=== PATIENT | male | born 1955 | race African-American/Black ===

== ENCOUNTER 2020-09-17 06:22 | Day surgery (SDC) | payer OTHER, SELFPAY ==
[2020-09-13 12:57] VITALS: BMI 34.2
--- NOTE | 2020-09-16 12:41 | P.CONAN_ITS ---
Documented by User: Shea De Leon 09/16/20 12:41 HPI - Anesthesia Eval Consult details Narrative: 65yo M for Colonoscopy [facility] Past Medical History Medical History (Updated 09/17/20 @ 07:27 by [place] Ramirez) Elevated cholesterol History of verrucae (wart) excision HTN (hypertension) Increased BMI Surgical History Surgical History H/O colonoscopy Social History Social History Smoking Status: Never smoker Use of substances other than those prescribed or required for medical reasons: No Advance Directives Information Provided: No Meds Allergies Allergy/AdvReac Type Severity Reaction Status Date / Time No Known Allergies Allergy Verified 09/13/20 13:01 Home Medications Medication Instructions Recorded Confirmed Type aspirin [Aspirin Low Dose] 81 mg PO DAILY 09/13/20 09/17/20 History atorvastatin 1 tab PO DAILY 09/13/20 09/13/20 History quinapril 40 mg PO DAILY 09/13/20 09/17/20 History Exam Exam Date and Time: September 16, 2020 1241 Height,Weight and Vital Signs: Height 5 ft 7 in Weight 99.337 kg Assessment and Plan Assessment Anesthesia Assessment: Chart Reviewed Documented by User: [place] Ramirez 09/17/20 07:28 [facility] Past Medical History Medical History (Updated 09/17/20 @ 07:27 by [place] Ramirez) Elevated cholesterol History of verrucae (wart) excision HTN (hypertension) Increased BMI Family History Family history of problems with anesthesia: No Surgical History Surgical History H/O colonoscopy History of Problems with Anesthesia: No Social History Social History Smoking Status: Never smoker Use of substances other than those prescribed or required for medical reasons: No Advance Directives Information Provided: No Meds Allergies Allergy/AdvReac Type Severity Reaction Status Date / Time No Known Allergies Allergy Verified 09/13/20 13:01 Home Medications Medication Instructions Recorded Confirmed Type aspirin [Aspirin Low Dose] 81 mg PO DAILY 09/13/20 09/17/20 History atorvastatin 1 tab PO DAILY 09/13/20 09/13/20 History quinapril 40 mg PO DAILY 09/13/20 09/17/20 History Exam Height,Weight and Vital Signs: Vital Signs Temp Pulse Resp BP Pulse Ox 09/17/20 07:00 97.1 F 64 16 132/68 98 Airway Mallampati Class: III TM Dist: >3cm Neck ROM: Full Denture: Upper and Lower Heart: RRR Lungs: CTAB Assessment and Plan Assessment Anesthesia Assessment: Anesthesia Plan Discussed and Chart Reviewed Final Anesthetic Review NPO: Yes ASA Class: II Final Preanesthetic Review: No Changes in Pt Med Stat, Meds/Allgs Chart Reviewed, Consent Obtained/Reviewed and Anes Risks/Benef Reviewed Patient Risk: Low Procedure Risk: Low Anesthetic Plan Anesthetic Plan: MAC: Disposition: Standard PACU
[2020-09-17 07:00] VITALS: BP 132/68; PULSE 64; RESP 16; TEMP 36.2; O2SAT 98
[2020-09-17] MEDS: Lactated Ringers 1,000 ML 100 ML IVCONT (07:00)
[2020-09-17 08:39] VITALS: BP 80/44; PULSE 64; RESP 12; TEMP 36.2; O2SAT 98
[2020-09-17 08:42] VITALS: BP 97/47; PULSE 56; RESP 14; O2SAT 97
--- NOTE | 2020-09-17 08:45 | PM.OP ---
Brief Operative Note Date of Service: 09/17/20 Pre-op diagnosis: Screening Post-op diagnosis: other (Colon polyps, Diverticulosis, Condylomatous disease of perianal area) Procedure: Colonoscopy to cecum and TI with biospy and removal of polyps, snare polypectomy of distal rectal polyp with placement of ink markings and a Resolution clip Surgeon: Jason Gayle Anesthesia: MAC Estimated blood loss (mL): 3.0 Pathology: other (A. Ascending colon polyps B. Distal rectal polyp) Condition: stable Disposition: other
[2020-09-17 08:54] VITALS: BP 99/53; PULSE 56; RESP 16; O2SAT 97
[2020-09-17 09:01] VITALS: BP 109/50; PULSE 57; RESP 16; O2SAT 97
--- NOTE | 2020-09-17 09:20 | HO.POSTANES ---
Post Anesthesia Evaluation Post Anesthesia Evaluation Vital Signs: Vital Signs Temp Pulse Resp BP Pulse Ox 09/17/20 09:01 97.1 F 57 16 109/50 L 97 09/17/20 08:54 56 16 99/53 L 97 09/17/20 08:42 56 14 97/47 L 97 09/17/20 08:39 97.1 F 64 12 80/44 L 98 09/17/20 07:00 97.1 F 64 16 132/68 98 Anesthesia: Monitored Mental Status: Awake Pain Control: Satisfactory Nausea/Vomiting: None Hydration: Adequate Anesthesia-Related Issues: No Anes. Related Issues
--- NOTE | 2020-09-17 09:50 | OP_ITS ---
SURGEON: Jason Gayel MD INDICATIONS: Full consent has been obtained from him for this, including risks of bleeding and perforation. PREOPERATIVE DIAGNOSIS: Colorectal cancer screening. POSTOPERATIVE DIAGNOSIS: PROCEDURE PERFORMED: ESTIMATED BLOOD LOSS: COMPLICATIONS: ANESTHESIA: Monitored anesthesia care. ASSISTANTS: SPECIMENS: POSTOPERATIVE DIAGNOSES: Colorectal cancer screening, colon polyps, diverticulosis, changes of perianal condyloma disease and previous surgery. DESCRIPTION OF PROCEDURE: The patient was placed in the left lateral decubitus position. The digital rectal exam revealed significant changes in the perianal area of his known previous perianal condyloma. The Olympus video pediatric colonoscope was entered into the rectum and advanced easily to the cecum. Once in the cecum, I did identify normal-appearing cecal pouch with appendiceal orifice and a normal-appearing ileocecal valve. The terminal ileum was cannulated and appeared normal. The scope withdrawn back in the colon. The entire cecum and ileocecal valve appeared normal. The scope was slowly withdrawn assessing all mucosal surfaces carefully. Preparation was excellent. In the ascending colon, there were several less than 5 mm polyps, which were all biopsied and completely removed with a cold biopsy forceps and placed in the same container. There was a mild amount of sigmoid diverticulosis. I did not visualize any sign of colitis or angiodysplasia. In the rectum, the scope was retroflexed visualizing a distal rectal polyp about 2 cm above the dentate line. This was actually seen best in the forward viewing position. The polypoid lesion was approximately 2 cm in diameter with some minimal friability. It appeared to be on a very short, but broad stalk. The polypoid lesion was removed via hot snare polypectomy in a single piece and recovered by taking it out of the patient on the end of the colonoscope. The scope was readvanced into the rectum. The polypectomy site was well visualized and appeared clean, without any sign of residual polyp nor bleeding. Given its gross appearance, I did inject some mucosal ink adjacent to it on both sides with good markings noted. I then used a single Resolution Clip on the polypectomy site with good deployment and good closure of the polypectomy site. There was good hemostasis. The scope was then withdrawn from the patient. He tolerated the procedure well and was returned to recovery area in stable condition. IMPRESSION: 1. Distal rectal polyp, status post snare polypectomy, placement of submucosal ink markings, and placement of a single Resolution Clip. 2. Small ascending colon polyps, status post biopsy and removal. 3. Diverticulosis. 4. Perianal changes of condyloma disease. PLAN: The results of the pathology will be checked. If the rectal polyp is only a tubular adenoma without any sign of significant dysplasia or cancer, then I would recommend a repeat colonoscopy within 1 year. He was advised not to use any aspirin or NSAIDs for at least a week. Further followup will be made depending upon the results of the pathology. PROCEDURES PERFORMED: Colonoscopy to the cecum and terminal ileum with biopsy and removal of polyps, snare polypectomy, placement of submucosal ink markings, and placement of a single Resolution Clip. MD BETTY Agosto/FRANCISCO / [id number] MTDLynne
== END 2020-09-17 09:51 | disposition home or self-care (01) ==
PROVIDERS: PCP Internal Medicine; Visit Provider Internal Medicine
PROC: 0DJD8ZZ Inspection of Lower Intestinal Tract, Via Natural or Artificial Opening Endoscopic (ICD-10-PCS; CPT 45378; principal; 2020-09-17 07:30)
DX: Z12.11 Encounter for screening for malignant neoplasm of colon (principal); C20 Malignant neoplasm of rectum; D12.2 Benign neoplasm of ascending colon; K57.30 Diverticulosis of large intestine without perforation or abscess without bleeding; A63.0 Anogenital (venereal) warts
CPT/HCPCS: 45385; 45380; 45381; 88305; 88341; 88342

== ENCOUNTER 2020-10-06 15:19 | Outpatient (REF) | payer OTHER, SELFPAY ==
[2020-10-06 18:35] LABS: Blood Urea Nitrogen 18 mg/dL (9-16); Estimated Glomerular Filt Rate > 60
== END 2020-10-06 15:20 | disposition home or self-care (01) ==
LOC: HO.LAB 15:19
PROVIDERS: PCP Internal Medicine; Visit Provider Surgery
DX: C20 Malignant neoplasm of rectum (principal); I10 Essential (primary) hypertension
CPT/HCPCS: 82378; 82565; 84520

== ENCOUNTER 2020-10-15 07:26 | Outpatient (REF) | payer OTHER, SELFPAY ==
[2020-10-15 08:03] LABS: Basophils Percent Auto 0.4 % (0-2); Eosinophils Absolute Auto 0.3 X10*3/uL (0.0-0.4); Eosinophils Percent Auto 3.7 % (0-4); Hematocrit 43.2 % (42-52); Hemoglobin 14.1 g/dl (14.0-18.0); Imm Gran Abs Auto 0.01 X10*3/uL (0.00-0.03); Imm Gran Pct Auto 0.1 % (0.0-0.4); Lymphocytes Percent Auto 50.8 % (20-40); MANUAL DIFF FLAG NO; Mean Corpuscular HGB Conc 32.6 g/dl (31.0-36.0); Mean Corpuscular Hemoglobin 29.7 pg (27.0-33.0); Mean Corpuscular Volume 90.9 fL (80-98); Mean Platelet Volume 8.8 fL (9.4-12.4); Monocytes Absolute Auto 0.6 X10*3/uL (0.1-1.2); Monocytes Percent Auto 7.3 % (2-11); Neutrophils Absolute Auto 2.9 X10*3/uL (2.0-8.3); Neutrophils Percent Auto 37.7 % (45-73); Platelet Count 235 X10*3/uL (160-400); Red Blood Count 4.75 X10*6/uL (4.60-5.80); Red Cell Distribution Width 12.7 % (11.0-16.0); White Blood Count 7.8 X10*3/uL (4.8-10.8)
[2020-10-15 08:11] LABS: Appearance Urine CLEAR; Color Urine YELLOW; Glucose Urine UA NEG (NEG); Leukocyte Esterase Urine NEG (NEG); Nitrite Urine NEG (NEG); PH 5.5 (5.0-8.0); Specific Gravity - Urine 1.025 (1.005-1.025); Urine Blood 1+ (NEG); Urine Ketones NEG (NEG); Urine Protein NEG (NEG-TRACE)
[2020-10-15 08:20] LABS: Estimated Average Glucose 120 mg/dL; Hemoglobin A1C 149.6193 umol/L; Hemoglobin A1c % 5.8 %
[2020-10-15 08:27] LABS: Alanine Aminotransferase 29 U/L (0-40); Albumin Level 4.4 g/dL (3.5-5.0); Alkaline Phosphatase 96 U/L (39-117); Anion Gap 12 (12-20); Aspartate Amino Transferase 26 U/L (5-37); Bilirubin Total 0.4 mg/dL (0.0-1.0); Blood Urea Nitrogen 17 mg/dL (9-16); Calcium 8.9 mg/dL (8.4-10.2); Carbon Dioxide 29 mmol/L (22-29); Chloride 101 mmol/L (96-108); Cholesterol 135 mg/dL; Estimated Glomerular Filt Rate > 60; Glucose Fasting 123 mg/dL (60-99); HDL Cholesterol 43 mg/dL; LDL Cholesterol Calculated 75 mg/dl; Potassium 4.6 mmol/l (3.3-5.1); Sodium 137 mmol/L (135-145); Total Protein 7.3 g/dL (6.5-8.0); Triglycerides 86 mg/dL
[2020-10-15 08:40] LABS: WBC Urine 0 /HPF (0-4)
[2020-10-15 08:41] LABS: RBC Urine 0-2 /HPF (0); Squamous Epithelial Cell Urine TRACE /LPF
[2020-10-15 09:26] LABS: Creatinine Urine 64.02 mg/dL; Microalbumin Urine < 5.0 mg/L
[2020-10-15 09:48] LABS: Prostate Specific Antigen Scr 6.91 ng/mL (<0.05-4.0); Reflex LDLD? No
== END 2020-10-15 07:27 | disposition home or self-care (01) ==
LOC: HO.LAB 07:26
PROVIDERS: Visit Provider Internal Medicine
DX: Z00.01 Encounter for general adult medical examination with abnormal findings (principal); R97.20 Elevated prostate specific antigen [PSA]; D72.820 Lymphocytosis (symptomatic); I10 Essential (primary) hypertension; R73.03 Prediabetes; E78.00 Pure hypercholesterolemia, unspecified; Z12.5 Encounter for screening for malignant neoplasm of prostate
CPT/HCPCS: 36415; 80053; 80061; 81001; 81003; 82043; 83036; 84153; 85025

== ENCOUNTER 2020-10-23 09:11 | Outpatient (REF) | payer OTHER, SELFPAY ==
[2020-10-23 09:57] LABS: MANUAL DIFF FLAG NO
[2020-10-23 10:00] LABS: Basophils Percent Auto 0.5 % (0-2); Eosinophils Absolute Auto 0.2 X10*3/uL (0.0-0.4); Eosinophils Percent Auto 3.2 % (0-4); Hematocrit 41.9 % (42-52); Imm Gran Abs Auto 0.01 X10*3/uL (0.00-0.03); Imm Gran Pct Auto 0.1 % (0.0-0.4); Lymphocytes Absolute Auto 3.7 X10*3/uL (1.2-4.9); Lymphocytes Percent Auto 48.9 % (20-40); Mean Corpuscular HGB Conc 33.4 g/dl (31.0-36.0); Mean Corpuscular Hemoglobin 30.4 pg (27.0-33.0); Mean Corpuscular Volume 90.9 fL (80-98); Mean Platelet Volume 8.8 fL (9.4-12.4); Monocytes Absolute Auto 0.7 X10*3/uL (0.1-1.2); Monocytes Percent Auto 9.4 % (2-11); Neutrophils Absolute Auto 2.8 X10*3/uL (2.0-8.3); Neutrophils Percent Auto 37.9 % (45-73); Platelet Count 229 X10*3/uL (160-400); Red Blood Count 4.61 X10*6/uL (4.60-5.80); Red Cell Distribution Width 12.9 % (11.0-16.0); White Blood Count 7.5 X10*3/uL (4.8-10.8)
[2020-10-23 10:23] LABS: Alanine Aminotransferase 23 U/L (0-40); Alkaline Phosphatase 85 U/L (39-117); Anion Gap 14 (12-20); Aspartate Amino Transferase 22 U/L (5-37); Bilirubin Direct 0.2 mg/dL (0.0-0.5); Bilirubin Total 0.5 mg/dL (0.0-1.0); Blood Urea Nitrogen 15 mg/dL (9-16); Calcium 9.1 mg/dL (8.4-10.2); Carbon Dioxide 28 mmol/L (22-29); Chloride 103 mmol/L (96-108); Estimated Glomerular Filt Rate > 60; Glucose Random 107 mg/dL (60-115); Potassium 4.7 mmol/l (3.3-5.1); Sodium 140 mmol/L (135-145); Total Protein 6.7 g/dL (6.5-8.0)
[2020-10-27 02:57] LABS: Beta-2 Glycoprotein IgA <9 SAU (<=20); Beta-2 Glycoprotein IgG <9 SGU (<=20); Beta-2 Glycoprotein IgM <9 SMU (<=20)
[2020-10-28 17:22] LABS: Amitriptyline, Urine NEGATIVE ng/mL (<100); Nortriptyline, Urine NEGATIVE ng/mL (<100)
== END 2020-10-23 09:12 | disposition home or self-care (01) ==
LOC: HO.LAB 09:11
PROVIDERS: PCP Internal Medicine; Visit Provider Internal Medicine
DX: C20 Malignant neoplasm of rectum (principal)
CPT/HCPCS: 36415; 80053; 80076; 80335; 82248; 82378; 85025; 86146

== ENCOUNTER 2020-10-25 07:34 | Outpatient (REF) | payer OTHER, SELFPAY ==
--- NOTE | 2020-10-25 07:36 | MR_ITS ---
EXAMINATION: MR PELVIS WITHOUT AND WITH CONTRAST CLINICAL INFORMATION: Rectal cancer. COMPARISON: Previous CT scan of the abdomen and pelvis most recent October 2020 TECHNIQUE: Sagittal, axial and coronal sequences through the pelvis with and without contrast. Patient received 10 mL of intravenous Gadavist contrast. FINDINGS: No definite rectal mass is seen. There is question of focal wall thickening of the high posterior rectum at the level of the levator ani muscles. This measures approximately 9 mm in thickness. This is seen in the posterior high rectum on the left from approximately the 3-7 o'clock axis, for example axial image 23 postcontrast. This may be artifactual related to underdistention and adherent stool. No definite enhancement seen in this region. The adjacent perirectal fat is normal in signal. There may be external hemorrhoids. There are no enlarged perirectal lymph nodes. There is mild diverticulosis of the colon. The bladder is not optimally distended. The prostate gland is slightly enlarged and protrudes into the base of the bladder. The prostate gland measures 4.4 x 5 x 4.7 cm in sagittal AP and transverse dimension. No ascites is seen. There are small bilateral inguinal lymph nodes. No enlarged lymph nodes are seen. No hernia is seen. Vascular structures are unremarkable. There is degenerative disc disease of the visualized lower lumbar spine. MR/MR pelvis wo/w con IMPRESSION: No definite rectal mass is seen. Question area of focal wall thickening of the high left posterior rectum from the 3 to 7 o'clock axis versus changes due to underdistention and stool. Normal perirectal fat. No adenopathy. Correlation with physical exam and colonoscopy recommended. Question external hemorrhoids. Enlarged prostate gland. Diverticulosis of the colon.
--- NOTE | 2020-10-25 09:04 | CT_ITS ---
EXAMINATION: CT CHEST, ABDOMEN AND PELVIS WITH IV CONTRAST CLINICAL INFORMATION: Rectal cancer COMPARISON: Previous abdominal and pelvic CT scan December 2008 TECHNIQUE: Axial images through the chest, abdomen and pelvis following oral and 85 mL Omnipaque 350 intravenous contrast. Sagittal and coronal reconstructions on the technologist workstation were performed. Patient dose 5 3 6 mg/cm. This CT examination was performed using dose optimization techniques as appropriate, variously including the following: *Automated exposure control *Adjustment of mA and/or kV according to patient size (this includes techniques or standardized protocols for targeted exams where dose is matched to indication/reason for exam; i.e. extremities or head) *Use of iterative reconstruction technique FINDINGS: Chest: There is a subsegmental atelectasis in the lingula. The lungs are otherwise clear. The visualized thyroid gland is normal. There are no enlarged hilar or mediastinal lymph nodes. The heart does not appear enlarged. There is mild coronary artery calcification. There is no pericardial effusion. The thoracic aorta is normal in caliber. There is no pleural effusion or pleural thickening. No chest wall mass or enlarged axillary lymph nodes are seen. Abdomen and pelvis: The liver is slightly low in attenuation questionable for fatty infiltration. No focal liver lesion is seen. The gallbladder is contracted. There is no biliary duct dilatation. The pancreas is unremarkable. The spleen is unremarkable. The adrenal glands are unremarkable. There is a small 8 mm low-attenuation lesion in the lower pole of the right kidney probably representing a cyst. The kidneys are otherwise unremarkable. The prostate gland is enlarged and protrudes into the base of the bladder. Prostate gland measures 5.3 x 5.8 cm. Prostate gland is heterogeneous in attenuation. The bladder is not optimally distended. There is question of mild diffuse bladder wall thickening. A definite rectal mass is not appreciated by CT scan. There is mild diverticulosis of the colon. Small and large bowel is otherwise unremarkable. The appendix is unremarkable. The stomach is unremarkable. No significant hernia is seen. There are small retroperitoneal lymph nodes in the abdomen and pelvis. There are small bilateral inguinal lymph nodes. No enlarged lymph nodes are seen. Vascular structures are unremarkable. There are degenerative changes of the thoracic and lumbar spine. There are mild degenerative changes at the hip joints. No fracture or suspicious bone lesion is seen. CT/CT abdomen pelvis w con IMPRESSION: Chest: No evidence of metastatic disease. Mild coronary artery calcification. Abdomen and pelvis: No evidence of metastatic disease. Slightly low-attenuation liver questionable for mild fatty infiltration. Mild diverticulosis of the colon. Enlarged prostate gland. Question mild diffuse bladder wall thickening. Small right renal cyst.
[2020-10-25] MEDS: iohexoL 350 MG/ML 100 ML INFUS..BTL IV (09:54)
[2020-10-29 21:42] LABS: Total Volume 900 mL
== END 2020-10-25 07:35 | disposition home or self-care (01) ==
LOC: HO.MRI 07:34
PROVIDERS: Absent Provider Surgery; PCP Internal Medicine; Visit Provider Internal Medicine
DX: C20 Malignant neoplasm of rectum (principal)
CPT/HCPCS: 71260; 72197; 74177; 81050; 83497; A9585; Q9967

== ENCOUNTER → 2020-10-27 15:59 | Outpatient (BNVA) | payer OTHER, SELFPAY | PROVIDERS: PCP Internal Medicine; Visit Provider Surgery | DX: C20 Malignant neoplasm of rectum (principal) ==

== ENCOUNTER → 2020-10-29 15:00 | Outpatient (BNV) | payer OTHER, SELFPAY | PROVIDERS: PCP Internal Medicine; Referring Provider Internal Medicine; Visit Provider Internal Medicine Medical Oncology | DX: C20 Malignant neoplasm of rectum (principal) | CPT/HCPCS: 99204; 99213; 99214 ==

== ENCOUNTER 2020-11-02 07:33 | Outpatient (REF) | payer OTHER, SELFPAY ==
[2020-11-02 08:46] LABS: Glucose Urine UA NEG (NEG); Leukocyte Esterase Urine NEG (NEG); Nitrite Urine NEG (NEG); PH 6.5 (5.0-8.0); Urine Blood TRACE (NEG); Urine Ketones NEG (NEG); Urine Protein NEG (NEG-TRACE)
[2020-11-02 08:50] LABS: Appearance Urine CLEAR; Color Urine YELLOW
[2020-11-02 09:03] LABS: WBC Urine 0-2 /HPF (0-4)
== END 2020-11-02 07:34 | disposition home or self-care (01) ==
LOC: HO.LAB 07:33
PROVIDERS: PCP Internal Medicine; Visit Provider Internal Medicine
DX: R31.21 Asymptomatic microscopic hematuria (principal)
CPT/HCPCS: 81001

== ENCOUNTER 2020-11-15 10:54 | Day surgery (SDC) | payer OTHER, SELFPAY ==
[2020-11-05 19:46] VITALS: BMI 74.2
--- NOTE | 2020-11-11 12:46 | P.CONAN_ITS ---
HPI - Anesthesia Eval Consult details Narrative: 65yo M for Sigmoidoscopy Flexible PMF[facility] Past Medical History Medical History (Updated 11/18/20 @ 15:54 by Dominique Rahman, RN) Elevated cholesterol History of verrucae (wart) excision HTN (hypertension) Hypertension Increased BMI Rectal cancer Surgical History Surgical History H/O colonoscopy Social History Social History (Updated 11/18/20 @ 15:29 by Dominique Rahman RN) Are you a primary client care representative to a significant other at home: No Alcohol intake: former Year quit: 2006 Smoking Status: Never smoker Packs Per Day: 1 Smoking Quit Date: 2006 Use of substances other than those prescribed or required for medical reasons: No Have you been hit, kicked, punched, or otherwise hurt by someone within the past year? If so, by whom?: No Do you feel safe in your current relationship?: No Spiritual Healthcare Practices: N/A [employer] Healthcare Practices: N/A Cultural Healthcare Practices: N/A Recently lost weight without trying: No Meds Allergies Allergy/AdvReac Type Severity Reaction Status Date / Time No Known Allergies Allergy Verified 11/15/20 11:21 Home Medications Medication Instructions Recorded Confirmed Type aspirin [Aspirin Low Dose] 81 mg PO DAILY 09/13/20 11/18/20 History quinapril 40 mg PO DAILY 09/13/20 11/18/20 History atorvastatin 20 mg tablet 20 mg PO DAILY 10/06/20 11/18/20 History Exam Exam Date and Time: November 11, 2020 1246 Height,Weight and Vital Signs: Height 5 ft 7 in Weight 215 kg Pertinent Lab Results Pertinent Lab Results: Laboratory Tests 10/23/20 10/23/20 09:35 09:35 WBC 7.5 Hgb 14.0 Hct 41.9 L Plt Count 229 Sodium 140 Potassium 4.7 Chloride 103 Carbon Dioxide 28 BUN 15 Creatinine 1.17 Assessment and Plan Assessment Anesthesia Assessment: Chart Reviewed
[2020-11-15 11:13] VITALS: BMI 33.6
[2020-11-15 11:22] VITALS: BP 137/72; PULSE 74; RESP 16; TEMP 37.1; O2SAT 100
[2020-11-15] MEDS: Lactated Ringers 1,000 ML 100 ML IVCONT (11:32)
--- NOTE | 2020-11-15 11:54 | MHC.SHP ---
Pre-Procedural Eval Section B Chief Complaint: Rectal Cancer Allergies: Allergies Allergy/AdvReac Type Severity Reaction Status Date / Time No Known Allergies Allergy Verified 11/15/20 11:21 Plan I have reviewed the history and physical and performed a pertinent physical examination on my patient. No changes have occurred unless specified.
--- NOTE | 2020-11-15 12:23 | PM.OP ---
Brief Operative Note Date of Service: 11/15/20 Pre-op diagnosis: Malignant Rectal polyp Post-op diagnosis: other (Malignant rectal polyp, extensive perianal condyloma) Surgeon: Guillermo Slaughter MD Anesthesia: MAC Estimated blood loss (mL): 0 Pathology: none sent Condition: stable Disposition: PACU
--- NOTE | 2020-11-15 12:24 | W.PM.OPN ---
Operative Note Operative Note Date of Service: 11/15/20 Narrative: PREOP DIAGNOSIS: HISTORY OF MALIGNANT RECTAL POLYP POST OP DIAGNOSIS: THE SAME, WITH EXTENSIVE PERIANAL CONDYLOMA SURGEON: CHELSEY BAJWA MD THE PATIENT IS A 65-YEAR-OLD MALE WHO HAD UNDERGONE COLONOSCOPY FOR SCREENING WITH DR. COVINGTON LAST SEPTEMBER 2020. HE WAS NOTED TO HAVE RECTAL POLYP DESCRIBED LOCATED ABOVE 2 CM PAST THE DENTATE LINE. THIS WAS REMOVED USING HOT SNARE. HOWEVER THE BIOPSY SHOWED ADENOCARCINOMA. HE WAS REFERRED TO ME. I explained to the patient that it it would be best to do a flexible does sigmoidoscopy to re-examine the area of polypectomy. We will examine this area and see if there is any residual lesion or evidence of a scar with so we can proceed with further re-excision if this is amenable transanally. He understood the technique of the as well as the risks, benefits, and alternatives. He was brought to the operating room and placed in left lateral decubitus position under monitored anesthesia care. A full digital rectal was done. He actually had extensive condylomatous lesions, bulky, a within the circumferential anal verge, extending to about 7 cm past the verge itself. Furthermore, this seemed to extend into the distal anoderm. Again this was bulky in most areas. I inserted the Olympus colonoscope and this was advanced gently with insufflation to about 25 cm. I withdrew stewart the scope with careful examination of the distal colonic mucosa.. There was note of tattoo markings in the distal rectum but there were no discernible lesions or any scarring from the recent polypectomy. Again the bulky condylomatous lesions were noted in the distal anoderm. The scope was withdrawn completely. He tolerated procedure well. There were no immediate complications. I will schedule him for an exam under anesthesia in see if we can excise the area with the tattoo markings. I will plan on doing biopsies of this condylomatous lesions as well. Estimated blood loss was 0.
[2020-11-15 12:25] VITALS: BP 90/51; PULSE 85; RESP 20; TEMP 36.6; O2SAT 97
--- NOTE | 2020-11-15 12:29 | ECG_ITS ---
Test Reason : NEW ONSET AT FLUTTER Blood Pressure : / mmHG Vent. Rate : 066 BPM Atrial Rate : 286 BPM P-R Int : 000 ms QRS Dur : 086 ms QT Int : 396 ms P-R-T Axes : 082 -27 011 degrees QTc Int : 415 ms Atrial flutter with variable A-V block Abnormal ECG When compared with ECG of 27-JAN-2003 16:13, Atrial flutter has replaced Sinus rhythm Referred By: Anuja Birch Electronically Signed By:GUILLERMO PEREZ
[2020-11-15 12:40] VITALS: BP 99/58; PULSE 66; RESP 18; O2SAT 98
[2020-11-15 12:55] VITALS: BP 138/77; PULSE 72; RESP 20; O2SAT 98
[2020-11-15 13:10] VITALS: BP 131/81; PULSE 70; RESP 18; O2SAT 100
== END 2020-11-15 14:00 | disposition home or self-care (01) ==
LOC: HO.SSS 10:55
PROVIDERS: PCP Internal Medicine; Visit Provider Surgery
PROC: 0DJD8ZZ Inspection of Lower Intestinal Tract, Via Natural or Artificial Opening Endoscopic (ICD-10-PCS; CPT 45330; principal; 2020-11-15 12:00)
DX: C20 Malignant neoplasm of rectum (principal); I10 Essential (primary) hypertension; A63.0 Anogenital (venereal) warts; Z79.899 Other long term (current) drug therapy; Z87.891 Personal history of nicotine dependence
CPT/HCPCS: 45330; 93005

== ENCOUNTER 2020-11-15 13:10 | Emergency (ER) | payer OTHER, SELFPAY ==
--- NOTE | 2020-11-15 | ECG_ITS ---
Test Reason : POST OP CHANGES Blood Pressure : / mmHG Vent. Rate : 069 BPM Atrial Rate : 293 BPM P-R Int : 000 ms QRS Dur : 102 ms QT Int : 364 ms P-R-T Axes : -88 -27 020 degrees QTc Int : 390 ms Atrial flutter with variable A-V block Abnormal ECG When compared with ECG of 15-NOV-2020 12:48, No significant change was found Referred By: Rizwan Garcia Electronically Signed By:GUILLERMO PEREZ
[2020-11-15 16:26] VITALS: BP 133/66; PULSE 72; RESP 17; TEMP 37.2; O2SAT 98; BMI 33.6
[2020-11-15 16:33] VITALS: PULSE 71
[2020-11-15 16:52] LABS: MANUAL DIFF FLAG NO
[2020-11-15 16:54] LABS: Basophils Percent Auto 0.5 % (0-2); Eosinophils Absolute Auto 0.2 X10*3/uL (0.0-0.4); Hematocrit 41.3 % (42-52); Hemoglobin 13.6 g/dl (14.0-18.0); Imm Gran Abs Auto 0.02 X10*3/uL (0.00-0.03); Imm Gran Pct Auto 0.2 % (0.0-0.4); Lymphocytes Absolute Auto 3.2 X10*3/uL (1.2-4.9); Lymphocytes Percent Auto 40.3 % (20-40); Mean Corpuscular HGB Conc 32.9 g/dl (31.0-36.0); Mean Platelet Volume 8.7 fL (9.4-12.4); Monocytes Absolute Auto 0.7 X10*3/uL (0.1-1.2); Neutrophils Absolute Auto 3.8 X10*3/uL (2.0-8.3); Platelet Count 208 X10*3/uL (160-400); Red Blood Count 4.54 X10*6/uL (4.60-5.80); Red Cell Distribution Width 13.2 % (11.0-16.0)
[2020-11-15] MEDS: Aspirin 81 MG TAB.CHEW 162 MG PO (16:55)
[2020-11-15 17:06] LABS: INTERNATIONAL NORM RATIO 1.1 (0.9-1.1)
[2020-11-15 17:08] LABS: Partial Thromboplastin Time 34.3 SEC (24.1-38.0)
[2020-11-15 17:27] LABS: Alanine Aminotransferase 22 U/L (0-40); Albumin Level 4.3 g/dL (3.5-5.0); Alkaline Phosphatase 88 U/L (39-117); Anion Gap 13 (12-20); Aspartate Amino Transferase 24 U/L (5-37); Bilirubin Direct 0.3 mg/dL (0.0-0.5); Bilirubin Total 0.6 mg/dL (0.0-1.0); Blood Urea Nitrogen 12 mg/dL (9-16); Calcium 9.4 mg/dL (8.4-10.2); Carbon Dioxide 29 mmol/L (22-29); Chloride 104 mmol/L (96-108); Creatinine Clr Calc Pharmacy 91.2; Estimated Glomerular Filt Rate > 60; Glucose Random 103 mg/dL (60-115); Potassium 4.7 mmol/L (3.3-5.1); Sodium 141 mmol/L (135-145); Total Protein 7.1 g/dL (6.5-8.0)
[2020-11-15 17:31] LABS: Troponin-I High Sensitivity 4.1 ng/L (<3.5-35.0)
[2020-11-15 17:37] VITALS: BP 130/75; PULSE 71; RESP 13; TEMP 37.1; O2SAT 99
--- NOTE | 2020-11-15 17:44 | ED.ARRPALP ---
HPI - Arrhythmia/Palpitations General Chief Complaint: Arrhythmia/Palpitations Stated Complaint: Flutter Time Seen by Provider: 11/15/20 16:24 Source: patient Mode of arrival: ambulatory Limitations: no limitations History of Present Illness HPI narrative: Patient history of hypertension and high cholesterol sent from short stay where he had colonoscopy done during cardiac monitoring showed atrial flutter confirmed by the EKG patient denies any palpitation no prior history of cardiac arrhythmias no syncope no dizziness no chest pain patient has previous the blood workup and physical and that time his heart rate was normal Related Data Home Medications Medication Instructions Recorded Confirmed aspirin [Aspirin Low Dose] 81 mg PO DAILY 09/13/20 11/05/20 quinapril 40 mg PO DAILY 09/13/20 11/05/20 atorvastatin 20 mg tablet 20 mg PO DAILY 10/06/20 11/05/20 Allergies Allergy/AdvReac Type Severity Reaction Status Date / Time No Known Allergies Allergy Verified 11/15/20 11:21 Review of Systems Review of Systems: Constitutional : No Weight loss, No Fever, No Chills ENT/Mouth : No sore throat, No Rhinorrhea Eyes: No Eye Pain, No Swelling Cardiovascular : No Chest Pain, no palpitations Respiratory : No Cough, No Sputum, no shortness of breath Gastrointestinal : no Nausea, No Vomiting, No Diarrhea, No abdominal Pain, no black stools Genitourinary : No Dysuria, No Urinary Frequency Musculoskeletal : No joint pain, No Myalgias, No Joint Swelling Skin : No Skin Lesions, No rash Neuro : No Weakness, No Numbness, No Dizziness, No Headache Psych : No Anxiety/Panic, No Depression Heme/Lymph: No Bruising, No Lymphadenopathy Endocrine : No Polyuria, No Polydipsia All other systems reviewed and are negative [facility] Past Medical History Medical History Elevated cholesterol History of verrucae (wart) excision HTN (hypertension) Hypertension Increased BMI Rectal cancer Surgical History H/O colonoscopy Social History Social History Alcohol intake: never Smoking Status: Never smoker Packs Per Day: 1 Use of substances other than those prescribed or required for medical reasons: No Advance Directives: No Advance Directives Information Provided: Yes Physical Exam Vital Signs: Vital Signs: Last Vital Signs Temp 98.7 F 11/15/20 17:37 Pulse 71 11/15/20 17:37 Resp 13 11/15/20 17:37 BP 130/75 11/15/20 17:37 Pulse Ox 99 11/15/20 17:37 Body Mass Index 33.6 Const: General: cooperative, healthy appearing, comfortable and no acute distress Orientation/consciousness: patient oriented x3 HENMT: Head: Yes normocephalic and Yes atraumatic Mouth: Normal oral and palatal mucosa present Eyes: General: appearance normal, both eyes and all related structures Neck: Neck: Yes normal visual inspection and Yes no JVD Resp: Effort & Inspection: normal respiratory effort Auscultation: clear to auscultation bilaterally, no crackles, no rales and no rhonchi Cardio: Jugular venous distension: no JVD Rate: regular rate Rhythm: abnormal rhythm regularly irregular Heart sounds: S1 normal heart sound present, S2 normal heart sound present and no murmurs Peripheral pulses: Peripheral pulses 2+ throughout GI: Inspection: Yes normal to inspection Palpation (GI): Soft to palpation and nontender Auscultation: normal bowel sounds Neuro: General: patient oriented x3, gait normal and no focal motor deficits Extrem: General: Yes normal to inspection, Yes no calf tenderness and No pedal edema Psych: Appearance: grossly normal Course Course Course Narrative: Patient with asymptomatic atrial flutter with controlled ventricular rate Boo score is only 1 no need for anticoagulation, case discussed with Dr. Loyd director of health education will follow-up as outpatient MDM - Arrhythmia/Palpitations Differential Diagnosis Differential diagnosis: Likely artial fibrillation and artial flutter Medical Records Attestation: I reviewed the patient's medical records. Lab Data Attestation: I reviewed the patient's lab results. Result diagrams: 11/15/20 16:47 11/15/20 16:47 Labs: Lab Results 11/15/20 11/15/20 11/15/20 Range/Units 16:47 16:47 16:47 WBC 8.0 (4.8-10.8) X10*3/uL RBC 4.54 L (4.60-5.80) X10*6/uL Hgb 13.6 L (14.0-18.0) g/dl Hct 41.3 L (42-52) % MCV 91.0 (80-98) fL MCH 30.0 (27.0-33.0) pg MCHC 32.9 (31.0-36.0) g/dl RDW 13.2 (11.0-16.0) % Plt Count 208 (160-400) X10*3/uL MPV 8.7 L (9.4-12.4) fL Immature Gran % (Auto) 0.2 (0.0-0.4) % Neut % (Auto) 48.0 (45-73) % Lymph % (Auto) 40.3 H (20-40) % [place] % (Auto) 9.0 (2-11) % Eos % (Auto) 2.0 (0-4) % Baso % (Auto) 0.5 (0-2) % Lymph # (Auto) 3.2 (1.2-4.9) X10*3/uL [place] # (Auto) 0.7 (0.1-1.2) X10*3/uL Eos # (Auto) 0.2 (0.0-0.4) X10*3/uL Baso # (Auto) 0.0 (0.0-0.2) X10*3/uL Abs Immat Gran (auto) 0.02 (0.00-0.03) X10*3/uL Absolute Neuts (auto) 3.8 (2.0-8.3) X10*3/uL Absolute Nucleated RBC 0.000 (0.0-0.012) X10*3/uL Nucleated RBC % (auto) 0.0 (0.0-0.2) /100WBC PT 13.0 (10.8-13.0) SEC INR 1.1 (0.9-1.1) APTT 34.3 (24.1-38.0) SEC Sodium 141 (135-145) mmol/L Potassium 4.7 (3.3-5.1) mmol/L Chloride 104 (96-108) mmol/L Carbon Dioxide 29 (22-29) mmol/L Anion Gap 13 (12-20) BUN 12 (9-16) mg/dL Creatinine 0.91 (0.5-1.4) mg/dL Estim Creat Clear Calc 91.2 Estimated GFR > 60 Random Glucose 103 (60-115) mg/dL Calcium 9.4 (8.4-10.2) mg/dL Total Bilirubin 0.6 (0.0-1.0) mg/dL Direct Bilirubin 0.3 (0.0-0.5) mg/dL AST 24 (5-37) U/L ALT 22 (0-40) U/L Alkaline Phosphatase 88 (39-117) U/L Troponin I High Sens (<3.5-35.0) ng/L Total Protein 7.1 (6.5-8.0) g/dL Albumin 4.3 (3.5-5.0) g/dL 11/15/20 Range/Units 16:47 WBC (4.8-10.8) X10*3/uL RBC (4.60-5.80) X10*6/uL Hgb (14.0-18.0) g/dl Hct (42-52) % MCV (80-98) fL MCH (27.0-33.0) pg MCHC (31.0-36.0) g/dl RDW (11.0-16.0) % Plt Count (160-400) X10*3/uL MPV (9.4-12.4) fL Immature Gran % (Auto) (0.0-0.4) % Neut % (Auto) (45-73) % Lymph % (Auto) (20-40) % [place] % (Auto) (2-11) % Eos % (Auto) (0-4) % Baso % (Auto) (0-2) % Lymph # (Auto) (1.2-4.9) X10*3/uL [place] # (Auto) (0.1-1.2) X10*3/uL Eos # (Auto) (0.0-0.4) X10*3/uL Baso # (Auto) (0.0-0.2) X10*3/uL Abs Immat Gran (auto) (0.00-0.03) X10*3/uL Absolute Neuts (auto) (2.0-8.3) X10*3/uL Absolute Nucleated RBC (0.0-0.012) X10*3/uL Nucleated RBC % (auto) (0.0-0.2) /100WBC PT (10.8-13.0) SEC INR (0.9-1.1) APTT (24.1-38.0) SEC Sodium (135-145) mmol/L Potassium (3.3-5.1) mmol/L Chloride (96-108) mmol/L Carbon Dioxide (22-29) mmol/L Anion Gap (12-20) BUN (9-16) mg/dL Creatinine (0.5-1.4) mg/dL Estim Creat Clear Calc Estimated GFR Random Glucose (60-115) mg/dL Calcium (8.4-10.2) mg/dL Total Bilirubin (0.0-1.0) mg/dL Direct Bilirubin (0.0-0.5) mg/dL AST (5-37) U/L ALT (0-40) U/L Alkaline Phosphatase (39-117) U/L Troponin I High Sens 4.1 (<3.5-35.0) ng/L Total Protein (6.5-8.0) g/dL Albumin (3.5-5.0) g/dL ECG Data Attestation: I personally reviewed and interpreted this ECG as follows: Interpretation: Atrial flutter with variable AV block ventricular rate 69 beats per minute no acute ST T wave changes no acute ischemia Discharge Plan Discharge Clinical Impression: Atrial flutter Qualifiers: Atrial flutter type: typical Qualified Code(s): I48.3 - Typical atrial flutter Patient Disposition: Home, Self-Care Instructions: Atrial Flutter (ED) Additional Instructions: Continue your meds daily follow-up with director of health education Report to the ER if any palpitation/dizziness/passing episode Prescriptions: No Action aspirin [Aspirin Low Dose] 81 mg Tablet,Delayed Release (Dr/Ec) 81 mg PO DAILY RF: 0 quinapril 40 mg Tablet 40 mg PO DAILY RF: 0 atorvastatin 20 mg tablet 20 mg PO DAILY RF: 0 Referrals: Dave Loyd MD [Physician] - 1 week Interventions: ED Discharge Assessment Last Done: 11/15/20 18:22 Discharge Date/Time: 11/15/20 18:26
== END 2020-11-15 18:26 | disposition home or self-care (01) ==
PROVIDERS: Emergency Provider Internal Medicine
DX: I48.3 Typical atrial flutter (principal); I10 Essential (primary) hypertension; Z85.048 Personal history of other malignant neoplasm of rectum, rectosigmoid junction, and anus
CPT/HCPCS: 36415; 80048; 80076; 84484; 85025; 85610; 85730; 93005; 99283; 99285

== ENCOUNTER → 2020-12-08 16:04 | Outpatient (BNVA) | payer OTHER, SELFPAY | PROVIDERS: PCP Internal Medicine; Visit Provider Surgery ==

== ENCOUNTER → 2020-12-13 14:49 | Outpatient (BNVA) | payer OTHER, SELFPAY | PROVIDERS: PCP Internal Medicine; Visit Provider Internal Medicine | DX: I48.3 Typical atrial flutter (principal); I10 Essential (primary) hypertension | CPT/HCPCS: 93005 ==

== ENCOUNTER → 2021-01-05 10:25 | Outpatient (REF) | payer OTHER, SELFPAY ==
--- NOTE | 2021-01-05 10:28 | CA_ITS ---
Transthoracic Echocardiogram Patient (Last, First, Middle): Naresh Pineda, Gender: Male Date of : 1955 Age: 65 Procedure Date: 01/05/2021 Procedure Type: Transthoracic Echocardiogram Location: OP Height: 170.18 cm Weight: 95.25 kg BSA: 2.06 m2 Heart Rate: bpm BP: 132 / 84 mmHg College Intern: MICHELLE Turner MD: Dave Loyd MD Skiver Machine Operator: Leo Juarez MD Symptoms: I48.3 - Typical atrial flutter Study Quality: Fair ECG Rhythm: Atrial flutter Conclusions: - 1. Normal LV systolic function 2. Mildly dilated left atrium 3. Normal cardiac valvular Doppler 4. Normal RV systolic pressure 5. No pericardial effusion Findings Left Ventricle Normal left ventricular size, thickness, and systolic function. The visually estimated ejection fraction is between 60-65%. Diastolic function is indeterminate on the basis of available data. Right Ventricle Mildly increased right ventricular cavity size. There is normal right ventricular systolic function. Atria The left atrium is mildly dilated. Interatrial shunt cannot be excluded. The right atrium was not well visualized. Aortic Valve Normal aortic valve structure and function. There is no aortic valve stenosis. There is no aortic valve regurgitation. Mitral Valve Normal mitral valve structure and function. There is trace mitral valve regurgitation. There is no mitral valve stenosis. Pulmonic Valve The pulmonic valve is likely normal. There is trace pulmonic valve regurgitation. Tricuspid Valve Normal tricuspid valve structure. There is mild tricuspid valve regurgitation. The right ventricular systolic pressure is 33 mmHg. There is no evidence of pulmonary hypertension. Great Vessels All visible segments of the aorta are normal in size. The pulmonary artery was not well visualized. Venous The inferior vena cava is normal in size and collapses greater than 50% with inspiration. Pericardium/Pleural There is no evidence of pericardial effusion. Prior Study Comparison No prior study available for comparison. Measurements 2D Linear Measurements IVSd: 0.87 0.6-0.9/0.6-1.0 cm LVIDd: 5.13 3.9-5.3/4.2-5.9 cm LVPWd: 0.86 0.7-1.1 cm Ao Root: 3.29 2.1-3.5 cm LV Mass: 195.77 67-162/88-224 g LVOT Diam: 2.18 3.0+(-)1.3 cm Aortic Valve AoV Pk Avni: 1.24 AoV Mn Avni: 0.86 AoV VTI: 0.27 AoV Pk Grad: 6.14 Aov Mn Grad: 3.29 LVOT LVOT Pk Avni: 0.90 LVOT Mn Avni: 0.59 LVOT VTI: 0.17 LVOT Pk Grad: 3.22 LVOT Mn Grad: 1.63 LVOT Diam: 2.18 LVOT Area: 3.72 Tricuspid Valve TR Pk Avni: 2.76 TR Pk Grad: 30.38 RA Press: 3.00 RVSP: 33.00 Great Vessels Aorta Ao Root-2D: 3.29 2.0-3.7 cm Ao Asc: 2.77 2.1-3.4 cm Ao Arch: 2.60 Updated in Other Vendor System with Status of Final Leo Juarez MD electronically signed on 01/05/2021 5:39:04 PM with status of Final
--- NOTE | 2021-01-05 11:00 | ECG_ITS ---
Hook-up date: 2021-01-05 11:25:00 Duration: 27:36:00 Test Indications: ATRIAL FLUTTER Medications: 131384 QRS complexes 484 Ventricular ectopics which represent <1 % of total QRS comp. * Supraventricular ectopics which represent % of total QRS comp. * Paced QRS complexs which represent % of total QRS comp. VENTRICULAR ECTOPY 482 Isolated 0 Bigeminal Cycles 1 Couplets 0 Runs 0 Beats in Runs * Beats LONGEST at * BPM at :: -- * Beats FASTEST at * BPM at :: -- SUPRAVENTRICULAR ECTOPY * Isolated * Couplets * Runs * Beats in Runs * Beats LONGEST at * BPM at :: -- * Beats FASTEST at * BPM at :: -- HEART RATES 40 MIN at 05:49:22 2021-01-06 75 AVG 143 MAX at 17:37:33 2021-01-05 LONGEST RR 2.0560 secs at 06:02:10 2021-01-06 S-T LEVELS Channel 1 - 128 mm at 11:25:00 2021-01-05 - 128 mm at 11:25:00 2021-01-05 Channel 2 - 128 mm at 11:25:00 2021-01-05 - 128 mm at 11:25:00 2021-01-05 Channel 3 - 128 mm at 03:04:41 -- - 128 mm at 03:04:41 Basic rhythm Atrial flutter Good rate control in atrial flutter noted with average HR of 75 bpm Occasional Premature ventricular complexes No diary submitted Referred By: Dave Loyd Overread By: MALLORY HERNÁNDEZ MD
== END ==
LOC: HO.SL 10:25
PROVIDERS: Visit Provider Internal Medicine
DX: I48.3 Typical atrial flutter (principal); G47.33 Obstructive sleep apnea (adult) (pediatric)
CPT/HCPCS: 93225; 93226; 93306; 95806

== ENCOUNTER 2021-01-07 08:20 | Day surgery (SDC) | payer OTHER, SELFPAY ==
[2020-12-31 13:54] VITALS: BMI 34.0
--- NOTE | 2021-01-06 09:56 | P.CONAN_ITS ---
Documented by User: Shea De Leon 01/06/21 10:02 HPI - Anesthesia Eval Consult details Narrative: 65yo M for EUA, Excision of Rectal Lesion, Excision Perianal Condyloma s/p flex sig with MAC 11/2020 - found to be in a flutter after procedure and sent to ED. Seen by cardiology 12/13/20 and started on Eliquisn (Cardiology OK'd stopping eliquis 2 days preop) [facility] Active Problems Active Problems: All Active Problems (Updated 12/31/20 @ 13:51 by Adelaide Eric) Rectal cancer (Acute) Essential hypertension (Acute) Typical atrial flutter (Acute) Perianal condylomata (Acute) Rectal cancer (Acute) Hypertension (Acute) Increased BMI (Acute) Past Medical History Medical History Elevated cholesterol Essential hypertension HTN (hypertension) Hx of flexible sigmoidoscopy Hypertension Increased BMI Perianal condylomata Rectal cancer Typical atrial flutter Family History Family History Father No problems noted. Mother No problems noted. Surgical History Surgical History H/O colonoscopy History of verrucae (wart) excision Social History Social History Are you a primary director of healthcare systems to a significant other at home: No Do you presently have visiting nurse or other home services: No Alcohol intake: former Year quit: 2006 Smoking Status: Former smoker Packs Per Day: 1 Smoking Quit Date: 2006 Have you been hit, kicked, punched, or otherwise hurt by someone within the past year? If so, by whom?: No Advance Directives: No Advance Directives Information Provided: No Advance Directives on File: No Recently lost weight without trying: No Meds Allergies Allergy/AdvReac Type Severity Reaction Status Date / Time No Known Allergies Allergy Verified 01/07/21 08:44 Home Medications Medication Instructions Recorded Confirmed Last Taken Type quinapril 40 mg PO DAILY 09/13/20 12/31/20 01/07/21 History atorvastatin 20 mg tablet 20 mg PO DAILY 10/06/20 12/31/20 Unknown History Exam Exam Date and Time: January 06, 2021 0956 Height,Weight and Vital Signs: Height 5 ft 7 in Weight 98.43 kg Pertinent Lab Results Pertinent Lab Results: Laboratory Tests 12/16/20 12/16/20 16:17 16:17 WBC 8.1 Hgb 13.4 L Hct 40.0 L Plt Count 200 Sodium 139 Potassium 4.2 Chloride 105 Carbon Dioxide 28 BUN 17 H Creatinine 1.01 Narrative Narrative: ECHO 12/2020 Conclusions: - 1. Normal LV systolic function 2. Mildly dilated left atrium 3. Normal cardiac valvular Doppler 4. Normal RV systolic pressure 5. No pericardial effusion EKG 12/2020 A flutter @ 75 with variable AV block Assessment and Plan Assessment Anesthesia Assessment: Chart Reviewed Documented by User: Octavia Coreas 01/07/21 10:19 [facility] Past Medical History Medical History Elevated cholesterol Essential hypertension HTN (hypertension) Hx of flexible sigmoidoscopy Hypertension Increased BMI Perianal condylomata Rectal cancer Typical atrial flutter Family History Family History Father No problems noted. Mother No problems noted. Surgical History Surgical History H/O colonoscopy History of verrucae (wart) excision Social History Social History Are you a primary director of healthcare systems to a significant other at home: No Do you presently have visiting nurse or other home services: No Alcohol intake: former Year quit: 2006 Smoking Status: Former smoker Packs Per Day: 1 Smoking Quit Date: 2006 Have you been hit, kicked, punched, or otherwise hurt by someone within the past year? If so, by whom?: No Advance Directives: No Advance Directives Information Provided: No Advance Directives on File: No Recently lost weight without trying: No Meds Allergies Allergy/AdvReac Type Severity Reaction Status Date / Time No Known Allergies Allergy Verified 01/07/21 08:44 Home Medications Medication Instructions Recorded Confirmed Last Taken Type quinapril 40 mg PO DAILY 09/13/20 12/31/20 01/07/21 History atorvastatin 20 mg tablet 20 mg PO DAILY 10/06/20 12/31/20 Unknown History Exam Airway Mallampati Class: II TM Dist: >3cm Neck ROM: Full Denture: Upper and Lower Assessment and Plan Assessment Anesthesia Assessment: Anesthesia Plan Discussed and Chart Reviewed Final Anesthetic Review NPO: Yes ASA Class: III Final Preanesthetic Review: No Changes in Pt Med Stat, Meds/Allgs Chart Reviewed, Consent Obtained/Reviewed and Anes Risks/Benef Reviewed Patient Risk: Intermediate Procedure Risk: Low Assessment/Block/Sedation in SS: Assess/Block/Sedation-SS Anesthetic Plan Anesthetic Plan: GA Disposition: Standard PACU
[2021-01-07 09:01] VITALS: BP 152/77; PULSE 81; RESP 16; TEMP 36.4; O2SAT 100
[2021-01-07] MEDS: Lactated Ringers 1,000 ML 100 ML IVCONT (09:19)
--- NOTE | 2021-01-07 09:54 | MHC.SHP ---
Pre-Procedural Eval Section B Chief Complaint: Rectal Cancer, Perianal condylomata Allergies: Allergies Allergy/AdvReac Type Severity Reaction Status Date / Time No Known Allergies Allergy Verified 01/07/21 08:44 Plan I have reviewed the history and physical and performed a pertinent physical examination on my patient. No changes have occurred unless specified.
[2021-01-07 11:00] VITALS: BP 142/72; PULSE 69; RESP 16; TEMP 36.1; O2SAT 97
[2021-01-07 11:05] VITALS: BP 126/71; PULSE 73; RESP 16; O2SAT 96
--- NOTE | 2021-01-07 11:06 | PM.OP ---
Brief Operative Note Date of Service: 01/07/21 Pre-op diagnosis: Bulky perianal and anal condyloma, history of malignant rectal polyp Post-op diagnosis: same Procedure: Exam under anesthesia, excision of perianal and anal condyloma Surgeon: Guillermo Slaughter MD Anesthesia: GLMA Estimated blood loss (mL): 20 Pathology: other (1. Perianal and anal condyloma 2. Biopsy of anterior perianal area) Condition: stable Disposition: PACU
[2021-01-07 11:10] VITALS: BP 137/62; PULSE 72; RESP 16; O2SAT 97
--- NOTE | 2021-01-07 11:13 | W.PM.OPN ---
Operative Note Operative Note Date of Service: 01/07/21 Narrative: Preop diagnosis: 1. Bulky perianal and anal condyloma 2. History of malignant rectal polyp Postop diagnosis: The same as above; also with condylomatous lesions on the penis Procedure: Exam under anesthesia, excision of bulky perianal and anal condyloma Surgeon: Guillermo Slaughter MD The patient is a 65-year-old male who had undergone colonoscopy last September 2020 and was noted to have a polyp that was removed in the area of the rectum. 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 I had done a follow-up flexible sigmoidoscopy last month and I was able to visualize the area of the polypectomy site because of the tattoo markings. However, despite multiple passes, I was unable to do discern any scar for any stigmata of a previous polypectomy. During flexible, he was also noted to have a very bulky perianal anal condyloma surrounding the circumference of the anal verge all the way to the anal canal past the dentate line. Some areas of the bulky condylomatous lesions extended all the way to about 8 cm from the anal verge. I explained to him therefore that it would be best to proceed with an exam under anesthesia and we will attempt to excise as much of the condylomatous lesions as we can and send these for pathology. Furthermore, I will reexamine the rectum transanally with direct visualization see if we can identify the previous polypectomy site. He understood the technique of procedure. He was aware of the risks, benefits, and alternatives. He was brought to the operating room and placed in prone henny-knife position under general anesthesia via laryngeal mask airway. The buttocks were retracted with wide tape laterally. The perianal areas prepped and draped in this was tell fashion. A surgical time-out was done. The patient received Cefotan 2 g IV preoperatively Again, examination of the perianal area area revealed very bulky condylomatous lesions in the circumference of the anal verge extending to about 8 cm from the verge itself on both the left and right side in some areas. I was able to insert a Jayden Harper retractor. The condylomatous lesions extended into the anal canal on both the left and right side and circumferentially, past the dentate line. I retracted the anal canal with the Jayden Harper retractor. I inspected the very distal rectum to see if I could identify the tattoo markings or any stigmata of the previous polypectomy. Despite optimizing the length of the Jayden Harper retractor, I was unable to see the markings at all. I then proceeded to attempt to excise as much of the bulky lesions. I used electrocautery and cauterized most of lesions in the perianal area down to a grayish eschar. I also excised some lesions that were on brought stalks on the left side. Lesions on the right side of the anal canal were excised with Metzenbaum scissors and I cauterized the base to achieve hemostasis. I continued to cauterize as much of the lesions I could down to grayish eschar. In view of the bulky nature of this lesions, I am skeptical as to whether we would be able to achieve adequate excision today. Furthermore, in view of the anticipated pain, I decided not to excise more of the lesions on the perianal skin. An area of the perianal skin anteriorly was seen to have some fronding and very raw appearance so I biopsied this and sent the specimen separately. I proceeded to apply [id number] stitch in an oozing area from an excised condyloma from a stalk on the right side using chromic 3-0 stitch to achieve hemostasis. I irrigated and was observed for hemostasis. Once hemostasis was ensured, I positioned a rolled Gelfoam packing into the anal canal. I infiltrated the perianal area with Marcaine 0.5% for postop analgesia. The procedures was then completed. The patient tolerated the procedure well. There were no immediate complications.. Initial and final counts of sponges and instruments were correct. Estimated blood loss was about 25 cc At the end of the procedure, examination of the little area also showed multiple condylomatous lesions on the penis. The patient was extubated without difficulty and transferred to the recovery room with stable vital signs.
[2021-01-07 11:15] VITALS: BP 139/86; PULSE 67; RESP 18; O2SAT 100
[2021-01-07 11:27] VITALS: BP 159/93; PULSE 68; RESP 18; TEMP 36.2; O2SAT 100
== END 2021-01-07 12:17 | disposition home or self-care (01) ==
PROVIDERS: Visit Provider Surgery
PROC: (CPT 46924; principal; 2021-01-07 11:20)
DX: A63.0 Anogenital (venereal) warts (principal); Z85.048 Personal history of other malignant neoplasm of rectum, rectosigmoid junction, and anus; K62.82 Dysplasia of anus; I10 Essential (primary) hypertension; I48.92 Unspecified atrial flutter; Z79.01 Long term (current) use of anticoagulants; Z79.899 Other long term (current) drug therapy; Z79.82 Long term (current) use of aspirin
CPT/HCPCS: 46924; 88305; J1100; J2250; J2405; J3010

== ENCOUNTER → 2021-01-20 10:54 | Outpatient (BNVA) | payer OTHER, SELFPAY | PROVIDERS: Visit Provider Surgery ==

== ENCOUNTER → 2021-02-03 15:13 | Outpatient (BNVA) | payer OTHER, SELFPAY | PROVIDERS: PCP Internal Medicine; Visit Provider Internal Medicine ==

== ENCOUNTER 2021-04-18 10:26 | Outpatient (REF) | payer OTHER, SELFPAY ==
[2021-04-18 10:30] LABS: MANUAL DIFF FLAG NO
[2021-04-18 10:37] LABS: Basophils Absolute Auto 0.1 X10*3/uL (0.0-0.2); Basophils Percent Auto 0.6 % (0-2); Eosinophils Absolute Auto 0.2 X10*3/uL (0.0-0.4); Eosinophils Percent Auto 2.8 % (0-4); Hematocrit 43.5 % (42-52); Hemoglobin 14.6 g/dl (14.0-18.0); Imm Gran Abs Auto 0.02 X10*3/uL (0.00-0.03); Imm Gran Pct Auto 0.2 % (0.0-0.4); Lymphocytes Absolute Auto 4.1 X10*3/uL (1.2-4.9); Lymphocytes Percent Auto 49.3 % (20-40); Mean Corpuscular HGB Conc 33.6 g/dl (31.0-36.0); Mean Corpuscular Hemoglobin 30.4 pg (27.0-33.0); Mean Corpuscular Volume 90.4 fL (80-98); Mean Platelet Volume 9.3 fL (9.4-12.4); Monocytes Absolute Auto 0.7 X10*3/uL (0.1-1.2); Monocytes Percent Auto 8.5 % (2-11); Neutrophils Absolute Auto 3.2 X10*3/uL (2.0-8.3); Neutrophils Percent Auto 38.6 % (45-73); Platelet Count 238 X10*3/uL (160-400); Red Blood Count 4.81 X10*6/uL (4.60-5.80); Red Cell Distribution Width 13.3 % (11.0-16.0); White Blood Count 8.4 X10*3/uL (4.8-10.8)
[2021-04-18 10:50] LABS: Estimated Average Glucose 126 mg/dL
[2021-04-18 11:06] LABS: Alanine Aminotransferase 19 U/L (0-40); Albumin Level 4.2 g/dL (3.5-5.0); Alkaline Phosphatase 91 U/L (39-117); Anion Gap 14 (12-20); Aspartate Amino Transferase 20 U/L (5-37); Bilirubin Total 0.8 mg/dL (0.0-1.0); Blood Urea Nitrogen 12 mg/dL (9-16); Calcium 9.4 mg/dL (8.4-10.2); Carbon Dioxide 25 mmol/L (22-29); Chloride 105 mmol/L (96-108); Cholesterol 134 mg/dL; Estimated Glomerular Filt Rate > 60; Glucose Fasting 118 mg/dL (60-99); HDL Cholesterol 47 mg/dL; LDL Cholesterol Calculated 70 mg/dl; Potassium 4.6 mmol/L (3.3-5.1); Sodium 139 mmol/L (135-145); Triglycerides 88 mg/dL
[2021-04-18 11:09] LABS: Glucose Urine UA NEG (NEG); Leukocyte Esterase Urine NEG (NEG); Nitrite Urine NEG (NEG); PH 5.5 (5.0-8.0); Specific Gravity - Urine >= 1.030 (1.005-1.025); Urine Blood TRACE (NEG); Urine Ketones NEG (NEG); Urine Protein NEG (NEG-TRACE)
[2021-04-18 11:13] LABS: Appearance Urine CLEAR; Color Urine YELLOW
[2021-04-18 11:19] LABS: Creatinine Urine 187.06 mg/dL; Microalbum/Creatinine Ratio Ur 10.6 ug/mg cr
[2021-04-18 11:29] LABS: Reflex LDLD? No
[2021-04-18 11:47] LABS: Bacteria Urine TRACE /LPF; Mucus Urine TRACE /LPF; RBC Urine 0-2 /HPF (0)
[2021-04-18 11:53] LABS: PSA,Total (Free>4and<10) 4.34 ng/mL (0.00-4.00)
[2021-04-19 11:27] LABS: Free Prostate Spec Ag 1.1 ng/mL; Percent Free Prostate Spec Ag 25 % (calc) (>25); Prostate Specific Ag Total 4.4 ng/mL (< OR = 4.0)
== END 2021-04-18 10:27 | disposition home or self-care (01) ==
LOC: HO.LNP 10:26
PROVIDERS: Visit Provider Internal Medicine
DX: Z00.00 Encounter for general adult medical examination without abnormal findings (principal); D72.820 Lymphocytosis (symptomatic); I10 Essential (primary) hypertension; R73.09 Other abnormal glucose; E78.00 Pure hypercholesterolemia, unspecified
CPT/HCPCS: 80053; 80061; 81001; 81003; 82043; 83036; 84153; 84154; 85025

== ENCOUNTER → 2021-05-02 10:51 | Outpatient (BNVA) | payer OTHER, SELFPAY | PROVIDERS: PCP Internal Medicine; Visit Provider Surgery ==

== ENCOUNTER → 2021-06-02 15:09 | Outpatient (BNVA) | payer OTHER, SELFPAY | PROVIDERS: PCP Internal Medicine; Referring Provider Internal Medicine; Visit Provider Internal Medicine | DX: I48.3 Typical atrial flutter (principal); I10 Essential (primary) hypertension | CPT/HCPCS: 93005 ==

== ENCOUNTER 2021-06-10 10:27 | Outpatient (REF) | payer OTHER, SELFPAY ==
[2021-06-10 10:53] LABS: INTERNATIONAL NORM RATIO 1.6 (0.9-1.1); Prothrombin Time 17.8 SEC (9.9-13.0)
== END 2021-06-10 10:28 | disposition home or self-care (01) ==
LOC: HO.LNP 10:27
PROVIDERS: Visit Provider Internal Medicine
DX: I48.92 Unspecified atrial flutter (principal)
CPT/HCPCS: 85610

== ENCOUNTER 2021-06-17 10:13 | Outpatient (REF) | payer OTHER, SELFPAY ==
[2021-06-17 10:26] LABS: INTERNATIONAL NORM RATIO 2.2 (0.9-1.1); Prothrombin Time 25.8 SEC (9.9-13.0)
== END 2021-06-17 10:14 | disposition home or self-care (01) ==
LOC: HO.LNP 10:13
PROVIDERS: Visit Provider Internal Medicine
DX: I48.92 Unspecified atrial flutter (principal)
CPT/HCPCS: 85610

== ENCOUNTER → 2021-06-24 08:03 | Outpatient (BNVA) | payer OTHER, SELFPAY | PROVIDERS: PCP Internal Medicine; Visit Provider Internal Medicine | DX: I48.3 Typical atrial flutter (principal); Z51.81 Encounter for therapeutic drug level monitoring; Z79.01 Long term (current) use of anticoagulants | CPT/HCPCS: 85610; 99202 ==

== ENCOUNTER → 2021-06-27 10:59 | Outpatient (BNVA) | payer OTHER, SELFPAY | PROVIDERS: PCP Internal Medicine; Visit Provider Internal Medicine | DX: I48.3 Typical atrial flutter (principal); Z51.81 Encounter for therapeutic drug level monitoring; Z79.01 Long term (current) use of anticoagulants | CPT/HCPCS: 85610; 99211 ==

== ENCOUNTER → 2021-07-08 08:25 | Outpatient (BNVA) | payer OTHER, SELFPAY | PROVIDERS: PCP Internal Medicine; Visit Provider Internal Medicine | DX: I48.3 Typical atrial flutter (principal); Z51.81 Encounter for therapeutic drug level monitoring; Z79.01 Long term (current) use of anticoagulants | CPT/HCPCS: 85610; 99211 ==

== ENCOUNTER → 2021-07-22 08:16 | Outpatient (BNVA) | payer OTHER, SELFPAY | PROVIDERS: PCP Internal Medicine; Visit Provider Internal Medicine | DX: I48.3 Typical atrial flutter (principal); Z51.81 Encounter for therapeutic drug level monitoring; Z79.01 Long term (current) use of anticoagulants | CPT/HCPCS: 85610; 99211 ==

== ENCOUNTER → 2021-08-05 08:08 | Outpatient (BNVA) | payer OTHER, SELFPAY | PROVIDERS: PCP Internal Medicine; Visit Provider Internal Medicine | DX: I48.3 Typical atrial flutter (principal); Z51.81 Encounter for therapeutic drug level monitoring; Z79.01 Long term (current) use of anticoagulants | CPT/HCPCS: 85610; 99211 ==

== ENCOUNTER → 2021-08-10 15:39 | Outpatient (BNVA) | payer OTHER, SELFPAY | PROVIDERS: PCP Internal Medicine; Referring Provider Internal Medicine; Visit Provider Surgery ==

== ENCOUNTER → 2021-08-12 16:01 | Outpatient (BNVA) | payer OTHER, SELFPAY | PROVIDERS: PCP Internal Medicine; Visit Provider Internal Medicine | DX: I48.3 Typical atrial flutter (principal); Z51.81 Encounter for therapeutic drug level monitoring; Z79.01 Long term (current) use of anticoagulants | CPT/HCPCS: 85610; 99211 ==

== ENCOUNTER 2021-08-22 06:23 | Day surgery (SDC) | payer OTHER, SELFPAY ==
[2021-08-15 14:13] VITALS: BMI 34.1
[2021-08-16 09:05] VITALS: BMI 33.8
[2021-08-22 06:51] VITALS: BP 146/78; PULSE 86; RESP 16; TEMP 36.7; O2SAT 100
[2021-08-22] MEDS: Lactated Ringers 1,000 ML 50 ML IVCONT (07:02)
[2021-08-22 07:16] LABS: INTERNATIONAL NORM RATIO 1.1 (0.9-1.1); Prothrombin Time 12.2 SEC (9.9-13.0)
--- NOTE | 2021-08-22 07:24 | P.CONAN_ITS ---
[facility] Active Problems Active Problems: All Active Problems (Updated 08/16/21 @ 09:07 by Richelle philip RN) Rectal cancer (Acute) Current use of anticoagulant therapy (Acute) Essential hypertension (Acute) Typical atrial flutter (Acute) Perianal condylomata (Acute) Rectal cancer (Acute) Hypertension (Acute) Increased BMI (Acute) Past Medical History Medical History Elevated cholesterol Essential hypertension HTN (hypertension) Hx of flexible sigmoidoscopy Hypertension Increased BMI Perianal condylomata Rectal cancer Typical atrial flutter Wears dentures Family History Family History Father No problems noted. Mother No problems noted. Family history of problems with anesthesia: No Surgical History Surgical History H/O colonoscopy History of excision of lesion History of verrucae (wart) excision History of Problems with Anesthesia: No Social History Social History Are you a primary care specialist to a significant other at home: No Do you presently have visiting nurse or other home services: No Alcohol intake: former Year quit: 2006 Patient Tobacco Use Status: Former Tobacco user Quit Date: 2006 Cigarette Packs Per Day: 1 Use of substances other than those prescribed or required for medical reasons: No Are you DNR?: No Advance Directives: No Advance Directives Information Provided: Yes Advance Directives on File: No Meds Allergies Allergy/AdvReac Type Severity Reaction Status Date / Time No Known Allergies Allergy Verified 08/22/21 06:41 Active Medications: Current Medications Lactated Ringer's (Lr) 1,000 mls @ 50 mls/hr IVCONT .Q20H TENZIN Last Admin: 08/22/21 07:02 Dose: 50 mls/hr Documented by: Sodium Biphosphate/Sodium Phosphate (Sodium Phosphate,Pierce-Dibasic 133 Ml Enema) 133 ml SC ONCE PRN PRN Reason: Poor Colonoscopy Prep Results Home Medications Medication Instructions Recorded Confirmed Last Taken Type quinapril 40 mg tablet 40 mg PO DAILY 09/13/20 08/16/21 01/07/21 History atorvastatin 20 mg tablet 20 mg PO DAILY 10/06/20 08/16/21 Unknown History warfarin 5 mg tablet 5 mg PO DAILY 06/24/21 08/22/21 08/16/21 History Exam Exam Date and Time: August 22, 2021 0724 Height,Weight and Vital Signs: Height 5 ft 7 in Weight 97.976 kg Last Vital Signs Temp 98.0 F 08/22/21 06:51 Pulse 86 08/22/21 06:51 Resp 16 08/22/21 06:51 BP 146/78 H 08/22/21 06:51 Pulse Ox 100 08/22/21 06:51 Pertinent Lab Results Pertinent Lab Results: Laboratory Tests 08/22/21 06:53 PT 12.2 INR 1.1 Airway Mallampati Class: III TM Dist: >3cm Neck ROM: Full Heart: RRR Lungs: CTA Assessment and Plan Assessment Anesthesia Assessment: Anesthesia Plan Discussed and Chart Reviewed Final Anesthetic Review Family History of Problems with Anesthesia: No History of Problems with Anesthesia: No ASA Class: III Final Preanesthetic Review: Meds/Allgs Chart Reviewed, Consent Obtained/Reviewed and Anes Risks/Benef Reviewed Patient Risk: Intermediate Procedure Risk: Low Anesthetic Plan Anesthetic Plan: MAC: Disposition: Standard PACU
[2021-08-22 08:29] VITALS: BP 95/57; PULSE 72; RESP 18; TEMP 36.7; O2SAT 100
--- NOTE | 2021-08-22 08:35 | P.BOP_ITS ---
Brief Operative Note Date of Service: 08/22/21 Pre-op diagnosis: Screening Post-op diagnosis: other (Colon polyp) Procedure: Colonoscopy to the cecum and TI with hot snare polypectomy(not recovered) and placement of 1 Resolution clip Surgeon: Jason Gayle Anesthesia: MAC Was an Director Of Optimization used for this Procedure?: No Estimated blood loss (mL): 1.0 Pathology: none sent Condition: stable Disposition: PACU
[2021-08-22 08:45] VITALS: BP 105/68; PULSE 63; RESP 16; TEMP 36.7; O2SAT 98
--- NOTE | 2021-08-22 12:12 | OP_ITS ---
SURGEON: Jason Gayle MD INDICATIONS: The patient presents for followup of rectal cancer and tubular adenoma of the colon. Full consent has been obtained from him for this, including risks of bleeding and perforation. PREOPERATIVE DIAGNOSIS: POSTOPERATIVE DIAGNOSIS: PROCEDURE PERFORMED: Colonoscopy to the cecum and terminal ileum with snare polypectomy and placement of 1 resolution clip. ESTIMATED BLOOD LOSS: COMPLICATIONS: ANESTHESIA: Monitored anesthesia care. ASSISTANTS: SPECIMENS: PREOPERATIVE DIAGNOSES: Colorectal cancer screening, history of rectal cancer, history of tubular adenoma of the colon. POSTOPERATIVE DIAGNOSES: Colorectal cancer screening, history of rectal cancer, history of tubular adenoma of the colon, colon polyp, diverticulosis, internal hemorrhoids, perianal condyloma. DESCRIPTION OF PROCEDURE: The patient was placed in the left lateral decubitus position. The digital rectal exam revealed the known changes of the perianal condylomata. The Olympus video pediatric colonoscope was entered into the rectum and advanced easily to the cecum. Once in the cecum, I did identify normal-appearing cecal pouch with appendiceal orifice and a normal-appearing ileocecal valve. The terminal ileum was cannulated and appeared normal. The scope was withdrawn back in the colon. The entire cecum and ileocecal valve appeared normal. The scope was slowly withdrawn assessing all mucosal surfaces carefully. Preparation was excellent. In the ascending colon, was an approximately 6 to 8 mm grossly adenomatous polyp, which was snared, but not recovered with the hot snare. The polypectomy site appeared clean, without any sign of residual polyp nor bleeding. A single clip was applied with good deployment and good hemostasis. I did not visualize any other polyps, colitis, nor angiodysplasia. There was a mild amount of sigmoid diverticulosis. In the rectum, the scope was retroflexed visualizing some internal hemorrhoids as well as changes of what appeared to be the condylomata. In the distal rectum, was the site of the previously placed submucosal ink markings. In between the 2 markings, was an area of scarring consistent with the previous polypectomies. There was no sign of any polyp tissue nor ulceration. The scope was withdrawn from the patient. He tolerated the procedure well and was returned to the recovery area in stable condition. IMPRESSION: 1. Colon polyp, status post snare polypectomy and placement of a single resolution clip. 2. Diverticulosis. 3. Changes of perianal condylomata. 4. Internal hemorrhoids. 5. Previous polypectomy site of the malignant rectal polyp appeared clean and without any sign of residual polyp tissue. PLAN: I would recommend a repeat colonoscopy within 1 year for further followup. He was advised he could resume his Coumadin today at the normal dose and then have that adjusted as per the [facility]madin [facility]. He will otherwise see me on a p.r.n. basis. MD BETTY Agosto/FRANCISCO / [id number]
== END 2021-08-22 09:15 | disposition home or self-care (01) ==
PROVIDERS: PCP Internal Medicine; Visit Provider Internal Medicine
PROC: 0DJD8ZZ Inspection of Lower Intestinal Tract, Via Natural or Artificial Opening Endoscopic (ICD-10-PCS; CPT 45378; principal; 2021-08-22 07:30)
DX: Z12.11 Encounter for screening for malignant neoplasm of colon (principal); Z85.048 Personal history of other malignant neoplasm of rectum, rectosigmoid junction, and anus; Z86.010 Personal history of colon polyps; D12.2 Benign neoplasm of ascending colon; K57.30 Diverticulosis of large intestine without perforation or abscess without bleeding; K64.8 Other hemorrhoids; A63.0 Anogenital (venereal) warts; I10 Essential (primary) hypertension; E78.00 Pure hypercholesterolemia, unspecified; I48.3 Typical atrial flutter; Z79.01 Long term (current) use of anticoagulants; Z79.899 Other long term (current) drug therapy
CPT/HCPCS: 45385; 36415; 85610

== ENCOUNTER → 2021-08-30 15:12 | Outpatient (BNVA) | payer OTHER, SELFPAY | PROVIDERS: PCP Internal Medicine; Referring Provider Internal Medicine; Visit Provider Internal Medicine | DX: I48.3 Typical atrial flutter (principal); I10 Essential (primary) hypertension | CPT/HCPCS: 85610; 93005; 99211 ==

== ENCOUNTER → 2021-09-07 16:03 | Outpatient (BNVA) | payer OTHER, SELFPAY | PROVIDERS: PCP Internal Medicine; Visit Provider Internal Medicine | DX: I48.3 Typical atrial flutter (principal) | CPT/HCPCS: 85610; 99211 ==

== ENCOUNTER → 2021-09-16 08:28 | Outpatient (BNVA) | payer OTHER, SELFPAY | PROVIDERS: PCP Internal Medicine; Visit Provider Internal Medicine | DX: I48.3 Typical atrial flutter (principal); Z51.81 Encounter for therapeutic drug level monitoring; Z79.01 Long term (current) use of anticoagulants | CPT/HCPCS: 85610; 99211 ==

== ENCOUNTER → 2021-10-03 09:49 | Outpatient (BNVA) | payer OTHER, SELFPAY | PROVIDERS: PCP Internal Medicine; Visit Provider Internal Medicine | DX: I48.3 Typical atrial flutter (principal); Z51.81 Encounter for therapeutic drug level monitoring; Z79.01 Long term (current) use of anticoagulants | CPT/HCPCS: 85610; 99211 ==

== ENCOUNTER → 2021-10-14 08:21 | Outpatient (BNVA) | payer OTHER, SELFPAY | PROVIDERS: PCP Internal Medicine; Visit Provider Internal Medicine | DX: I48.3 Typical atrial flutter (principal); Z51.81 Encounter for therapeutic drug level monitoring; Z79.01 Long term (current) use of anticoagulants | CPT/HCPCS: 85610; 99211 ==

== ENCOUNTER 2021-10-27 10:35 | Outpatient (REF) | payer OTHER, SELFPAY ==
[2021-10-27 11:37] LABS: Estimated Average Glucose 123 mg/dL; Hemoglobin A1c % 5.9 %
[2021-10-27 11:38] LABS: Alanine Aminotransferase 27 U/L (0-40); Albumin Level 3.9 g/dL (3.5-5.0); Alkaline Phosphatase 80 U/L (39-117); Aspartate Amino Transferase 25 U/L (5-37); Bilirubin Direct 0.2 mg/dL (0.0-0.5); Bilirubin Total 0.5 mg/dL (0.0-1.0); Cholesterol 157 mg/dL; Glucose Fasting 117 mg/dL (60-99); HDL Cholesterol 41 mg/dL; LDL Cholesterol Calculated 92 mg/dl; Total Protein 6.9 g/dL (6.5-8.0); Triglycerides 121 mg/dL
[2021-10-27 11:57] LABS: Reflex LDLD? No
== END 2021-10-27 10:36 | disposition home or self-care (01) ==
LOC: HO.LNP 10:35
PROVIDERS: Visit Provider Internal Medicine
DX: E78.00 Pure hypercholesterolemia, unspecified (principal); R73.03 Prediabetes
CPT/HCPCS: 80061; 80076; 82947; 83036

== ENCOUNTER → 2021-10-28 08:23 | Outpatient (BNVA) | payer OTHER, SELFPAY | PROVIDERS: PCP Internal Medicine; Visit Provider Internal Medicine | DX: I48.3 Typical atrial flutter (principal); Z51.81 Encounter for therapeutic drug level monitoring; Z79.01 Long term (current) use of anticoagulants | CPT/HCPCS: 85610; 99211 ==

== ENCOUNTER → 2021-11-04 08:16 | Outpatient (BNVA) | payer OTHER, SELFPAY | PROVIDERS: PCP Internal Medicine; Visit Provider Internal Medicine | DX: I48.3 Typical atrial flutter (principal); Z51.81 Encounter for therapeutic drug level monitoring; Z79.01 Long term (current) use of anticoagulants | CPT/HCPCS: 85610; 99211 ==

== ENCOUNTER → 2021-11-11 08:05 | Outpatient (BNVA) | payer OTHER, SELFPAY | PROVIDERS: PCP Internal Medicine; Visit Provider Internal Medicine | DX: I48.3 Typical atrial flutter (principal); Z51.81 Encounter for therapeutic drug level monitoring; Z79.01 Long term (current) use of anticoagulants | CPT/HCPCS: 85610; 99211 ==

== ENCOUNTER → 2021-11-15 09:07 | Outpatient (BNVA) | payer MEDICARE, SELFPAY | PROVIDERS: PCP Internal Medicine; Visit Provider Internal Medicine | DX: I48.3 Typical atrial flutter (principal); Z51.81 Encounter for therapeutic drug level monitoring; Z79.01 Long term (current) use of anticoagulants | CPT/HCPCS: 85610; 99211 ==

== ENCOUNTER → 2021-11-23 08:17 | Outpatient (BNVA) | payer MEDICARE, SELFPAY | PROVIDERS: PCP Internal Medicine; Visit Provider Internal Medicine | DX: I48.3 Typical atrial flutter (principal); Z51.81 Encounter for therapeutic drug level monitoring; Z79.01 Long term (current) use of anticoagulants | CPT/HCPCS: 85610; 99211 ==

== ENCOUNTER → 2021-11-24 09:34 | Outpatient (BNVA) | payer MEDICARE, SELFPAY | PROVIDERS: PCP Internal Medicine; Referring Provider Internal Medicine; Visit Provider Surgery | DX: Z85.048 Personal history of other malignant neoplasm of rectum, rectosigmoid junction, and anus (principal); A63.0 Anogenital (venereal) warts | CPT/HCPCS: 99212 ==

== ENCOUNTER → 2021-12-06 08:51 | Outpatient (BNVA) | payer MEDICARE, SELFPAY | PROVIDERS: PCP Internal Medicine; Visit Provider Internal Medicine | DX: I48.92 Unspecified atrial flutter (principal); Z51.81 Encounter for therapeutic drug level monitoring; Z79.01 Long term (current) use of anticoagulants | CPT/HCPCS: 85610; 99211 ==

== ENCOUNTER → 2021-12-13 08:54 | Outpatient (BNVA) | payer MEDICARE, SELFPAY | PROVIDERS: PCP Internal Medicine; Visit Provider Internal Medicine | DX: I48.3 Typical atrial flutter (principal); Z51.81 Encounter for therapeutic drug level monitoring; Z79.01 Long term (current) use of anticoagulants | CPT/HCPCS: 85610; 99211 ==

== ENCOUNTER → 2021-12-27 08:34 | Outpatient (BNVA) | payer MEDICARE, SELFPAY | PROVIDERS: PCP Internal Medicine; Visit Provider Internal Medicine | DX: I48.92 Unspecified atrial flutter (principal); Z51.81 Encounter for therapeutic drug level monitoring; Z79.01 Long term (current) use of anticoagulants | CPT/HCPCS: 85610; 99211 ==

== ENCOUNTER → 2022-01-10 08:47 | Outpatient (BNVA) | payer MEDICARE, SELFPAY | PROVIDERS: PCP Internal Medicine; Visit Provider Internal Medicine | DX: I48.3 Typical atrial flutter (principal); Z51.81 Encounter for therapeutic drug level monitoring; Z79.01 Long term (current) use of anticoagulants | CPT/HCPCS: 85610; 99211 ==

== ENCOUNTER → 2022-01-24 09:12 | Outpatient (BNVA) | payer MEDICARE, SELFPAY | PROVIDERS: PCP Internal Medicine; Visit Provider Internal Medicine | DX: I48.3 Typical atrial flutter (principal); Z79.01 Long term (current) use of anticoagulants; Z51.81 Encounter for therapeutic drug level monitoring | CPT/HCPCS: 85610; 99211 ==

== ENCOUNTER → 2022-01-27 08:51 | Outpatient (BNVA) | payer MEDICARE, SELFPAY | PROVIDERS: PCP Internal Medicine; Visit Provider Internal Medicine | DX: I48.3 Typical atrial flutter (principal); Z79.01 Long term (current) use of anticoagulants; Z51.81 Encounter for therapeutic drug level monitoring | CPT/HCPCS: 85610; 99211 ==

== ENCOUNTER → 2022-02-03 09:09 | Outpatient (BNVA) | payer MEDICARE, SELFPAY | PROVIDERS: PCP Internal Medicine; Visit Provider Internal Medicine | DX: I48.3 Typical atrial flutter (principal); Z79.01 Long term (current) use of anticoagulants; Z51.81 Encounter for therapeutic drug level monitoring | CPT/HCPCS: 85610; 99211 ==

== ENCOUNTER → 2022-02-16 09:13 | Outpatient (BNVA) | payer MEDICARE, SELFPAY | PROVIDERS: PCP Internal Medicine; Referring Provider Internal Medicine; Visit Provider Internal Medicine | DX: I48.3 Typical atrial flutter (principal); I10 Essential (primary) hypertension | CPT/HCPCS: 99212 ==

== ENCOUNTER → 2022-02-17 08:59 | Outpatient (BNVA) | payer MEDICARE, SELFPAY | PROVIDERS: PCP Internal Medicine; Visit Provider Internal Medicine | DX: I48.0 Paroxysmal atrial fibrillation (principal); Z79.01 Long term (current) use of anticoagulants; Z51.81 Encounter for therapeutic drug level monitoring | CPT/HCPCS: 85610; 99211 ==

== ENCOUNTER → 2022-03-03 08:48 | Outpatient (BNVA) | payer MEDICARE, SELFPAY | PROVIDERS: PCP Internal Medicine; Visit Provider Internal Medicine | DX: I48.3 Typical atrial flutter (principal); Z79.01 Long term (current) use of anticoagulants; Z51.81 Encounter for therapeutic drug level monitoring | CPT/HCPCS: 85610; 99211 ==

== ENCOUNTER 2022-03-08 13:15 | Outpatient (REF) | payer MEDICARE, SELFPAY ==
[2022-03-08 15:06] LABS: Prostate Specific Antigen 4.38 ng/mL (<0.05-4.0)
== END 2022-03-08 13:16 | disposition home or self-care (01) ==
LOC: HO.LAB 13:15
PROVIDERS: PCP Internal Medicine; Visit Provider Urology
DX: Z12.5 Encounter for screening for malignant neoplasm of prostate (principal); R97.20 Elevated prostate specific antigen [PSA]
CPT/HCPCS: 36415; 84153

== ENCOUNTER → 2022-03-17 08:38 | Outpatient (BNVA) | payer MEDICARE, SELFPAY | PROVIDERS: PCP Internal Medicine; Visit Provider Internal Medicine | DX: I48.3 Typical atrial flutter (principal); Z79.01 Long term (current) use of anticoagulants; Z51.81 Encounter for therapeutic drug level monitoring | CPT/HCPCS: 85610; 99211 ==

== ENCOUNTER → 2022-03-31 08:36 | Outpatient (BNVA) | payer MEDICARE, SELFPAY | PROVIDERS: PCP Internal Medicine; Visit Provider Internal Medicine | DX: I48.3 Typical atrial flutter (principal); Z79.01 Long term (current) use of anticoagulants; Z51.81 Encounter for therapeutic drug level monitoring | CPT/HCPCS: 85610; 99211 ==

== ENCOUNTER → 2022-04-14 09:26 | Outpatient (BNVA) | payer MEDICARE, SELFPAY | PROVIDERS: PCP Internal Medicine; Visit Provider Internal Medicine | DX: I48.3 Typical atrial flutter (principal); Z79.01 Long term (current) use of anticoagulants; Z51.81 Encounter for therapeutic drug level monitoring | CPT/HCPCS: 85610; 99211 ==

== ENCOUNTER 2022-04-20 10:21 | Outpatient (REF) | payer MEDICARE, SELFPAY ==
[2022-04-20 10:25] LABS: MANUAL DIFF FLAG NO
[2022-04-20 11:20] LABS: Basophils Percent Auto 0.5 % (0-2); Eosinophils Absolute Auto 0.3 X10*3/uL (0.0-0.4); Eosinophils Percent Auto 3.8 % (0-4); Hematocrit 40.1 % (42.0-52.0); Hemoglobin 13.3 g/dl (14.0-18.0); Imm Gran Abs Auto 0.02 X10*3/uL (0.00-0.03); Imm Gran Pct Auto 0.2 % (0.0-0.4); Lymphocytes Absolute Auto 4.8 X10*3/uL (1.2-4.9); Lymphocytes Percent Auto 54.1 % (20-40); Mean Corpuscular HGB Conc 33.2 g/dl (31.0-36.0); Mean Corpuscular Hemoglobin 30.5 pg (27.0-33.0); Mean Platelet Volume 9.4 fL (9.4-12.4); Monocytes Absolute Auto 0.7 X10*3/uL (0.1-1.2); Monocytes Percent Auto 7.9 % (2-11); Neutrophils Percent Auto 33.5 % (45-73); Platelet Count 221 X10*3/uL (160-400); Red Blood Count 4.36 X10*6/uL (4.60-5.80); Red Cell Distribution Width 13.4 % (11.0-16.0); White Blood Count 8.8 X10*3/uL (4.8-10.8)
[2022-04-20 11:23] LABS: Appearance Urine CLEAR; Color Urine YELLOW; Glucose Urine UA NEG (NEG); Leukocyte Esterase Urine NEG (NEG); Nitrite Urine NEG (NEG); Specific Gravity - Urine >= 1.030 (1.005-1.025); Urine Blood 2+ (NEG); Urine Ketones NEG (NEG); Urine Protein NEG (NEG-TRACE)
[2022-04-20 11:35] LABS: Estimated Average Glucose 117 mg/dL; Hemoglobin A1c % 5.7 %
[2022-04-20 11:41] LABS: Alanine Aminotransferase 18 U/L (0-40); Albumin Level 4.1 g/dL (3.5-5.0); Alkaline Phosphatase 83 U/L (39-117); Anion Gap 12 (12-20); Aspartate Amino Transferase 20 U/L (5-37); Bilirubin Total 0.5 mg/dL (0.0-1.0); Blood Urea Nitrogen 12 mg/dL (9-16); Calcium 8.6 mg/dL (8.4-10.2); Carbon Dioxide 26 mmol/L (22-29); Chloride 105 mmol/L (96-108); Cholesterol 144 mg/dL; Estimated Glomerular Filt Rate > 60; Glucose Fasting 108 mg/dL (60-99); HDL Cholesterol 34 mg/dL; LDL Cholesterol Calculated 84 mg/dl; Potassium 4.4 mmol/L (3.3-5.1); Sodium 139 mmol/L (135-145); Total Protein 6.4 g/dL (6.5-8.0); Triglycerides 130 mg/dL
[2022-04-20 11:50] LABS: Creatinine Urine 222.01 mg/dL; Microalbum/Creatinine Ratio Ur 6.7 ug/mg cr
[2022-04-20 12:06] LABS: WBC Urine 0-2 /HPF (0-4)
[2022-04-20 12:07] LABS: Bacteria Urine TRACE /LPF
== END 2022-04-20 10:22 | disposition home or self-care (01) ==
LOC: HO.LNP 10:21
PROVIDERS: Visit Provider Internal Medicine
DX: Z00.00 Encounter for general adult medical examination without abnormal findings (principal); D72.820 Lymphocytosis (symptomatic); I10 Essential (primary) hypertension; R73.09 Other abnormal glucose; E78.00 Pure hypercholesterolemia, unspecified
CPT/HCPCS: 80053; 80061; 81001; 82043; 83036; 85025

== ENCOUNTER → 2022-05-04 09:04 | Outpatient (BNVA) | payer MEDICARE, SELFPAY | PROVIDERS: PCP Internal Medicine; Visit Provider Internal Medicine | DX: I48.92 Unspecified atrial flutter (principal); Z79.01 Long term (current) use of anticoagulants; Z51.81 Encounter for therapeutic drug level monitoring | CPT/HCPCS: 85610; 99211 ==

== ENCOUNTER → 2022-05-26 08:57 | Outpatient (BNVA) | payer MEDICARE, SELFPAY | PROVIDERS: PCP Internal Medicine; Visit Provider Internal Medicine | DX: I48.92 Unspecified atrial flutter (principal); Z79.01 Long term (current) use of anticoagulants; Z51.81 Encounter for therapeutic drug level monitoring | CPT/HCPCS: 85610; 99211 ==

== ENCOUNTER → 2022-06-02 09:13 | Outpatient (BNVA) | payer MEDICARE, SELFPAY | PROVIDERS: PCP Internal Medicine; Visit Provider Internal Medicine | DX: I48.3 Typical atrial flutter (principal); Z51.81 Encounter for therapeutic drug level monitoring; Z79.01 Long term (current) use of anticoagulants | CPT/HCPCS: 85610; 99211 ==

== ENCOUNTER → 2022-06-22 08:46 | Outpatient (BNVA) | payer MEDICARE, SELFPAY | PROVIDERS: PCP Internal Medicine; Visit Provider Internal Medicine | DX: I48.92 Unspecified atrial flutter (principal); Z79.01 Long term (current) use of anticoagulants; Z51.81 Encounter for therapeutic drug level monitoring | CPT/HCPCS: 85610; 99211 ==

== ENCOUNTER → 2022-06-26 08:50 | Outpatient (BNVA) | payer MEDICARE, SELFPAY | PROVIDERS: PCP Internal Medicine; Visit Provider Internal Medicine | DX: I48.92 Unspecified atrial flutter (principal); Z79.01 Long term (current) use of anticoagulants; Z51.81 Encounter for therapeutic drug level monitoring | CPT/HCPCS: 85610; 99211 ==

== ENCOUNTER → 2022-07-10 10:26 | Outpatient (BNVA) | payer MEDICARE, SELFPAY | PROVIDERS: PCP Internal Medicine; Visit Provider Internal Medicine | DX: I48.92 Unspecified atrial flutter (principal); Z79.01 Long term (current) use of anticoagulants; Z51.81 Encounter for therapeutic drug level monitoring | CPT/HCPCS: 85610; 99211 ==

== ENCOUNTER → 2022-07-24 09:40 | Outpatient (BNVA) | payer MEDICARE, SELFPAY | PROVIDERS: PCP Internal Medicine; Visit Provider Internal Medicine | DX: I48.92 Unspecified atrial flutter (principal); Z79.01 Long term (current) use of anticoagulants; Z51.81 Encounter for therapeutic drug level monitoring | CPT/HCPCS: 85610; 99211 ==

== ENCOUNTER → 2022-08-14 08:53 | Outpatient (BNVA) | payer MEDICARE, SELFPAY | PROVIDERS: PCP Internal Medicine; Visit Provider Internal Medicine | DX: I48.92 Unspecified atrial flutter (principal); Z79.01 Long term (current) use of anticoagulants; Z51.81 Encounter for therapeutic drug level monitoring | CPT/HCPCS: 85610; 99211 ==

== ENCOUNTER → 2022-09-04 09:22 | Outpatient (BNVA) | payer MEDICARE, SELFPAY | PROVIDERS: PCP Internal Medicine; Visit Provider Internal Medicine | DX: I48.92 Unspecified atrial flutter (principal); Z51.81 Encounter for therapeutic drug level monitoring; Z79.01 Long term (current) use of anticoagulants | CPT/HCPCS: 85610; 99211 ==

== ENCOUNTER → 2022-09-08 10:02 | Outpatient (BNVA) | payer MEDICARE, SELFPAY | PROVIDERS: PCP Internal Medicine; Visit Provider Internal Medicine | DX: I48.92 Unspecified atrial flutter (principal); Z79.01 Long term (current) use of anticoagulants; Z51.81 Encounter for therapeutic drug level monitoring | CPT/HCPCS: 85610; 99211 ==

== ENCOUNTER → 2022-09-15 13:29 | Outpatient (BNVA) | payer MEDICARE, SELFPAY | PROVIDERS: PCP Internal Medicine; Visit Provider Internal Medicine | DX: I48.92 Unspecified atrial flutter (principal); Z79.01 Long term (current) use of anticoagulants; Z51.81 Encounter for therapeutic drug level monitoring | CPT/HCPCS: 85610; 99211 ==

== ENCOUNTER → 2022-09-18 08:45 | Outpatient (BNVA) | payer MEDICARE, SELFPAY | PROVIDERS: PCP Internal Medicine; Visit Provider Internal Medicine | DX: I48.92 Unspecified atrial flutter (principal); Z79.01 Long term (current) use of anticoagulants; Z51.81 Encounter for therapeutic drug level monitoring | CPT/HCPCS: 85610; 99211 ==

== ENCOUNTER → 2022-09-21 09:35 | Outpatient (BNVA) | payer MEDICARE, SELFPAY | PROVIDERS: PCP Internal Medicine; Visit Provider Internal Medicine | DX: I48.92 Unspecified atrial flutter (principal); Z79.01 Long term (current) use of anticoagulants; Z51.81 Encounter for therapeutic drug level monitoring | CPT/HCPCS: 85610; 99211 ==

== ENCOUNTER → 2022-09-28 09:09 | Outpatient (BNVA) | payer MEDICARE, SELFPAY | PROVIDERS: PCP Internal Medicine; Visit Provider Internal Medicine | DX: I48.92 Unspecified atrial flutter (principal); Z79.01 Long term (current) use of anticoagulants; Z51.81 Encounter for therapeutic drug level monitoring | CPT/HCPCS: 85610; 99211 ==

== ENCOUNTER → 2022-10-03 09:24 | Outpatient (BNVA) | payer MEDICARE, SELFPAY | PROVIDERS: PCP Internal Medicine; Visit Provider Internal Medicine | DX: I48.92 Unspecified atrial flutter (principal); Z51.81 Encounter for therapeutic drug level monitoring; Z79.01 Long term (current) use of anticoagulants | CPT/HCPCS: 85610; 99211 ==

== ENCOUNTER → 2022-10-06 09:41 | Outpatient (BNVA) | payer MEDICARE, SELFPAY | PROVIDERS: PCP Internal Medicine; Visit Provider Internal Medicine | DX: I48.92 Unspecified atrial flutter (principal); Z79.01 Long term (current) use of anticoagulants; Z51.81 Encounter for therapeutic drug level monitoring | CPT/HCPCS: 85610; 99212 ==

== ENCOUNTER → 2022-10-11 11:13 | Outpatient (BNVA) | payer MEDICARE, SELFPAY | PROVIDERS: PCP Internal Medicine; Visit Provider Internal Medicine | DX: I48.92 Unspecified atrial flutter (principal); Z79.01 Long term (current) use of anticoagulants; Z51.81 Encounter for therapeutic drug level monitoring | CPT/HCPCS: 85610; 99211 ==

== ENCOUNTER → 2022-10-16 08:41 | Outpatient (BNVA) | payer MEDICARE, SELFPAY | PROVIDERS: PCP Internal Medicine; Visit Provider Internal Medicine | DX: I48.92 Unspecified atrial flutter (principal); Z79.01 Long term (current) use of anticoagulants; Z51.81 Encounter for therapeutic drug level monitoring | CPT/HCPCS: 85610; 99211 ==

== ENCOUNTER → 2022-10-20 08:24 | Outpatient (BNVA) | payer MEDICARE, SELFPAY | PROVIDERS: PCP Internal Medicine; Visit Provider Internal Medicine | DX: I48.92 Unspecified atrial flutter (principal); Z79.01 Long term (current) use of anticoagulants; Z51.81 Encounter for therapeutic drug level monitoring | CPT/HCPCS: 85610; 99211 ==

== ENCOUNTER 2022-10-20 10:37 | Outpatient (REF) | payer MEDICARE, SELFPAY ==
[2022-10-20 12:01] LABS: Estimated Average Glucose 120 mg/dL; Hemoglobin A1c % 5.8 %
[2022-10-20 12:18] LABS: Alanine Aminotransferase 24 U/L (0-40); Albumin Level 4.3 g/dL (3.5-5.0); Alkaline Phosphatase 91 U/L (39-117); Aspartate Amino Transferase 24 U/L (5-37); Bilirubin Direct 0.2 mg/dL (0.0-0.5); Bilirubin Total 0.4 mg/dL (0.0-1.0); Cholesterol 169 mg/dL; Glucose Fasting 115 mg/dL (60-99); HDL Cholesterol 39 mg/dL; LDL Cholesterol Calculated 104 mg/dl; Total Protein 7.1 g/dL (6.5-8.0); Triglycerides 133 mg/dL
[2022-10-20 13:27] LABS: Reflex LDLD? No
== END 2022-10-20 10:38 | disposition home or self-care (01) ==
LOC: HO.LNP 10:37
PROVIDERS: PCP Internal Medicine; Visit Provider Internal Medicine
DX: R73.03 Prediabetes (principal); E78.00 Pure hypercholesterolemia, unspecified
CPT/HCPCS: 80061; 80076; 82947; 83036

== ENCOUNTER → 2022-10-27 08:41 | Outpatient (BNVA) | payer MEDICARE, SELFPAY | PROVIDERS: PCP Internal Medicine; Visit Provider Internal Medicine | DX: I48.92 Unspecified atrial flutter (principal); Z79.01 Long term (current) use of anticoagulants; Z51.81 Encounter for therapeutic drug level monitoring | CPT/HCPCS: 85610; 99211 ==

== ENCOUNTER → 2022-11-03 08:56 | Outpatient (BNVA) | payer MEDICARE, SELFPAY | PROVIDERS: PCP Internal Medicine; Visit Provider Internal Medicine | DX: I48.92 Unspecified atrial flutter (principal); Z79.01 Long term (current) use of anticoagulants; Z51.81 Encounter for therapeutic drug level monitoring | CPT/HCPCS: 85610; 99211 ==

== ENCOUNTER → 2022-11-20 09:12 | Outpatient (BNVA) | payer MEDICARE, SELFPAY | PROVIDERS: PCP Internal Medicine; Visit Provider Internal Medicine | DX: I48.92 Unspecified atrial flutter (principal); Z79.01 Long term (current) use of anticoagulants; Z51.81 Encounter for therapeutic drug level monitoring | CPT/HCPCS: 85610; 99211 ==

== ENCOUNTER → 2022-11-24 08:41 | Outpatient (BNVA) | payer MEDICARE, SELFPAY | PROVIDERS: PCP Internal Medicine; Visit Provider Internal Medicine | DX: I48.92 Unspecified atrial flutter (principal); Z79.01 Long term (current) use of anticoagulants; Z51.81 Encounter for therapeutic drug level monitoring | CPT/HCPCS: 85610; 99211 ==

== ENCOUNTER 2022-11-24 10:50 | Outpatient (REF) | payer MEDICARE, SELFPAY ==
[2022-11-24 11:40] LABS: Basophils Absolute Auto 0.1 X10*3/uL (0.0-0.2); Basophils Percent Auto 0.6 % (0-2); Eosinophils Absolute Auto 0.3 X10*3/uL (0.0-0.4); Hematocrit 41.6 % (42.0-52.0); Hemoglobin 13.8 g/dl (14.0-18.0); Imm Gran Abs Auto 0.02 X10*3/uL (0.00-0.03); Imm Gran Pct Auto 0.2 % (0.0-0.4); Lymphocytes Absolute Auto 5.5 X10*3/uL (1.2-4.9); Lymphocytes Percent Auto 59.1 % (20-40); MANUAL DIFF FLAG SCAN; Mean Corpuscular HGB Conc 33.2 g/dl (31.0-36.0); Mean Corpuscular Hemoglobin 30.3 pg (27.0-33.0); Mean Corpuscular Volume 91.2 fL (80.0-98.0); Mean Platelet Volume 9.4 fL (9.4-12.4); Monocytes Absolute Auto 0.7 X10*3/uL (0.1-1.2); Monocytes Percent Auto 7.9 % (2-11); Neutrophils Absolute Auto 2.7 x10*3/uL (2.0-8.3); Neutrophils Percent Auto 29.2 % (45-73); Platelet Count 220 X10*3/uL (160-400); Red Blood Count 4.56 X10*6/uL (4.60-5.80); Red Cell Distribution Width 13.1 % (11.0-16.0); SCAN SMEAR FLAG 1; White Blood Count 9.4 X10*3/uL (4.8-10.8)
[2022-11-24 12:02] LABS: SLIDE REVIEW VERIFIED
[2022-11-24 12:27] LABS: Anion Gap 13 (12-20); Blood Urea Nitrogen 13 mg/dL (9-16); Calcium 9.2 mg/dL (8.4-10.2); Carbon Dioxide 27 mmol/L (22-29); Chloride 106 mmol/L (96-108); Estimated Glomerular Filt Rate > 60; Glucose Random 105 mg/dL (60-115); Potassium 4.3 mmol/L (3.3-5.1); Sodium 142 mmol/L (135-145)
[2022-11-24 12:48] LABS: PSA,Total (Free>4and<10) 4.81 ng/mL (0.00-4.00)
[2022-11-26 10:14] LABS: Free Prostate Spec Ag 1.1 ng/mL; Percent Free Prostate Spec Ag 21 % (calc) (>25); Prostate Specific Ag Total 5.2 ng/mL (< OR = 4.0)
== END 2022-11-24 10:51 | disposition home or self-care (01) ==
LOC: HO.LNP 10:50
PROVIDERS: Visit Provider Internal Medicine
DX: Z12.5 Encounter for screening for malignant neoplasm of prostate (principal); I10 Essential (primary) hypertension; R97.20 Elevated prostate specific antigen [PSA]; I48.92 Unspecified atrial flutter; D72.820 Lymphocytosis (symptomatic)
CPT/HCPCS: 80048; 84153; 84154; 85025

== ENCOUNTER → 2022-11-28 09:19 | Outpatient (BNVA) | payer MEDICARE, SELFPAY | PROVIDERS: PCP Internal Medicine; Visit Provider Internal Medicine | DX: I48.92 Unspecified atrial flutter (principal); Z79.01 Long term (current) use of anticoagulants; Z51.81 Encounter for therapeutic drug level monitoring | CPT/HCPCS: 85610; 99211 ==

== ENCOUNTER 2022-11-28 11:50 | Outpatient (REF) | payer MEDICARE, SELFPAY ==
[2022-11-28 11:52] LABS: MANUAL DIFF FLAG NO
[2022-11-28 12:09] LABS: Basophils Percent Auto 0.5 % (0-2); Eosinophils Absolute Auto 0.2 X10*3/uL (0.0-0.4); Eosinophils Percent Auto 2.8 % (0-4); Hematocrit 40.5 % (42.0-52.0); Hemoglobin 13.4 g/dl (14.0-18.0); Imm Gran Abs Auto 0.02 X10*3/uL (0.00-0.03); Imm Gran Pct Auto 0.3 % (0.0-0.4); Lymphocytes Absolute Auto 3.9 X10*3/uL (1.2-4.9); Lymphocytes Percent Auto 49.1 % (20-40); Mean Corpuscular HGB Conc 33.1 g/dl (31.0-36.0); Mean Corpuscular Hemoglobin 30.2 pg (27.0-33.0); Mean Corpuscular Volume 91.4 fL (80.0-98.0); Monocytes Absolute Auto 0.6 X10*3/uL (0.1-1.2); Monocytes Percent Auto 7.6 % (2-11); Neutrophils Absolute Auto 3.1 x10*3/uL (2.0-8.3); Neutrophils Percent Auto 39.7 % (45-73); Platelet Count 231 X10*3/uL (160-400); Red Blood Count 4.43 X10*6/uL (4.60-5.80); White Blood Count 7.9 X10*3/uL (4.8-10.8)
== END 2022-11-28 11:51 | disposition home or self-care (01) ==
LOC: HO.LNP 11:50
PROVIDERS: Visit Provider Internal Medicine
DX: D72.820 Lymphocytosis (symptomatic) (principal)
CPT/HCPCS: 85025

== ENCOUNTER → 2022-12-04 09:20 | Outpatient (BNVA) | payer MEDICARE, SELFPAY | PROVIDERS: PCP Internal Medicine; Visit Provider Internal Medicine | DX: I48.92 Unspecified atrial flutter (principal); Z79.01 Long term (current) use of anticoagulants; Z51.81 Encounter for therapeutic drug level monitoring | CPT/HCPCS: 85610; 99211 ==

== ENCOUNTER → 2022-12-08 09:29 | Outpatient (BNVA) | payer OTHER, SELFPAY | PROVIDERS: PCP Internal Medicine; Visit Provider Internal Medicine | DX: I48.92 Unspecified atrial flutter (principal); Z79.01 Long term (current) use of anticoagulants; Z51.81 Encounter for therapeutic drug level monitoring | CPT/HCPCS: 99211 ==

== ENCOUNTER → 2022-12-14 13:17 | Outpatient (BNVA) | payer OTHER, SELFPAY | PROVIDERS: PCP Internal Medicine; Visit Provider Internal Medicine | DX: I48.92 Unspecified atrial flutter (principal); Z79.01 Long term (current) use of anticoagulants; Z51.81 Encounter for therapeutic drug level monitoring | CPT/HCPCS: 85610; 99211 ==

== ENCOUNTER → 2022-12-28 13:23 | Outpatient (BNVA) | payer OTHER, SELFPAY | PROVIDERS: PCP Internal Medicine; Visit Provider Internal Medicine | DX: I48.92 Unspecified atrial flutter (principal); Z79.01 Long term (current) use of anticoagulants; Z51.81 Encounter for therapeutic drug level monitoring | CPT/HCPCS: 85610; 99211 ==

== ENCOUNTER 2022-12-28 16:18 | Outpatient (REF) | payer OTHER, SELFPAY ==
[2022-12-28 16:21] LABS: MANUAL DIFF FLAG NO
[2022-12-28 16:33] LABS: Basophils Percent Auto 0.5 % (0-2); Eosinophils Absolute Auto 0.2 X10*3/uL (0.0-0.4); Eosinophils Percent Auto 2.3 % (0-4); Hemoglobin 13.4 g/dl (14.0-18.0); Imm Gran Abs Auto 0.01 X10*3/uL (0.00-0.03); Imm Gran Pct Auto 0.1 % (0.0-0.4); Lymphocytes Absolute Auto 3.1 X10*3/uL (1.2-4.9); Lymphocytes Percent Auto 39.8 % (20-40); Mean Corpuscular HGB Conc 33.5 g/dl (31.0-36.0); Mean Corpuscular Hemoglobin 30.2 pg (27.0-33.0); Mean Corpuscular Volume 90.1 fL (80.0-98.0); Mean Platelet Volume 9.3 fL (9.4-12.4); Monocytes Absolute Auto 0.7 X10*3/uL (0.1-1.2); Monocytes Percent Auto 8.8 % (2-11); Neutrophils Absolute Auto 3.8 x10*3/uL (2.0-8.3); Neutrophils Percent Auto 48.5 % (45-73); Platelet Count 224 X10*3/uL (160-400); Red Blood Count 4.44 X10*6/uL (4.60-5.80); Red Cell Distribution Width 13.1 % (11.0-16.0); White Blood Count 7.8 X10*3/uL (4.8-10.8)
[2022-12-28 17:15] LABS: Erythrocyte Sedimentation Rate 7 MM/HR (0-15)
[2022-12-28 18:47] LABS: PSA,Total (Free>4and<10) 5.34 ng/mL (0.00-4.00)
[2023-01-01 13:29] LABS: Free Prostate Spec Ag 1.7 ng/mL; Percent Free Prostate Spec Ag 33 % (calc) (>25); Prostate Specific Ag Total 5.2 ng/mL (< OR = 4.0)
== END 2022-12-28 16:19 | disposition home or self-care (01) ==
LOC: HO.LNP 16:18
PROVIDERS: Visit Provider Internal Medicine
DX: Z12.5 Encounter for screening for malignant neoplasm of prostate (principal); C18.7 Malignant neoplasm of sigmoid colon; R97.20 Elevated prostate specific antigen [PSA]
CPT/HCPCS: 84153; 84154; 85025; 85652

== ENCOUNTER → 2023-01-03 09:35 | Outpatient (BNVA) | payer OTHER, SELFPAY | PROVIDERS: PCP Internal Medicine; Visit Provider Internal Medicine | DX: I48.92 Unspecified atrial flutter (principal); Z79.01 Long term (current) use of anticoagulants; Z51.81 Encounter for therapeutic drug level monitoring | CPT/HCPCS: 85610; 99211 ==

== ENCOUNTER → 2023-01-08 09:03 | Outpatient (BNVA) | payer OTHER, SELFPAY | PROVIDERS: PCP Internal Medicine; Visit Provider Internal Medicine | DX: I48.92 Unspecified atrial flutter (principal); Z51.81 Encounter for therapeutic drug level monitoring; Z79.01 Long term (current) use of anticoagulants | CPT/HCPCS: 85610; 99211 ==

== ENCOUNTER → 2023-01-12 14:38 | Outpatient (BNVA) | payer OTHER, SELFPAY | PROVIDERS: PCP Internal Medicine; Visit Provider Internal Medicine | DX: I48.92 Unspecified atrial flutter (principal); Z79.01 Long term (current) use of anticoagulants; Z51.81 Encounter for therapeutic drug level monitoring | CPT/HCPCS: 85610; 99211 ==

== ENCOUNTER → 2023-01-17 09:24 | Outpatient (BNVA) | payer SELFPAY | PROVIDERS: PCP Internal Medicine; Visit Provider Internal Medicine | DX: I48.92 Unspecified atrial flutter (principal); Z51.81 Encounter for therapeutic drug level monitoring; Z79.01 Long term (current) use of anticoagulants | CPT/HCPCS: 85610; 99211 ==

== ENCOUNTER → 2023-01-19 14:05 | Outpatient (BNVA) | payer OTHER, SELFPAY | PROVIDERS: PCP Internal Medicine; Visit Provider Internal Medicine | DX: I48.92 Unspecified atrial flutter (principal); Z79.01 Long term (current) use of anticoagulants; Z51.81 Encounter for therapeutic drug level monitoring | CPT/HCPCS: 85610; 99211 ==

== ENCOUNTER → 2023-01-23 08:09 | Outpatient (BNVA) | payer OTHER, SELFPAY | PROVIDERS: PCP Internal Medicine; Visit Provider Internal Medicine | DX: I48.92 Unspecified atrial flutter (principal); Z79.01 Long term (current) use of anticoagulants; Z51.81 Encounter for therapeutic drug level monitoring | CPT/HCPCS: 85610; 99211 ==

== ENCOUNTER → 2023-01-29 08:59 | Outpatient (BNVA) | payer OTHER, SELFPAY | PROVIDERS: PCP Internal Medicine; Visit Provider Internal Medicine | DX: I48.92 Unspecified atrial flutter (principal); Z79.01 Long term (current) use of anticoagulants; Z51.81 Encounter for therapeutic drug level monitoring | CPT/HCPCS: 85610; 99211 ==

== ENCOUNTER 2023-02-02 13:29 | Outpatient (REF) | payer OTHER, SELFPAY ==
[2023-02-02 14:11] LABS: Hematocrit 43.5 % (42.0-52.0); Hemoglobin 14.4 g/dl (14.0-18.0); Mean Corpuscular HGB Conc 33.1 g/dl (31.0-36.0); Mean Corpuscular Hemoglobin 30.1 pg (27.0-33.0); Mean Corpuscular Volume 90.8 fL (80.0-98.0); Mean Platelet Volume 8.6 fL (9.4-12.4); Platelet Count 228 X10*3/uL (160-400); Red Blood Count 4.79 X10*6/uL (4.60-5.80); Red Cell Distribution Width 13.1 % (11.0-16.0); White Blood Count 7.1 X10*3/uL (4.8-10.8)
[2023-02-02 14:16] LABS: INTERNATIONAL NORM RATIO 1.3 (0.9-1.1); Prothrombin Time 14.7 SEC (10.0-13.1)
[2023-02-02 14:28] LABS: Anion Gap 12 (12-20); Blood Urea Nitrogen 10 mg/dL (9-16); Calcium 9.3 mg/dL (8.4-10.2); Carbon Dioxide 29 mmol/L (22-29); Chloride 104 mmol/L (96-108); Estimated Glomerular Filt Rate > 60; Glucose Random 109 mg/dL (60-115); Potassium 4.8 mmol/L (3.3-5.1); Sodium 140 mmol/L (135-145)
== END 2023-02-02 13:30 | disposition home or self-care (01) ==
LOC: HO.LAB 13:29
PROVIDERS: PCP Internal Medicine; Visit Provider Internal Medicine
DX: I48.92 Unspecified atrial flutter (principal); Z79.01 Long term (current) use of anticoagulants
CPT/HCPCS: 36415; 80048; 85027; 85610; 99211

== ENCOUNTER → 2023-02-06 08:54 | Outpatient (BNVA) | payer OTHER, SELFPAY | PROVIDERS: PCP Internal Medicine; Visit Provider Internal Medicine | DX: I48.92 Unspecified atrial flutter (principal); Z79.01 Long term (current) use of anticoagulants; Z51.81 Encounter for therapeutic drug level monitoring | CPT/HCPCS: 85610; 99212 ==

== ENCOUNTER → 2023-02-09 09:43 | Outpatient (BNVA) | payer OTHER, SELFPAY | PROVIDERS: PCP Internal Medicine; Visit Provider Internal Medicine ==

== ENCOUNTER → 2023-02-12 10:44 | Outpatient (BNVA) | payer OTHER, SELFPAY | PROVIDERS: PCP Internal Medicine; Visit Provider Internal Medicine | DX: I48.92 Unspecified atrial flutter (principal); Z51.81 Encounter for therapeutic drug level monitoring; Z79.01 Long term (current) use of anticoagulants | CPT/HCPCS: 85610; 99211 ==

== ENCOUNTER → 2023-02-16 15:08 | Outpatient (BNVA) | payer OTHER, SELFPAY | PROVIDERS: PCP Internal Medicine; Visit Provider Internal Medicine | DX: I48.92 Unspecified atrial flutter (principal); Z79.01 Long term (current) use of anticoagulants; Z51.81 Encounter for therapeutic drug level monitoring | CPT/HCPCS: 85610; 99211 ==

== ENCOUNTER → 2023-02-23 09:36 | Outpatient (BNVA) | payer OTHER, SELFPAY | PROVIDERS: PCP Internal Medicine; Visit Provider Internal Medicine | DX: I48.92 Unspecified atrial flutter (principal); Z79.01 Long term (current) use of anticoagulants; Z51.81 Encounter for therapeutic drug level monitoring | CPT/HCPCS: 85610; 99211 ==

== ENCOUNTER → 2023-03-02 09:45 | Outpatient (BNVA) | payer OTHER, SELFPAY | PROVIDERS: PCP Internal Medicine; Visit Provider Internal Medicine | DX: I48.92 Unspecified atrial flutter (principal); Z79.01 Long term (current) use of anticoagulants; Z51.81 Encounter for therapeutic drug level monitoring | CPT/HCPCS: 85610; 99212 ==

== ENCOUNTER → 2023-03-09 09:35 | Outpatient (BNVA) | payer OTHER, SELFPAY | PROVIDERS: PCP Internal Medicine; Visit Provider Internal Medicine | DX: I48.92 Unspecified atrial flutter (principal); Z79.01 Long term (current) use of anticoagulants; Z51.81 Encounter for therapeutic drug level monitoring | CPT/HCPCS: 85610; 99212 ==

== ENCOUNTER → 2023-03-16 09:19 | Outpatient (BNVA) | payer OTHER, SELFPAY | PROVIDERS: PCP Internal Medicine; Visit Provider Internal Medicine | DX: I48.92 Unspecified atrial flutter (principal); Z79.01 Long term (current) use of anticoagulants; Z51.81 Encounter for therapeutic drug level monitoring | CPT/HCPCS: 85610; 99212 ==

== ENCOUNTER → 2023-03-23 09:29 | Outpatient (BNVA) | payer OTHER, SELFPAY | PROVIDERS: PCP Internal Medicine; Visit Provider Internal Medicine | DX: I48.92 Unspecified atrial flutter (principal); Z79.01 Long term (current) use of anticoagulants; Z51.81 Encounter for therapeutic drug level monitoring | CPT/HCPCS: 85610; 99211 ==

== ENCOUNTER → 2023-03-30 08:46 | Outpatient (BNVA) | payer OTHER, SELFPAY | PROVIDERS: PCP Internal Medicine; Visit Provider Internal Medicine | DX: I48.92 Unspecified atrial flutter (principal); Z79.01 Long term (current) use of anticoagulants; Z51.81 Encounter for therapeutic drug level monitoring | CPT/HCPCS: 85610; 99212 ==

== ENCOUNTER → 2023-04-03 08:44 | Outpatient (BNVA) | payer OTHER, SELFPAY | PROVIDERS: PCP Internal Medicine; Visit Provider Internal Medicine | DX: I48.92 Unspecified atrial flutter (principal); Z51.81 Encounter for therapeutic drug level monitoring; Z79.01 Long term (current) use of anticoagulants | CPT/HCPCS: 85610; 99211 ==

== ENCOUNTER 2023-04-09 09:56 | Outpatient (REF) | payer OTHER, SELFPAY | END 2023-04-09 09:57 | disposition home or self-care (01) | LOC: HO.LAB 09:56 | PROVIDERS: PCP Internal Medicine; Visit Provider Internal Medicine | DX: I48.92 Unspecified atrial flutter (principal); Z51.81 Encounter for therapeutic drug level monitoring; Z79.01 Long term (current) use of anticoagulants | CPT/HCPCS: 36415; 85610; 99212 ==

== ENCOUNTER → 2023-04-12 09:12 | Outpatient (BNVA) | payer OTHER, SELFPAY | PROVIDERS: PCP Internal Medicine; Visit Provider Internal Medicine | DX: I48.92 Unspecified atrial flutter (principal); Z79.01 Long term (current) use of anticoagulants; Z51.81 Encounter for therapeutic drug level monitoring | CPT/HCPCS: 85610; 99211 ==

== ENCOUNTER 2023-04-16 09:51 | Outpatient (AMB) | payer OTHER, SELFPAY ==
--- NOTE | 2023-04-16 10:04 | MHC.OFFVIS ---
Intake Vital Signs 04/16/23 10:05 Height 5 ft 7 in Weight 211 lb 10.3 oz BMI 33.1 BP 132/80 Blood Pressure Location Lt brachial Position Sitting Pulse 83 Intake Visit Reasons: 1 year follow up Intake Note: 1 year f/u Wash Driller Required: No Allergies No Known Allergies Allergy (Verified 04/16/23 10:13) Medication List - Last Reconciled 04/16/23 by Holli Mckenzie, HUMBERTO-C atorvastatin 20 mg PO DAILY metoprolol succinate ER (Toprol XL) 25 mg PO DAILY quinapril 40 mg PO DAILY warfarin 5 mg See Protocol PO DAILY HPI 1 year follow up HPI Details Naresh is a 67-year-old male with past medical history of hypertension, paroxysmal a flutter who presents for follow-up. His last prior visit to cardiology was 02/16/2022. Today he reports he has been feeling very well since his last visit. He has not had any palpitations that feel like atrial flutter or fibrillation. He has not had any recent hospitalizations, ER visits or changes to his health. No chest discomfort at rest or with activity, shortness of breath, dizziness, presyncope, syncope, PND, orthopnea or edema. He walks routinely for exercise. He takes all his medications as directed. He is on Coumadin for anticoagulation and follows with the [facility] anticoagulation Clinic. No bleeding issues reported. [facility] Medical History Elevated cholesterol Essential hypertension History of rectal cancer HTN (hypertension) Hx of flexible sigmoidoscopy Hypertension Increased BMI Perianal condylomata Rectal cancer Typical atrial flutter Wears dentures Surgical History H/O colonoscopy History of excision of lesion History of verrucae (wart) excision Family History Father No problems noted. Mother No problems noted. Social History Household Members: None Housing: House Are you a primary associate director career services to a significant other at home: No Do you presently have visiting nurse or other home services: No Alcohol intake: former Year quit: 2006 Patient Tobacco Use Status: Former Tobacco user Quit Date: 2006 Years Smoked: 25 +/- service: No Current occupational status: retired Review of Systems Const All systems reviewed & are unremarkable except as noted in HPI and below ENT Reports dizziness Card Denies chest pain, Denies chest pain at rest, Denies chest pain with activity, Denies rapid heart rate, Denies pedal edema, Denies edema, Denies leg edema, Denies lightheadedness, Denies palpitations, Denies dyspnea, Denies dyspnea on exertion and Denies orthopnea Resp Denies cough, Denies dyspnea and Denies dyspnea on exertion GI Denies hematochezia and Denies change in stool character Musc Denies abnormal gait, Reports limited range of motion, Reports muscle cramps, Denies muscle weakness, Denies numbness, Denies radiating pain into limb, Denies stiffness and Denies tingling Neuro Denies abnormal gait, Reports dizziness, Denies numbness and Denies tingling Endo Denies palpitations Physical Exam Vital Signs: Last Vital Signs Pulse 83 04/16/23 10:05 BP 132/80 04/16/23 10:05 BMI result Body Mass Index 33.1 Const General: cooperative, healthy appearing, comfortable and no acute distress Orientation/consciousness: patient oriented x3 Neck Neck: Yes normal visual inspection Resp Effort & Inspection: normal respiratory effort Auscultation: clear to auscultation bilaterally, no crackles, no rales, no rhonchi and no wheezes Cardio Jugular venous distension: no JVD Rate: regular rate Rhythm: regular rhythm Heart sounds: S1 normal heart sound present, S2 normal heart sound present, no gallops, no murmurs and no rubs Peripheral pulses: Peripheral pulses 2+ throughout Neuro General: patient oriented x3 Extrem General: Yes normal to inspection Psych Appearance: grossly normal Mental Status: mental status grossly normal Speech and movement: Normal speech and movement present Office Procedures EKG Details: EKG, today read by me, normal Sinus rhythm, possible inferior infarct, Q-waves lead 3 and aVF, similar findings to prior EKG, rate 83, QTC 425 millisecond [id number], Complete Assessment & Plan Assessment & Plan (1) Typical atrial flutter: Code(s): I48.3 - Typical atrial flutter Plan: History of atrial flutter. No clinical recurrence in the last year. EKG done today showing normal sinus rhythm, rate 83. Heart tones regular on examination. Last echocardiogram done 01/05/2022 showing EF 60-65%, mild left atrial dilation. He remains on metoprolol XL for heart rate control. He is on Coumadin for anticoagulation as the cost of Eliquis was to high. He follows with the [facility] anticoagulation Clinic and has dose adjusted accordingly. No bleeding issues reported. No med changes made. Cardiology follow-up in 1 year, sooner if needed (2) Hypertension: Code(s): I10 - Essential (primary) hypertension Plan: Well controlled at present time. No med changes made. Continue quinapril and metoprolol XL. Labs done 02/02/2023 shows potassium 4.8, creatinine 1.02 (3) Current use of anticoagulant therapy: Code(s): Z79.01 - exchange consultant (current) use of anticoagulants Plan: As above Coding Level of Care Code Est Pt Level 3 (50357) Diagnoses Typical atrial flutter I48.3 Hypertension I10 Current use of anticoagulant therapy Z79.01 CPT Codes EKG - CPT: 96038-[id number], Complete ([id number]) Time Spent (min) 22 Comment Chart review, documentation, interview, assessed
[2023-04-16 10:05] VITALS: BP 132/80; PULSE 83; BMI 33.1
== END 2023-04-16 10:25 | disposition home or self-care (01) ==
PROVIDERS: PCP Internal Medicine; Visit Provider Nurse Practitioner Family
DX: I48.3 Typical atrial flutter (principal); I10 Essential (primary) hypertension; Z79.01 Long term (current) use of anticoagulants
CPT/HCPCS: 93010; 99213

== ENCOUNTER → 2023-04-16 10:06 | Outpatient (BNVA) | payer OTHER, SELFPAY | PROVIDERS: PCP Internal Medicine; Visit Provider Nurse Practitioner Family | DX: I48.3 Typical atrial flutter (principal); I10 Essential (primary) hypertension; Z79.01 Long term (current) use of anticoagulants | CPT/HCPCS: 93005; 99212 ==

== ENCOUNTER 2023-04-19 08:37 | Outpatient (AMB) | payer OTHER, SELFPAY ==
[2023-04-19 09:59] LABS: Prothrombin Time Whole Bld POC 29.1 sec (11.1-13.5); ~PT, ~INR - Anti Coag Clinic 2.4 (0.9-1.1)
--- NOTE | 2023-04-19 09:59 | MHC.OFFVISCO ---
Intake Intake Visit Reasons: Anticoagulation Allergies No Known Allergies Allergy (Verified 04/19/23 09:54) Medication List - Last Reconciled 04/19/23 by Cheyanne Mondragon RN atorvastatin 20 mg PO DAILY metoprolol succinate ER (Toprol XL) 25 mg PO DAILY quinapril 40 mg PO DAILY warfarin 5 mg See Protocol PO DAILY Nursing Note INR: 2.4- in therapeutic range Medications and supplements reviewed No changes in health, diet, medications, or supplements, Denies any signs and symptoms of bleeding or bruising or clotting. Bleeding, bruising, clotting discussed Nutritional guidance given Dose: 10mg x 7 F/U INR: 1 week Patient verbalizes understanding of instructions given pt no showed on acs appt sunday, t/c to pt on and pt no showed for appt on sun- pt had no recollection of previous appts. pt asked if he feels he has memory issues and he stated no. pt enc to use acs dosing paper to confirm taking warfarin daily- pt does not usse pill box and feels he does not need it. pt did not return paper to acs today with dates crossed off as recommended- pt enc to do so Anti-Coag Initial Assessment Social Hx Patient Tobacco Use Status: Former Tobacco user Quit Date: 2006 alcohol intake: former Alcohol intake frequency: former alcohol drinker Coding Level of Care Code Est Patient Level 1 Diagnoses Current use of anticoagulant therapy Z79.01 Assessment & Plan Assessment & Plan (1) Current use of anticoagulant therapy: Code(s): Z79.01 - intermediate accountant (current) use of anticoagulants Category: Medical
== END 2023-04-19 10:09 | disposition home or self-care (01) ==
LOC: HO.ACS 08:37
PROVIDERS: PCP Internal Medicine; Visit Provider Internal Medicine
DX: Z79.01 Long term (current) use of anticoagulants (principal)

== ENCOUNTER → 2023-04-19 08:37 | Outpatient (BNVA) | payer OTHER, SELFPAY | PROVIDERS: PCP Internal Medicine; Visit Provider Internal Medicine | DX: I48.92 Unspecified atrial flutter (principal); Z79.01 Long term (current) use of anticoagulants; Z51.81 Encounter for therapeutic drug level monitoring | CPT/HCPCS: 85610; 99211 ==

== ENCOUNTER 2023-04-24 11:11 | Outpatient (REF) | payer OTHER, SELFPAY ==
[2023-04-24 11:15] LABS: MANUAL DIFF FLAG NO
[2023-04-24 12:20] LABS: Basophils Percent Auto 0.5 % (0-2); Eosinophils Absolute Auto 0.2 X10*3/uL (0.0-0.4); Eosinophils Percent Auto 2.8 % (0-4); Hematocrit 41.3 % (42.0-52.0); Hemoglobin 13.6 g/dl (14.0-18.0); Imm Gran Abs Auto 0.01 X10*3/uL (0.00-0.03); Imm Gran Pct Auto 0.1 % (0.0-0.4); Lymphocytes Absolute Auto 4.7 X10*3/uL (1.2-4.9); Lymphocytes Percent Auto 54.5 % (20-40); Mean Corpuscular HGB Conc 32.9 g/dl (31.0-36.0); Mean Platelet Volume 9.4 fL (9.4-12.4); Monocytes Absolute Auto 0.6 X10*3/uL (0.1-1.2); Monocytes Percent Auto 6.7 % (2-11); Neutrophils Absolute Auto 3.1 x10*3/uL (2.0-8.3); Neutrophils Percent Auto 35.4 % (45-73); Platelet Count 230 X10*3/uL (160-400); Red Blood Count 4.54 X10*6/uL (4.60-5.80); Red Cell Distribution Width 12.9 % (11.0-16.0); White Blood Count 8.6 X10*3/uL (4.8-10.8)
[2023-04-24 12:27] LABS: Estimated Average Glucose 117 mg/dL; Hemoglobin A1c % 5.7 %
[2023-04-24 13:03] LABS: Alanine Aminotransferase 20 U/L (0-40); Albumin Level 4.1 g/dL (3.5-5.0); Alkaline Phosphatase 86 U/L (39-117); Anion Gap 10 (12-20); Aspartate Amino Transferase 18 U/L (5-37); Bilirubin Total 0.4 mg/dL (0.0-1.0); Blood Urea Nitrogen 11 mg/dL (9-16); Calcium 9.5 mg/dL (8.4-10.2); Carbon Dioxide 27 mmol/L (22-29); Chloride 106 mmol/L (96-108); Cholesterol 168 mg/dL; Estimated Glomerular Filt Rate > 60; Glucose Fasting 119 mg/dL (60-99); HDL Cholesterol 38 mg/dL; LDL Cholesterol Calculated 96 mg/dl; Potassium 3.8 mmol/L (3.3-5.1); Sodium 139 mmol/L (135-145); Total Protein 7.2 g/dL (6.5-8.0); Triglycerides 171 mg/dL
[2023-04-24 13:11] LABS: Bacteria Urine None Seen (None Seen); Hyaline Casts Urine 0-2 /LPF (0-2); RBC Urine 0-2 /HPF (0-2); Squamous Epithelial Cell Urine 0-2 /HPF (0-2); WBC Urine 0-5 /HPF (0-5)
[2023-04-24 13:12] LABS: Appearance Urine Clear; Color Urine Yellow; Glucose Urine UA Negative (Negative); Leukocyte Esterase Urine Trace (Negative); Nitrite Urine Negative (Negative); Specific Gravity - Urine 1.015 (1.005-1.025); UMIC TRIGGER UACC YES; Urine Blood Trace (Negative); Urine Ketones Negative (Negative); Urine Protein Trace mg/dL (Neg-Trace)
[2023-04-24 13:34] LABS: Creatinine Urine 166.26 mg/dL; Microalbum/Creatinine Ratio Ur 31.8 ug/mg cr
[2023-04-26 12:29] LABS: Free Prostate Spec Ag 3.2 ng/mL; Percent Free Prostate Spec Ag 35 % (calc) (>25); Prostate Specific Ag Total 9.2 ng/mL (< OR = 4.0)
== END 2023-04-24 11:12 | disposition home or self-care (01) ==
LOC: HO.LNP 11:11
PROVIDERS: Visit Provider Internal Medicine
DX: Z12.5 Encounter for screening for malignant neoplasm of prostate (principal); D72.820 Lymphocytosis (symptomatic); I10 Essential (primary) hypertension; R73.03 Prediabetes; E78.00 Pure hypercholesterolemia, unspecified
CPT/HCPCS: 80053; 80061; 81001; 82043; 83036; 84153; 84154; 85025

== ENCOUNTER 2023-04-25 11:17 | Outpatient (AMB) | payer OTHER, SELFPAY ==
[2023-04-25 11:24] LABS: Prothrombin Time Whole Bld POC 20.5 sec (11.1-13.5); ~PT, ~INR - Anti Coag Clinic 1.7 (0.9-1.1)
--- NOTE | 2023-04-25 11:32 | MHC.OFFVISCO ---
Intake Intake Visit Reasons: Anticoagulation Allergies No Known Allergies Allergy (Verified 04/25/23 11:20) Medication List - Last Reconciled 04/25/23 by Vilma Pastrana RN atorvastatin 20 mg PO DAILY metoprolol succinate ER (Toprol XL) 25 mg PO DAILY quinapril 40 mg PO DAILY warfarin 5 mg See Protocol PO DAILY Nursing Note NO MISSED DOSES,CP,SOB,DIET/MED CHANGESM,FALLS OR SX OF BLEEDING. INCREASE WEEKLY DOSE AND FOLLOW-UP IN 1 WEK. NO GREENS 1-2 DAYS WILL INCREASE REDS GOOD UNDERSTANDING OF DOSING INSTR. Anti-Coag Initial Assessment Social Hx Patient Tobacco Use Status: Former Tobacco user Quit Date: 2006 alcohol intake: former Alcohol intake frequency: former alcohol drinker Coding Level of Care Code Est Patient Level 1 Diagnoses Current use of anticoagulant therapy Z79.01 Assessment & Plan Assessment & Plan (1) Current use of anticoagulant therapy: Code(s): Z79.01 - terminal operations supervisor (current) use of anticoagulants Category: Medical
== END 2023-04-25 11:34 | disposition home or self-care (01) ==
LOC: HO.ACS 11:17
PROVIDERS: PCP Internal Medicine; Visit Provider Internal Medicine
DX: Z79.01 Long term (current) use of anticoagulants (principal)

== ENCOUNTER → 2023-04-25 11:17 | Outpatient (BNVA) | payer OTHER, SELFPAY | PROVIDERS: PCP Internal Medicine; Visit Provider Internal Medicine | DX: I48.92 Unspecified atrial flutter (principal); Z79.01 Long term (current) use of anticoagulants; Z51.81 Encounter for therapeutic drug level monitoring | CPT/HCPCS: 85610; 99211 ==

== ENCOUNTER 2023-05-03 09:26 | Outpatient (AMB) | payer OTHER, SELFPAY ==
--- NOTE | 2023-05-03 09:30 | MHC.OFFVISCO ---
Intake Intake Visit Reasons: Anticoagulation Allergies No Known Allergies Allergy (Verified 05/03/23 09:27) Medication List - Last Reconciled 05/03/23 by Cheyanne Mondragon RN atorvastatin 20 mg PO DAILY metoprolol succinate ER (Toprol XL) 25 mg PO DAILY quinapril 40 mg PO DAILY warfarin 5 mg See Protocol PO DAILY Nursing Note INR 3.7- out of therapeutic range Medications and supplements reviewed Patient status: pt unsure why inr is elev- denies increased reds and etoh, no tylenol usage Medications or supplements: no changes in medications Diet: appetite same Denies any signs and symptoms of bleeding or clotting or unusual bruising Bleeding, bruising, clotting discussed Nutritional guidance given: eat a dark green today and tomm, no reds for 2 days Dose: already took warfarin this am, take 5mg tomm then decrease dose back to 10mg daily F/U INR Date : 1 week? Patient verbalizing understanding of instructions given. Anti-Coag Initial Assessment Social Hx Patient Tobacco Use Status: Former Tobacco user Quit Date: 2006 alcohol intake: former Alcohol intake frequency: former alcohol drinker Coding Level of Care Code Est Patient Level 1 Diagnoses Current use of anticoagulant therapy Z79.01 Results AMB INR Fingerstick AMB INR Fingerstick 3.7 Last Edit by Cheyanne Mondragon RN on 05/03/23 09:33 Assessment & Plan Assessment & Plan (1) Current use of anticoagulant therapy: Code(s): Z79.01 - intermediate designer (current) use of anticoagulants Category: Medical
[2023-05-04 08:44] LABS: ~PT, ~INR - Anti Coag Clinic 3.7 (0.9-1.1)
== END 2023-05-03 10:01 | disposition home or self-care (01) ==
LOC: HO.ACS 09:26
PROVIDERS: PCP Internal Medicine; Visit Provider Internal Medicine
DX: Z79.01 Long term (current) use of anticoagulants (principal)

== ENCOUNTER → 2023-05-03 09:26 | Outpatient (BNVA) | payer OTHER, SELFPAY | PROVIDERS: PCP Internal Medicine; Visit Provider Internal Medicine | DX: I48.92 Unspecified atrial flutter (principal); Z79.01 Long term (current) use of anticoagulants; Z51.81 Encounter for therapeutic drug level monitoring | CPT/HCPCS: 85610; 99211 ==

== ENCOUNTER 2023-05-10 09:08 | Outpatient (AMB) | payer OTHER, SELFPAY ==
--- NOTE | 2023-05-10 09:18 | MHC.OFFVISCO ---
Intake Intake Visit Reasons: Anticoagulation Allergies No Known Allergies Allergy (Verified 05/10/23 09:15) Medication List - Last Reconciled 05/10/23 by Cheyanne Mondragon RN atorvastatin 20 mg PO DAILY metoprolol succinate ER (Toprol XL) 25 mg PO DAILY quinapril 40 mg PO DAILY warfarin 5 mg See Protocol PO DAILY Nursing Note INR 3.4-?? out of therapeutic range Medications and supplements reviewed Patient status: no c.o, pt brings warfarin dosing sheet with dates crossed off Medications or supplements: no changes Diet: appetite good Denies any signs and symptoms of bleeding or clotting or unusual bruising Bleeding, bruising, clotting discussed Nutritional guidance given: eat a green today, consistency with greens in weekly diet Dose: already took warfarin today, take 5mg tomm, then cont 10mg daily F/U INR Date : 1 week Patient verbalizing understanding of instructions given. Anti-Coag Initial Assessment Social Hx Patient Tobacco Use Status: Former Tobacco user Quit Date: 2006 alcohol intake: former Alcohol intake frequency: former alcohol drinker Coding Level of Care Code Est Patient Level 1 Diagnoses Current use of anticoagulant therapy Z79.01 Assessment & Plan Assessment & Plan (1) Current use of anticoagulant therapy: Code(s): Z79.01 - skilled nursing (current) use of anticoagulants Category: Medical
[2023-05-10 09:19] LABS: Prothrombin Time Whole Bld POC 40.5 sec (11.1-13.5); ~PT, ~INR - Anti Coag Clinic 3.4 (0.9-1.1)
== END 2023-05-10 09:27 | disposition home or self-care (01) ==
LOC: HO.ACS 09:08
PROVIDERS: PCP Internal Medicine; Visit Provider Internal Medicine
DX: Z79.01 Long term (current) use of anticoagulants (principal)

== ENCOUNTER → 2023-05-10 09:08 | Outpatient (BNVA) | payer OTHER, SELFPAY | PROVIDERS: PCP Internal Medicine; Visit Provider Internal Medicine | DX: I48.92 Unspecified atrial flutter (principal); Z79.01 Long term (current) use of anticoagulants; Z51.81 Encounter for therapeutic drug level monitoring | CPT/HCPCS: 85610; 99211 ==

== ENCOUNTER 2023-05-17 11:00 | Outpatient (AMB) | payer OTHER, SELFPAY ==
[2023-05-17 11:18] LABS: ~PT, ~INR - Anti Coag Clinic 2.3 (0.9-1.1)
--- NOTE | 2023-05-17 11:23 | MHC.OFFVISCO ---
Intake Intake Visit Reasons: Anticoagulation Allergies No Known Allergies Allergy (Verified 05/17/23 11:11) Medication List - Last Reconciled 05/17/23 by Clara Oakes RN atorvastatin 20 mg PO DAILY metoprolol succinate ER (Toprol XL) 25 mg PO DAILY quinapril 40 mg PO DAILY warfarin 5 mg See Protocol PO DAILY Nursing Note Pt missed appt this am, [facility] called and he came in 1 hour late, very pleasant stating he has all the time in the world INR: 2.3 in therapeutic range Medications and supplements reviewed- he had a decreased warfarin dose last week and will cont same dose again, No changes in health, diet, medications, or supplements, Denies any signs and symptoms of bleeding or bruising or clotting. Bleeding, bruising, clotting discussed Nutritional guidance given - eat a mix of fruits and vegetables Dose: 5mg fridays/ 10mg x 6 days with dates written on dosing schedule F/U INR: 05/25/23 Patient verbalizes understanding of instructions given Anti-Coag Initial Assessment Social Hx Patient Tobacco Use Status: Former Tobacco user Quit Date: 2006 alcohol intake: former Alcohol intake frequency: former alcohol drinker Coding Level of Care Code Est Patient Level 1 Diagnoses Current use of anticoagulant therapy Z79.01 Assessment & Plan Assessment & Plan (1) Current use of anticoagulant therapy: Code(s): Z79.01 - custodial (current) use of anticoagulants Category: Medical
== END 2023-05-17 11:26 | disposition home or self-care (01) ==
LOC: HO.ACS 11:00
PROVIDERS: PCP Internal Medicine; Visit Provider Internal Medicine
DX: Z79.01 Long term (current) use of anticoagulants (principal)

== ENCOUNTER → 2023-05-17 11:00 | Outpatient (BNVA) | payer OTHER, SELFPAY | PROVIDERS: PCP Internal Medicine; Visit Provider Internal Medicine | DX: I48.92 Unspecified atrial flutter (principal); Z79.01 Long term (current) use of anticoagulants; Z51.81 Encounter for therapeutic drug level monitoring | CPT/HCPCS: 85610; 99211 ==

== ENCOUNTER 2023-05-25 09:05 | Outpatient (AMB) | payer OTHER, SELFPAY ==
[2023-05-25 09:15] LABS: Prothrombin Time Whole Bld POC 16.7 sec (11.1-13.5); ~PT, ~INR - Anti Coag Clinic 1.4 (0.9-1.1)
--- NOTE | 2023-05-25 09:21 | MHC.OFFVISCO ---
Intake Intake Visit Reasons: Anticoagulation Allergies No Known Allergies Allergy (Verified 05/25/23 09:10) Medication List - Last Reconciled 05/25/23 by Clara Oakes RN atorvastatin 20 mg PO DAILY metoprolol succinate ER (Toprol XL) 25 mg PO DAILY quinapril 40 mg PO DAILY warfarin 5 mg See Protocol PO DAILY Nursing Note INR 1.4 out of therapeutic range- DENIES ANY MISSED DOSES OR CHANGE IN DIET Medications and supplements reviewed Patient status: SMILING AND WELL DENIES ANY COMPLAINTS Medications or supplements: NO CHANGES Diet: GOOD Denies any signs and symptoms of bleeding or clotting or unusual bruising Bleeding, bruising, clotting discussed Nutritional guidance given: NO GREENS X 2 DAYS THEN RESUME USUAL DIET WITH A MIX OF FRUITS AND VEGETABLES Dose: RESUME 10 MG DAILY F/U INR Date : 1 WEEK?? Patient verbalizing understanding of instructions given. CALL TO PCP SPOKE WITH IVON WITH INR AND PLAN OF CARE Anti-Coag Initial Assessment Social Hx Patient Tobacco Use Status: Former Tobacco user Quit Date: 2006 alcohol intake: former Alcohol intake frequency: former alcohol drinker Coding Level of Care Code Est Patient Level 1 Diagnoses Current use of anticoagulant therapy Z79.01 Comment T/C TO PCP WITH LOW INR Assessment & Plan Assessment & Plan (1) Current use of anticoagulant therapy: Code(s): Z79.01 - assisted (current) use of anticoagulants Category: Medical
== END 2023-05-25 09:24 | disposition home or self-care (01) ==
LOC: HO.ACS 09:05
PROVIDERS: PCP Internal Medicine; Visit Provider Internal Medicine
DX: Z79.01 Long term (current) use of anticoagulants (principal)

== ENCOUNTER → 2023-05-25 09:05 | Outpatient (BNVA) | payer OTHER, SELFPAY | PROVIDERS: PCP Internal Medicine; Visit Provider Internal Medicine | DX: I48.92 Unspecified atrial flutter (principal); Z79.01 Long term (current) use of anticoagulants; Z51.81 Encounter for therapeutic drug level monitoring | CPT/HCPCS: 85610; 99211 ==

== ENCOUNTER 2023-06-01 09:52 | Outpatient (AMB) | payer OTHER, SELFPAY ==
[2023-06-01 10:05] LABS: Prothrombin Time Whole Bld POC 48.6 sec (11.1-13.5); ~PT, ~INR - Anti Coag Clinic 4.1 (0.9-1.1)
--- NOTE | 2023-06-01 10:12 | MHC.OFFVISCO ---
Intake Intake Visit Reasons: Anticoagulation Allergies No Known Allergies Allergy (Verified 06/01/23 09:55) Medication List - Last Reconciled 06/01/23 by Clara Oakes RN atorvastatin 20 mg PO DAILY lisinopril 40 mg PO DAILY metoprolol succinate ER (Toprol XL) 25 mg PO DAILY quinapril 40 mg PO DAILY warfarin 5 mg See Protocol PO DAILY Nursing Note INR 4.1? out of therapeutic range Medications and supplements reviewed Patient status: WELL, DENIES ANY CHANGES USUAL Medications or supplements: MAYBE SWITCHING FROM QUINAPRIL TO LISINOPRIL IT WAS NOTICED IN HIS MED LIST, PRINT OUT GIVEN - PT IS TO ASK MD OR PHARMACY Diet: APPETITE IS GOOD, ENC AT LEASE 1 SALAD / WEEK Denies any signs and symptoms of bleeding or clotting or unusual bruising Bleeding, bruising, clotting discussed Nutritional guidance given: 1 SALAD / WEEK Dose: DECREASE 7.5MG X 1 DAY/ 10MG X 6 DAYS F/U INR Date : WEEKLY DUE TO LABILE INR ?? Patient verbalizing understanding of instructions given. 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
== END 2023-06-01 10:15 | disposition home or self-care (01) ==
LOC: HO.ACS 09:52
PROVIDERS: PCP Internal Medicine; Visit Provider Internal Medicine
DX: Z79.01 Long term (current) use of anticoagulants (principal)

== ENCOUNTER → 2023-06-01 09:52 | Outpatient (BNVA) | payer OTHER, SELFPAY | PROVIDERS: PCP Internal Medicine; Visit Provider Internal Medicine | DX: I48.92 Unspecified atrial flutter (principal); Z79.01 Long term (current) use of anticoagulants; Z51.81 Encounter for therapeutic drug level monitoring | CPT/HCPCS: 85610; 99211 ==

== ENCOUNTER 2023-06-08 08:56 | Outpatient (AMB) | payer OTHER, SELFPAY ==
[2023-06-08 09:05] LABS: ~PT, ~INR - Anti Coag Clinic 2.2 (0.9-1.1)
--- NOTE | 2023-06-08 09:13 | MHC.OFFVISCO ---
Intake Intake Visit Reasons: Anticoagulation Allergies No Known Allergies Allergy (Verified 06/08/23 09:01) Medication List - Last Reconciled 06/08/23 by Clara Oakes RN atorvastatin 20 mg PO DAILY lisinopril 40 mg PO DAILY metoprolol succinate ER (Toprol XL) 25 mg PO DAILY quinapril 40 mg PO DAILY warfarin 5 mg See Protocol PO DAILY Nursing Note INR: 2.2 in therapeutic range Medications and supplements reviewed No changes in health, diet, medications, or supplements, Denies any signs and symptoms of bleeding or bruising or clotting. Bleeding, bruising, clotting discussed Nutritional guidance given - 1 SALAD / WEEK Dose: 7.5MG X 1 DAY/ 10MG X 6DAYS F/U INR: 10 DAYS Patient verbalizes understanding of instructions given Anti-Coag Initial Assessment Social Hx Patient Tobacco Use Status: Former Tobacco user Quit Date: 2006 alcohol intake: former Alcohol intake frequency: former alcohol drinker Coding Level of Care Code Est Patient Level 1 Diagnoses Current use of anticoagulant therapy Z79.01 Assessment & Plan Assessment & Plan (1) Current use of anticoagulant therapy: Code(s): Z79.01 - correction (current) use of anticoagulants Category: Medical
== END 2023-06-08 09:16 | disposition home or self-care (01) ==
LOC: HO.ACS 08:56
PROVIDERS: PCP Internal Medicine; Visit Provider Internal Medicine
DX: Z79.01 Long term (current) use of anticoagulants (principal)

== ENCOUNTER → 2023-06-08 08:56 | Outpatient (BNVA) | payer OTHER, SELFPAY | PROVIDERS: PCP Internal Medicine; Visit Provider Internal Medicine | DX: I48.92 Unspecified atrial flutter (principal); Z79.01 Long term (current) use of anticoagulants; Z51.81 Encounter for therapeutic drug level monitoring | CPT/HCPCS: 85610; 99211 ==

== ENCOUNTER 2023-06-18 09:02 | Outpatient (AMB) | payer OTHER, SELFPAY ==
--- NOTE | 2023-06-18 09:25 | MHC.OFFVISCO ---
Intake Intake Visit Reasons: Anticoagulation Allergies No Known Allergies Allergy (Verified 06/18/23 09:20) Medication List - Last Reconciled 06/18/23 by Cheyanne Mondragon RN atorvastatin 20 mg PO DAILY lisinopril 40 mg PO DAILY metoprolol succinate ER (Toprol XL) 25 mg PO DAILY quinapril 40 mg PO DAILY warfarin 5 mg See Protocol PO DAILY Nursing Note INR 6.6-?? out of therapeutic range- sent to lab- inr reported by luigi as 6.7 Medications and supplements reviewed Patient status: pt unsure why inr is elev, denies etoh, tylenol usage, n/v/d or change in medications Medications or supplements: no changes, unsure if he takes lisinopril Diet: same Denies any signs and symptoms of bleeding or clotting or unusual bruising Bleeding, bruising, clotting discussed - aware high risk of bleeding- avoid high risk activity Nutritional guidance given: eat greens to lower inr, no reds Dose: already took warfarin today- hold warfarin tomm and wed F/U INR Date : 06/21/23 Patient verbalizing understanding of instructions given. pcp office do jordan called with elev inr/dosing and f/u appt- spoke with preet/bharti at 1021 pt did not wait for inr lab result- pt called with instructions to hold warfarin tomm and wed, f/u at [facility] on Anti-Coag Initial Assessment Social Hx Patient Tobacco Use Status: Former Tobacco user Quit Date: 2006 alcohol intake: former Alcohol intake frequency: former alcohol drinker Coding Level of Care Code Est Patient Level 2 Diagnoses Current use of anticoagulant therapy Z79.01 Assessment & Plan Assessment & Plan (1) Current use of anticoagulant therapy: Code(s): 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
[2023-06-18 09:27] LABS: Prothrombin Time Whole Bld POC 79.2 sec (11.1-13.5); ~PT, ~INR - Anti Coag Clinic 6.6 (0.9-1.1)
== END 2023-06-18 10:22 | disposition home or self-care (01) ==
LOC: HO.ACS 09:02
PROVIDERS: PCP Internal Medicine; Visit Provider Internal Medicine
DX: Z79.01 Long term (current) use of anticoagulants (principal)

== ENCOUNTER 2023-06-18 09:02 | Outpatient (REF) | payer OTHER, SELFPAY ==
[2023-06-18 10:04] LABS: Prothrombin Time 81.1 SEC (11.1-13.3)
[2023-06-18 10:13] LABS: INTERNATIONAL NORM RATIO 6.7 (0.9-1.1)
== END 2023-06-18 09:03 | disposition home or self-care (01) ==
LOC: HO.LAB 09:02
PROVIDERS: PCP Internal Medicine; Visit Provider Internal Medicine
DX: I48.92 Unspecified atrial flutter (principal); Z51.81 Encounter for therapeutic drug level monitoring; Z79.01 Long term (current) use of anticoagulants
CPT/HCPCS: 36415; 85610; 99212

== ENCOUNTER 2023-06-21 09:28 | Outpatient (AMB) | payer OTHER, SELFPAY ==
[2023-06-21 09:41] LABS: Prothrombin Time Whole Bld POC 17.2 sec (11.1-13.5); ~PT, ~INR - Anti Coag Clinic 1.4 (0.9-1.1)
--- NOTE | 2023-06-21 09:45 | MHC.OFFVISCO ---
Intake Intake Visit Reasons: Anticoagulation Allergies No Known Allergies Allergy (Verified 06/21/23 09:36) Medication List - Last Reconciled 06/21/23 by Richelle Bruce, RN atorvastatin 20 mg PO DAILY lisinopril 40 mg PO DAILY metoprolol succinate ER (Toprol XL) 25 mg PO DAILY quinapril 40 mg PO DAILY warfarin 5 mg See Protocol PO DAILY Nursing Note Amb to [facility] feeling ok, late for scheduled 914 appointment I thought it was 9:30 Medications and supplements reviewed No other changes in health, diet, medications, or supplements other than warfarin hold for prev INR 6.7 discussed with pt events around 6.7 pt sts not sure why it was elevated, questioned if he had any greens , not really a big green eater do you use a medication box no, I put the sheet near my medicines do what you tell me to do , Did you go to the lab here on your last visit I don't know This RN expressed concerns over labile INRs, dosing and pts memory. Pt became agitated but controlled. Denies any unusual signs and symptoms of bruising, bleeding Denies any new Chest pain, SOB, or clotting INR: 1.4 critical low will continue usual dosing, has already taken dose today Nutritional guidance given: no greens x 3 days F/U INR: 06/26 Instructed to bring back his medication dosing sheet to next visit as that seemed to keep INR more in range Patient verbalizes understanding of instructions given with accurate read back/ teach back of dosing, however this RN continues concern over memory issues INR called into Dr Joshi office spoke with Jamila reported INR 1.4 after 6.7 (2 holds) and all above information including concerns with memory, F/U 06/25 Anti-Coag Initial Assessment Social Hx Patient Tobacco Use Status: Former Tobacco user Quit Date: 2006 alcohol intake: former Alcohol intake frequency: former alcohol drinker Coding Level of Care Code Est Patient Level 2 Diagnoses Current use of anticoagulant therapy Z79.01 Time Spent (min) 30 Assessment & Plan Assessment & Plan (1) Current use of anticoagulant therapy: Code(s): 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
== END 2023-06-21 10:02 | disposition home or self-care (01) ==
LOC: HO.ACS 09:28
PROVIDERS: PCP Internal Medicine; Visit Provider Internal Medicine
DX: Z79.01 Long term (current) use of anticoagulants (principal)

== ENCOUNTER → 2023-06-21 09:28 | Outpatient (BNVA) | payer OTHER, SELFPAY | PROVIDERS: PCP Internal Medicine; Visit Provider Internal Medicine | DX: I48.92 Unspecified atrial flutter (principal); Z79.01 Long term (current) use of anticoagulants; Z51.81 Encounter for therapeutic drug level monitoring | CPT/HCPCS: 85610; 99212 ==

== ENCOUNTER 2023-06-26 09:21 | Outpatient (AMB) | payer OTHER, SELFPAY ==
--- NOTE | 2023-06-26 09:33 | MHC.OFFVISCO ---
Intake Intake Visit Reasons: Anticoagulation Allergies No Known Allergies Allergy (Verified 06/26/23 09:23) Medication List - Last Reconciled 06/26/23 by Clara Oakes, RN atorvastatin 20 mg PO DAILY lisinopril 40 mg PO DAILY metoprolol succinate ER (Toprol XL) 25 mg PO DAILY warfarin 5 mg See Protocol PO DAILY Nursing Note pt visit delayed due to interfacing connection with meter by 10minutes INR: 2.2 in therapeutic range Medications and supplements reviewed No changes in health, diet, medications, or supplements,- PT TO CHECK IF HE IS ON QUINIPRIL OR LISINOPRIL - SVETLANA CALL PCP - HE'S NOT SURE - quiipril no longer available at pharmacy - on lisinopril Denies any signs and symptoms of bleeding or bruising or clotting. Bleeding, bruising, clotting discussed Nutritional guidance given EAT A MIX OF FRUITS AND VEGETABLESS Dose: KEEP SAME FOR NOW 7.5MG SUN/ 10MG X 6 DAYS- WITH CHECKING OFF DATES AND RETURNING WITH DOSING SHEET F/U INR: WEEKLY FOR NOW Patient verbalizes understanding of instructions given Anti-Coag Initial Assessment Social Hx Patient Tobacco Use Status: Former Tobacco user Quit Date: 2006 alcohol intake: former Alcohol intake frequency: former alcohol drinker Coding Level of Care Code Est Patient Level 1 Diagnoses Current use of anticoagulant therapy Z79.01 Assessment & Plan Assessment & Plan (1) Current use of anticoagulant therapy: Code(s): 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
[2023-06-26 09:39] LABS: Prothrombin Time Whole Bld POC 25.9 sec (11.1-13.5); ~PT, ~INR - Anti Coag Clinic 2.2 (0.9-1.1)
== END 2023-06-26 09:48 | disposition home or self-care (01) ==
LOC: HO.ACS 09:21
PROVIDERS: PCP Internal Medicine; Visit Provider Internal Medicine
DX: Z79.01 Long term (current) use of anticoagulants (principal)

== ENCOUNTER → 2023-06-26 09:21 | Outpatient (BNVA) | payer OTHER, SELFPAY | PROVIDERS: PCP Internal Medicine; Visit Provider Internal Medicine | DX: I48.92 Unspecified atrial flutter (principal); Z79.01 Long term (current) use of anticoagulants; Z51.81 Encounter for therapeutic drug level monitoring | CPT/HCPCS: 85610; 99211 ==

== ENCOUNTER 2023-07-03 08:55 | Outpatient (REF) | payer OTHER, SELFPAY ==
[2023-07-03 09:44] LABS: Prothrombin Time 87.5 SEC (11.1-13.3)
[2023-07-03 09:49] LABS: INTERNATIONAL NORM RATIO 7.2 (0.9-1.1)
== END 2023-07-03 08:56 | disposition home or self-care (01) ==
LOC: HO.LAB 08:55
PROVIDERS: PCP Internal Medicine; Visit Provider Internal Medicine
DX: I48.92 Unspecified atrial flutter (principal); Z51.81 Encounter for therapeutic drug level monitoring; Z79.01 Long term (current) use of anticoagulants
CPT/HCPCS: 36415; 85610; 99212

== ENCOUNTER 2023-07-03 08:55 | Outpatient (AMB) | payer OTHER, SELFPAY ==
[2023-07-03 09:02] LABS: Prothrombin Time Whole Bld POC 84.7 sec (11.1-13.5); ~PT, ~INR - Anti Coag Clinic 7.1 (0.9-1.1)
--- NOTE | 2023-07-03 09:33 | MHC.OFFVISCO ---
Intake Intake Visit Reasons: Anticoagulation Allergies No Known Allergies Allergy (Verified 07/03/23 08:56) Medication List - Last Reconciled 07/03/23 by Richelle Bruce, RN atorvastatin 20 mg PO DAILY lisinopril 40 mg PO DAILY metoprolol succinate ER (Toprol XL) 25 mg PO DAILY warfarin 5 mg See Protocol PO DAILY Nursing Note Amb to [facility] feeling, ok . Pt has his dosing sheet with the crossed out dates, takes warfarin in the am Medications and supplements reviewed, sts he is still taking the quinapril as he still has some, sts he has not filled the lisinopril yet (prescribed 06/01) No other changes in health, diet, medications, or supplements Denies any unusual signs and symptoms of bruising, bleeding Denies any new Chest pain, SOB, or clotting INR: 7.1 above therapeutic range -LAB CONFIRMATION FROM [place] INR 7.2 discussion with pt regarding continued concerns over dosing- relayed to pt concerns for memory and possibly missed doses that keep INR down and when strategies are used for reminders ie: crossing off days on dosing chart INR elevates, pt again states I take what you tell me to take , pt not using med/pill box I line up all my medications and take themas you tell me pt to lab for lab INR draw Nutritional guidance given: pt already took warfarin today, needs to have cooked, dark leafy greens such as spinach, sheri greens, some broccoli Dose: already took today, hold tomorrow and ; F/U INR:recheck Sunday Patient verbalizes understanding of instructions given with accurate read back/ teach back of dosing call to Dr Joshi office to report critical INR, await call back from Jamila Pollard Initial Assessment Social Hx Patient Tobacco Use Status: Former Tobacco user Quit Date: 2006 alcohol intake: former Alcohol intake frequency: former alcohol drinker Coding Level of Care Code Est Patient Level 2 Diagnoses Current use of anticoagulant therapy Z79.01 Time Spent (min) 30 Assessment & Plan Assessment & Plan (1) Current use of anticoagulant therapy: Code(s): 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
== END 2023-07-03 10:05 | disposition home or self-care (01) ==
LOC: HO.ACS 08:55
PROVIDERS: PCP Internal Medicine; Visit Provider Internal Medicine
DX: Z79.01 Long term (current) use of anticoagulants (principal)

== ENCOUNTER 2023-07-04 09:09 | Outpatient (REF) | payer OTHER, SELFPAY ==
[2023-07-04 09:47] LABS: Hematocrit 39.1 % (42.0-52.0); Hemoglobin 13.1 g/dl (14.0-18.0); Mean Corpuscular HGB Conc 33.5 g/dl (31.0-36.0); Mean Corpuscular Hemoglobin 30.3 pg (27.0-33.0); Mean Corpuscular Volume 90.5 fL (80.0-98.0); Mean Platelet Volume 8.5 fL (9.4-12.4); Platelet Count 180 X10*3/uL (160-400); Red Blood Count 4.32 X10*6/uL (4.60-5.80); Red Cell Distribution Width 13.4 % (11.0-16.0); White Blood Count 7.1 X10*3/uL (4.8-10.8)
[2023-07-04 10:01] LABS: Anion Gap 11 (12-20); Blood Urea Nitrogen 8 mg/dL (9-16); Calcium 9.1 mg/dL (8.4-10.2); Carbon Dioxide 28 mmol/L (22-29); Chloride 106 mmol/L (96-108); Estimated Glomerular Filt Rate > 60; Glucose Random 118 mg/dL (60-115); Potassium 4.2 mmol/L (3.3-5.1); Sodium 141 mmol/L (135-145)
[2023-07-04 10:07] LABS: INTERNATIONAL NORM RATIO 8.7 (0.9-1.1)
== END 2023-07-04 09:10 | disposition home or self-care (01) ==
LOC: HO.LAB 09:09
PROVIDERS: PCP Internal Medicine; Visit Provider Internal Medicine
DX: I48.92 Unspecified atrial flutter (principal); Z51.81 Encounter for therapeutic drug level monitoring; Z79.01 Long term (current) use of anticoagulants
CPT/HCPCS: 36415; 80048; 85027; 85610; 99211

== ENCOUNTER 2023-07-04 09:09 | Outpatient (AMB) | payer OTHER, SELFPAY ==
[2023-07-04 09:16] LABS: Prothrombin Time Whole Bld POC > 96.0 sec (11.1-13.5); ~PT, ~INR - Anti Coag Clinic > 8.0 (0.9-1.1)
--- NOTE | 2023-07-04 10:20 | MHC.OFFVISCO ---
Intake Intake Visit Reasons: Anticoagulation Allergies No Known Allergies Allergy (Verified 07/04/23 09:09) Medication List - Last Reconciled 07/04/23 by Clara Oakes, RN atorvastatin 20 mg PO DAILY lisinopril 40 mg PO DAILY metoprolol succinate ER (Toprol XL) 25 mg PO DAILY warfarin 5 mg See Protocol PO DAILY Nursing Note INR: >8.0 INR TODAY SENT TO LAB 8.7 CRITICAL RESULT, PT TOOK WARFARIN YESTERDAY PRIOR TO COMING FOR APPT, HE DID NOT TAKE IT TODAY. DENIES ANY S/SX OF BLEEDING, HE DENIES ANY PAIN OR DISCOMFORT, STATES BOWELS AND URINE ARE NORMAL, HE DOES NOT RECALL WHAT HE ATE YESTERDAY, Medications and supplements reviewed Denies any signs and symptoms of bleeding or bruising or clotting. 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 F/U INR: 2 DAYS 07/06/23 Patient verbalizes understanding of instructions given CALL PLACE TO DR CORONEL COVERING FOR DR GABRIEL WITH RESULTS AND PLAN OF CARE AND CONCERN FOR HIS COGNITIVE DECLINE AND MEMORY. 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
== END 2023-07-04 10:36 | disposition home or self-care (01) ==
LOC: HO.ACS 09:09
PROVIDERS: PCP Internal Medicine; Visit Provider Internal Medicine
DX: Z79.01 Long term (current) use of anticoagulants (principal)

== ENCOUNTER 2023-07-06 10:43 | Outpatient (AMB) | payer OTHER, SELFPAY ==
[2023-07-06 11:13] LABS: Prothrombin Time Whole Bld POC 41.5 sec (11.1-13.5); ~PT, ~INR - Anti Coag Clinic 3.5 (0.9-1.1)
--- NOTE | 2023-07-06 11:17 | MHC.OFFVISCO ---
Intake Intake Visit Reasons: Anticoagulation Allergies No Known Allergies Allergy (Verified 07/06/23 11:07) Medication List - Last Reconciled 07/06/23 by Richelle Bruce, RN atorvastatin 20 mg PO DAILY lisinopril 40 mg PO DAILY metoprolol succinate ER (Toprol XL) 25 mg PO DAILY warfarin 5 mg See Protocol PO DAILY Nursing Note Pt did not show for 0900 appointment, pt called by admin secretary Mabel I forgot R/S to 1100 presents to ACS feeling well at 1100 discussed with pt concerns for health while on warfarin evident by missed appointment, memory concerns This RN asked pt about 9am appt I guess I just forgot , when questioned further about INRs this week pt could not answer with INR values. This RN asked pt if we were concerned because INRs were very low or high pt answered too low I guess reorient pt to INR crisis this week, explained to pt that his INR has been dangerously high requiring frequent monitoring and not taking warfarin pt sts I do whatever you tell me on the sheet pt does not have dosing sheet today- reviewed with pt that he needs to bring it every visit as it keeps all of us accountable for dosing, helps as a reminder. This RN expressed much concern for the pt as INRs have been very low and very hi, also explained that pt denies missing dosing but we all can be forgetful at times, This RN also stated that pt is resistant to using a pill box. RN also explained that a pillbox can really help to keep track if there are any missed doses. Pt sts I do not miss doses and I take what you tell me to take on the paperwork Pt allowed to vent frustration although this RN explained to pt real concerns over possible memory issues as missing cardiology appointments and other follow ups such as appt this morning when INR has been dangerously high. Discussed with pt that we may not be able to continue to manage warfarin with him. Cardiology will need to evaluate continued warfarin use as per PCP. Discussed with pt warfarin dangerous if not taken daily and we dose according to INR and if INR low and pt denies missing doses we raise dosing. Asked pt if anyone can help set up his pills. He offered no suggestions. Medications and supplements reviewed, sts he is still taking quinipril, however script for lisinopril was written mid May as per call from pt to PCP that he could not get any lisinopril (concerned he is missing other medications also) No other changes in health, diet, medications, or supplements Denies any unusual signs and symptoms of bruising, bleeding Denies any new Chest pain, SOB, or clotting INR: 3.5 above therapeutic range,but coming in closer to range, pt normally takes warfarin in the morning, did not take today as per our instructions Nutritional guidance given: continue greens today but in discussion with pt I have been eating my regular diet this week, no extra greens Dose: restart warfarin tomorrow at 7.5mg (vs 10mg) then 7.5mg on Sunday, 10mg on Sunday and Sunday recheck on Sunday before appointment with Dr Jensen; Both appointment times written on dosing sheet F/U INR:Wednesday 07/11 Pt instructed to bring dosing sheet back Xd out at each visit, pt instructed that PCP and trading assistant will be called/sent notes regarding continued concerns Call to PCP, spoke with Jamila and updated with todays visit concerns especially that pt did not know if his INRs were too low or too high- as per previous conversation cardiology to determine if continue warfarin or how to manage compose note to cardiology with NN attached Anti-Coag Initial Assessment Social Hx Patient Tobacco Use Status: Former Tobacco user Quit Date: 2006 alcohol intake: former Alcohol intake frequency: former alcohol drinker Coding Level of Care Code Est Patient Level 2 Diagnoses Current use of anticoagulant therapy Z79.01 Time Spent (min) 30 Assessment & Plan Assessment & Plan (1) Current use of anticoagulant therapy: Code(s): 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
== END 2023-07-06 16:40 | disposition home or self-care (01) ==
LOC: HO.ACS 10:43
PROVIDERS: PCP Internal Medicine; Visit Provider Internal Medicine
DX: Z79.01 Long term (current) use of anticoagulants (principal)

== ENCOUNTER → 2023-07-06 10:43 | Outpatient (BNVA) | payer OTHER, SELFPAY | PROVIDERS: PCP Internal Medicine; Visit Provider Internal Medicine | DX: I48.92 Unspecified atrial flutter (principal); Z79.01 Long term (current) use of anticoagulants; Z51.81 Encounter for therapeutic drug level monitoring | CPT/HCPCS: 85610; 99212 ==

== ENCOUNTER 2023-07-11 10:53 | Outpatient (AMB) | payer OTHER, SELFPAY ==
[2023-07-11 11:05] LABS: Prothrombin Time Whole Bld POC 50.7 sec (11.1-13.5); ~PT, ~INR - Anti Coag Clinic 4.2 (0.9-1.1)
--- NOTE | 2023-07-11 11:15 | MHC.OFFVISCO ---
Intake Intake Visit Reasons: Anticoagulation Allergies No Known Allergies Allergy (Verified 07/11/23 10:59) Medication List - Last Reconciled 07/11/23 by Vilma Pastrana RN atorvastatin 20 mg PO DAILY lisinopril 40 mg PO DAILY metoprolol succinate ER (Toprol XL) 25 mg PO DAILY warfarin 5 mg See Protocol PO DAILY Nursing Note PT.COMES TO [facility] AFTER APPT.WITH . HE STATES THAT SHE DIDN'T SAY ANYTHING AND HAS FOLLOW-UP Appt. PT.CONTINUES TO BE VAGUE ANSWERING QUESTIONS. HE DENIES ANY CP,SOB OR SX OF BLEEDING. HOLD WARFARIN TOMORROW(TOOK 10MGM TODAY) AND RECHECK INR HERE ON 07/13. DOSING INSTR.DISCUSSED IN DETAIL WITH PT. Anti-Coag Initial Assessment Social Hx Patient Tobacco Use Status: Former Tobacco user Quit Date: 2006 alcohol intake: former Alcohol intake frequency: former alcohol drinker Coding Level of Care Code Est Patient Level 1 Diagnoses Current use of anticoagulant therapy Z79.01 Results AMB INR Fingerstick AMB INR Fingerstick 4.2 Last Edit by Vilma Pastrana RN on 07/11/23 11:07 Assessment & Plan Assessment & Plan (1) Current use of anticoagulant therapy: Code(s): Z79.01 - senior living (current) use of anticoagulants Category: Medical
== END 2023-07-11 11:20 | disposition home or self-care (01) ==
LOC: HO.ACS 10:53
PROVIDERS: PCP Internal Medicine; Visit Provider Internal Medicine
DX: Z79.01 Long term (current) use of anticoagulants (principal)

== ENCOUNTER → 2023-07-11 10:53 | Outpatient (BNVA) | payer OTHER, SELFPAY | PROVIDERS: PCP Internal Medicine; Visit Provider Internal Medicine | DX: I48.92 Unspecified atrial flutter (principal); Z51.81 Encounter for therapeutic drug level monitoring; Z79.01 Long term (current) use of anticoagulants | CPT/HCPCS: 85610; 99211 ==

== ENCOUNTER 2023-07-13 10:02 | Outpatient (AMB) | payer OTHER, SELFPAY ==
--- NOTE | 2023-07-13 10:31 | MHC.OFFVISCO ---
Intake Intake Visit Reasons: Anticoagulation Allergies No Known Allergies Allergy (Verified 07/13/23 10:16) Medication List - Last Reconciled 07/13/23 by Clara Oakes RN atorvastatin 20 mg PO DAILY lisinopril 40 mg PO DAILY metoprolol succinate ER (Toprol XL) 25 mg PO DAILY warfarin 5 mg See Protocol PO DAILY Nursing Note INR: 3.2 ALMOST IN THERAPEUTIC RANGE Medications and supplements reviewed No changes in health, diet, medications, or supplements, Denies any signs and symptoms of bleeding or bruising or clotting. Bleeding, bruising, clotting discussed Nutritional guidance given - EAT A MIX OF FRUITS AND VEGETABLES THAT YOU LIKE - KEEP DIET HEALTHY AND CONSISTENT Dose: 5MG TODAY THEN 7.5MG DAILY F/U INR: 6 DAYS 07/19/23 Patient verbalizes understanding of instructions given Anti-Coag Initial Assessment Social Hx Patient Tobacco Use Status: Former Tobacco user Quit Date: 2006 alcohol intake: former Alcohol intake frequency: former alcohol drinker Coding Level of Care Code Est Patient Level 1 Diagnoses Current use of anticoagulant therapy Z79.01 Results AMB INR Fingerstick AMB INR Fingerstick 3.2 Last Edit by Clara Oakes RN on 07/13/23 10:25 MANUAL ENTRY POOR INTERFACING Assessment & Plan Assessment & Plan (1) Current use of anticoagulant therapy: Code(s): Z79.01 - penitentiary (current) use of anticoagulants Category: Medical
== END 2023-07-13 10:35 | disposition home or self-care (01) ==
LOC: HO.ACS 10:02
PROVIDERS: PCP Internal Medicine; Visit Provider Internal Medicine
DX: Z79.01 Long term (current) use of anticoagulants (principal)

== ENCOUNTER → 2023-07-13 10:02 | Outpatient (BNVA) | payer OTHER, SELFPAY | PROVIDERS: PCP Internal Medicine; Visit Provider Internal Medicine | DX: I48.92 Unspecified atrial flutter (principal); Z79.01 Long term (current) use of anticoagulants; Z51.81 Encounter for therapeutic drug level monitoring | CPT/HCPCS: 85610; 99211 ==

== ENCOUNTER 2023-07-19 09:11 | Outpatient (AMB) | payer OTHER, SELFPAY ==
--- NOTE | 2023-07-19 09:43 | MHC.OFFVISCO ---
Intake Intake Visit Reasons: Anticoagulation Allergies No Known Allergies Allergy (Verified 07/19/23 09:31) Medication List - Last Reconciled 07/19/23 by Clara Oakes RN atorvastatin 20 mg PO DAILY lisinopril 40 mg PO DAILY metoprolol succinate ER (Toprol XL) 25 mg PO DAILY warfarin 5 mg See Protocol PO DAILY Nursing Note INR: 3.2 almost therapeutic range x2 weeks now pt very pleasant and seemed more oriented than usual and he brought his dosing sheet with him Medications and supplements reviewed No changes in health, diet, medications, or supplements, Denies any signs and symptoms of bleeding or bruising or clotting. Bleeding, bruising, clotting discussed Nutritional guidance given - cont same and eat a mix of fruits and vegetables Dose: 5mg today then 5mg wed, 7.5mg x 6 days F/U INR: 1 week Patient verbalizes understanding of instructions given Anti-Coag Initial Assessment Social Hx Patient Tobacco Use Status: Former Tobacco user Quit Date: 2006 alcohol intake: former Alcohol intake frequency: former alcohol drinker Coding Level of Care Code Est Patient Level 1 Diagnoses Current use of anticoagulant therapy Z79.01 Assessment & Plan Assessment & Plan (1) Current use of anticoagulant therapy: Code(s): Z79.01 - shelter (current) use of anticoagulants Category: Medical
[2023-07-19 10:19] LABS: Prothrombin Time Whole Bld POC 38.6 sec (11.1-13.5); ~PT, ~INR - Anti Coag Clinic 3.2 (0.9-1.1)
== END 2023-07-19 09:44 | disposition home or self-care (01) ==
LOC: HO.ACS 09:11
PROVIDERS: PCP Internal Medicine; Visit Provider Internal Medicine
DX: Z79.01 Long term (current) use of anticoagulants (principal)

== ENCOUNTER → 2023-07-19 09:11 | Outpatient (BNVA) | payer OTHER, SELFPAY | PROVIDERS: PCP Internal Medicine; Visit Provider Internal Medicine | DX: I48.92 Unspecified atrial flutter (principal); Z79.01 Long term (current) use of anticoagulants; Z51.81 Encounter for therapeutic drug level monitoring | CPT/HCPCS: 85610; 99211 ==

== ENCOUNTER 2023-07-26 09:24 | Outpatient (AMB) | payer OTHER, SELFPAY ==
--- NOTE | 2023-07-26 09:37 | MHC.OFFVISCO ---
Intake Intake Visit Reasons: Anticoagulation Allergies No Known Allergies Allergy (Verified 07/26/23 09:33) Medication List - Last Reconciled 07/26/23 by Cheyanne Mondragon RN atorvastatin 20 mg PO DAILY lisinopril 40 mg PO DAILY metoprolol succinate ER (Toprol XL) 25 mg PO DAILY warfarin 5 mg See Protocol PO DAILY Nursing Note INR 1.6-?? out of therapeutic range 2-3 Medications and supplements reviewed Patient status: no c.o, denies missed dose, pt states he follows warfarin dosing sheet, he brought paper to [facility] with dates crossed off Medications or supplements: no changes Diet: appetite good Denies any signs and symptoms of bleeding or clotting or unusual bruising Bleeding, bruising, clotting discussed Nutritional guidance given: no greens for 2 days, eat reds to raise inr Dose: 10mg today, then 7.5mg x 7- dates on dosing sheet F/U INR Date : 1 week?? Patient verbalizing understanding of instructions given. 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
[2023-07-26 09:38] LABS: Prothrombin Time Whole Bld POC 19.3 sec (11.1-13.5); ~PT, ~INR - Anti Coag Clinic 1.6 (0.9-1.1)
== END 2023-07-26 09:46 | disposition home or self-care (01) ==
LOC: HO.ACS 09:24
PROVIDERS: PCP Internal Medicine; Visit Provider Internal Medicine
DX: Z79.01 Long term (current) use of anticoagulants (principal)

== ENCOUNTER → 2023-07-26 09:24 | Outpatient (BNVA) | payer OTHER, SELFPAY | PROVIDERS: PCP Internal Medicine; Visit Provider Internal Medicine | DX: I48.92 Unspecified atrial flutter (principal); Z79.01 Long term (current) use of anticoagulants; Z51.81 Encounter for therapeutic drug level monitoring | CPT/HCPCS: 85610; 99211 ==

== ENCOUNTER 2023-08-02 09:08 | Outpatient (AMB) | payer OTHER, SELFPAY ==
[2023-08-02 09:24] LABS: Prothrombin Time Whole Bld POC 63.3 sec (11.1-13.5); ~PT, ~INR - Anti Coag Clinic 5.3 (0.9-1.1)
--- NOTE | 2023-08-02 09:31 | MHC.OFFVISCO ---
Intake Intake Visit Reasons: Anticoagulation Allergies No Known Allergies Allergy (Verified 08/02/23 09:18) Medication List - Last Reconciled 08/02/23 by Richelle Bruce, RN atorvastatin 20 mg PO DAILY lisinopril 40 mg PO DAILY metoprolol succinate ER (Toprol XL) 25 mg PO DAILY warfarin 5 mg See Protocol PO DAILY Nursing Note Amb to [facility] feeling well, when questioned regarding upcoming holiday () pt not answering, told pt we are at the end of July, again hesitant, prompted again nurse sts yobani pt then sts if you think is a hiliday then that would be it Medications and supplements reviewed No changes in health, diet, medications, or supplements Denies any unusual signs and symptoms of bruising, bleeding Denies any new Chest pain, SOB, or clotting INR: 5.3 above therapeutic range, critical (last visit 1.6) Nutritional guidance given:greens today then balance greens and reds in diet Dose: hold warfarin today, take 5mg Sunday and Sunday, 7.5mg on Sunday, none on Sunday before ACS visit; F/U INR:SundayAugust 06, pt given dated dosing sheet, instructed to cross off when takes warfarin and to bring it back when he returns on Sunday, instructed we will tell him how much to take on Sunday when he comes in for visit. Reviewed continued concerns with pt regarding use of warfarin memory, and safety. Reviewed living situation as he mentioned he lives upstairs from son. Questioned if son could assist with warfarin management, pt indicated they live seperate lives. Reviewed with pt high INR increased risk of bleed, to ED if any bleeding or falls Critical INR called into Jamila at Dr Joshi office with hold today, decrease to 5mg x 2 days, 7.5mg on Sunday and F/u Sunday, concerns for continued warfarin mgt Anti-Coag Initial Assessment Social Hx Patient Tobacco Use Status: Former Tobacco user Quit Date: 2006 alcohol intake: former Alcohol intake frequency: former alcohol drinker Coding Level of Care Code Est Patient Level 1 Diagnoses Current use of anticoagulant therapy Z79.01 Time Spent (min) 20 Assessment & Plan Assessment & Plan (1) Current use of anticoagulant therapy: Code(s): 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
== END 2023-08-02 09:55 | disposition home or self-care (01) ==
LOC: HO.ACS 09:08
PROVIDERS: PCP Internal Medicine; Visit Provider Internal Medicine
DX: Z79.01 Long term (current) use of anticoagulants (principal)

== ENCOUNTER → 2023-08-02 09:08 | Outpatient (BNVA) | payer OTHER, SELFPAY | PROVIDERS: PCP Internal Medicine; Visit Provider Internal Medicine | DX: I48.92 Unspecified atrial flutter (principal); Z79.01 Long term (current) use of anticoagulants; Z51.81 Encounter for therapeutic drug level monitoring | CPT/HCPCS: 85610; 99211 ==

== ENCOUNTER 2023-08-06 09:08 | Outpatient (AMB) | payer OTHER, SELFPAY ==
--- NOTE | 2023-08-06 09:13 | MHC.OFFVISCO ---
Intake Intake Visit Reasons: Anticoagulation Allergies No Known Allergies Allergy (Verified 08/06/23 09:08) Medication List - Last Reconciled 08/06/23 by Cheyanne Mondragon, RN atorvastatin 20 mg PO DAILY lisinopril 40 mg PO DAILY metoprolol succinate ER (Toprol XL) 25 mg PO DAILY warfarin 5 mg See Protocol PO DAILY Nursing Note INR 1.9-?? 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 pt aware had pcp appt sunday but did not recall conversation to stop warfarin and start eliquis Medications or supplements: d/c warfarin, start eliquis bid pt instructed multiple times to stop warfarin and start eliquis, to not take both. dosing sheet given to pt with 0 dosing of warfarin as he brings his warfarin sheet to acs with dates crossed off. 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 Patient verbalizing understanding of instructions given. t/c placed to pt at 1345- he states picked up the eliquis and will begin today- aware it is twice per day and to stop the warfarin he states he is out of warfarin at this time. aware he does not need poc inr monitoring. 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
[2023-08-06 09:14] LABS: Prothrombin Time Whole Bld POC 22.3 sec (11.1-13.5); ~PT, ~INR - Anti Coag Clinic 1.9 (0.9-1.1)
== END 2023-08-06 09:34 | disposition home or self-care (01) ==
LOC: HO.ACS 09:08
PROVIDERS: PCP Internal Medicine; Visit Provider Internal Medicine
DX: Z79.01 Long term (current) use of anticoagulants (principal)

== ENCOUNTER → 2023-08-06 09:08 | Outpatient (BNVA) | payer OTHER, SELFPAY | PROVIDERS: PCP Internal Medicine; Visit Provider Internal Medicine | DX: I48.92 Unspecified atrial flutter (principal); Z79.01 Long term (current) use of anticoagulants; Z51.81 Encounter for therapeutic drug level monitoring | CPT/HCPCS: 85610; 99211 ==

== ENCOUNTER 2024-06-05 18:09 | Emergency (ER) | payer OTHER, SELFPAY ==
--- NOTE | ~2024-06-05 | CT_ITS ---
EXAMINATION: CT HEAD WITHOUT CONTRAST EXAMINATION: CT HEAD WITHOUT CONTRAST CLINICAL INFORMATION: Forgetfulness COMPARISON: None available. TECHNIQUE: Contiguous axial imaging was performed from the skull base to vertex without intravenous administration of contrast. This CT examination was performed using dose optimization techniques as appropriate, variously including the following: *Automated exposure control *Adjustment of mA and/or kV according to patient size (this includes techniques or standardized protocols for targeted exams where dose is matched to indication/reason for exam; i.e. extremities or head) *Use of iterative reconstruction technique DLP: 613 mGy-cm FINDINGS: The ventricles and sulci are normal in size and configuration. No acute hemorrhage, mass effect or shift is evident. Mcpherson-white differentiation is maintained. In the posterior fossa, the brainstem, cerebellum and fourth ventricle image normally. The orbits and calvarium are intact. The paranasal sinuses and mastoid air cells are well pneumatized and clear. There is a left frontal skin and subdermal lesion, for which correlation with physical examination is recommended. The underlying bony calvarium is intact. CT/CT head/brain wo IV con IMPRESSION: 1. Unremarkable noncontrast brain CT. No acute hemorrhage, mass effect or shift. 2. Left frontal scalp skin lesion; suggest correlation with physical examination. Electronically signed by: Gato Carranza MD 06/05/2024 07:25 PM EDT
--- NOTE | ~2024-06-05 | XR_ITS ---
EXAMINATION: XR CHEST 2 VIEW CLINICAL INFORMATION: Rule out infection COMPARISON: None TECHNIQUE: PA and lateral views of the chest obtained. FINDINGS: The lungs are clear. There are no pleural effusions. The cardiomediastinal silhouette is normal. XR/XR chest 2V IMPRESSION: No acute cardiopulmonary disease. Electronically signed by: Gato Carranza MD 06/05/2024 07:26 PM EDT RP
[2024-06-05 18:23] VITALS: BP 155/88; PULSE 83; RESP 16; TEMP 36.9; O2SAT 98; BMI 30.7
[2024-06-05 19:20] LABS: Appearance Urine Clear; Color Urine Yellow; Glucose Urine UA Negative (Negative); Leukocyte Esterase Urine Trace (Negative); Nitrite Urine Negative (Negative); PH 5.5 (5.0-9.0); UMIC TRIGGER UACC YES; Urine Blood Negative (Negative); Urine Ketones Negative (Negative); Urine Protein Trace mg/dL (Neg-Trace)
[2024-06-05 19:25] LABS: Bacteria Urine None Seen (None Seen); Hyaline Casts Urine 0-2 /LPF (0-2); RBC Urine 0-2 /HPF (0-2); Squamous Epithelial Cell Urine 0-2 /HPF (0-2); WBC Urine 0-5 /HPF (0-5)
--- NOTE | 2024-06-05 21:09 | ED_ITS ---
HPI - General Adult General Chief complaint: General Medical Stated complaint: fainting, forgetfulness Time Seen by Provider: 06/05/24 20:59 Source: patient and family Mode of arrival: ambulatory Limitations: no limitations History of Present Illness ED Provider: Dr. Divya Burnette HPI narrative: patient comes to the emergency room accompanied by his daughter. According to the patient's daughter, the patient has been more forgetful than usual over last few months. Also, the daughter states that approximately 2 weeks ago, patient had a syncopal episode only has 1 kidney that lasted for a few seconds, the daughter states that bystanders saw him reported that the patient's I drilled backwards and had foaming at the mouth. Patient denies any history of seizures. Patient states he does not remember this happening at a. Also, the patient's father states that the patient has not been taking his heart medications. She is concerned that he has atrial flutter and he is not taking Eliquis and his other blood pressure medications. Patient states that he is very compliant with his meds. Patient states that he feels very well and has no complaints. Related Data Home Medications ?Medication ?Instructions ?Recorded ?Confirmed atorvastatin 20 mg tablet 20 mg PO DAILY 10/06/20 08/02/23 lisinopril 40 mg tablet 40 mg PO DAILY 06/01/23 08/02/23 apixaban 5 mg tablet (Eliquis) 5 mg PO BID 08/06/23 08/06/23 Previous Rx's ?Medication ?Instructions ?Recorded metoprolol succinate 25 mg 25 mg PO DAILY #90 tabs 11/10/22 tablet,extended release 24 hr (Toprol XL) apixaban 5 mg tablet (Eliquis) 5 mg PO BID 90 days #180 tabs 06/06/24 atorvastatin 20 mg tablet 20 mg PO BEDTIME #90 tabs 06/06/24 lisinopril 40 mg tablet 40 mg PO DAILY #90 tabs 06/06/24 metoprolol succinate 25 mg 25 mg PO DAILY #90 tabs 06/06/24 tablet,extended release 24 hr Allergies Allergy/AdvReac Type Severity Reaction Status Date / Time No Known Allergies Allergy Verified 06/05/24 18:26 Review of Systems 2 Review of Systems: Constitutional : No Weight loss, No Fever, No Chills, No Night Sweats, No Fatigue, No Malaise ENT/Mouth : No Hearing loss, No Ear Pain, No Nasal Congestion, No Sinus Pain, No Hoarseness, No sore throat, No Rhinorrhea, No Swallowing Difficulty Eyes: No Eye Pain, No Swelling, No Redness, No Foreign Body, No Discharge, No Vision Changes Cardiovascular : No Chest Pain, No SOB, No Dyspnea on Exertion, No Orthopnea, No Edema, No Palpitations Respiratory : No Cough, No Sputum, No Wheezing, No Smoke Exposure, No Dyspnea Gastrointestinal : No Nausea, No Vomiting, No Diarrhea, No Constipation, No abdominal Pain, No Hematochezia, No Melena Genitourinary : no irregular bleeding, No Dysuria, No Urinary Frequency, No Hematuria, No Urinary Incontinence, No Urgency, No Flank Pain, No Urinary Flow Changes, No Hesitancy Musculoskeletal : No joint pain, No Myalgias, No Joint Swelling Skin : No Skin Lesions, No rash Neuro : No Weakness, No Numbness, No Paresthesias, No Loss of Consciousness, No Dizziness, No Headache . Per family, syncopal episode 2 weeks ago Psych : No Anxiety/Panic, No Depression, No SI/HI/AH/VH, No Social Issues, Heme/Lymph: No Bruising, No Bleeding,No Lymphadenopathy Endocrine : No Polyuria, No Polydipsia, No Temperature Intolerance [facility] Past Medical History Medical History History of rectal cancer Wears dentures Hx of flexible sigmoidoscopy Essential hypertension Typical atrial flutter Perianal condylomata (~07/04/23) Rectal cancer Hypertension Increased BMI Elevated cholesterol HTN (hypertension) Surgical History History of excision of lesion History of verrucae (wart) excision H/O colonoscopy Family History Family History Father No problems noted. Mother No problems noted. Social History Social History Household Members: None Housing: House Are you a primary care trainer to a significant other at home: No Do you presently have visiting nurse or other home services: No Alcohol intake: former Year quit: 2006 Patient Tobacco Use Status: Former Tobacco user Years Smoked: 25 +/- Advance Directives: No Advance Directives Information Provided: No Do you have a plan to hurt others: No Plan service: No Current occupational status: retired Physical Exam ED Vital Signs: Vital Signs - 24 hr 06/05/24 18:23 06/05/24 21:30 06/05/24 21:40 Temperature 98.5 F 98.7 F Pulse Rate 83 78 69 Respiratory Rate 16 18 Blood Pressure 155/88 H 145/78 H 150/75 H Pulse Oximetry 98 98 Oxygen Delivery Method Room Air Room Air 06/05/24 21:40 06/05/24 21:40 06/05/24 23:54 Temperature Pulse Rate 71 88 64 Respiratory Rate Blood Pressure 164/88 H 144/85 H 163/76 H Pulse Oximetry Oxygen Delivery Method 06/05/24 23:54 06/05/24 23:54 06/05/24 23:55 Temperature 98.1 F Pulse Rate 67 76 67 Respiratory Rate 18 Blood Pressure 157/80 H 151/79 H 157/80 H Pulse Oximetry 98 Oxygen Delivery Method Room Air BMI result Body Mass Index 30.7 Const Other: Appearance: Alert. Oriented X3. No acute distress. Eyes: Pupils equal, round and reactive to light. ENT: Pharynx normal. Neck: Normal inspection. Neck supple. No lymph nodes noted. No crepitus CVS: Normal heart rate and rhythm. Pulses normal. Normal S1 and S2 Respiratory: No respiratory distress. Breath sounds normal. No Wheezing. No rales Abdomen: Soft and nontender. No rigidity. No distention. Skin: Skin warm and dry. Normal skin color. Normal skin turgor. Extremities: No lower extremity edema. No Lacerations. No Rash Neuro: Oriented X 3. No motor deficit. No sensory deficit. Moving all extremities. No slurred speech. CN 2 through 12 grossly intact Psych: calm, cooperative, normal affect Course Course Course Narrative: - I reviewed patient's medications, the last time that patient picked up his lisinopril was February of 2024, atorvastatin 01/26/2024, metoprolol September of 2023 on Eliquis August of 2023 - all of patient's labs pending - CT scan of the head pending Medications Administered Discontinued Medications Generic Name Dose Route Start Last Admin Trade Name Freq PRN Reason Stop Dose Admin Sodium Chloride 1,000 mls @ 999 mls/hr 08/29/24 21:45 06/05/24 22:16 Ns IVCONT 06/05/24 22:45 999 mls/hr .Q1H1M ONE Administration Medical Decision Making Medical Decision Making [facility] Narrative: - I reviewed patient's medications, patient has not been compliant with his medications overall. - My interpretation of CT scan: No obvious abnormality. Radiology report: Unremarkable, no acute hemorrhage or mass effect or shift - patient's orthostatic vitals positive, patient receiving IV fluids. orthostatic hypotension was likely the cause that patient syncopized couple of weeks ago - after IV fluids, patient's vitals within normal limits, negative orthostatic vitals - discussed with the patient and daughter that we will restart all of his patient's medications. Patient has an appointment pending with a new PCP in 2 weeks. Also, patient was given information for walk-in clinic - patient may need further workup for memory issues by his PCP. - wells criteria for pulmonary embolism score is 0 - patient will be restarted on all of his medications, instructed to use pill containers so that he remembers every day to take his meds. Patient and daughter agree with plan - since it may take months until patient's cc new PCP, discussed with the patient that they can go to a walk-in clinic, provided with information Differential Diagnosis Differential Diagnoses: The differential diagnosis associated with the presentation includes ( Dehydration, orthostatic hypotension, marijuana abuse) Admission/Observation Consideration of admission/observation: Escalation of care including admission/observation considered ( given patient's symptoms, length of time without medications, observation was considered) Lab Data [facility] Lab Attestation statement: I reviewed the patient's lab results. 06/05/24 21:23 06/05/24 21:23 Labs: Lab Results 06/05/24 06/05/24 06/05/24 Range/Units 19:11 21:22 21:23 WBC 8.6 (4.8-10.8) X10*3/uL RBC 4.83 (4.60-5.80) X10*6/uL Hgb 14.9 (14.0-18.0) g/dl Hct 42.5 (42.0-52.0) % MCV 88.0 (80.0-98.0) fL MCH 30.8 (27.0-33.0) pg MCHC 35.1 (31.0-36.0) g/dl RDW 12.4 (11.0-16.0) % Plt Count 228 (160-400) X10*3/uL MPV 8.5 L (9.4-12.4) fL Immature Gran % (Auto) 0.2 (0.0-0.4) % Neut % (Auto) 57.5 (45-73) % Lymph % (Auto) 35.8 (20-40) % [place] % (Auto) 5.8 (2-11) % Eos % (Auto) 0.2 (0-4) % Baso % (Auto) 0.5 (0-2) % Lymph # (Auto) 3.1 (1.2-4.9) X10*3/uL [place] # (Auto) 0.5 (0.1-1.2) X10*3/uL Eos # (Auto) 0.0 (0.0-0.4) X10*3/uL Baso # (Auto) 0.0 (0.0-0.2) X10*3/uL Abs Immat Gran (auto) 0.02 (0.00-0.03) X10*3/uL Absolute Neuts (auto) 5.0 (2.0-8.3) x10*3/uL Absolute Nucleated RBC 0.000 (0.0-0.012) X10*3/uL Nucleated RBC % (auto) 0.0 (0.0-0.2) /100WBC PT 12.2 D (11.1-13.3) SEC INR 1.0 D (0.9-1.1) Sodium 137 (135-145) mmol/L Potassium 4.0 (3.3-5.1) mmol/L Chloride 104 (96-108) mmol/L Carbon Dioxide 23 (22-29) mmol/L Anion Gap 14 (12-20) BUN 11 (9-16) mg/dL Creatinine 1.16 (0.5-1.4) mg/dL Estim Creat Clear Calc 64.8 Estimated GFR > 60 Random Glucose 123 H (60-115) mg/dL Calcium 10.5 H D (8.4-10.2) mg/dL Magnesium 2.2 (1.6-2.6) mg/dL Total Bilirubin 0.6 (0.0-1.0) mg/dL AST 25 (5-37) U/L ALT 26 (0-40) U/L Alkaline Phosphatase 106 (39-117) U/L Troponin I High Sens < 2.7 (<3.5-35.0) ng/L Total Protein 8.2 H (6.5-8.0) g/dL Albumin 4.6 (3.5-5.0) g/dL Urine Color Yellow Urine Appearance Clear Urine pH 5.5 (5.0-9.0) Ur Specific [place] 1.020 (1.005-1.025) Urine Protein Trace (Neg-Trace) mg/dL Urine Glucose (UA) Negative (Negative) mg/dL Urine Ketones Negative (Negative) mg/dL Urine Blood Negative (Negative) Urine Nitrite Negative (Negative) Ur Leukocyte Esterase Trace H (Negative) Urine RBC 0-2 (0-2) /HPF Urine WBC 0-5 (0-5) /HPF Ur Squamous Epith Cells 0-2 (0-2) /HPF Urine Bacteria None Seen (None Seen) Hyaline Casts 0-2 (0-2) /LPF Urine Opiates Screen Not Detected (Not Detect) Ur Buprenorphine Scrn Not Detected (Not Detect) ng/mL Ur Oxycodone Screen Not Detected (Not Detect) ng/mL Urine Methadone Screen Not Detected (Not Detect) ng/mL Urine Fentanyl Screen Not Detected (Not Detect) Ur Barbiturates Screen Not Detected (Not Detect) Ur Phencyclidine Scrn Not Detected (Not Detect) Ur Amphetamines Screen Not Detected (Not Detect) U Benzodiazepines Scrn Not Detected (Not Detect) Urine Cocaine Screen Not Detected (Not Detect) U Marijuana (THC) Screen POSITIVE H (Not Detect) Ethyl Alcohol < 10 mg/dL Independent Interpretation I performed an independent interpretation of an: Plain X-Ray and CT Scan Radiology Impression Discussion of test interpretation with radiology: I have reviewed the radiologist's reading. Radiologist Impression: FINDINGS: The ventricles and sulci are normal in size and configuration. No acute hemorrhage, mass effect or shift is evident. Mcpherson-white differentiation is maintained. In the posterior fossa, the brainstem, cerebellum and fourth ventricle image normally. The orbits and calvarium are intact. The paranasal sinuses and mastoid air cells are well pneumatized and clear. There is a left frontal skin and subdermal lesion, for which correlation with physical examination is recommended. The underlying bony calvarium is intact. CT/CT head/brain wo IV con IMPRESSION: 1. Unremarkable noncontrast brain CT. No acute hemorrhage, mass effect or shift. 2. Left frontal scalp skin lesion; suggest correlation with physical examination. The lungs are clear. There are no pleural effusions. The cardiomediastinal silhouette is normal. XR/XR chest 2V IMPRESSION: No acute cardiopulmonary disease. Critical Care Time Critical Care Time Critical Care Time: Yes Total Critical Care Time: 60 Attestation: I have personally provided critical care time. Time includes review of lab data, radiology results, discussion with consultants, and monitoring for potential decompensation. Intervention performed as documented. Discharge Plan Discharge Clinical Impression: Orthostatic hypotension, At risk for medication noncompliance Patient Disposition: Home, Self-Care Instructions: Hypotension (ED) Additional Instructions: Please follow-up with your primary care physician tomorrow. If you have any worsening or new symptoms, please return to the emergency room or call 911 Prescriptions: New lisinopril 40 mg tablet 40 mg PO DAILY Qty: 90 0RF atorvastatin 20 mg tablet 20 mg PO BEDTIME Qty: 90 0RF metoprolol succinate 25 mg tablet extended release 24 hr 25 mg PO DAILY Qty: 90 0RF Eliquis 5 mg tablet 5 mg PO BID 90 Days Qty: 180 0RF No Action metoprolol succinate [Toprol XL] 25 mg tablet extended release 24 hr 25 mg PO DAILY Qty: 90 3RF atorvastatin 20 mg tablet 20 mg PO DAILY lisinopril 40 mg tablet 40 mg PO DAILY Eliquis 5 mg tablet 5 mg PO BID Print Language: [place] Citizen
[2024-06-05 21:27] LABS: MANUAL DIFF FLAG NO
[2024-06-05 21:30] VITALS: BP 145/78; PULSE 78; RESP 18; TEMP 37.1; O2SAT 98
[2024-06-05 21:30] LABS: Basophils Percent Auto 0.5 % (0-2); Eosinophils Percent Auto 0.2 % (0-4); Hematocrit 42.5 % (42.0-52.0); Hemoglobin 14.9 g/dl (14.0-18.0); Imm Gran Abs Auto 0.02 X10*3/uL (0.00-0.03); Imm Gran Pct Auto 0.2 % (0.0-0.4); Lymphocytes Absolute Auto 3.1 X10*3/uL (1.2-4.9); Lymphocytes Percent Auto 35.8 % (20-40); Mean Corpuscular HGB Conc 35.1 g/dl (31.0-36.0); Mean Corpuscular Hemoglobin 30.8 pg (27.0-33.0); Mean Platelet Volume 8.5 fL (9.4-12.4); Monocytes Absolute Auto 0.5 X10*3/uL (0.1-1.2); Monocytes Percent Auto 5.8 % (2-11); Neutrophils Percent Auto 57.5 % (45-73); Platelet Count 228 X10*3/uL (160-400); Red Blood Count 4.83 X10*6/uL (4.60-5.80); Red Cell Distribution Width 12.4 % (11.0-16.0); White Blood Count 8.6 X10*3/uL (4.8-10.8)
[2024-06-05 21:40] VITALS: BP 144/85; BP 150/75; BP 164/88; PULSE 69; PULSE 71; PULSE 88
--- NOTE | 2024-06-05 21:47 | MHC.EDTECH ---
Patient was changed into hospital attire,labs were drawn and sent to lab. Orthostatic vitals taken per order, provider and RN made aware of results.
[2024-06-05 21:49] LABS: Ethanol < 10 mg/dL
[2024-06-05 21:54] LABS: Alanine Aminotransferase 26 U/L (0-40); Albumin Level 4.6 g/dL (3.5-5.0); Alkaline Phosphatase 106 U/L (39-117); Anion Gap 14 (12-20); Aspartate Amino Transferase 25 U/L (5-37); Bilirubin Total 0.6 mg/dL (0.0-1.0); Blood Urea Nitrogen 11 mg/dL (9-16); Calcium 10.5 mg/dL (8.4-10.2); Carbon Dioxide 23 mmol/L (22-29); Chloride 104 mmol/L (96-108); Creatinine Clr Calc Pharmacy 64.8; Estimated Glomerular Filt Rate > 60; Glucose Random 123 mg/dL (60-115); Magnesium 2.2 mg/dL (1.6-2.6); Sodium 137 mmol/L (135-145); Total Protein 8.2 g/dL (6.5-8.0)
[2024-06-05 22:03] LABS: Amphetamine Screen Urine Not Detected (Not Detect); Barbiturates, Urine Not Detected (Not Detect); Benzodiazepines Screen Urine Not Detected (Not Detect); Buprenorphine Scr Not Detected (Not Detect); Cannabinoid Screen Urine POSITIVE (Not Detect); Cocaine Screen Urine Not Detected (Not Detect); Fentanyl, urine Not Detected (Not Detect); Methadone Screen, Urine Not Detected (Not Detect); Opiate Screen Urine Not Detected (Not Detect); Oxycodone Screen Urine Not Detected (Not Detect); Phencyclidine Screen Urine Not Detected (Not Detect)
[2024-06-05 22:04] LABS: Troponin-I High Sensitivity < 2.7 ng/L (<3.5-35.0)
[2024-06-05 22:11] LABS: Prothrombin Time 12.2 SEC (11.1-13.3)
[2024-06-05] MEDS: 0.9 % Sodium Chloride 1,000 ML 999 ML IVCONT (22:16)
--- NOTE | 2024-06-05 22:20 | PC.NURSE ---
IV #22 L-Hand placed and IV fluids running
--- NOTE | 2024-06-05 23:18 | MHC.EDTECH ---
Per doctors request will repeat orthostatics vitals upon fluid completion.
[2024-06-05 23:54] VITALS: BP 151/79; BP 157/80; BP 163/76; PULSE 64; PULSE 67; PULSE 76
[2024-06-05 23:55] VITALS: BP 157/80; PULSE 67; RESP 18; TEMP 36.7; O2SAT 98
--- NOTE | 2024-06-05 23:56 | MHC.EDTECH ---
Orthostatic vitals completed at this time,provider/RN aware patient has no dizziness at this time.
[2024-06-06 00:37] VITALS: BP 157/80; PULSE 67; RESP 18; TEMP 36.7; O2SAT 98
== END 2024-06-06 00:20 | disposition home or self-care (01) ==
PROVIDERS: Physician Assistant Medical; Emergency Provider Emergency Medicine; PCP Internal Medicine
DX: I95.1 Orthostatic hypotension (principal); R06.02 Shortness of breath; R41.3 Other amnesia; Z91.148 Patient's other noncompliance with medication regimen for other reason; Z51.81 Encounter for therapeutic drug level monitoring; Z79.899 Other long term (current) drug therapy
CPT/HCPCS: 36415; 70450; 71046; 80053; 80307; 81001; 83735; 84484; 85025; 85610; 99284

== ENCOUNTER 2024-08-03 17:38 | Inpatient (IN) | payer OTHER, SELFPAY ==
[2024-08-03] VITALS (7 sets, daily range): BP systolic 130–158; BP diastolic 60–93; PULSE 74–137; RESP 15–20; TEMP 36.4–36.5; O2SAT 98–100; BMI 31.3
--- NOTE | ~2024-08-03 | CT_ITS ---
EXAMINATION: CT ABDOMEN AND PELVIS WITHOUT CONTRAST CLINICAL INFORMATION: Rectal cancer. COMPARISON: CT abdomen and pelvis with contrast 10/25/2020 TECHNIQUE: Multidetector volumetric imaging was performed from the superior aspect of the liver through the pubic symphysis. Sagittal and coronal reformatted images were obtained on the technologist's workstation. This CT examination was performed using dose optimization techniques as appropriate, variously including the following: *Automated exposure control *Adjustment of mA and/or kV according to patient size (this includes techniques or standardized protocols for targeted exams where dose is matched to indication/reason for exam; i.e. extremities or head) *Use of iterative reconstruction technique DLP: 770 mGy-cm FINDINGS: LUNG BASES: There is a small right pleural effusion. The lung bases are clear. The heart size is normal. Mild mural thickening distal esophagus likely esophagitis or hiatal hernia.. LIVER, GALLBLADDER, AND BILIARY TREE: The liver is normal in size, shape, and attenuation. No focal hepatic lesion or biliary ductal dilatation is present. The gallbladder is unremarkable with no evidence of radiopaque gallstones, gallbladder wall thickening, or obvious pericholecystic inflammatory changes. PANCREAS: Unremarkable. SPLEEN: Unremarkable. ADRENAL GLANDS: Unremarkable. KIDNEYS AND URETERS: The kidneys are normal size, shape and position. There is no radiopaque renal calculi or hydronephrosis seen. No perinephric stranding seen. BLADDER: The bladder is significantly distended secondary to moderate prostate enlargement. GASTROINTESTINAL TRACT: There is scattered colonic diverticulosis without diverticulitis. The small bowel loops are normal caliber. Appendix is normal caliber. No free air or free fluid seen. ABDOMINAL WALL: Small umbilical hernia containing fat LYMPH NODES: Normal. VASCULAR: Unremarkable. PELVIC VISCERA: Significant prostate enlargement. OSSEOUS STRUCTURES: Mild ventral spondylosis throughout lumbar spine. No aggressive lytic or sclerotic process seen. Small superior endplate Schmorl's node T12 vertebra CT/CT abdomen pelvis wo IV con IMPRESSION: 1. No acute intra-abdominal process seen. 2. Colonic diverticulosis without diverticulitis. 3. Significant distended urinary bladder secondary to moderate prostate enlargement. Needs Dukes's catheter. 4. Small right pleural effusion. Fleischner guidelines were followed. Electronically signed by: Ferdinand Ramirez MD 08/03/2024 08:13 PM EDT RP
--- NOTE | ~2024-08-03 | XR_ITS ---
EXAMINATION: XR CHEST CLINICAL INFORMATION: Fluid overload COMPARISON: Chest radiograph 06/05/2024. CT abdomen and pelvis 08/03/2024. TECHNIQUE: Frontal view of the chest was obtained. FINDINGS: Normal appearance of the cardiomediastinal structures. No effusions or pneumothoraces. No focal pulmonary consolidation. Normal pattern of pulmonary vasculature. Probable oral contrast agent noted within the left upper abdominal quadrant. XR/XR chest 1V IMPRESSION: *No acute abnormalities identified. *Of note, CT of the abdomen and pelvis 08/03/2024 demonstrated a trace right pleural effusion which may be below the sensitivity of detection of the current chest radiograph. Electronically signed by: Osmin Beauchamp MD 08/04/2024 06:29 AM EDT
--- NOTE | ~2024-08-03 | CT_ITS ---
EXAMINATION: CT HEAD WITHOUT CONTRAST CLINICAL INFORMATION: AMS on eliquis COMPARISON: CT head 06/05/2024 TECHNIQUE: Contiguous axial imaging was performed from the skull base to vertex without intravenous administration of contrast. This CT examination was performed using dose optimization techniques as appropriate, variously including the following: *Automated exposure control *Adjustment of mA and/or kV according to patient size (this includes techniques or standardized protocols for targeted exams where dose is matched to indication/reason for exam; i.e. extremities or head) *Use of iterative reconstruction technique DLP: 646 mGy-cm FINDINGS: There is no evidence of acute intracranial hemorrhage or edematous territorial infarction. Mcpherson-white matter differentiation appears preserved. Proportional prominence of the ventricles and cortical sulci without evidence of obstructive hydrocephalus. No significant chronic white matter changes. No abnormal mass effect or midline shift. No extra-axial fluid collections. No acute soft tissue or osseous abnormalities. Similar left frontal scalp cutaneous thickening. Mild mucosal thickening of the ethmoid air cells. Otherwise the visualized paranasal sinuses and mastoids are well-aerated. CT/CT head/brain wo IV con IMPRESSION: No acute intracranial pathology. Electronically signed by: Stiven Phelps MD 08/03/2024 08:19 PM EDT
--- NOTE | 2024-08-03 18:02 | ECG_ITS ---
Test Reason : TACHYCARDIA Blood Pressure : / mmHG Vent. Rate : 137 BPM Atrial Rate : 137 BPM P-R Int : 128 ms QRS Dur : 078 ms QT Int : 304 ms P-R-T Axes : 268 -38 072 degrees QTc Int : 459 ms Atrial flutter with 2 to 1 block Left axis deviation Abnormal ECG When compared with ECG of 15-NOV-2020 15:02, increase in ventricular rate Referred By: Rizwan Daily Electronically Signed By:GUILLERMO PEREZ
--- NOTE | 2024-08-03 18:19 | ED.GENADULT ---
HPI - General Adult General Chief complaint: General Medical Stated complaint: abd pain Time Seen by Provider: 08/03/24 18:01 Source: patient Mode of arrival: ambulatory Limitations: no limitations History of Present Illness ED Provider: megha MG narrative: Patient is 69 years old with history of local rectal cancer status post resection, paroxysmal AFib, hypotension brought by family as patient's not been eating for last 1 week according to patient's son who lives in the same house for last 2 weeks patient is going downhill was given food but is not eating and saying I am okay all the time patient was seen at [facility] 2 weeks ago for confusion and workup was negative no diagnosis of dementia but was made Related Data Home Medications ?Medication ?Instructions ?Recorded ?Confirmed atorvastatin 20 mg tablet 20 mg PO DAILY 10/06/20 08/02/23 lisinopril 40 mg tablet 40 mg PO DAILY 06/01/23 08/02/23 apixaban 5 mg tablet (Eliquis) 5 mg PO BID 08/06/23 08/06/23 Previous Rx's ?Medication ?Instructions ?Recorded metoprolol succinate 25 mg 25 mg PO DAILY #90 tabs 11/10/22 tablet,extended release 24 hr (Toprol XL) apixaban 5 mg tablet (Eliquis) 5 mg PO BID 90 days #180 tabs 06/06/24 atorvastatin 20 mg tablet 20 mg PO BEDTIME #90 tabs 06/06/24 lisinopril 40 mg tablet 40 mg PO DAILY #90 tabs 06/06/24 metoprolol succinate 25 mg 25 mg PO DAILY #90 tabs 06/06/24 tablet,extended release 24 hr Allergies Allergy/AdvReac Type Severity Reaction Status Date / Time No Known Allergies Allergy Verified 08/03/24 18:07 Review of Systems Review of Systems: Yes all other systems are reviewed and are negative PMFSH Past Medical History Medical History History of rectal cancer Wears dentures Hx of flexible sigmoidoscopy Essential hypertension Typical atrial flutter Perianal condylomata (~07/04/23) Rectal cancer Hypertension Increased BMI Elevated cholesterol HTN (hypertension) Surgical History History of excision of lesion History of verrucae (wart) excision H/O colonoscopy Family History Family History Father No problems noted. Mother No problems noted. Social History Social History Household Members: None Housing: House Are you a primary transitions rn care coordinator to a significant other at home: No Do you presently have visiting nurse or other home services: No Alcohol intake: never Patient Tobacco Use Status: Former Tobacco user Years Smoked: 25 +/- Advance Directives: No Advance Directives Information Provided: No Do you have a plan to hurt others: No Plan service: No Current occupational status: retired Physical Exam ED Vital Signs: Vital Signs - 24 hr 08/03/24 17:58 08/03/24 18:04 08/03/24 19:25 Temperature 97.6 F 97.6 F 97.5 F Pulse Rate 129 H 137 H 136 H Respiratory Rate 18 20 16 Blood Pressure 133/89 133/89 158/93 H Pulse Oximetry 98 100 99 Oxygen Delivery Method Room Air Room Air Room Air 08/03/24 19:31 08/03/24 20:26 08/03/24 21:21 Temperature 97.7 F 97.5 F Pulse Rate 74 85 95 Respiratory Rate 15 18 Blood Pressure 135/73 141/76 H 145/77 H Pulse Oximetry 98 98 98 Oxygen Delivery Method Room Air Room Air Room Air BMI result Body Mass Index 31.3 Appearance: Alert. Oriented X1-2. No acute distress. Eyes: PERRLA, No Nystagmus pale ENT: Pharynx normal. Oral Mucosa dry Neck: Normal inspection. Neck supple. CVS: Irregularly irregular tachycardic. Pulses normal. Respiratory: No respiratory distress. Equal air entry bilateral, no wheezing/rales/rhonchi Abdomen: Soft and mild diffuse discomfort no rebound tenderness or guarding. Bowel sounds are present, no mass palpable, no CVA tenderness Skin: Skin warm and dry. Normal skin color. Normal skin turgor. Extremities: No lower extremity edema. No calf tenderness Neuro: Oriented X 1-2. No motor deficit. No sensory deficit.No cerebellar signs , cranial nerves II-XII intact Medications Administered Generic Name Dose Route Start Last Admin Trade Name Freq PRN Reason Stop Dose Admin Sodium Bicarbonate 150 meq/ 1,000 mls @ 100 mls/hr 08/03/24 23:00 08/03/24 23:22 Dextrose IV 100 mls/hr .Q10H TENZIN Administration Tamsulosin HCl 0.4 mg 08/03/24 23:20 08/03/24 23:34 Tamsulosin Hcl 0.4 Mg Capsule PO Not Given DAILY@1730 TENZIN Discontinued Medications Generic Name Dose Route Start Last Admin Trade Name Ruth PRN Reason Stop Dose Admin Sodium Chloride 1,000 mls @ 999 mls/hr 08/03/24 18:20 08/03/24 23:04 Ns IV 08/03/24 19:20 Infused .Q1H1M ONE Infusion Calcium Gluconate 2 gm in 100 mls @ 50 mls/hr 08/03/24 20:47 08/03/24 23:09 Calcium Gluconate IV 08/03/24 22:46 Infused ONCE ONE Infusion Sodium Chloride 1,000 mls @ 999 mls/hr 08/03/24 21:01 08/03/24 23:04 Ns IV 08/03/24 22:01 Infused .Q1H1M ONE Infusion Metoprolol Tartrate 5 mg 08/03/24 18:41 08/03/24 19:28 Metoprolol Tartrate 5 Mg/5 Ml Vial IVPUSH 08/03/24 18:42 5 mg ONCE ONE Administration Protocol Sodium Bicarbonate 50 meq 08/03/24 20:47 08/03/24 21:04 Sodium Bicarbonate 8.4% 50 Meq/50 Ml Syringe IVPUSH 08/03/24 20:48 50 meq ONCE ONE Administration Sodium Zirconium Cyclosilicate 10 gm 08/03/24 20:48 08/03/24 21:04 Sodium Zirconium Cyclosilicate 10 Gm Powd.Pack PO 08/03/24 20:49 10 gm ONCE ONE Administration Medical Decision Making Medical Decision Making MDM Narrative: Patient with acute renal failure Dukes catheter was placed urinated about [address] scan negative for obstructive uropathy clinically no fluid overload does have metabolic acidosis was given IV sodium bicarb and started on drip admit for possible dialysis in the morning hospitalist aware will call getterer Patient atrial flutter with rapid ventricular response converted to sinus rhythm after IV Lopressor Differential Diagnosis Differential Diagnoses: The differential diagnosis associated with the presentation includes Admission/Observation Consideration of admission/observation: Escalation of care including admission/observation considered Consult Healthcare Provider Management of the patient was discussed with: Hospitalist Lab Data MDM Lab Attestation statement: I reviewed the patient's lab results. 08/03/24 18:28 08/03/24 22:27 Labs: Lab Results 08/03/24 08/03/24 08/03/24 Range/Units 18:28 20:15 21:41 WBC 13.8 H (4.8-10.8) X10*3/uL RBC 4.43 L (4.60-5.80) X10*6/uL Hgb 13.3 L (14.0-18.0) g/dl Hct 37.8 L (42.0-52.0) % MCV 85.3 (80.0-98.0) fL MCH 30.0 (27.0-33.0) pg MCHC 35.2 (31.0-36.0) g/dl RDW 13.1 (11.0-16.0) % Plt Count 260 (160-400) X10*3/uL MPV 8.7 L (9.4-12.4) fL Immature Gran % (Auto) 0.4 (0.0-0.4) % Neut % (Auto) 88.9 H (45-73) % Lymph % (Auto) 5.8 L (20-40) % [place] % (Auto) 4.7 (2-11) % Eos % (Auto) 0.1 (0-4) % Baso % (Auto) 0.1 (0-2) % Lymph # (Auto) 0.8 L (1.2-4.9) X10*3/uL [place] # (Auto) 0.6 (0.1-1.2) X10*3/uL Eos # (Auto) 0.0 (0.0-0.4) X10*3/uL Baso # (Auto) 0.0 (0.0-0.2) X10*3/uL Abs Immat Gran (auto) 0.06 H (0.00-0.03) X10*3/uL Absolute Neuts (auto) 12.2 H (2.0-8.3) x10*3/uL Absolute Nucleated RBC 0.000 (0.0-0.012) X10*3/uL Nucleated RBC % (auto) 0.0 (0.0-0.2) /100WBC VBG pH (7.32-7.43) VBG pCO2 mmHg VBG pO2 mmHg VBG HCO3 (22-26) mmol/L VBG O2 Saturation % VBG Base Excess mmol/L Sodium 141 (135-145) mmol/L Potassium 6.1 H* D (3.3-5.1) mmol/L Chloride 101 (96-108) mmol/L Carbon Dioxide 10 L* D (22-29) mmol/L Anion Gap 36 H (12-20) BUN 239 H (9-16) mg/dL Creatinine 25.82 H* (0.5-1.4) mg/dL Estim Creat Clear Calc 2.9 Estimated GFR 2 Random Glucose 125 H (60-115) mg/dL Calcium 9.1 D (8.4-10.2) mg/dL Total Bilirubin 0.4 (0.0-1.0) mg/dL AST 22 (5-37) U/L ALT 15 (0-40) U/L Alkaline Phosphatase 88 (39-117) U/L Total Creatine Kinase 41 (38-174) U/L Total Protein 6.8 (6.5-8.0) g/dL Albumin 3.2 L (3.5-5.0) g/dL Urine Color Yellow Urine Appearance Clear Urine pH 5.5 (5.0-9.0) Ur Specific [place] 1.015 (1.005-1.025) Urine Protein Trace (Neg-Trace) mg/dL Urine Glucose (UA) 100 H (Negative) mg/dL Urine Ketones Negative (Negative) mg/dL Urine Blood Moderate (2+) H (Negative) Urine Nitrite Negative (Negative) Ur Leukocyte Esterase Small (1+) H (Negative) Urine RBC 11-20 H (0-2) /HPF Urine WBC 11-20 H (0-5) /HPF Ur Squamous Epith Cells 0-2 (0-2) /HPF Urine Bacteria None Seen (None Seen) Hyaline Casts 0-2 (0-2) /LPF Urine Osmolality 432 (373-1093) mosm/kg Ur Random Sodium 78.0 mmol/L Urine Creatinine 119.04 mg/dL Influenza Type A (PCR) NEGATIVE (Negative) Influenza Type B (PCR) NEGATIVE (Negative) RSV RNA Qual (PCR) NEGATIVE (Negative) SARS-CoV-2 RNA (RT-PCR) NEGATIVE (Negative) 08/03/24 08/03/24 Range/Units 22:27 22:31 WBC (4.8-10.8) X10*3/uL RBC (4.60-5.80) X10*6/uL Hgb (14.0-18.0) g/dl Hct (42.0-52.0) % MCV (80.0-98.0) fL MCH (27.0-33.0) pg MCHC (31.0-36.0) g/dl RDW (11.0-16.0) % Plt Count (160-400) X10*3/uL MPV (9.4-12.4) fL Immature Gran % (Auto) (0.0-0.4) % Neut % (Auto) (45-73) % Lymph % (Auto) (20-40) % [place] % (Auto) (2-11) % Eos % (Auto) (0-4) % Baso % (Auto) (0-2) % Lymph # (Auto) (1.2-4.9) X10*3/uL [place] # (Auto) (0.1-1.2) X10*3/uL Eos # (Auto) (0.0-0.4) X10*3/uL Baso # (Auto) (0.0-0.2) X10*3/uL Abs Immat Gran (auto) (0.00-0.03) X10*3/uL Absolute Neuts (auto) (2.0-8.3) x10*3/uL Absolute Nucleated RBC (0.0-0.012) X10*3/uL Nucleated RBC % (auto) (0.0-0.2) /100WBC VBG pH 7.34 (7.32-7.43) VBG pCO2 18 mmHg VBG pO2 92 mmHg VBG HCO3 10 L (22-26) mmol/L VBG O2 Saturation 96.0 % VBG Base Excess -12.8 mmol/L Sodium 144 (135-145) mmol/L Potassium 5.5 H (3.3-5.1) mmol/L Chloride 107 (96-108) mmol/L Carbon Dioxide 10 L* (22-29) mmol/L Anion Gap 33 H (12-20) BUN 214 H (9-16) mg/dL Creatinine 21.75 H* (0.5-1.4) mg/dL Estim Creat Clear Calc 3.4 Estimated GFR 2 Random Glucose 117 H (60-115) mg/dL Calcium 9.5 (8.4-10.2) mg/dL Total Bilirubin (0.0-1.0) mg/dL AST (5-37) U/L ALT (0-40) U/L Alkaline Phosphatase (39-117) U/L Total Creatine Kinase (38-174) U/L Total Protein (6.5-8.0) g/dL Albumin (3.5-5.0) g/dL Urine Color Urine Appearance Urine pH (5.0-9.0) Ur Specific [place] (1.005-1.025) Urine Protein (Neg-Trace) mg/dL Urine Glucose (UA) (Negative) mg/dL Urine Ketones (Negative) mg/dL Urine Blood (Negative) Urine Nitrite (Negative) Ur Leukocyte Esterase (Negative) Urine RBC (0-2) /HPF Urine WBC (0-5) /HPF Ur Squamous Epith Cells (0-2) /HPF Urine Bacteria (None Seen) Hyaline Casts (0-2) /LPF Urine Osmolality (373-1093) mosm/kg Ur Random Sodium mmol/L Urine Creatinine mg/dL Influenza Type A (PCR) (Negative) Influenza Type B (PCR) (Negative) RSV RNA Qual (PCR) (Negative) SARS-CoV-2 RNA (RT-PCR) (Negative) ABG Data Attestation ABG: I personally reviewed and interpreted this ABG as follows: Independent Interpretation I performed an independent interpretation of an: EKG and CT Scan Interpretation: Atrial fibrillation with heart rate 137 left axis deviation no acute STT wave changes no acute ischemia Radiology Impression Discussion of test interpretation with radiology: I have reviewed the radiologist's reading. Radiologist Impression: CT/CT abdomen pelvis wo IV con IMPRESSION: 1. No acute intra-abdominal process seen. 2. Colonic diverticulosis without diverticulitis. 3. Significant distended urinary bladder secondary to moderate prostate enlargement. Needs Dukes's catheter. 4. Small right pleural effusion. Fleischner guidelines were followed. Electronically signed by: Ferdinand Ramirez MD 08/03/2024 08:13 PM EDT RP Critical Care Time Critical Care Time Critical Care Time: Yes Total Critical Care Time: 55 Attestation: The patient was critically ill with a high probability of imminent or life threatening deterioration. I spent greater than 60???minutes of discontinuous time evaluating the patient,delivering critical care at the bedside, discussing and evaluating pertinent data with consultants. Critical care time does not include time spent performing separately billable procedures or teaching. Total time spent performing critical care was 55??minutes. Discharge Plan Discharge Clinical Impression: Acute renal failure, Metabolic acidosis, Hyperkalemia, Urinary retention, Atrial flutter with rapid ventricular response Patient Disposition: Admitted As Inpatient
[2024-08-03] MEDS: 0.9 % Sodium Chloride 1,000 ML 999 ML IV ×2 (18:32→21:19)
[2024-08-03 18:34] LABS: Basophils Percent Auto 0.1 % (0-2); Eosinophils Percent Auto 0.1 % (0-4); Hematocrit 37.8 % (42.0-52.0); Hemoglobin 13.3 g/dl (14.0-18.0); Imm Gran Abs Auto 0.06 X10*3/uL (0.00-0.03); Imm Gran Pct Auto 0.4 % (0.0-0.4); Lymphocytes Absolute Auto 0.8 X10*3/uL (1.2-4.9); Lymphocytes Percent Auto 5.8 % (20-40); MANUAL DIFF FLAG NO; Mean Corpuscular HGB Conc 35.2 g/dl (31.0-36.0); Mean Corpuscular Volume 85.3 fL (80.0-98.0); Mean Platelet Volume 8.7 fL (9.4-12.4); Monocytes Absolute Auto 0.6 X10*3/uL (0.1-1.2); Monocytes Percent Auto 4.7 % (2-11); Neutrophils Absolute Auto 12.2 x10*3/uL (2.0-8.3); Neutrophils Percent Auto 88.9 % (45-73); Platelet Count 260 X10*3/uL (160-400); Red Blood Count 4.43 X10*6/uL (4.60-5.80); Red Cell Distribution Width 13.1 % (11.0-16.0); White Blood Count 13.8 X10*3/uL (4.8-10.8)
[2024-08-03 19:10] LABS: Influenza A PCR NEGATIVE (Negative); Influenza B PCR NEGATIVE (Negative); Resp Syncy Virus RNA Qual PCR NEGATIVE (Negative); SARS COV2 PCR INHOUSE NEGATIVE (Negative)
[2024-08-03] MEDS: Metoprolol Tartrate 5 MG/5 ML VIAL IVPUSH (19:28)
--- NOTE | 2024-08-03 19:29 | PC.NURSE ---
this rn assumed care of pt. pt a&ox4, respirations even and unlabored. pt noted to be sinus tachy 116. pt medicated per dec. pt son at bedside. after medication administration, pt normal sinus 67-71.
[2024-08-03 20:49] LABS: Alanine Aminotransferase 15 U/L (0-40); Albumin Level 3.2 g/dL (3.5-5.0); Alkaline Phosphatase 88 U/L (39-117); Anion Gap 36 (12-20); Aspartate Amino Transferase 22 U/L (5-37); Bilirubin Total 0.4 mg/dL (0.0-1.0); Blood Urea Nitrogen 239 mg/dL (9-16); Calcium 9.1 mg/dL (8.4-10.2); Carbon Dioxide 10 mmol/L (22-29); Chloride 101 mmol/L (96-108); Creatinine Clr Calc Pharmacy 2.9; Estimated Glomerular Filt Rate 2; Glucose Random 125 mg/dL (60-115); Potassium 6.1 mmol/L (3.3-5.1); Sodium 141 mmol/L (135-145); Total Protein 6.8 g/dL (6.5-8.0)
[2024-08-03] MEDS: Calcium Gluconate/NaCl,Iso-Osm 2 GM/100 ML PLAST..BAG IV (21:03)
[2024-08-03] MEDS: Sodium Bicarbonate 8.4% 50 MEQ/50 ML SYRINGE IVPUSH (21:04)
[2024-08-03] MEDS: Sodium Zirconium Cyclosilicate 10 GM POWD.PACK PO (21:04)
--- NOTE | 2024-08-03 21:41 | PC.NURSE ---
second IV access placed at this time, 20G right ac. 16F fley placed per provider order, 500ml of yellow urine voided. pt tolerated well.
[2024-08-03 21:51] LABS: Appearance Urine Clear; Color Urine Yellow; Glucose Urine UA 100 mg/dL (Negative); Leukocyte Esterase Urine Small (1+) (Negative); Nitrite Urine Negative (Negative); PH 5.5 (5.0-9.0); Specific Gravity - Urine 1.015 (1.005-1.025); UMIC TRIGGER UACC YES; Urine Blood Moderate (2+) (Negative); Urine Ketones Negative (Negative); Urine Protein Trace mg/dL (Neg-Trace)
[2024-08-03 21:56] LABS: Bacteria Urine None Seen (None Seen); Hyaline Casts Urine 0-2 /LPF (0-2); Squamous Epithelial Cell Urine 0-2 /HPF (0-2); UACC Culture Trigger YES
[2024-08-03 22:04] LABS: Osmolality Urine 432 mosm/kg (373-1093)
[2024-08-03 22:33] LABS: Venous Blood Gas Refer to POC result
[2024-08-03 22:35] LABS: VBG Base Excess -12.8 mmol/L; VBG HCO3 10 mmol/L (22-26); VBG pCO2 18 mmHg; VBG pH 7.34 (7.32-7.43); VBG pO2 92 mmHg
[2024-08-03 22:47] LABS: Anion Gap 33 (12-20); Calcium 9.5 mg/dL (8.4-10.2); Carbon Dioxide 10 mmol/L (22-29); Chloride 107 mmol/L (96-108); Creatinine Clr Calc Pharmacy 3.4; Estimated Glomerular Filt Rate 2; Glucose Random 117 mg/dL (60-115); Potassium 5.5 mmol/L (3.3-5.1); Sodium 144 mmol/L (135-145)
--- NOTE | 2024-08-03 22:51 | P.HPHOSP_ITS ---
History of Present Illness Date of Service: 08/03/24 Chief Complaint: Weakness This is a 69-year-old male with pertinent history of paroxysmal atrial fibrillation on anticoagulation, mixed hyperlipidemia, hypertension, rectal cancer status post resection who was brought to the emergency department for evaluation of generalized weakness. Patient denies any complaints at the time of my evaluation. History obtained with the help of family at bedside. Patient has not been eating or drinking well for the past 2 weeks as per family at bedside. Also noted to be confused. Patient with poor urinary output and family stated that he had been complaining of abdominal discomfort. No nausea, vomiting, fever or chills. In the emergency department, creatinine found to be 25.8 with BUN to 39. Potassium 6.1 and bicarb 10. Significantly distended urinary bladder noted on imaging. Dukes catheter was placed and more than 2 L urine output obtained. Patient was given temporizing measures for hyperkalemia including Lokelma. Review of Systems 2 Review of Systems: Yes Unobtainable due to mental status [facility] Medical History History of rectal cancer Wears dentures Hx of flexible sigmoidoscopy Essential hypertension Typical atrial flutter Perianal condylomata (~07/04/23) Rectal cancer Hypertension Increased BMI Elevated cholesterol HTN (hypertension) Family History Father No problems noted. Mother No problems noted. Surgical History History of excision of lesion History of verrucae (wart) excision H/O colonoscopy Social History Household Members: None Housing: House Are you a primary dialysis patient care technician to a significant other at home: No Do you presently have visiting nurse or other home services: No Alcohol intake: never Patient Tobacco Use Status: Former Tobacco user Years Smoked: 25 +/- Advance Directives: No Advance Directives Information Provided: No Do you have a plan to hurt others: No Plan service: No Current occupational status: retired Meds Allergies Allergy/AdvReac Type Severity Reaction Status Date / Time No Known Allergies Allergy Verified 08/03/24 18:07 Active Medications: Current Medications Sodium Bicarbonate 150 meq/ (Dextrose) 1,000 mls @ 100 mls/hr IV .Q10H TENZIN Home Medications ?Medication ?Instructions ?Recorded ?Confirmed ?Last Taken ?Type atorvastatin 20 mg tablet 20 mg PO DAILY 10/06/20 08/02/23 Unknown History lisinopril 40 mg tablet 40 mg PO DAILY 06/01/23 08/02/23 Unknown History apixaban 5 mg tablet (Eliquis) 5 mg PO BID 08/06/23 08/06/23 Unknown History Physical Exam 2 Vital Signs and Narrative: Vital Signs: Last Vital Signs Temp 97.5 F 08/03/24 21:21 Pulse 95 08/03/24 21:21 Resp 18 08/03/24 21:21 BP 145/77 H 08/03/24 21:21 Pulse Ox 98 08/03/24 21:21 O2 Del Method Room Air 08/03/24 21:21 BMI result Body Mass Index 31.3 Middle-aged male lying in bed in no distress Neck supple, no JVD Regular rate and rhythm, S1-S2 heard Regular breath sounds bilaterally, no wheezing or crackles appreciated Abdomen soft nontender, no guarding, no rigidity Patient is awake, alert and oriented x2 ; no focal motor deficit Psych: Normal mood No pedal edema Results Labs 08/03/24 18:28 08/03/24 22:27 Labs: Laboratory Results - last 24 hr 08/03/24 08/03/24 08/03/24 18:28 20:15 21:41 MCV 85.3 MCH 30.0 MCHC 35.2 RDW 13.1 Plt Count 260 MPV 8.7 L Immature Gran % (Auto) 0.4 Neut % (Auto) 88.9 H Lymph % (Auto) 5.[address] [place] % (Auto) 4.7 Eos % (Auto) 0.1 Baso % (Auto) 0.1 Lymph # (Auto) 0.[address] [place] # (Auto) 0.6 Eos # (Auto) 0.0 Baso # (Auto) 0.0 Abs Immat Gran (auto) 0.06 H Absolute Neuts (auto) 12.2 H Absolute Nucleated RBC 0.000 Nucleated RBC % (auto) 0.0 VBG pH VBG pCO2 VBG pO2 VBG HCO3 VBG O2 Saturation VBG Base Excess Anion Gap 36 H Estim Creat Clear Calc 2.9 Estimated GFR 2 Random Glucose 125 H Calcium 9.1 D Total Bilirubin 0.4 AST 22 ALT 15 Alkaline Phosphatase 88 Total Creatine Kinase 41 Total Protein 6.8 Albumin 3.2 L Urine Color Yellow Urine Appearance Clear Urine pH 5.5 Ur Specific [place] 1.015 Urine Protein Trace Urine Glucose (UA) 100 H Urine Ketones Negative Urine Blood Moderate (2+) H Urine Nitrite Negative Ur Leukocyte Esterase Small (1+) H Urine RBC 11-20 H Urine WBC 11-20 H Ur Squamous Epith Cells 0-2 Urine Bacteria None Seen Hyaline Casts 0-2 Urine Osmolality 432 Influenza Type A (PCR) NEGATIVE Influenza Type B (PCR) NEGATIVE RSV RNA Qual (PCR) NEGATIVE SARS-CoV-2 RNA (RT-PCR) NEGATIVE 08/03/24 08/03/24 22:27 22:31 MCV MCH MCHC RDW Plt Count MPV Immature Gran % (Auto) Neut % (Auto) Lymph % (Auto) [place] % (Auto) Eos % (Auto) Baso % (Auto) Lymph # (Auto) [place] # (Auto) Eos # (Auto) Baso # (Auto) Abs Immat Gran (auto) Absolute Neuts (auto) Absolute Nucleated RBC Nucleated RBC % (auto) VBG pH 7.34 VBG pCO2 18 VBG pO2 92 VBG HCO3 10 L VBG O2 Saturation 96.0 VBG Base Excess -12.8 Anion Gap 33 H Estim Creat Clear Calc 3.4 Estimated GFR 2 Random Glucose 117 H Calcium 9.5 Total Bilirubin AST ALT Alkaline Phosphatase Total Creatine Kinase Total Protein Albumin Urine Color Urine Appearance Urine pH Ur Specific [place] Urine Protein Urine Glucose (UA) Urine Ketones Urine Blood Urine Nitrite Ur Leukocyte Esterase Urine RBC Urine WBC Ur Squamous Epith Cells Urine Bacteria Hyaline Casts Urine Osmolality Influenza Type A (PCR) Influenza Type B (PCR) RSV RNA Qual (PCR) SARS-CoV-2 RNA (RT-PCR) Imaging Radiologist's Impressions: Impressions Head CT 08/03/24 19:07 IMPRESSION: No acute intracranial pathology. Electronically signed by: Stiven Phelps MD 08/03/2024 08:19 PM EDT Abdomen/Pelvis CT 08/03/24 19:10 IMPRESSION: 1. No acute intra-abdominal process seen. 2. Colonic diverticulosis without diverticulitis. 3. Significant distended urinary bladder secondary to moderate prostate enlargement. Needs Dukes's catheter. 4. Small right pleural effusion. Fleischner guidelines were followed. Electronically signed by: Ferdinand Ramirez MD 08/03/2024 08:13 PM EDT RP Assessment and Plan (1) Acute renal failure: Status: Acute (2) Metabolic acidosis: Status: Acute (3) Hyperkalemia: Status: Acute (4) Urinary retention: Status: Acute Plan This is a 69-year-old male with pertinent history of paroxysmal atrial fibrillation on anticoagulation, mixed hyperlipidemia, hypertension, rectal cancer status post resection who was brought to the emergency department for evaluation of generalized weakness. #. Acute kidney injury stage III with metabolic acidosis: Component of post renal as more than 2 L obtained upon insertion of Dukes in the ER. Continue bicarb fluids. Consulted Nephrology, appreciate assistance. Urine studies pending. Avoid nephrotoxins #. Acute uremic encephalopathy in the setting of above: Monitor mentation #. Urinary retention due to BPH: Dukes catheter placed in the ER. Initiated Flomax and consulting Urology #. Hyperkalemia due to EMMANUEL: Improving #. Leukocytosis, reactive: No sepsis #. Hypertension: Hold lisinopril in the setting of EMMANUEL #. Paroxysmal atrial fibrillation: On beta-lauren and Eliquis Med rec pending DVT prophylaxis: Eliquis Full code Admit as inpatient and will require two night minimum hospital stay for EMMANUEL (as above), which is not possible in a lesser acute setting. Specialist consult pending Quality Stroke Does the patient have a stroke diagnosis?: No VTE Prior VTE?: No VTE Risk Level:: Medical - moderate - high VTE Device Contraindication: Treatment Not Indicated VTE Drug Contraindication: N/A - Med Ordered
[2024-08-03 22:54] LABS: Blood Urea Nitrogen 214 mg/dL (9-16)
[2024-08-03 23:15] LABS: Creatinine Urine 119.04 mg/dL
[2024-08-03] MEDS: Sodium Bicarbonate 8.4% 150 MEQ in Dextrose 5 % 850 ML 100 MEQ IV (23:22)
--- NOTE | 2024-08-03 23:36 | PC.NURSE ---
attempted to medicate pt per mar, pt spit up pill, unable to swallow. pt family at bedside states pt takes meds whole with water. dr.vali giles.
[2024-08-04] VITALS (7 sets, daily range): BP systolic 108–176; BP diastolic 55–96; PULSE 111–126; RESP 13–20; TEMP 36.2–37.4; O2SAT 96–99
--- NOTE | 2024-08-04 | ECG_ITS ---
Test Reason : sta order Blood Pressure : / mmHG Vent. Rate : 118 BPM Atrial Rate : 118 BPM P-R Int : 122 ms QRS Dur : 072 ms QT Int : 324 ms P-R-T Axes : 060 -34 084 degrees QTc Int : 454 ms Sinus tachycardia Left axis deviation Nonspecific ST and T wave abnormality Abnormal ECG When compared with ECG of 03-AUG-2024 17:57, Rhythm change Referred By: Rupa Weathers Electronically Signed By:GUILLERMO PEREZ
--- NOTE | 2024-08-04 04:20 | PC.NURSE ---
pt family member at bedside, given recliner at this time.
[2024-08-04 04:51] LABS: Eosinophils Percent Auto 0.1 % (0-4); Hematocrit 40.4 % (42.0-52.0); Hemoglobin 14.4 g/dl (14.0-18.0); Imm Gran Abs Auto 0.04 X10*3/uL (0.00-0.03); Imm Gran Pct Auto 0.4 % (0.0-0.4); Lymphocytes Absolute Auto 0.5 X10*3/uL (1.2-4.9); Lymphocytes Percent Auto 5.4 % (20-40); MANUAL DIFF FLAG SCAN; Mean Corpuscular HGB Conc 35.6 g/dl (31.0-36.0); Mean Corpuscular Hemoglobin 29.8 pg (27.0-33.0); Mean Corpuscular Volume 83.6 fL (80.0-98.0); Mean Platelet Volume 8.7 fL (9.4-12.4); Monocytes Absolute Auto 0.3 X10*3/uL (0.1-1.2); Monocytes Percent Auto 3.4 % (2-11); Neutrophils Absolute Auto 8.7 x10*3/uL (2.0-8.3); Neutrophils Percent Auto 90.7 % (45-73); Platelet Count 278 X10*3/uL (160-400); Red Blood Count 4.83 X10*6/uL (4.60-5.80); SCAN SMEAR FLAG 1; White Blood Count 9.6 X10*3/uL (4.8-10.8)
[2024-08-04 05:09] LABS: Anion Gap 20 (12-20); Calcium 9.7 mg/dL (8.4-10.2); Carbon Dioxide 18 mmol/L (22-29); Chloride 119 mmol/L (96-108); Creatinine Clr Calc Pharmacy 8.6; Estimated Glomerular Filt Rate 6; Glucose Random 160 mg/dL (60-115); Potassium 4.6 mmol/L (3.3-5.1); SLIDE REVIEW VERIFIED; Sodium 152 mmol/L (135-145)
--- NOTE | 2024-08-04 05:20 | PC.NURSE ---
aware of pt tachycardic, no new orders at this time.
[2024-08-04 05:26] LABS: Blood Urea Nitrogen 126 mg/dL (9-16)
[2024-08-04] MEDS: Sodium Bicarbonate 8.4% 100 MEQ in Dextrose 5 % 900 ML IV (05:35)
--- NOTE | 2024-08-04 07:48 | PM.UROCN ---
History of Present Illness Consult details Consult date: 08/04/24 Narrative: CC: Urinary retention 69-year-old male Past history of rectal cancer status post resection and AF Presents through emergency room feeling unwell for past 2 weeks had been noted by family to be confused Poor urine output complaining of abdominal discomfort. No nausea, vomiting, fever. Creatinine at admission 25 Dukes catheter placed with 2 L of urine output Undergoing medical stabilization for hyperkalemia Has been started on alpha-lauren Voiding trial in office in 4 weeks Start Proscar Use continuous drainage until creatinine normalizing and then may switch to catheter plug prior to discharge Noted to have high PSA 4.1 04/27, 8.1 free PSA 35 04/29 Do not draw almost Dukes catheter in place Considering high prior free PSA likely due to prostatomegaly - this was noted on prior CT scan over 5 cm diameter Review of Systems Constitutional: Constitutional: Reports as per HPI and Reports no additional constitutional complaints Cardiovascular: Cardiovascular: Reports as per HPI and Reports no additional cardiovascular complaints Respiratory: Respiratory: Reports as per HPI and Reports no additional respiratory complaints Gastrointestinal: Gastrointestinal: Reports as per HPI and Reports no additional gastrointestinal complaints Genitourinary: Genitourinary: Reports as per HPI Musculoskeletal: Musculoskeletal: Reports no additional musculoskeletal complaints and Reports as per HPI Neurologic: Reports system reviewed and no additional complaints, except as documented and Reports as per HPI PMFSH Past Medical History Medical History History of rectal cancer Wears dentures Hx of flexible sigmoidoscopy Essential hypertension Typical atrial flutter Perianal condylomata (~07/04/23) Rectal cancer Hypertension Increased BMI Elevated cholesterol HTN (hypertension) Family History Family History Father No problems noted. Mother No problems noted. Surgical History Surgical History History of excision of lesion History of verrucae (wart) excision H/O colonoscopy Social History Social History Household Members: None Housing: House Are you a primary acute care nurse to a significant other at home: No Do you presently have visiting nurse or other home services: No Alcohol intake: never Patient Tobacco Use Status: Former Tobacco user Years Smoked: 25 +/- service: No Current occupational status: retired Meds Allergies Allergy/AdvReac Type Severity Reaction Status Date / Time No Known Allergies Allergy Verified 08/03/24 18:07 Active Medications: Current Medications Acetaminophen (Acetaminophen 325 Mg Tablet) 650 mg PO Q6H PRN PRN Reason: Pain, Mild (Pain Scale 1-3), fever or headache Calcium Carbonate (Calcium Carbonate 750 Mg Tab.Chew) 750 mg PO Q4H PRN PRN Reason: Heartburn Sodium Bicarbonate 100 meq/ (Dextrose) 1,000 mls @ 100 mls/hr IV .Q10H [facility] Last Admin: 08/04/24 05:35 Dose: 100 mls/hr Melatonin (Melatonin 3 Mg Tablet) 6 mg PO BEDTIME PRN PRN Reason: Insomnia Ondansetron HCl (Ondansetron Hcl 4 Mg/2 Ml Vial) 4 mg IVPUSH Q8H PRN PRN Reason: Nausea and Vomiting Sodium Chloride (0.9 % Sodium Chloride Flush 3 Ml Syringe) 3 ml IVFLUSH QSHIFT [facility] Last Admin: 08/04/24 00:31 Dose: Not Given Tamsulosin HCl (Tamsulosin Hcl 0.4 Mg Capsule) 0.4 mg PO DAILY@1730 [facility] Last Admin: 08/03/24 23:34 Dose: Not Given Physical Exam Vital Signs: Vital Signs: Last Vital Signs Temp 99.3 F 08/04/24 07:38 Pulse 126 H 08/04/24 07:38 Resp 13 08/04/24 07:38 BP 128/84 08/04/24 07:38 Pulse Ox 99 08/04/24 07:38 O2 Del Method Room Air 08/04/24 07:38 BMI result Body Mass Index 31.3 Const: General: cooperative, healthy appearing, comfortable and no acute distress Orientation/consciousness: patient oriented x3 HEENT: Face and sinus: Yes normal facial exam Mouth: moist mucous membranes Neck: Neck: Yes normal visual inspection, Yes full ROM and Yes trachea midline Chest: Chest palpation & inspection: normal inspection of the chest Resp: Effort & Inspection: normal respiratory effort, able to speak in complete sentences and no respiratory distress GI: Inspection: Yes normal to inspection Back/Spine/Pelvis: Cervical Spine: normal cervical lordosis Thoracic/Lumbar Spine: thoracic and lumbar spine normal to inspection Skin: General skin exam: no rashes or lesions noted Neuro: General: patient oriented x3, tone normal and moves all extremities Extrem: General: Yes normal to inspection and Yes capillary refill normal Results Labs 08/04/24 04:18 08/04/24 04:18 Labs: Abnormal lab results 08/03/24 08/03/24 08/03/24 Range/Units 18:28 20:15 21:41 WBC 13.8 H (4.8-10.8) X10*3/uL RBC 4.43 L (4.60-5.80) X10*6/uL Hgb 13.3 L (14.0-18.0) g/dl Hct 37.8 L (42.0-52.0) % MPV 8.7 L (9.4-12.4) fL Neut % (Auto) 88.9 H (45-73) % Lymph % (Auto) 5.8 L (20-40) % Lymph # (Auto) 0.8 L (1.2-4.9) X10*3/uL Abs Immat Gran (auto) 0.06 H (0.00-0.03) X10*3/uL Absolute Neuts (auto) 12.2 H (2.0-8.3) x10*3/uL VBG HCO3 (22-26) mmol/L Sodium (135-145) mmol/L Potassium 6.1 H* D (3.3-5.1) mmol/L Chloride (96-108) mmol/L Carbon Dioxide 10 L* D (22-29) mmol/L Anion Gap 36 H (12-20) BUN 239 H (9-16) mg/dL Creatinine 25.82 H* (0.5-1.4) mg/dL Random Glucose 125 H (60-115) mg/dL Albumin 3.2 L (3.5-5.0) g/dL Urine Glucose (UA) 100 H (Negative) mg/dL Urine Blood Moderate (2+) H (Negative) Ur Leukocyte Esterase Small (1+) H (Negative) Urine RBC 11-20 H (0-2) /HPF Urine WBC 11-20 H (0-5) /HPF 08/03/24 08/03/24 08/04/24 Range/Units 22:27 22:31 04:18 WBC (4.8-10.8) X10*3/uL RBC (4.60-5.80) X10*6/uL Hgb (14.0-18.0) g/dl Hct 40.4 L (42.0-52.0) % MPV 8.7 L (9.4-12.4) fL Neut % (Auto) 90.7 H (45-73) % Lymph % (Auto) 5.4 L (20-40) % Lymph # (Auto) 0.5 L (1.2-4.9) X10*3/uL Abs Immat Gran (auto) 0.04 H (0.00-0.03) X10*3/uL Absolute Neuts (auto) 8.7 H (2.0-8.3) x10*3/uL VBG HCO3 10 L (22-26) mmol/L Sodium 152 H (135-145) mmol/L Potassium 5.5 H (3.3-5.1) mmol/L Chloride 119 H (96-108) mmol/L Carbon Dioxide 10 L* 18 L (22-29) mmol/L Anion Gap 33 H (12-20) BUN 214 H 126 H (9-16) mg/dL Creatinine 21.75 H* 8.83 H* (0.5-1.4) mg/dL Random Glucose 117 H 160 H (60-115) mg/dL Albumin (3.5-5.0) g/dL Urine Glucose (UA) (Negative) mg/dL Urine Blood (Negative) Ur Leukocyte Esterase (Negative) Urine RBC (0-2) /HPF Urine WBC (0-5) /HPF Short CBC 08/03/24 08/04/24 Range/Units 18:28 04:18 WBC 13.8 H 9.6 (4.8-10.8) X10*3/uL Hgb 13.3 L 14.4 (14.0-18.0) g/dl Hct 37.8 L 40.4 L (42.0-52.0) % Plt Count 260 278 (160-400) X10*3/uL BMP 08/03/24 08/03/24 08/04/24 20:15 22:27 04:18 Sodium 141 144 152 H Potassium 6.1 H* D 5.5 H 4.6 Chloride 101 107 119 H Carbon Dioxide 10 L* D 10 L* 18 L BUN 239 H 214 H 126 H Creatinine 25.82 H* 21.75 H* 8.83 H* Calcium 9.1 D 9.5 9.7 Cardiac Enzymes 08/03/24 Range/Units 20:15 Total Creatine Kinase 41 (38-174) U/L Liver Function 08/03/24 Range/Units 20:15 Total Bilirubin 0.4 (0.0-1.0) mg/dL AST 22 (5-37) U/L ALT 15 (0-40) U/L Alkaline Phosphatase 88 (39-117) U/L Albumin 3.2 L (3.5-5.0) g/dL Urine 08/03/24 Range/Units 21:41 Urine Color Yellow Urine Appearance Clear Urine pH 5.5 (5.0-9.0) Ur Specific [place] 1.015 (1.005-1.025) Urine Protein Trace (Neg-Trace) mg/dL Urine Glucose (UA) 100 H (Negative) mg/dL All other labs normal. Assessment and Plan (1) Urinary retention: Status: Acute Plan Will need Dukes catheter for 4 weeks with follow-up voiding trial in office Please teach how to use catheter cap once confusion resolved Procedures Date of Service Date of Service: 08/04/24
--- NOTE | 2024-08-04 08:25 | PHA.MEDREC ---
Addendum entered by Son Chahal [facility] 08/04/24 09:30: Reviewed by [facility]. Addendum entered by Butch Davidson 08/04/24 09:27: In claims, Tamsulosin 0.4mg tabs were filled 07/22/24 for 30 days and son states hes pretty sure his dad only took it once or twice and thinks he is not going to be taking it anymore. Original Note: Pharmacy Consult ? Medication Reconciliation Pharmacy has completed the medication reconciliation. Confirmed medications with patient son at bedside. Patient son confirmed he never ended up getting the Eliquis 5mg tabs due to insurance not covering it and the co-pay was too high for him to pay. He also states he dad has not been able to take his medications since night due to him not being able to eat or keep anything down.
--- NOTE | 2024-08-04 09:06 | P.CONNP_ITS ---
History of Present Illness Reason for Consult Consult date: 08/04/24 Chief Complaint Chief complaint: Weakness History of Present Illness Narrative: 69 y/o male with a PMH of paroxysmal afib, HLD, HTN, rectal CA s/p resection who came to the hospital with generalized weakness, confusion and reduced PO intake x2 days, abdominal pain. pt had CT which showed distedned bladder and moderately enlarged prostate, davidson catheter inserted drained 2L of retained urine. Creatinine 24.82 and GFR 2 (previously creatinine 1.16, GFR >60), nephrology consulted. 08/03 CT abd/pelvis CT: kidneys/ureters unremarkable- showed distended bladder and prostate enlargement. 08/04 creatinine has gone down to 8/83 since davidson insertion patient continues to make urine, non-oliguric reports abdominal pain has improved reports breathing is comfortable denies chest pain denies leg swelling denies other concerns he denies known hx of kidney disease, family hx of renal disease he states he does not see a kidney doctor outpatient he states he does not take nsaids at home he states he does not drink alcohol or smoke Review of Systems Constitutional: Reports fatigue and Reports weakness Denies dizziness Cardiovascular: Denies chest pain, Denies leg edema, Denies lightheadedness and Denies dyspnea Respiratory: Denies dyspnea Gastrointestinal: Denies abdominal pain, Denies diarrhea, Denies nausea and Denies vomiting Genitourinary: Denies hematuria, Denies dysuria and Denies flank pain Musculoskeletal: Denies back pain and Denies arthralgias Skin/Breast: Denies rash Denies dizziness and Reports weakness Endocrine: Reports fatigue PMFSH Past Medical History Medical History History of rectal cancer Wears dentures Hx of flexible sigmoidoscopy Essential hypertension Typical atrial flutter Perianal condylomata (~07/04/23) Rectal cancer Hypertension Increased BMI Elevated cholesterol HTN (hypertension) Family History Family History Father No problems noted. Mother No problems noted. Surgical History Surgical History History of excision of lesion History of verrucae (wart) excision H/O colonoscopy Social History Social History Household Members: None Housing: House Are you a primary clinical care leader to a significant other at home: No Do you presently have visiting nurse or other home services: No Alcohol intake: never Patient Tobacco Use Status: Former Tobacco user Years Smoked: 25 +/- service: No Current occupational status: retired Meds Allergies Allergy/AdvReac Type Severity Reaction Status Date / Time No Known Allergies Allergy Verified 08/03/24 18:07 Active Medications: Current Medications Acetaminophen (Acetaminophen 325 Mg Tablet) 650 mg PO Q6H PRN PRN Reason: Pain, Mild (Pain Scale 1-3), fever or headache Calcium Carbonate (Calcium Carbonate 750 Mg Tab.Chew) 750 mg PO Q4H PRN PRN Reason: Heartburn Finasteride (Finasteride 5 Mg Tablet) 5 mg PO DAILY [facility] Sodium Bicarbonate 100 meq/ (Dextrose) 1,000 mls @ 100 mls/hr IV .Q10H [facility] Last Admin: 08/04/24 05:35 Dose: 100 mls/hr Melatonin (Melatonin 3 Mg Tablet) 6 mg PO BEDTIME PRN PRN Reason: Insomnia Ondansetron HCl (Ondansetron Hcl 4 Mg/2 Ml Vial) 4 mg IVPUSH Q8H PRN PRN Reason: Nausea and Vomiting Sodium Chloride (0.9 % Sodium Chloride Flush 3 Ml Syringe) 3 ml IVFLUSH QSHIFT [facility] Last Admin: 08/04/24 09:02 Dose: Not Given Tamsulosin HCl (Tamsulosin Hcl 0.4 Mg Capsule) 0.4 mg PO DAILY@1730 [facility] Last Admin: 08/03/24 23:34 Dose: Not Given Physical Exam Vital Signs: Last Vital Signs Temp 99.3 F 08/04/24 07:38 Pulse 126 H 08/04/24 07:38 Resp 13 08/04/24 07:38 BP 128/84 08/04/24 07:38 Pulse Ox 99 08/04/24 07:38 O2 Del Method Room Air 08/04/24 07:38 BMI result Body Mass Index 31.3 Const General: no acute distress, alert and awake Resp Effort & Inspection: normal respiratory effort Auscultation: clear to auscultation bilaterally Cardio Jugular venous distension: no JVD Rate: regular rate Rhythm: regular rhythm Heart sounds: S1 normal heart sound present and S2 normal heart sound present GI Palpation (GI): Soft to palpation and nontender General: Yes no CVA tenderness Back/Spine/Pelvis Back: no CVA tenderness Skin Rashes: no rashes Neuro Other: no tremors/myoclonus Results Lab Results 08/04/24 04:18 08/04/24 04:18 Lab results: Chemistry 08/03/24 08/03/24 08/04/24 20:15 22:27 04:18 Sodium 141 144 152 H Potassium 6.1 H* D 5.5 H 4.6 Carbon Dioxide 10 L* D 10 L* 18 L BUN 239 H 214 H 126 H Creatinine 25.82 H* 21.75 H* 8.83 H* Calcium 9.1 D 9.5 9.7 Hematology 08/03/24 08/04/24 18:28 04:18 WBC 13.8 H 9.6 Hgb 13.3 L 14.4 Plt Count 260 278 Urinalysis 08/03/24 21:41 Urine Color Yellow Urine Appearance Clear Urine pH 5.5 Ur Specific [place] 1.015 Urine Protein Trace Urine Glucose (UA) 100 H Urine Ketones Negative Urine Blood Moderate (2+) H Urine Nitrite Negative Ur Leukocyte Esterase Small (1+) H Urine RBC 11-20 H Urine WBC 11-20 H Ur Squamous Epith Cells 0-2 Hyaline Casts 0-2 Urine Studies 08/03/24 21:41 Urine Osmolality 432 Urine Creatinine 119.04 Assessment and Plan (1) Acute renal failure: Qualifiers: Acute renal failure type: unspecified Qualified Code(s): N17.9 - Acute kidney failure, unspecified Status: Acute (2) Urinary retention: Status: Acute (3) Metabolic acidosis: Status: Acute (4) Hyperkalemia: Status: Acute Plan EMMANUEL, most likely tubular injury from obstructive uropathy (urinary retention from enlarged prostate) renal function has markedly improved with davidson catheter insertion and drainage of bladder fluid, anticipate continued improvement patient now with post obstructive diuresis- recommend monitoring for hypokalemia, dehydration recommend continuing bicarbonate drop until serum bicarb is >18, then would switch to D5W IVF for continued management of dehydration/hypernatremia continue to avoid nephrotoxic substances monitor I&O closely monitor renal function and electrolytes daily Will continue to follow Discussed with Dr Fairchild Procedures Date of Service Date of Service: 08/04/24
[2024-08-04] MEDS: Finasteride 5 MG TABLET PO (09:25)
--- NOTE | 2024-08-04 11:07 | P.PNIM_ITS ---
Subjective Subjective Date of Service: 08/04/24 Interval History: Being followed for EMMANUEL due to urinary retention Patient offers no acute complaints, denies abdominal pain, no nausea, no vomiting, son at bedside inform that patient has had poor by mouth intake last couple weeks. Unable to obtain detailed history due to confusion Review of Systems Unable to obtain review of system due to above. Physical Exam 2 Vital Signs: Vital Signs: Last Vital Signs Temp 97.1 F 08/04/24 10:51 Pulse 113 H 08/04/24 10:51 Resp 18 08/04/24 10:51 BP 146/96 H 08/04/24 10:51 Pulse Ox 98 08/04/24 10:51 O2 Del Method Room Air 08/04/24 10:51 BMI result Body Mass Index 31.3 Const: Other: General resting comfortably in no acute distress. Anicteric sclera Neck no JVD. CVS regular rate rhythm, Respiratory lungs clear to auscultation, no respiratory distress, no wheeze, no rhonchi. Gastrointestinal abdomen soft, non tender, bowel sounds audible, Extremities no edema. Neuro moving all 4 extremity, speech clear. Skin no rash Poor insight Objective Data Active Medications Acetaminophen (Acetaminophen 325 Mg Tablet) 650 mg PO Q6H PRN PRN Reason: Pain, Mild (Pain Scale 1-3), fever or headache Calcium Carbonate (Calcium Carbonate 750 Mg Tab.Chew) 750 mg PO Q4H PRN PRN Reason: Heartburn Finasteride (Finasteride 5 Mg Tablet) 5 mg PO DAILY [facility] Last Admin: 08/04/24 09:25 Dose: 5 mg Documented By: MANJIT Sodium Bicarbonate 100 meq/ (Dextrose) 1,000 mls @ 100 mls/hr IV .Q10H [facility] Last Admin: 08/04/24 05:35 Dose: 100 mls/hr Documented By: AQUILINO Melatonin (Melatonin 3 Mg Tablet) 6 mg PO BEDTIME PRN PRN Reason: Insomnia Ondansetron HCl (Ondansetron Hcl 4 Mg/2 Ml Vial) 4 mg IVPUSH Q8H PRN PRN Reason: Nausea and Vomiting Sodium Chloride (0.9 % Sodium Chloride Flush 3 Ml Syringe) 3 ml IVFLUSH QSHIFT [facility] Last Admin: 08/04/24 09:02 Dose: Not Given Documented By: MANJIT Non-Admin Reason: IV Running Tamsulosin HCl (Tamsulosin Hcl 0.4 Mg Capsule) 0.4 mg PO DAILY@1730 [facility] Last Admin: 08/03/24 23:34 Dose: Not Given Documented By: AQUILINO Non-Admin Reason: Patient Refused Labs 08/04/24 04:18 08/04/24 04:18 Labs: Laboratory Results - last 24 hr 08/03/24 08/03/24 08/03/24 18:28 20:15 21:41 MCV 85.3 MCH 30.0 MCHC 35.2 RDW 13.1 Plt Count 260 MPV 8.7 L Immature Gran % (Auto) 0.4 Neut % (Auto) 88.9 H Lymph % (Auto) 5.8 L [place] % (Auto) 4.7 Eos % (Auto) 0.1 Baso % (Auto) 0.1 Lymph # (Auto) 0.8 L [place] # (Auto) 0.6 Eos # (Auto) 0.0 Baso # (Auto) 0.0 Abs Immat Gran (auto) 0.06 H Absolute Neuts (auto) 12.2 H Absolute Nucleated RBC 0.000 Nucleated RBC % (auto) 0.0 Smear Tech's Comments VBG pH VBG pCO2 VBG pO2 VBG HCO3 VBG O2 Saturation VBG Base Excess Anion Gap 36 H Estim Creat Clear Calc 2.9 Estimated GFR 2 Random Glucose 125 H Calcium 9.1 D Total Bilirubin 0.4 AST 22 ALT 15 Alkaline Phosphatase 88 Total Creatine Kinase 41 Total Protein 6.8 Albumin 3.2 L Urine Color Yellow Urine Appearance Clear Urine pH 5.5 Ur Specific [place] 1.015 Urine Protein Trace Urine Glucose (UA) 100 H Urine Ketones Negative Urine Blood Moderate (2+) H Urine Nitrite Negative Ur Leukocyte Esterase Small (1+) H Urine RBC 11-20 H Urine WBC 11-20 H Ur Squamous Epith Cells 0-2 Urine Bacteria None Seen Hyaline Casts 0-2 Urine Osmolality 432 Ur Random Sodium 78.0 Urine Creatinine 119.04 Influenza Type A (PCR) NEGATIVE Influenza Type B (PCR) NEGATIVE RSV RNA Qual (PCR) NEGATIVE SARS-CoV-2 RNA (RT-PCR) NEGATIVE 08/03/24 08/03/24 08/04/24 22:27 22:31 04:18 MCV 83.6 MCH 29.8 MCHC 35.6 RDW 13.0 Plt Count 278 MPV 8.7 L Immature Gran % (Auto) 0.4 Neut % (Auto) 90.7 H Lymph % (Auto) 5.4 L [place] % (Auto) 3.4 Eos % (Auto) 0.1 Baso % (Auto) 0.0 Lymph # (Auto) 0.5 L [place] # (Auto) 0.3 Eos # (Auto) 0.0 Baso # (Auto) 0.0 Abs Immat Gran (auto) 0.04 H Absolute Neuts (auto) 8.7 H Absolute Nucleated RBC 0.000 Nucleated RBC % (auto) 0.0 Smear Tech's Comments VERIFIED VBG pH 7.34 VBG pCO2 18 VBG pO2 92 VBG HCO3 10 L VBG O2 Saturation 96.0 VBG Base Excess -12.8 Anion Gap 33 H 20 Estim Creat Clear Calc 3.4 8.6 Estimated GFR 2 6 Random Glucose 117 H 160 H Calcium 9.5 9.7 Total Bilirubin AST ALT Alkaline Phosphatase Total Creatine Kinase Total Protein Albumin Urine Color Urine Appearance Urine pH Ur Specific [place] Urine Protein Urine Glucose (UA) Urine Ketones Urine Blood Urine Nitrite Ur Leukocyte Esterase Urine RBC Urine WBC Ur Squamous Epith Cells Urine Bacteria Hyaline Casts Urine Osmolality Ur Random Sodium Urine Creatinine Influenza Type A (PCR) Influenza Type B (PCR) RSV RNA Qual (PCR) SARS-CoV-2 RNA (RT-PCR) Assessment and Plan (1) Urinary retention: Status: Acute (2) Hyperkalemia: Status: Acute (3) Metabolic acidosis: Status: Acute (4) Acute renal failure: Status: Acute Plan 69-year-old male with pertinent history of paroxysmal atrial fibrillation on anticoagulation, mixed hyperlipidemia, hypertension, rectal cancer status post resection who was brought to the emergency department for evaluation of generalized weakness. #. Acute kidney injury with AG metabolic acidosis: Rapid improvement in creatinine likely due to postobstructive uropathy, anion gap normalized Continue IV bicarb drip, transition to D5W once serum bicarb greater than 18 Continue Dukes catheter, monitor BMP, avoid nephrotoxins Started on Flomax and Proscar Case discussed with Urology and Nephrology #. Acute toxic metabolic encephalopathy due to uremia monitor mentation. Poor by mouth intake follow clinical course. #. Urinary retention due to BPH: Continue Dukes catheter for 4 weeks and outpatient follow-up with Urology, once patient more awake will cap Dukes catheter, continue Flomax and Proscar. Patient was prescribed Flomax 0.4 mg but has not taking the medication #. Hyperkalemia due to EMMANUEL: Resolved status post Lokelma # mild acute hypernatremia, will treat with D5W follow labs #. Leukocytosis, reactive: Normalized was likely reactive. #. Hypertension: Continue metoprolol 25 mg daily and hold lisinopril 40 mg daily due to EMMANUEL. #. Atrial flutter with rapid ventricular response, status post IV Lopressor heart rate improved History of Paroxysmal atrial fibrillation: resume metoprolol, patient was prescribed Eliquis 1 year ago but never took it due to high co-pay, follow EKG, initially EKG showed unusual P axis, left axis deviation and nonspecific ST abnormality, continue tele monitor # hyperlipidemia will resume Lipitor/check lipid profile DVT prophylaxis: Heparin Full code Patient will require continued inpatient hospitalization for treatment of EMMANUEL due to postobstructive uropathy electrolyte abnormality and acute toxic metabolic encephalopathy. Quality Stroke Does the patient have a stroke diagnosis?: No VTE Prior VTE?: No VTE Risk Level:: Medical - moderate - high VTE Device Contraindication: Treatment Not Indicated VTE Drug Contraindication: N/A - Med Ordered
[2024-08-04 13:24] LABS: Anion Gap 15 (12-20); Blood Urea Nitrogen 66 mg/dL (9-16); Calcium 9.8 mg/dL (8.4-10.2); Carbon Dioxide 23 mmol/L (22-29); Chloride 122 mmol/L (96-108); Creatinine Clr Calc Pharmacy 24.9; Estimated Glomerular Filt Rate 21; Glucose Random 249 mg/dL (60-115); Potassium 4.3 mmol/L (3.3-5.1); Sodium 156 mmol/L (135-145)
--- NOTE | 2024-08-04 15:43 | HO.WOUND ---
Wound Consult: Initial 69yr old?male admitted to [facility] [place] on 08/03/24 - See progress notes and H&P for detailed history.? Wound consult placed for Penis.? Patient agreeable to assessment and photo documentation.? 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 Patient reports she has had them for years and has not sought treatment for them. They do not cause him pain or discomfort at this time. The foreskin was assessed and is noted for fungating warts all remain intact no open lesions noted. There is some areas of maceration noted where the skin folds. Pericare provided with Mary spray which acts as PH balanced cleanser and add a layer of dimethicone as barrier protection. Patient educated on the importance of routine cleansing - he states understanding. Penis Etiology: ?Perianal condylomata (Gential Warts) Wound Bed: intact tissue Drainage / Odor: None Edges: ? irregular / fungating Simona wound: ?Intact No Induration, Fluctuance or Warmth noted Pain: denies Foreskin tissue cleansed - Mary spray with dimethicone applied to act as cleanser and apply barrier. Recommendations: 1. Turn and Reposition every 2 hours and as needed for patient comfort.? Use pillows or wedges to support off loading positions. 2. Off Load all bony prominences with use of pillows and heel boots if needed.? Apply Preventative foams where needed. ? 3. Monitor for incontinence and moisture control, use barrier creams when needed for prevention and treatment. 4. Provide adequate and supplemental nutrition.? 5. Order low air loss mattress. 6. When applicable maintain blood glucose levels per Providers order. 7. Penis - Cleanse with Mary spray, wipe clean. Apply twice daily and PRN after episodes of incontinence. Re-consult wound care Nurse for wound deterioration or wound changes.
[2024-08-04] MEDS: Tamsulosin HCL 0.4 MG CAPSULE PO (16:48)
[2024-08-04] MEDS: Metoprolol Succinate ER 25 MG TAB.ER.24H PO (17:33)
[2024-08-04] MEDS: 0.9 % Sodium Chloride Flush 3 ML SYRINGE IVFLUSH ×2 (19:02→23:38)
[2024-08-04] MEDS: Dextrose 5 % 1,000 ML 80 ML IVCONT (19:02)
[2024-08-04] MEDS: Atorvastatin Calcium 20 MG TABLET PO (21:01)
[2024-08-04] MEDS: Heparin Sodium,Porcine 5,000 UNIT/ML VIAL 5000 UNIT SUBCUT (23:38)
[2024-08-05] VITALS (8 sets, daily range): BP systolic 115–149; BP diastolic 74–87; PULSE 87–119; RESP 12–20; TEMP 36.7–37.2; O2SAT 96–99
[2024-08-05] MEDS: Dextrose 5 % 1,000 ML 80 ML IVCONT (06:09)
[2024-08-05 10:41] LABS: Anion Gap 16 (12-20); Blood Urea Nitrogen 26 mg/dL (9-16); Calcium 9.6 mg/dL (8.4-10.2); Carbon Dioxide 28 mmol/L (22-29); Chloride 118 mmol/L (96-108); Cholesterol 92 mg/dL (<200); Creatinine Clr Calc Pharmacy 78.2; Estimated Glomerular Filt Rate > 60; Glucose Random 173 mg/dL (60-115); HDL Cholesterol 35 mg/dL (>40); LDL Cholesterol Calculated 42 mg/dL (<100); Sodium 158 mmol/L (135-145); Triglycerides 78 mg/dL (<150)
[2024-08-05] MEDS: Finasteride 5 MG TABLET PO (10:49)
[2024-08-05] MEDS: Heparin Sodium,Porcine 5,000 UNIT/ML VIAL 5000 UNIT SUBCUT ×2 (10:49→22:56)
[2024-08-05] MEDS: Metoprolol Succinate ER 25 MG TAB.ER.24H PO ×2 (10:50→14:55)
[2024-08-05] MEDS: 0.9 % Sodium Chloride Flush 3 ML SYRINGE IVFLUSH ×2 (10:52→15:57)
--- NOTE | 2024-08-05 10:58 | P.PNNP_ITS ---
Subjective Subjective Date of Service: 08/05/24 Interval history: 69 y/o male with a PMH of paroxysmal afib, HLD, HTN, rectal CA s/p resection who came to the hospital with generalized weakness, confusion and reduced PO intake x2 days, abdominal pain. pt had CT which showed distedned bladder and moderately enlarged prostate, davidson catheter inserted drained 2L of retained urine. Creatinine 24.82 and GFR 2 (previously creatinine 1.16, GFR >60), nephrology consulted. 08/03 CT abd/pelvis CT: kidneys/ureters unremarkable- showed distended bladder and prostate enlargement. creatinine normalized today patient continues to diurese- 2700mL in last 24 hours reports abdominal pain has improved reports breathing is comfortable denies chest pain denies leg swelling denies other concerns Physical Exam 2 Vital Signs: Vital Signs: Last Vital Signs Temp 98.8 F 08/05/24 07:59 Pulse 107 H 08/05/24 07:59 Resp 12 08/05/24 07:59 BP 145/76 H 08/05/24 07:59 Pulse Ox 96 08/05/24 07:59 O2 Del Method Room Air 08/05/24 07:59 BMI result Body Mass Index 31.3 Objective Data Labs 08/04/24 04:18 08/05/24 09:41 Labs: Laboratory Results - last 24 hr 08/04/24 08/05/24 08/05/24 12:58 09:41 10:07 Hold Purple Top SEE NOTE Sodium 156 H 158 H Potassium 4.3 4.0 Chloride 122 H 118 H Carbon Dioxide 23 28 Anion Gap 15 16 BUN 66 H 26 H Creatinine 3.05 H 0.97 Estim Creat Clear Calc 24.9 78.2 Estimated GFR 21 > 60 Random Glucose 249 H 173 H Calcium 9.8 9.6 Triglycerides 78 Cholesterol 92 LDL Cholesterol, Calc 42 HDL Cholesterol 35 L Microbiology Microbiology Results: Microbiology 08/03/24 Unknown Urine clean catch Urine Culture - Final No growth. Procedures Date of Service Date of Service: 08/05/24 Assessment & Plan Assessment and plan (1) Acute renal failure: Status: Acute (2) Urinary retention: Status: Acute (3) Metabolic acidosis: Status: Acute (4) Hyponatremia: Status: Acute Plan EMMANUEL, most likely tubular injury from obstructive uropathy (urinary retention from enlarged prostate) renal function has markedly improved with davidson catheter insertion and drainage of bladder fluid, creatinine has normalized today patient now with worsening hypernatremia in the setting of post obstructive diuresis recommend increasing D5W to 150mL/hr, likely will need 36 hours of fluids but should reassess sodium level in the a.m. and adjust accordingly recommend monitoring for hypokalemia, dehydration continue to avoid nephrotoxic substances monitor I&O closely monitor renal function and electrolytes daily Will continue to follow Discussed with Dr Fairchild Time Spent With Patient Time: Total time managing care of this patient today ____ minutes. Progress Note: Quality Stroke Does the patient have a stroke diagnosis?: No
--- NOTE | 2024-08-05 11:14 | MHC.CM.PN ---
Patient is documented to have Confusion; CM spoke with Only Contact/Son/Jr NareshPedro @ [phone] and addressed IMM with him (original will be mailed certified letter to Son and a copy has been placed on the chart). Patient lives alone in a second floor apartment with his Son living beneath him on the first floor. Patient required no services nor [employer]ME [employer] DRYING and home/self care is the goal(Patient is here with weakness and may benefit from a PT Eval to assist with disposition). Patient's PCP is Dr. Huang Chino and Daughter/Anna Marie is the HCP(Son has agreed to ask Anna Marie for a copy of the HCP and to provide [facility] with that copy).
--- NOTE | 2024-08-05 12:33 | HO.PM.IMPN ---
Subjective Subjective Date of Service: 08/05/24 Interval History: Being followed for EMMANUEL due to obstructive uropathy. Patient offers no acute complaints denies pain, no nausea, no vomiting, son at bedside complaining of poor appetite, patient agreeing to drink fluids, no acute events overnight. Review of Systems All other system reviewed and are negative. Physical Exam Vital Signs: Vital Signs: Last Vital Signs Temp 98.2 F 08/05/24 11:14 Pulse 105 H 08/05/24 11:14 Resp 17 08/05/24 11:14 BP 149/80 H 08/05/24 11:14 Pulse Ox 98 08/05/24 11:14 O2 Del Method Room Air 08/05/24 11:14 BMI result Body Mass Index 31.3 Const: Other: General resting comfortably in no acute distress. Anicteric sclera Neck no JVD. CVS regular rate rhythm, Respiratory lungs clear to auscultation, no respiratory distress, no wheeze, no rhonchi. Gastrointestinal abdomen soft, non tender, bowel sounds audible, Extremities no edema. Neuro moving all 4 extremity, speech clear. Skin no rash Appropriate affect Objective Data Active Medications Acetaminophen (Acetaminophen 325 Mg Tablet) 650 mg PO Q6H PRN PRN Reason: Pain, Mild (Pain Scale 1-3), fever or headache Atorvastatin Calcium (Atorvastatin Calcium 20 Mg Tablet) 20 mg PO BEDTIME [facility] Last Admin: 08/04/24 21:01 Dose: 20 mg Documented By: JEFFREY Calcium Carbonate (Calcium Carbonate 750 Mg Tab.Chew) 750 mg PO Q4H PRN PRN Reason: Heartburn Finasteride (Finasteride 5 Mg Tablet) 5 mg PO DAILY [facility] Last Admin: 08/05/24 10:49 Dose: 5 mg Documented By: HANNAH Heparin Sodium (Porcine) (Heparin Sodium,Porcine 5,000 Unit/Ml Vial) 5,000 unit SUBCUT Q12H [facility] Last Admin: 08/05/24 10:49 Dose: 5,000 unit Documented By: HANNAH Dextrose (D5w) 1,000 mls @ 125 mls/hr IVCONT .Q8H [facility] Last Infusion: 08/05/24 10:49 Dose: 120 mls/hr Documented By: HANNAH Melatonin (Melatonin 3 Mg Tablet) 6 mg PO BEDTIME PRN PRN Reason: Insomnia Metoprolol Succinate (Metoprolol Succinate Er 25 Mg Tab.Er.24h) 25 mg PO DAILY [facility]; Protocol Last Admin: 08/05/24 10:50 Dose: 25 mg Documented By: HANNAH Ondansetron HCl (Ondansetron Hcl 4 Mg/2 Ml Vial) 4 mg IVPUSH Q8H PRN PRN Reason: Nausea and Vomiting Sodium Chloride (0.9 % Sodium Chloride Flush 3 Ml Syringe) 3 ml IVFLUSH QSHIFT [facility] Last Admin: 08/05/24 10:52 Dose: 3 ml Documented By: HANNAH Tamsulosin HCl (Tamsulosin Hcl 0.4 Mg Capsule) 0.4 mg PO DAILY@1730 [facility] Last Admin: 08/04/24 16:48 Dose: 0.4 mg Documented By: HANNAH Labs 08/04/24 04:18 08/05/24 09:41 Labs: Laboratory Results - last 24 hr 08/04/24 08/05/24 08/05/24 12:58 09:41 10:07 Hold Purple Top SEE NOTE Anion Gap 15 16 Estim Creat Clear Calc 24.9 78.2 Estimated GFR 21 > 60 Random Glucose 249 H 173 H Calcium 9.8 9.6 Triglycerides 78 Cholesterol 92 LDL Cholesterol, Calc 42 HDL Cholesterol 35 L Microbiology Microbiology Results: Microbiology 08/03/24 Unknown Urine Culture - Final Urine clean catch No growth. Assessment and Plan (1) Atrial flutter with rapid ventricular response: Status: Acute (2) Hyperkalemia: Status: Acute (3) Acute renal failure: Status: Acute (4) Metabolic acidosis: Status: Acute Plan 69-year-old male with pertinent history of paroxysmal atrial fibrillation on anticoagulation, mixed hyperlipidemia, hypertension, rectal cancer status post resection who was brought to the emergency department for evaluation of generalized weakness. #. Acute kidney injury with AG metabolic acidosis: Creatinine normalized ,rapid improvement in creatinine likely due to postobstructive uropathy, anion gap normalized s/p iv bicarb drip,now on D5W due to elevated sodium of 158 Continue Dukes catheter, monitor BMP, avoid nephrotoxins on Flomax and Proscar Case discussed with Urology and Nephrology #. Acute toxic metabolic encephalopathy due to uremia : Resolved, answering questions appropriately. #. Urinary retention due to BPH: Continue Dukes catheter for 4 weeks and outpatient follow-up with Urology, once patient more awake will cap Dukes catheter, continue Flomax and Proscar. #. Hyperkalemia due to EMMANUEL: Resolved status post Lokelma # acute hypernatremia, will treat with D5W increased rate to 150 mL/hours , follow labs, push by mouth fluids #. Leukocytosis, reactive: Normalized was likely reactive. #. Hypertension: Elevated BP will increase dose of metoprolol from 25 mg to 50 mg , will discuss use of lisinopril with Nephrology. #. Atrial flutter with rapid ventricular response, status post IV Lopressor heart rate improved History of Paroxysmal atrial fibrillation: resume metoprolol, patient was prescribed Eliquis 1 year ago but never took it due to high co-pay, follow EKG, initially EKG showed unusual P axis, left axis deviation and nonspecific ST abnormality, repeat EKG showed sinus tachycardia ,continue tele monitor # hyperlipidemia LDL 42 with total cholesterol of 92, DC Lipitor DVT prophylaxis: Heparin Full code Patient will require continued inpatient hospitalization for treatment of EMMANUEL due to postobstructive uropathy electrolyte abnormality and acute toxic metabolic encephalopathy. Quality Stroke Does the patient have a stroke diagnosis?: No VTE Prior VTE?: No VTE Risk Level:: Medical - moderate - high VTE Device Contraindication: Treatment Not Indicated VTE Drug Contraindication: N/A - Med Ordered
[2024-08-05] MEDS: ondansetron HCL 4 MG/2 ML VIAL IVPUSH ×2 (15:57→22:56)
[2024-08-05] MEDS: Dextrose 5 % 1,000 ML 150 ML IVCONT ×2 (15:57→22:41)
[2024-08-05] MEDS: Tamsulosin HCL 0.4 MG CAPSULE PO (15:57)
[2024-08-05] MEDS: Calcium Carbonate 750 MG TAB.CHEW PO (22:56)
[2024-08-06] VITALS (8 sets, daily range): BP systolic 107–145; BP diastolic 59–88; PULSE 76–93; RESP 16–18; TEMP 36.4–37.2; O2SAT 98–100
[2024-08-06] MEDS: ondansetron HCL 4 MG/2 ML VIAL IVPUSH (04:02)
[2024-08-06] MEDS: Dextrose 5 % 1,000 ML 150 ML IVCONT (04:28)
[2024-08-06 07:51] LABS: Anion Gap 15 (12-20); Blood Urea Nitrogen 15 mg/dL (9-16); Calcium 9.4 mg/dL (8.4-10.2); Carbon Dioxide 23 mmol/L (22-29); Chloride 110 mmol/L (96-108); Creatinine Clr Calc Pharmacy 83.4; Estimated Glomerular Filt Rate > 60; Glucose Random 152 mg/dL (60-115); Potassium 3.9 mmol/L (3.3-5.1); Sodium 144 mmol/L (135-145)
[2024-08-06] MEDS: Metoprolol Succinate ER 50 MG TAB.ER.24H PO (08:14)
[2024-08-06] MEDS: Finasteride 5 MG TABLET PO (08:14)
[2024-08-06] MEDS: 0.9 % Sodium Chloride Flush 3 ML SYRINGE IVFLUSH ×3 (08:14→20:44)
[2024-08-06] MEDS: Omeprazole 20 MG CAPSULE.DR PO (10:27)
[2024-08-06] MEDS: Heparin Sodium,Porcine 5,000 UNIT/ML VIAL 5000 UNIT SUBCUT (10:28)
--- NOTE | 2024-08-06 12:20 | P.PNNP_ITS ---
Subjective Subjective Date of Service: 08/06/24 Interval history: 69 y/o male with a PMH of paroxysmal afib, HLD, HTN, rectal CA s/p resection who came to the hospital with generalized weakness, confusion and reduced PO intake x2 days, abdominal pain. pt had CT which showed distedned bladder and moderately enlarged prostate, davidson catheter inserted drained 2L of retained urine. Creatinine 24.82 and GFR 2 (previously creatinine 1.16, GFR >60), nephrology consulted. 08/03 CT abd/pelvis CT: kidneys/ureters unremarkable- showed distended bladder and prostate enlargement. creatinine continues to be normal/baseline patient diuresis slowing down (1725mL in last 24 hours) denies abdominal pain reports breathing is comfortable denies chest pain denies leg swelling denies other concerns Physical Exam 2 Vital Signs: Vital Signs: Last Vital Signs Temp 98.3 F 08/06/24 11:21 Pulse 93 08/06/24 11:21 Resp 18 08/06/24 11:21 BP 123/65 08/06/24 11:21 Pulse Ox 100 08/06/24 11:21 O2 Del Method Room Air 08/06/24 11:21 BMI result Body Mass Index 31.3 Const: General: no acute distress, alert and awake Resp: Effort & Inspection: normal respiratory effort and able to speak in complete sentences Auscultation: clear to auscultation bilaterally Cardio: Rate: regular rate Rhythm: regular rhythm Heart sounds: S1 normal heart sound present and S2 normal heart sound present GI: Palpation (GI): Soft to palpation and nontender : General: Yes no CVA tenderness Back/Spine/Pelvis: Back: no CVA tenderness Skin: Rashes: no rashes Extrem: Right upper extremity: no edema Objective Data Labs 08/04/24 04:18 08/06/24 06:47 Labs: Laboratory Results - last 24 hr 08/06/24 06:47 Hold Purple Top SEE NOTE Sodium 144 Potassium 3.9 Chloride 110 H Carbon Dioxide 23 Anion Gap 15 BUN 15 Creatinine 0.91 Estim Creat Clear Calc 83.4 Estimated GFR > 60 Random Glucose 152 H Calcium 9.4 Microbiology Microbiology Results: Microbiology 08/03/24 Unknown Urine clean catch Urine Culture - Final No growth. Procedures Date of Service Date of Service: 08/06/24 Assessment & Plan Assessment and plan (1) Acute renal failure: Status: Acute (2) Urinary retention: Status: Acute (3) Metabolic acidosis: Status: Acute (4) Hyponatremia: Status: Acute Plan EMMANUEL, most likely tubular injury from obstructive uropathy (urinary retention from enlarged prostate) renal function has markedly improved with davidson catheter insertion and drainage of bladder fluid, creatinine has normalized today hypernatremia has resolved with IV hydration encourage continued hydration continue to avoid nephrotoxic substances monitor I&O closely monitor renal function and electrolytes daily ok for discharge from renal perspective, he should follow up with nephrology outpatient after discharge (2-4 weeks) Discussed with Dr Matthews Time Spent With Patient Time: Total time managing care of this patient today ____ minutes. Progress Note: Quality Stroke Does the patient have a stroke diagnosis?: No
--- NOTE | 2024-08-06 12:52 | MHC.CM.PN ---
PT rec. pt. go to [facility] and pt. and family are in agreement, requested referrals to be near [place]. Referrals out.
--- NOTE | 2024-08-06 13:57 | HO.PM.IMPN ---
Subjective Subjective Date of Service: 08/06/24 Interval History: Being followed for acute kidney injury due to obstructive uropathy, decreased by mouth intake, atrial fibrillation with RVR. Patient is a poor historian, most of the history provided by patient's son at bedside, as per son patient has been regurgitating food after eating in complaints of pain, although patient denies abdominal pain, has poor by mouth intake 25% denies headache,no fevers, no chills, no chest pain or palpitations. Review of Systems All other system reviewed and are negative. Physical Exam Vital Signs: Vital Signs: Last Vital Signs Temp 98.3 F 08/06/24 11:21 Pulse 93 08/06/24 11:21 Resp 18 08/06/24 11:21 BP 123/65 08/06/24 11:21 Pulse Ox 100 08/06/24 11:21 O2 Del Method Room Air 08/06/24 11:21 BMI result Body Mass Index 31.3 Const: Other: General resting comfortably in no acute distress. Anicteric sclera Neck no JVD. CVS regular rate rhythm, Respiratory lungs clear to auscultation, no respiratory distress, no wheeze, no rhonchi. Gastrointestinal abdomen soft, non tender, bowel sounds audible, Extremities no edema. Neuro moving all 4 extremity, speech clear. Skin no rash Appropriate affect Dukes with clear urine Objective Data Active Medications Acetaminophen (Acetaminophen 325 Mg Tablet) 650 mg PO Q6H PRN PRN Reason: Pain, Mild (Pain Scale 1-3), fever or headache Calcium Carbonate (Calcium Carbonate 750 Mg Tab.Chew) 750 mg PO Q4H PRN PRN Reason: Heartburn Last Admin: 08/05/24 22:56 Dose: 750 mg Documented By: ROSEANNE Finasteride (Finasteride 5 Mg Tablet) 5 mg PO DAILY [facility] Last Admin: 08/06/24 08:14 Dose: 5 mg Documented By: DAKOTA Heparin Sodium (Porcine) (Heparin Sodium,Porcine 5,000 Unit/Ml Vial) 5,000 unit SUBCUT Q12H [facility] Last Admin: 08/06/24 10:28 Dose: 5,000 unit Documented By: DAKOTA Melatonin (Melatonin 3 Mg Tablet) 6 mg PO BEDTIME PRN PRN Reason: Insomnia Metoprolol Succinate (Metoprolol Succinate Er 50 Mg Tab.Er.24h) 50 mg PO DAILY [facility]; Protocol Last Admin: 08/06/24 08:14 Dose: 50 mg Documented By: DAKOTA Omeprazole (Omeprazole 20 Mg Capsule.Dr) 20 mg PO DAILY@0630 [facility] Last Admin: 08/06/24 10:27 Dose: 20 mg Documented By: DAKOTA Ondansetron HCl (Ondansetron Hcl 4 Mg/2 Ml Vial) 4 mg IVPUSH Q6H PRN PRN Reason: Nausea and Vomiting Last Admin: 08/06/24 04:02 Dose: 4 mg Documented By: ROSEANNE Comments: Nausea Sodium Chloride (0.9 % Sodium Chloride Flush 3 Ml Syringe) 3 ml IVFLUSH QSHIFT [facility] Last Admin: 08/06/24 08:14 Dose: 3 ml Documented By: DAKOTA Tamsulosin HCl (Tamsulosin Hcl 0.4 Mg Capsule) 0.4 mg PO DAILY@1730 [facility] Last Admin: 08/05/24 15:57 Dose: 0.4 mg Documented By: ARLETTET Labs 08/04/24 04:18 08/06/24 06:47 Labs: Laboratory Results - last 24 hr 08/06/24 06:47 Hold Purple Top SEE NOTE Anion Gap 15 Estim Creat Clear Calc 83.4 Estimated GFR > 60 Random Glucose 152 H Calcium 9.4 Microbiology Microbiology Results: Microbiology 08/03/24 Unknown Urine Culture - Final Urine clean catch No growth. Assessment and Plan (1) Atrial flutter with rapid ventricular response: Status: Acute (2) Hyponatremia: Status: Acute (3) Urinary retention: Status: Acute (4) Hyperkalemia: Status: Acute (5) Metabolic acidosis: Status: Acute (6) Acute renal failure: Status: Acute Plan 69-year-old male with pertinent history of paroxysmal atrial fibrillation on anticoagulation, mixed hyperlipidemia, hypertension, rectal cancer status post resection who was brought to the emergency department for evaluation of generalized weakness. #. Acute kidney injury with AG metabolic acidosis: Creatinine normalized ,rapid improvement in creatinine likely due to postobstructive uropathy, anion gap normalized s/p iv bicarb drip, followed by D5W due to elevated sodium of 158, sodium normalized will DC IV D5W Continue Dukes catheter, monitor BMP, avoid nephrotoxins on Flomax and Proscar Case discussed with Urology and Nephrology , uro recommended to cap Dukes catheter but since patient has mild cognitive impairment will continue Dukes catheter upon discharge and outpatient follow-up with Urology in 3-4 weeks #. Acute toxic metabolic encephalopathy due to uremia : Resolved, answering questions appropriately, knows the year, place, but son is concerned that his memory is declining in last 2-3 years and worse in last 2 weeks As per son patient was admitted to [facility] 2[facility]3 weeks ago due to syncope had extensive workup that was normal patient was discharged home and since then he has worsening memory, poor by mouth intake and regurgitation of food and has remained in bed prior to that he was independent and ambulating without assistive device. At present patient is tolerating 25% of meals, denies dysphagia, placed on Prilosec question gastritis. Supplements added. #. Urinary retention due to BPH: Continue Dukes catheter for 4 weeks and outpatient follow-up with Urology, continue Flomax and Proscar, cap Dukes as tolerated. #. Hyperkalemia due to EMMANUEL: Resolved status post Lokelma # acute hypernatremia, resolved will DC IV fluids , push by mouth fluids #. Leukocytosis, reactive: Normalized was likely reactive. #. Hypertension: Blood pressure improved dose of metoprolol increase from 25 mg to 50 mg , will DC lisinopril #. Atrial flutter with rapid ventricular response with history of paroxysmal atrial fibrillation status post IV Lopressor heart rate improved Continue metoprolol, patient was prescribed Eliquis 1 year ago but never took it due to high co-pay, was subsequently placed on Coumadin that patient has not taken since last July Dr. Paulo Joshi was his PCP but he discharged from from service since he missed multiple appointments, now he has an appointment on August 18 with Phong garcia from [facility] Patient noted to have intermittent episode of atrial fibrillation, will place on Eliquis and add digoxin 0.125 mg daily # hyperlipidemia LDL 42 with total cholesterol of 92, DC Lipitor # disposition seen by PT they recommend short-term rehab due to gross deconditioning, bed mobility and safety. DVT prophylaxis: Heparin Full code Patient will require continued inpatient hospitalization for treatment of EMMANUEL due to postobstructive uropathy electrolyte abnormality and acute toxic metabolic encephalopathy. Quality Stroke Does the patient have a stroke diagnosis?: No VTE Prior VTE?: No VTE Risk Level:: Medical - moderate - high VTE Device Contraindication: Treatment Not Indicated VTE Drug Contraindication: N/A - Med Ordered
[2024-08-06] MEDS: Acetaminophen 325 MG TABLET 650 MG PO (16:10)
[2024-08-06] MEDS: Digoxin 0.125 MG TABLET PO (16:10)
[2024-08-06] MEDS: Calcium Carbonate 750 MG TAB.CHEW PO (16:10)
[2024-08-06] MEDS: Tamsulosin HCL 0.4 MG CAPSULE PO (16:11)
[2024-08-06] MEDS: Apixaban 5 MG TABLET PO (20:44)
[2024-08-07] VITALS (7 sets, daily range): BP systolic 108–125; BP diastolic 62–68; PULSE 77–99; RESP 18–20; TEMP 36.2–37.2; O2SAT 96–99
[2024-08-07] MEDS: Omeprazole 20 MG CAPSULE.DR PO (05:59)
[2024-08-07] MEDS: Metoprolol Succinate ER 50 MG TAB.ER.24H PO (08:15)
[2024-08-07] MEDS: Apixaban 5 MG TABLET PO ×2 (08:15→21:38)
[2024-08-07] MEDS: Digoxin 0.125 MG TABLET PO (08:15)
[2024-08-07] MEDS: Finasteride 5 MG TABLET PO (08:15)
[2024-08-07] MEDS: 0.9 % Sodium Chloride Flush 3 ML SYRINGE IVFLUSH ×3 (08:15→21:59)
--- NOTE | 2024-08-07 15:12 | P.PNIM_ITS ---
Subjective Subjective Date of Service: 08/07/24 Interval History: Seen and examined this morning Follow-up for EMMANUEL/obstructive uropathy No overnight events, no specific complaints at this time Review of Systems Review of Systems: Yes all other systems are reviewed and are negative Constitutional Constitutional: Denies chills and Denies fever(s) Cardiovascular Cardiovascular: Denies chest pain, Denies palpitations and Denies dyspnea Respiratory Respiratory: Denies cough and Denies dyspnea Gastrointestinal Gastrointestinal: Denies abdominal pain Endocrine Endocrine: Denies palpitations Physical Exam 2 Vital Signs: Vital Signs: Last Vital Signs Temp 97.2 F 08/07/24 11:57 Pulse 99 08/07/24 11:57 Resp 20 08/07/24 11:57 BP 108/62 08/07/24 11:57 Pulse Ox 97 08/07/24 11:57 O2 Del Method Room Air 08/07/24 11:57 BMI result Body Mass Index 31.3 Const: General: cooperative, comfortable, no acute distress, alert and awake Nutritional Appearance: average body habitus Resp: Effort & Inspection: normal respiratory effort, able to speak in complete sentences, no respiratory distress and no use of accessory muscles Cardio: Rate: regular rate GI: Inspection: No distended Palpation (GI): Soft to palpation and nontender : Other: davidson with clear yellow urine Neuro: General: moves all extremities and CN's II-XI intact bilaterally Objective Data Active Medications Acetaminophen (Acetaminophen 325 Mg Tablet) 650 mg PO Q6H PRN PRN Reason: Pain, Mild (Pain Scale 1-3), fever or headache Last Admin: 08/06/24 16:10 Dose: 650 mg Documented By: DAKOTA Apixaban (Apixaban 5 Mg Tablet) 5 mg PO BID [facility] Last Admin: 08/07/24 08:15 Dose: 5 mg Documented By: JIMMY Calcium Carbonate (Calcium Carbonate 750 Mg Tab.Chew) 750 mg PO Q4H PRN PRN Reason: Heartburn Last Admin: 08/06/24 16:10 Dose: 750 mg Documented By: DAKOTA Digoxin (Digoxin 0.125 Mg Tablet) 0.125 mg PO DAILY [facility]; Protocol Last Admin: 08/07/24 08:15 Dose: 0.125 mg Documented By: JIMMY Finasteride (Finasteride 5 Mg Tablet) 5 mg PO DAILY [facility] Last Admin: 08/07/24 08:15 Dose: 5 mg Documented By: JIMMY Melatonin (Melatonin 3 Mg Tablet) 6 mg PO BEDTIME PRN PRN Reason: Insomnia Metoprolol Succinate (Metoprolol Succinate Er 50 Mg Tab.Er.24h) 50 mg PO DAILY [facility]; Protocol Last Admin: 08/07/24 08:15 Dose: 50 mg Documented By: JIMMY Omeprazole (Omeprazole 20 Mg Capsule.Dr) 20 mg PO DAILY@0630 [facility] Last Admin: 08/07/24 05:59 Dose: 20 mg Documented By: CORINNE Ondansetron HCl (Ondansetron Hcl 4 Mg/2 Ml Vial) 4 mg IVPUSH Q6H PRN PRN Reason: Nausea and Vomiting Last Admin: 08/06/24 04:02 Dose: 4 mg Documented By: ROSEANNE Comments: Nausea Sodium Chloride (0.9 % Sodium Chloride Flush 3 Ml Syringe) 3 ml IVFLUSH QSHIFT [facility] Last Admin: 08/07/24 08:15 Dose: 3 ml Documented By: JIMMY Tamsulosin HCl (Tamsulosin Hcl 0.4 Mg Capsule) 0.4 mg PO DAILY@1730 [facility] Last Admin: 08/06/24 16:11 Dose: 0.4 mg Documented By: DESTINISCEL Labs 08/04/24 04:18 08/06/24 06:47 Assessment and Plan (1) Urinary retention: Status: Acute (2) Acute renal failure: Status: Acute Plan 69-year-old male with pertinent history of paroxysmal atrial fibrillation on anticoagulation, mixed hyperlipidemia, hypertension, rectal cancer status post resection who was brought to the emergency department for evaluation of generalized weakness. #. Acute kidney injury with AG metabolic acidosis: Creatinine normalized ,rapid improvement in creatinine likely due to postobstructive uropathy, anion gap normalized s/p iv bicarb drip, followed by D5W due to elevated sodium of 158, sodium normalized Continue Davidson catheter on Flomax and Proscar Case discussed with Urology and Nephrology , uro recommended to cap Davidson catheter but since patient has mild cognitive impairment will continue Davidson catheter upon discharge and outpatient follow-up with Urology in 3-4 weeks #. Acute toxic metabolic encephalopathy due to uremia : Resolved, answering questions appropriately Ate 75% of breakfast and lunch, denies dysphagia, placed on Prilosec question gastritis. Supplements added. #. Urinary retention due to BPH: Continue Davidson catheter for 4 weeks and outpatient follow-up with Urology, continue Flomax and Proscar, cap Davidson as tolerated. #. Hyperkalemia due to EMMANUEL: Resolved status post Lokelma # acute hypernatremia, resolved will DC IV fluids , push by mouth fluids #. Leukocytosis, reactive: Normalized was likely reactive. #. Hypertension: Blood pressure improved dose of metoprolol increase from 25 mg to 50 mg , will DC lisinopril #. Atrial flutter with rapid ventricular response with history of paroxysmal atrial fibrillation status post IV Lopressor heart rate improved Continue metoprolol, patient was prescribed Eliquis 1 year ago but never took it due to high co-pay, was subsequently placed on Coumadin that patient has not taken since last July Dr. Paulo Joshi was his PCP but he discharged from from service since he missed multiple appointments, now he has an appointment on August 18 with Phong garcia from [facility] Patient noted to have intermittent episode of atrial fibrillation, will place on Eliquis and add digoxin 0.125 mg daily # hyperlipidemia LDL 42 with total cholesterol of 92, DC Lipitor # disposition seen by PT they recommend short-term rehab due to gross deconditioning, bed mobility and safety. DVT prophylaxis: Eliquis Full code Patient will require continued inpatient hospitalization for treatment of EMMANUEL due to postobstructive uropathy electrolyte abnormality, safe disposition Quality Stroke Does the patient have a stroke diagnosis?: No VTE Prior VTE?: No VTE Risk Level:: Medical - moderate - high VTE Device Contraindication: Treatment Not Indicated VTE Drug Contraindication: N/A - Med Ordered
[2024-08-07] MEDS: Tamsulosin HCL 0.4 MG CAPSULE PO (17:26)
[2024-08-07] MEDS: Calcium Carbonate 750 MG TAB.CHEW PO (17:31)
[2024-08-08 03:24] VITALS: BP 147/69; PULSE 88; RESP 18; TEMP 37.1; O2SAT 98
[2024-08-08] MEDS: Omeprazole 20 MG CAPSULE.DR PO (06:07)
[2024-08-08 07:34] VITALS: BP 128/74; PULSE 94; RESP 20; TEMP 36.9; O2SAT 97
[2024-08-08 09:02] VITALS: BP 128/74; PULSE 94; O2SAT 97
[2024-08-08] MEDS: 0.9 % Sodium Chloride Flush 3 ML SYRINGE IVFLUSH (09:40)
[2024-08-08] MEDS: Metoprolol Succinate ER 50 MG TAB.ER.24H PO (09:40)
[2024-08-08] MEDS: Finasteride 5 MG TABLET PO (09:40)
[2024-08-08] MEDS: Apixaban 5 MG TABLET PO (09:40)
[2024-08-08] MEDS: Digoxin 0.125 MG TABLET PO (09:40)
[2024-08-08 12:00] VITALS: BP 110/55; PULSE 95; TEMP 36.5; O2SAT 98
--- NOTE | 2024-08-08 12:02 | PM.DS ---
DS: Providers Provider Date of Service: 08/08/24 Date of admission: 08/03/24 22:47 Date of discharge: 08/08/24 Primary care physician: Huang Chino MD Consults: 08/03/24 22:49 Consult to Nephrology Routine Consulting Provider: [facility] Reason for consultation: EMMANUEL Consult to Urology Routine Consulting Provider: [facility] Reason for consultation: Urinary retention 08/04/24 14:47 Consult to Wound Care Routine Reason for consultation: Assess Genital warts Has provider been notified: No Attending physician on discharge: Lio Rodriguez Discharging clinician: Daya Munguia DS: Diagnosis Discharge Diagnosis (1) Urinary retention: Status: Acute (2) Acute renal failure: Status: Acute DS: Summary Hospital Course Hospital Course: From H&P on the day of admission This is a 69-year-old male with pertinent history of paroxysmal atrial fibrillation on anticoagulation, mixed hyperlipidemia, hypertension, rectal cancer status post resection who was brought to the emergency department for evaluation of generalized weakness. Patient denies any complaints at the time of my evaluation. History obtained with the help of family at bedside. Patient has not been eating or drinking well for the past 2 weeks as per family at bedside. Also noted to be confused. Patient with poor urinary output and family stated that he had been complaining of abdominal discomfort. No nausea, vomiting, fever or chills. In the emergency department, creatinine found to be 25.8 with BUN to 39. Potassium 6.1 and bicarb 10. Significantly distended urinary bladder noted on imaging. Davidson catheter was placed and more than 2 L urine output obtained. Patient was given temporizing measures for hyperkalemia including Lokelma. Acute kidney injury with AG metabolic acidosis: Creatinine normalized ,rapid improvement in creatinine after davidson placement likely due to postobstructive uropathy, anion gap normalized s/p iv bicarb drip, followed by D5W due to elevated sodium of 158, sodium normalized Continue Davidson catheter. on Flomax and Proscar. Case discussed with Urology and Nephrology , uro recommended to cap Davidson catheter, will continue Davidson catheter upon discharge and outpatient follow-up with Urology in 3-4 weeks Acute toxic metabolic encephalopathy due to uremia Resolved, answering questions appropriately Appetite improved, tolerating 75% of meals, no dysphagia. Supplements added. Urinary retention due to BPH: Continue Davidson catheter for 4 weeks and outpatient follow-up with Urology, continue Flomax and Proscar, cap Davidson as tolerated. Hyperkalemia due to EMMANUEL: Resolved status post Lokelma acute hypernatremia, resolved with fluids Leukocytosis, reactive: Normalized was likely reactive. Hypertension: Blood pressure improved dose of metoprolol increase from 25 mg to 50 mg , will DC lisinopril Atrial flutter with rapid ventricular response with history of paroxysmal atrial fibrillation status post IV Lopressor heart rate improved Patient noted to have intermittent episode of atrial fibrillation, will place on Eliquis and add digoxin 0.125 mg daily Time Attestation Discharge Coordination Time (in mins): 40 Quality: Safe Use of Opioids Does Pt have an Active Cancer Diagnosis on the Problem List?: No Quality: Stroke Does the patient have a stroke diagnosis?: No Physical Exam Vital Signs: Vital Signs: Last Vital Signs Temp 98.4 F 08/08/24 07:34 Pulse 94 08/08/24 09:02 Resp 20 08/08/24 07:34 BP 128/74 08/08/24 09:02 Pulse Ox 97 08/08/24 09:02 O2 Del Method Room Air 08/08/24 07:34 BMI result Body Mass Index 31.3 Const: General: cooperative, comfortable, no acute distress, alert and awake Nutritional Appearance: average body habitus Resp: Effort & Inspection: normal respiratory effort, able to speak in complete sentences, no respiratory distress and no use of accessory muscles Cardio: Rate: regular rate GI: Inspection: No distended Palpation (GI): Soft to palpation and nontender : Other: davidson with clear yellow urine Neuro: General: moves all extremities and CN's II-XI intact bilaterally Discharge Plan Discharge Anticipated Discharge Date/Time: 08/08/24 14:00 Patient Disposition: Xfer SNF Discharge Diagnosis: EMMANUEL Obstructive uropathy Hypernatremia Paroxysmal Atrial fibrillation Referrals: Aaron Cisneros MD [Physician] - 1 Month Discharge Medications: New tamsulosin 0.4 mg Capsule 0.4 mg PO DAILY@1730 Qty: 90 0RF finasteride 5 mg Tablet 5 mg PO DAILY Qty: 90 0RF Eliquis 5 mg Tablet 5 mg PO BID Qty: 90 0RF digoxin 125 mcg (0.125 mg) Tablet 0.125 mg PO DAILY 90 Days Qty: 90 0RF Protocol: Hold for HR <: HOLD for HR < : 60 metoprolol succinate 50 mg Tablet Extended Release 24 Hr 50 mg PO DAILY 90 Days Qty: 90 0RF Protocol: Hold for SBP/HR < HOLD for SBP < : 90 HOLD for HR < : 60 omeprazole 20 mg Capsule,Delayed Release(Dr/Ec) 20 mg PO DAILY@0630 90 Days Qty: 90 0RF Discontinued lisinopril 40 mg tablet 40 mg PO DAILY Qty: 90 0RF atorvastatin 20 mg tablet 20 mg PO BEDTIME Qty: 90 0RF metoprolol succinate 25 mg tablet extended release 24 hr 25 mg PO DAILY Qty: 90 0RF Discharge Orders: Discharge Order (Routine); Ordered 08/08/24 Ordered By: Daya Munguia Activity on Discharge: As tolerated Stand Alone Forms: Patient Portal Discharge page Print Language: Serbian Care Plan Goals: See below Health Concerns: EMMANUEL due to obstructive uropathy Hypernatremia resolved Plan of Treatment: Davidson catheter should remain in place until outpatient follow-up with Urology in 3-4 weeks Cap Davidson as tolerated Finasteride and tamsulosin have been started for obstructive uropathy Dose of metoprolol was increased to 50 mg. Lisinopril was discontinued For better control of atrial fibrillation you have been started on digoxin. Recommend to check a digoxin level in approximately 1 week. Started on Eliquis for anticoagulation due to atrial fibrillation Follow-up with new PCP as scheduled Assessment: See discharge summary
[2024-08-08] MEDS: Calcium Carbonate 750 MG TAB.CHEW PO (13:37)
== END 2024-08-08 14:03 | disposition skilled nursing facility (03) | DRG 682 ==
LOC: HO.ED 18:24 → HO.EDOVER 08-04 00:43 → HO.IMC 08-04 09:25
PROVIDERS: Hospitalist; Admitting Provider Student in an Organized Health Care Education/Training Program; Emergency Provider Internal Medicine; PCP Internal Medicine; Visit Provider Physician Assistant Medical
DX: N17.9 Acute kidney failure, unspecified (principal); G92.8 Other toxic encephalopathy; E87.0 Hyperosmolality and hypernatremia; E78.5 Hyperlipidemia, unspecified; E86.0 Dehydration; I48.0 Paroxysmal atrial fibrillation; N40.1 Benign prostatic hyperplasia with lower urinary tract symptoms; R33.8 Other retention of urine; E87.5 Hyperkalemia; Z20.822 Contact with and (suspected) exposure to COVID-19; Z85.048 Personal history of other malignant neoplasm of rectum, rectosigmoid junction, and anus; Z87.891 Personal history of nicotine dependence; Z79.01 Long term (current) use of anticoagulants; Z79.899 Other long term (current) drug therapy
CPT/HCPCS: 0241U; 36415; 70450; 71045; 74176; 80048; 80053; 80061; 81001; 82550; 82570; 82803; 83935; 84300; 85025; 87086; 93005; 97116; 97162; 99285; C1758; J0613; J1644; J2405

== ENCOUNTER → 2024-08-03 18:02 | Outpatient (BNV) | payer OTHER, SELFPAY | PROVIDERS: Admitting Provider Student in an Organized Health Care Education/Training Program; Emergency Provider Internal Medicine; PCP Internal Medicine; Visit Provider Internal Medicine | DX: I48.92 Unspecified atrial flutter (principal) | CPT/HCPCS: 93010 ==

== ENCOUNTER 2024-08-03 22:47 | Outpatient (BNV) | payer OTHER, SELFPAY | END 2024-08-04 11:52 | PROVIDERS: Admitting Provider Student in an Organized Health Care Education/Training Program; Emergency Provider Internal Medicine; PCP Internal Medicine; Visit Provider Internal Medicine | DX: R00.0 Tachycardia, unspecified (principal) | CPT/HCPCS: 93010 ==

== ENCOUNTER → 2024-08-03 22:47 | Outpatient (BNV) | payer OTHER, SELFPAY | PROVIDERS: Admitting Provider Student in an Organized Health Care Education/Training Program; Emergency Provider Internal Medicine; PCP Internal Medicine; Visit Provider Nurse Practitioner Family | DX: N17.9 Acute kidney failure, unspecified (principal); R33.9 Retention of urine, unspecified; E87.20 Acidosis, unspecified; E87.5 Hyperkalemia | CPT/HCPCS: 99222 ==

== ENCOUNTER → 2024-08-03 22:47 | Outpatient (BNV) | payer OTHER, SELFPAY | PROVIDERS: Admitting Provider Student in an Organized Health Care Education/Training Program; Emergency Provider Internal Medicine; PCP Internal Medicine; Visit Provider Urology | DX: R33.9 Retention of urine, unspecified (principal) | CPT/HCPCS: 99222 ==

== ENCOUNTER → 2024-08-03 22:49 | Outpatient (BNV) | payer OTHER, SELFPAY | PROVIDERS: Admitting Provider Student in an Organized Health Care Education/Training Program; Emergency Provider Internal Medicine; PCP Internal Medicine; Visit Provider Student in an Organized Health Care Education/Training Program | DX: R33.9 Retention of urine, unspecified (principal); N17.9 Acute kidney failure, unspecified | CPT/HCPCS: 99223; 99232; 99233; 99239 ==

== ENCOUNTER → 2024-09-03 08:52 | Outpatient (BNVA) | payer OTHER, SELFPAY | PROVIDERS: PCP Internal Medicine; Visit Provider Urology | DX: R33.9 Retention of urine, unspecified (principal) | CPT/HCPCS: 51700; 51702; 51798 ==

== ENCOUNTER → 2024-09-18 09:37 | Outpatient (BNVA) | payer OTHER, SELFPAY | PROVIDERS: PCP Internal Medicine; Visit Provider Urology | DX: R33.9 Retention of urine, unspecified (principal) | CPT/HCPCS: 51700; 51702 ==

== ENCOUNTER 2024-10-17 14:07 | Outpatient (AMB) | payer MEDICARE, SELFPAY ==
--- NOTE | 2024-10-17 14:09 | A.OFFVIS_ITS ---
Intake Visit Reasons: ER Follow up/ cath change Intake Note: Patient is present for ER F/U CTH CHANGE Urology Medication:TAMSULOSIN,FINASTERIDE Antibiotic Allergy:NONE Blood Thinner:APIXABAN [employer] Required: No Allergies No Known Allergies Allergy (Verified 10/17/24 14:10) HPI Comments Details: Naresh is a pleasant male. He is seen for the following urologic conditions - urinary retention - neurogenic bladder Discussion with Naresh and his daughter Has failed voiding trial x2 in office Recommendation is clean intermittent catheterization versus suprapubic tube Daughter has concerns regarding dementia and memory issues for management of intermittent catheterization Will plan on cystoscopy with suprapubic tube placement Creatinine has resolved to 1.0 Neurogenic bladder Seen in hospital with 2 L bladder attention Creatinine up to 25 CT scan showed enlarged prostate PFSH Medical History History of rectal cancer Wears dentures Hx of flexible sigmoidoscopy Essential hypertension Typical atrial flutter Perianal condylomata (~07/04/23) Rectal cancer Hypertension Increased BMI Elevated cholesterol HTN (hypertension) Surgical History History of excision of lesion History of verrucae (wart) excision H/O colonoscopy Family History Father No problems noted. Mother No problems noted. Social History Household Members: Family Housing: Apartment Are you a primary director of health care marketing to a significant other at home: No Do you presently have visiting nurse or other home services: No Alcohol intake: never Patient Tobacco Use Status: Former Tobacco user Tobacco use type: Cigarette Years Smoked: 25 +/- Second Hand Smoke Exposure: No Substance Use Type: Marijuana service: No Current occupational status: retired Review of Systems Const Denies chills and Denies fever(s) Card Reports no additional complaints and Denies syncope Resp Denies cough GI Denies abdominal pain and Denies heartburn Reports as per HPI and Denies change in libido Neuro Denies syncope Psych Denies change in libido Endo Denies change in libido Physical Exam Const General: cooperative, healthy appearing, comfortable and no acute distress Orientation/consciousness: patient oriented x3 HEENT Face and sinus: Yes normal facial exam Mouth: moist mucous membranes Neck Neck: Yes normal visual inspection, Yes full ROM and Yes trachea midline Chest Chest palpation & inspection: normal inspection of the chest Resp Effort & Inspection: normal respiratory effort, able to speak in complete sentences and no respiratory distress GI Inspection: Yes normal to inspection Back/Spine/Pelvis Cervical Spine: normal cervical lordosis Thoracic/Lumbar Spine: thoracic and lumbar spine normal to inspection Skin General skin exam: no rashes or lesions noted Neuro General: patient oriented x3, gait normal, tone normal and moves all extremities Extrem General: Yes normal to inspection and Yes capillary refill normal Office Procedures Bladder/Catheter Procedure Details: 16fr davidson 10ml balloon flip valve removed, patient tolerated removal well. New 16fr davidson 10ml balloon flip valve inserted. Patient tolerated well. Patient ot have SPT procedure scheduled. [id number] Temporary Bladder Catheter Procedure code (CPT) selection complete Assessment & Plan Assessment & Plan (1) Hypotonic neurogenic bladder: Code(s): N31.9 - Neuromuscular dysfunction of bladder, unspecified Category: Medical Plan Risks, benefits and alternatives to therapy were discussed. These include but are not limited to infection, bleeding, damage to local organs and tissues, need for further interventions. Anesthetic risks regarding cardiac arrhythmia, blood clots, and potential mortality were discussed. The patient understands the typical recovery time and the outpatient nature of the procedure. After consideration of these risks the patient gives full informed consent and they wish to move ahead with the procedure. - plan cystoscopy suprapubic tube placement Orders: Orders AMB Bladder/Catheter Procedure 10/17/24 N31.9 - Neuromuscular dysfunction of bladder, unspecified, R33.9 - Retention of urine, unspecified Patient Instructions: Imaging studies, laboratory and physical exam results were discussed and reviewed in detail. No major barriers to patient understanding were identified. An opportunity to ask questions regarding the treatment plan was provided. All questions were answered. The patient expressed understanding and agreement with the above treatment plan. The patient is aware they should contact our office by phone for worsening of their current condition or the appearance of new urologic symptoms. Compliance is encouraged with any medications and followup testing that is ordered. It is a privilege to participate in the urologic care of your patient. If you have any questions or concerns regarding treatment for the above conditions, or other urologic issues, please do not hesitate to contact me. The office telephone contact is [phone]. This note is constructed using voice recognition software. While every effort has been made to ensure accuracy phone triage specialist errors may have been included. Yours sincerely, Dr Aaron Cisneros MD, [facility] - Urology Providers of Expert, Compassionate Care for the Genitourinary System Coding Level of Care Code Est Pt Level 4 (50466) Diagnoses Hypotonic neurogenic bladder N31.9 CPT Codes Bladder/Catheter Procedure - CPT: 33028-Ernemy Temporary Bladder Catheter ([id number])
== END 2024-10-17 14:38 | disposition home or self-care (01) ==
PROVIDERS: PCP Internal Medicine; Visit Provider Urology
DX: N31.9 Neuromuscular dysfunction of bladder, unspecified (principal)
CPT/HCPCS: 51702; 99214

== ENCOUNTER → 2024-10-17 14:07 | Outpatient (BNVA) | payer MEDICARE, SELFPAY | PROVIDERS: PCP Internal Medicine; Visit Provider Urology | DX: N31.9 Neuromuscular dysfunction of bladder, unspecified (principal) | CPT/HCPCS: 51702; 99212 ==

== ENCOUNTER 2024-10-31 13:48 | Outpatient (AMB) | payer MEDICARE, SELFPAY ==
[2024-10-31 13:51] VITALS: BP 130/72; PULSE 70; BMI 32.5
--- NOTE | 2024-10-31 13:51 | MHC.OFFVIS ---
Vital Signs 10/31/24 13:51 Height 5 ft 7 in Weight 207 lb 3.752 oz BMI 32.5 BP 130/72 Blood Pressure Location Lt brachial Position Sitting Pulse 70 Pulse Source Monitor Intake Visit Reasons: pre-op Allergies No Known Allergies Allergy (Verified 10/17/24 14:10) Medication List - Last Reconciled 10/31/24 by Holli Mckenzie NP-C apixaban (Eliquis) 5 mg PO BID atorvastatin 20 mg PO DAILY digoxin 0.125 mg See Protocol PO DAILY 90 days finasteride 5 mg PO DAILY 30 days lisinopril 40 mg PO DAILY metoprolol succinate ER 50 mg See Protocol PO DAILY 90 days tamsulosin 0.4 mg PO ONCE HPI HPI pre-op: Details: Naresh is a 69-year-old male with past medical history of hypertension, paroxysmal a flutter who was recently admitted to [facility] with toxic metabolic encephalopathy, acute renal failure, urinary retention requiring Dukes catheter. Hospital notes reviewed and he did have intermittent episodes of atrial fibrillation that was treated with IV Lopressor. Upon discharge he was continued on metoprolol, digoxin and his Eliquis for anticoagulation. His creatinine was as high as 25.8 and normalized prior to discharge. Last prior visit to our office was 04/16/2023. Today he reports he has been feeling very well since his hospital discharge. His daughter is present and states that he has been having issues with forgetfulness. She now manages his medications. She said he had not been eating or drinking properly prior to his hospital admission which caused his issues. At this time he is now doing much better overall. He is denying any recent heart palpitations. No chest discomfort at rest or with activity. No shortness of breath, PND, orthopnea or edema. No lightheadedness, presyncope, syncope. He is on Eliquis for anticoagulation but the co-pay is very high. Daughter will call the insurance company to see if this is temporary or not. Patient does not know if he has a deductible he has to reach. He still has a Dukes catheter in place. He is having a suprapubic catheter placement in the near future with Dr. Cisneros. [facility] Medical History History of rectal cancer Wears dentures Hx of flexible sigmoidoscopy Essential hypertension Typical atrial flutter Perianal condylomata (~07/04/23) Rectal cancer Hypertension Increased BMI Elevated cholesterol HTN (hypertension) Surgical History History of excision of lesion History of verrucae (wart) excision H/O colonoscopy Family History Father No problems noted. Mother No problems noted. Social History Household Members: Family Housing: Apartment Are you a primary inpatient care manager rn to a significant other at home: No Do you presently have visiting nurse or other home services: No Alcohol intake: never Patient Tobacco Use Status: Former Tobacco user Tobacco use type: Cigarette Years Smoked: 25 +/- Second Hand Smoke Exposure: No Substance Use Type: Marijuana service: No Current occupational status: retired Review of Systems Const All systems reviewed & are unremarkable except as noted in HPI and below Denies weakness ENT Denies dizziness Card Denies chest pain, Denies chest pain with activity, Denies syncope, Denies rapid heart rate, Denies pedal edema, Denies edema, Denies leg edema, Denies lightheadedness, Denies palpitations, Denies dyspnea, Denies dyspnea on exertion and Denies orthopnea Resp Denies cough, Denies dyspnea and Denies dyspnea on exertion GI Denies hematochezia and Denies change in stool character Musc Denies abnormal gait, Denies muscle cramps, Denies muscle weakness, Denies numbness, Denies radiating pain into limb and Denies tingling Neuro Denies abnormal gait, Denies dizziness, Denies syncope, Denies numbness, Denies tingling and Denies weakness Endo Denies palpitations Physical Exam Vital Signs: Last Vital Signs Pulse 70 10/31/24 13:51 BP 130/72 10/31/24 13:51 BMI result Body Mass Index 32.5 Const General: cooperative, healthy appearing, comfortable and no acute distress Orientation/consciousness: patient oriented x3 Neck Neck: Yes normal visual inspection and Yes no JVD Resp Effort & Inspection: normal respiratory effort Auscultation: clear to auscultation bilaterally, no crackles, no rales, no rhonchi and no wheezes Cardio Jugular venous distension: no JVD Rate: regular rate Rhythm: regular rhythm Heart sounds: S1 normal heart sound present, S2 normal heart sound present, no murmurs and no rubs Neuro General: patient oriented x3 Extrem General: Yes normal to inspection, No no pedal edema and No calf tenderness Psych Appearance: grossly normal Mental Status: mental status grossly normal Speech and movement: Normal speech and movement present Office Procedures EKG Details: Today, read by me, normal sinus rhythm, no acute ST or T-wave abnormalities, rate 70 [id number], Complete Assessment & Plan Assessment & Plan (1) Paroxysmal atrial fibrillation: Code(s): I48.0 - Paroxysmal atrial fibrillation Category: Medical Plan: History of paroxysmal atrial fibrillation. He had been treated with heart rate control and anticoagulation. He was not seen in our office between 04/16/2023 and today. During his recent hospitalization he did have evidence of PAF. At this his pulse is regular on examination. EKG today shows normal sinus rhythm, rate 70. He denies any recent heart palpitations. Labs done 09/15/2024 shows creatinine 1.01, hematocrit 35.8 Continue metoprolol and digoxin for heart rate control. Continue Eliquis for anticoagulation. I believe he had an echocardiogram at [facility] recently. Will reach out to obtain results. Will check a Holter before his next visit. Cardiology office visit 6 months, sooner if needed (2) Essential hypertension: Code(s): I10 - Essential (primary) hypertension Category: Medical Plan: Well controlled at this time. No med changes made. (3) Current use of anticoagulant therapy: Code(s): Z79.01 - intermediate (current) use of anticoagulants Category: Medical Plan: He is on Eliquis for anticoagulation with AFib. (4) Preop cardiovascular exam: Code(s): Z01.810 - Encounter for preprocedural cardiovascular examination Category: Medical Plan: Preop for suprapubic catheter placement with Dr. Cisneros on 11/17/2023. Known PAF. Obtaining echocardiogram as above. No reports of anginal sounding symptoms. Activity level greater than 4 Mets without symptoms. If echo shows no significant abnormalities patient may proceed with low cardiac risk. Will make an addendum to this note if needed. Eliquis can be held as requested by Dr. Cisneros and plan to restart as soon as cleared to do so. Continue metoprolol and digoxin for heart rate control. Call/consult Cardiology if needed. (5) Hospital discharge follow-up: Code(s): Z09 - Encounter for follow-up examination after completed treatment for conditions other than malignant neoplasm Category: Medical Plan: As above Plan Time spent on chart review, documentation, interview and assessment Orders: Orders ECG 3 day holter monitor 5 Months I48.0 - Paroxysmal atrial fibrillation Coding Level of Care Code Est Pt Level 4 (29426) Complex EM visit Add On G2211 Diagnoses Paroxysmal atrial fibrillation I48.0 Essential hypertension I10 Current use of anticoagulant therapy Z79.01 Preop cardiovascular exam Z01.810 Hospital discharge follow-up Z09 CPT Codes EKG - CPT: 35058-[id number], Complete ([id number]) Time Spent (min) 30
--- OUTSIDE RECORDS SUMMARY | 2024-10-31 15:28 | XMS_ITS | Patient Health Record ---
Author Organization [facility] Address [address] [place] [address] Care Team Providers Care Journeyman Wireman Name Role Phone Madelyn ANDREW, Celestino Primary Care Provider Jason Chaudhry [phone] ALLERGIES No Known Allergies REASON FOR REFERRAL No Information MEDICATIONS Medication SIG (Take, Route, Fr equency, Duration) Notes Start Date End Date Status Warfarin Sodium 5 MG 1 tablet Orally Onc e a day for 30 day(s) Active Atorvastatin Calcium Active Quinapril HCl 40 MG 1 tablet Orally Active IMMUNIZATIONS Vaccine Route Administration Date Status Comme nts Influenza Unknown 07/21/2020 Administered SOCIAL HISTORY Tobacco Use: Social History Observation Description Date Details (start date - stop date) Never Smoker NA - NA Sex Assigned At : Social History Observation Description Sex Assigned At Unknown Tobacco Use/Smoking Question Answer Notes Patient is a nonsmoker Alcohol Screen Question Answer Notes Did you have a drink containing alcohol in the p ast year? No Points 0 Interpretation Negative PROBLEMS Problem Type ICD Code Onset Dates Problem Status W/U Status Risk SNOMED Code Notes Problem Encounter for screening for malignant neoplasm of colon (Z12.11) Active confirmed Screening for malignant neoplasm of colon (249939499) Problem Preprocedural examination (Z01.818) Active confirmed Preprocedural examination (657818458046755) Problem Rectal adenocarcinoma (C20) Active confirmed Malignant tumor of rectum (271373104) Problem Rectal cancer (C20) Active confirmed 007828636 Problem Hx of adenomatous colonic polyps (Z86.010) Active confirmed 929481303 Problem Diverticulosis of colon (K57.30) Active confirmed Diverticulosi s of colon (132083769) Problem History of rectal cancer (Z85.048) Active confirmed History of malignant neoplasm of rectum (630019501) PLAN OF TREATMENT Pending Test Test Name Order Date CHEM 7 PROFILE 09/26/2020 LIVER PROFILE 09/26/2020 CEA 09/26/2020 CBC w DIFF 09/26/2020 CT ABD & PELVIS WITH CONTRAST 09/26/2020 MRI PELVIS W&WO CONTRAST 09/26/2020 Future Test Test Name Order Date COLONOSCOPY 08/03/2020 COLONOSCOPY 07/13/2021 Next Appt Details Provider Name:Jason Gayle , 11/19/2024 04:20:00 PM, [address] [facility], [address], [place], [address], MEDICAL (GENERAL) HISTORY Medical History History ICD Code Denies ME,DM,CVA,Lung disease,renal dise ase Hypertension Hyperlipidemia Neg. screening colonoscopy [place] [address] Mcpherson. Atrial flutter--sees Dr. Loyd Rectal cancer/malignant rect al polyp--he underwent a screening colonoscopy with nh in September 2020 with the finding of small tubular adenomas in the ascending colon, but an approximately 2 cm polyp in the distal rectum which was removed and subsequently marked with ink. The pathology revealed adenocarcinoma within the polyp and a clean margin of only microns . He was subsequently evaluated by Dr. Slaughter with a followup sigmoidoscopy and Dr. Cates with a CT scan and MRI. All of the workup was negative for any sign of residual disease or metastatic disease and therefore no other treatment such as surgery, radiation, or chemotherapy was felt to be needed. Perianal condyloma treated as below Surgical History Surgery Date(Month/Year) Perianal Condyloma removed--Dr. Juaquin Mcpherson 2002 and 2008 Perianal condyloma removed by Dr. Charlie capps in 2020
--- OUTSIDE RECORDS SUMMARY | 2024-10-31 15:29 | XMS_ITS ---
Author Organization [facility] Address [address] [place] [address] Care Team Providers Care Legal Coordinator Name Role Phone Celestino Joshi MD Primary Care Provider Jason Chaudhry [phone] REASON FOR VISIT Pt no showed Encounters Encounter Location Date Provider Diagnosis [facility] [address] [place] [address] 09/26/2023 Jason Gayle PLAN OF TREATMENT Next Appt Details Provider Name:Jason Gayle , 11/19/2024 04:20:00 PM, [address] [facility], [address], [place], [address],
--- OUTSIDE RECORDS SUMMARY | 2024-10-31 15:29 | XMS_ITS ---
Author Organization [facility] Address [address] [place] [address] Care Team Providers Care World Travel Counselor Name Role Phone Celestino Joshi MD Primary Care Provider Jason Chaudhry [facility] [phone] REASON FOR VISIT Patient presents today for a screening colonoscopy Encounters Encounter Location Date Provider Diagnosis [facility] [address] [place] [address] Drive [address] [place] [address] 09/26/2023 Jason Gayle PLAN OF TREATMENT Next Appt Details Provider Name:Jason Gayle , 11/19/2024 04:20:00 PM, [address] [facility], [address], [place], [address],
== END 2024-10-31 14:19 | disposition home or self-care (01) ==
PROVIDERS: PCP Physician Assistant Medical; Visit Provider Nurse Practitioner Family
DX: I48.0 Paroxysmal atrial fibrillation (principal); I10 Essential (primary) hypertension; Z79.01 Long term (current) use of anticoagulants; Z01.810 Encounter for preprocedural cardiovascular examination; Z09 Encounter for follow-up examination after completed treatment for conditions other than malignant neoplasm
CPT/HCPCS: 93010; 99214; G2211

== ENCOUNTER → 2024-10-31 13:48 | Outpatient (BNVA) | payer MEDICARE, SELFPAY | PROVIDERS: PCP Physician Assistant Medical; Visit Provider Nurse Practitioner Family | DX: Z01.810 Encounter for preprocedural cardiovascular examination (principal); I48.0 Paroxysmal atrial fibrillation; I10 Essential (primary) hypertension; Z79.01 Long term (current) use of anticoagulants | CPT/HCPCS: 93005; 99212 ==

== ENCOUNTER 2025-01-05 10:58 | Day surgery (SDC) | payer MEDICARE, SELFPAY ==
[2024-11-13 09:20] VITALS: BMI 32.4
--- NOTE | 2024-11-14 09:29 | HO.ANESPROP2 ---
Documented by User: Shea De Leon NP 01/01/25 14:26 HPI - Anesthesia Eval Consult details Narrative: 69yo M for Cystoscopy & Suprapubic Tube Placement, 01/05/25 Cardiac optimized Eliquis for afib [facility] admit 08/2024 toxic metabolic encephalopathy, acute renal failure, urinary retention requiring Dukes catheter. Hospital notes reviewed and he did have intermittent episodes of atrial fibrillation that was treated with IV Lopressor. Upon discharge he was continued on metoprolol, digoxin and his Eliquis for anticoagulation. His creatinine was as high as 25.8 and normalized prior to discharge. [facility] Active Problems Active Problems: All Active Problems Hospital discharge follow-up (Acute) Preop cardiovascular exam (Acute) Paroxysmal atrial fibrillation (Acute) Hypotonic neurogenic bladder (Acute) Urinary retention (Acute) History of rectal cancer (Acute) Current use of anticoagulant therapy (Acute) Typical atrial flutter (Acute) Rectal cancer (Acute) Essential hypertension (Acute) Perianal condylomata (Acute ~07/04/23) Rectal cancer (Acute) Hypertension (Acute) Increased BMI (Acute) Past Medical History Medical History (Updated 11/13/24 @ 09:09 by Darline Hinojosa RN) Urinary retention PAF (paroxysmal atrial fibrillation) Hx of flexible sigmoidoscopy Essential hypertension Perianal condylomata (~07/04/23) Rectal cancer Hypertension Increased BMI Elevated cholesterol Family History Family History Father No problems noted. Mother No problems noted. Family history of problems with anesthesia: No Surgical History Surgical History History of excision of lesion History of verrucae (wart) excision H/O colonoscopy History of Problems with Anesthesia: No Social History Social History Household Members: Family Housing: Apartment Are you a primary adult care manager to a significant other at home: No Do you presently have visiting nurse or other home services: No Alcohol intake: never Patient Tobacco Use Status: Former Tobacco user Tobacco use type: Cigarette Years Smoked: 25 +/- Second Hand Smoke Exposure: No Use of substances other than those prescribed or required for medical reasons: Yes Substance Use Type: Marijuana Substance Use Frequency: Occasionally Are you DNR?: No Advance Directives: No Advance Directives Information Provided: Yes service: No Current occupational status: retired Meds Allergies Allergy/AdvReac Type Severity Reaction Status Date / Time No Known Allergies Allergy Verified 10/17/24 14:10 Home Medications ?Medication ?Instructions ?Recorded ?Confirmed ?Last Taken ?Type atorvastatin 20 mg tablet 20 mg PO DAILY 09/15/24 01/05/25 01/05/25 History lisinopril 40 mg tablet 40 mg PO DAILY 09/15/24 01/05/25 Unknown History donepezil 10 mg tablet 10 mg PO BEDTIME 01/05/25 01/05/25 Unknown History Exam Height,Weight and Vital Signs: Height 5 ft 7 in Weight 93.894 kg Pertinent Lab Results Pertinent Lab Results: Laboratory Tests 09/15/24 15:41 WBC 9.4 Hgb 12.1 L Hct 35.8 L Plt Count 234 Sodium 140 Potassium 4.1 Chloride 104 Carbon Dioxide 27 BUN 10 Creatinine 1.01 Narrative Narrative: EKG 10/2024 EKG Details: Today, read by me, normal sinus rhythm, no acute ST or T-wave abnormalities, rate 70 Echocardiogram done at [facility] on 07/22/2024 shows EF 60-65%, no regional wall motion abnormalities, normal diastolic function, left atrium normal size no significant valve abnormalities, pulmonary artery systolic pressure upper normal 33 mmHg. Assessment and Plan Assessment Anesthesia Assessment: Chart Reviewed Final Anesthetic Review Family History of Problems with Anesthesia: No History of Problems with Anesthesia: No Documented by User: Halima Miller MD 01/05/25 13:01 [facility] Past Medical History Medical History (Updated 11/13/24 @ 09:09 by Darline Hinojosa RN) Urinary retention PAF (paroxysmal atrial fibrillation) Hx of flexible sigmoidoscopy Essential hypertension Perianal condylomata (~07/04/23) Rectal cancer Hypertension Increased BMI Elevated cholesterol Family History Family History Father No problems noted. Mother No problems noted. Surgical History Surgical History History of excision of lesion History of verrucae (wart) excision H/O colonoscopy Social History Social History Household Members: Family Housing: Apartment Are you a primary adult care manager to a significant other at home: No Do you presently have visiting nurse or other home services: No Alcohol intake: never Patient Tobacco Use Status: Former Tobacco user Tobacco use type: Cigarette Years Smoked: 25 +/- Second Hand Smoke Exposure: No Use of substances other than those prescribed or required for medical reasons: Yes Substance Use Type: Marijuana Substance Use Frequency: Occasionally Are you DNR?: No Advance Directives: No Advance Directives Information Provided: Yes service: No Current occupational status: retired [employer] Allergies Allergy/AdvReac Type Severity Reaction Status Date / Time No Known Allergies Allergy Verified 10/17/24 14:10 Home Medications ?Medication ?Instructions ?Recorded ?Confirmed ?Last Taken ?Type atorvastatin 20 mg tablet 20 mg PO DAILY 09/15/24 01/05/25 01/05/25 History lisinopril 40 mg tablet 40 mg PO DAILY 09/15/24 01/05/25 Unknown History donepezil 10 mg tablet 10 mg PO BEDTIME 01/05/25 01/05/25 Unknown History Exam Airway Mallampati Class: II TM Dist: >3cm Neck ROM: Full Denture: Upper and Lower Heart: rrr Lungs: cta Assessment and Plan Assessment Anesthesia Assessment: Anesthesia Plan Discussed Final Anesthetic Review NPO: Yes ASA Class: III Final Preanesthetic Review: No Changes in Pt Med Stat Patient Risk: Low Procedure Risk: Low Anesthetic Plan Anesthetic Plan: MAC: Disposition: Standard PACU
[2025-01-01 09:49] VITALS: BMI 32.4
[2025-01-05 12:12] VITALS: BMI 31.4
[2025-01-05 12:30] VITALS: BP 96/64; PULSE 90; RESP 16; TEMP 36.7; O2SAT 97
[2025-01-05] MEDS: levoFLOXacin 500 MG TABLET PO (12:33)
[2025-01-05] MEDS: Lactated Ringers 1,000 ML 50 ML IVCONT (12:44)
--- NOTE | 2025-01-05 14:01 | P.HPSUR_ITS ---
Pre-Procedural Eval Section A - 24 Hr Update-Section A only Date of Service: 01/05/25 The patient is an INPATIENT: No Changes since office visit: No Cold of Flu in the past 2 weeks, No New Medical Problems, No Changes in Medication and No Patient answered all questions The patient has been examined within 24 hours of the surgical procedure. The History & Physical has been completed within 30 days and I have reviewed it.: Yes Section B - Complete if H&P > 30 days Chief Complaint: Retention of urine, unspecified Details of Present Illness: Cystoscopy, suprapubic tube placement Relevant Social History: None Present Medications: see Short Stay Collaborative assessment Medical History: No relevant PMH History of Previous Operations: No relevant previous surgery Allergies: Allergies Allergy/AdvReac Type Severity Reaction Status Date / Time No Known Allergies Allergy Verified 10/17/24 14:10 Review of Systems Sugical H&P ROS: Negative: Constitution, Cardiovascular, Respiratory, Ne urological, Psychiatric, Hem-Onc, Allergic/Immunologic, Gastrointestinal, Genitourinary, Musculoskeletal, Integumentary, Endocrine and Eyes/Ears/Nose/Throat Exam Surgical H&P Exam: Normal: HEENT, Normal: Heart, Normal: Lungs, Normal: Extremities, Normal: Abdomen, Normal: Skin and Normal: Neurological Plan Diagnosis/Plan: Unchanged (Cystoscopy, suprapubic tube placement) I have reviewed the history and physical and performed a pertinent physical examination on my patient. No changes have occurred unless specified. Time Spent With Patient Time: Total time managing care of this patient today ____ minutes.
--- NOTE | 2025-01-05 14:53 | W.PM.OPN ---
Operative Note Operative Note Date of Service: 01/05/25 Narrative: PreOperative Diagnosis:?neurogenic bladder Post Operative Diagnosis:?neurogenic bladder Procedure:? 1. Cystoscopy 2. Suprapubic tube placement Surgeon: Dr Aaron Cisneros Anesthesia:?Sedation plus local Indications for procedure: Failed voiding trial x2 Procedure: After informed consent was verified the patient was brought to the operating room and placed in a supine position.? Anesthesia was administered per protocol. The patient was placed in a modified dorsal lithotomy position and prepped and draped in a sterile fashion. A safety pause was performed confirming patient identity, procedure and antibiotics. Of note significant HPV wart manifestation through penis, base of penis and perirectal. A 22 Latvian cystoscope was inserted per urethra. Bladder was examined in its entirety. No abnormalities seen. Air bubble was located at the dome of the bladder. A finder needle was inserted 2 fingerbreaths above the symphysis pubis on the abdomen into the bladder.? The needle was visualized in the bladder via cystoscopy. Local anesthetic was infiltrated subcutaneously around the needle introduction site. A small, 1cm horizontal incision was made.? A trocar introducer was advanced through the abdominal wall into the bladder under visualization. The obturator was removed and a 16 Fr davidson catheter placed. 7cc was used to inflate the balloon. The external portion of the trocar was removed. Dressing was placed, the bladder was emptied, and a drainage bag was attached. The patient tolerated the procedure and was transferred in stable condition to the recovery area. Suprapubic tube will be changed in 1 month with a follow-up office visit.
[2025-01-05 15:03] VITALS: BP 95/42; PULSE 71; RESP 18; TEMP 36.6; O2SAT 96
[2025-01-05 15:05] VITALS: BP 112/55; PULSE 71; RESP 16; O2SAT 96
[2025-01-05 15:10] VITALS: BP 122/65; PULSE 71; RESP 16; O2SAT 96
[2025-01-05 15:21] VITALS: BP 122/62; PULSE 72; RESP 16; TEMP 36.4; O2SAT 100
== END 2025-01-05 15:29 | disposition home or self-care (01) ==
PROVIDERS: PCP Physician Assistant Medical; Visit Provider Urology
PROC: (CPT 51102; principal; 2025-01-05 14:00)
DX: N31.9 Neuromuscular dysfunction of bladder, unspecified (principal); R33.9 Retention of urine, unspecified; A63.0 Anogenital (venereal) warts; Z85.048 Personal history of other malignant neoplasm of rectum, rectosigmoid junction, and anus; I10 Essential (primary) hypertension; E78.00 Pure hypercholesterolemia, unspecified; I48.0 Paroxysmal atrial fibrillation; Z79.01 Long term (current) use of anticoagulants; Z79.899 Other long term (current) drug therapy; Z97.2 Presence of dental prosthetic device (complete) (partial); Z98.890 Other specified postprocedural states; Z87.891 Personal history of nicotine dependence
CPT/HCPCS: 51102; C1758; C1769; J2003; J2704; J2795

== ENCOUNTER → 2025-01-05 10:58 | Outpatient (BNV) | payer MEDICARE, SELFPAY | PROVIDERS: PCP Physician Assistant Medical; Visit Provider Urology | DX: N31.9 Neuromuscular dysfunction of bladder, unspecified (principal) | CPT/HCPCS: 51102 ==

== ENCOUNTER 2025-02-04 09:50 | Outpatient (AMB) | payer MEDICARE, SELFPAY ==
--- NOTE | 2025-02-04 09:53 | MHC.OFFVIS ---
Intake Visit Reasons: SPT change (first) Intake Note: Patient is present for SPT CHANGE Urology Medication:TAMSULOSIN,FINASTERIDE Antibiotic Allergy:NONE Blood Thinner:RIVAROXABAN Automation Engineering Technician Required: No Allergies No Known Allergies Allergy (Verified 02/18/25 13:13) HPI Comments Details: Naresh is a pleasant male. He is seen for the following urologic conditions - urinary retention - neurogenic bladder Here for suprapubic tube exchange 18 [place] Neurogenic bladder Seen in hospital with 2 L bladder attention Creatinine up to 25 CT scan showed enlarged prostate SPT 12/30 [facility] Medical History Early onset Alzheimer dementia Urinary retention PAF (paroxysmal atrial fibrillation) Hx of flexible sigmoidoscopy Essential hypertension Perianal condylomata (~07/04/23) Rectal cancer Hypertension Increased BMI Elevated cholesterol Surgical History History of excision of lesion History of verrucae (wart) excision H/O colonoscopy Family History Father No problems noted. Mother No problems noted. Social History Household Members: Family Household Members Other:: son and daughter in law live upstairs Housing: Apartment Are you a primary spiritual care coordinator to a significant other at home: No Do you presently have visiting nurse or other home services: No Alcohol intake: never Patient Tobacco Use Status: Former Tobacco user Tobacco use type: Cigarette Years Smoked: 25 +/- Second Hand Smoke Exposure: No Substance Use Type: Marijuana Substance Use Frequency: Daily Have you been hit, kicked, punched, or otherwise hurt by someone within the past year? If so, by whom?: No Are you DNR?: No Advance Directives: No Advance Directives Information Provided: Yes Poor oral hygiene: Yes service: No Current occupational status: retired Review of Systems Const Denies chills and Denies fever(s) Card Reports no additional complaints and Denies syncope Resp Denies cough GI Denies abdominal pain and Denies heartburn Reports as per HPI and Denies change in libido Neuro Denies syncope Psych Denies change in libido Endo Denies change in libido Physical Exam Const General: cooperative, healthy appearing, comfortable and no acute distress Orientation/consciousness: patient oriented x3 HEENT Face and sinus: Yes normal facial exam Mouth: moist mucous membranes Neck Neck: Yes normal visual inspection, Yes full ROM and Yes trachea midline Chest Chest palpation & inspection: normal inspection of the chest Resp Effort & Inspection: normal respiratory effort, able to speak in complete sentences and no respiratory distress GI Inspection: Yes normal to inspection Back/Spine/Pelvis Cervical Spine: normal cervical lordosis Thoracic/Lumbar Spine: thoracic and lumbar spine normal to inspection Skin General skin exam: no rashes or lesions noted Neuro General: patient oriented x3, gait normal, tone normal and moves all extremities Extrem General: Yes normal to inspection and Yes capillary refill normal Office Procedures Bladder/Catheter Procedure Details: Eighteen [place] Dukes catheter suprapubic tube change clean technique 01934-Hmfali of bladder tube Procedure code (CPT) selection complete Assessment & Plan Assessment & Plan (1) Hypotonic neurogenic bladder: Code(s): N31.9 - Neuromuscular dysfunction of bladder, unspecified Category: Medical Plan Q 4 week follow-up Patient Instructions: This note is constructed using voice recognition software. While every effort has been made to ensure accuracy home care manager rn errors may have been included. Imaging studies, laboratory and physical exam results were discussed and reviewed in detail. No major barriers to patient understanding were identified. An opportunity to ask questions regarding the treatment plan was provided. All questions were answered. The patient expressed understanding and agreement with the above treatment plan. The patient is aware they should contact our office by phone for worsening of their current condition or the appearance of new urologic symptoms. Compliance is encouraged with any medications and followup testing that is ordered. It is a privilege to participate in the urologic care of your patient. If you have any questions or concerns regarding treatment for the above conditions, or other urologic issues, please do not hesitate to contact me. The office telephone contact is [phone]. Sincerely, Dr Aaron Cisneros MD, [facility] - Urology Compassionate Specialist Care for the Genitourinary System Coding Level of Care Code Est Pt Level 3 (11161) Complex EM visit Add On G2211 Diagnoses Hypotonic neurogenic bladder N31.9 CPT Codes Bladder/Catheter Procedure - CPT: 31112-Mupznh of bladder tube ([id number])
== END 2025-02-04 10:42 | disposition home or self-care (01) ==
LOC: HO.HUSH 09:51
PROVIDERS: PCP Physician Assistant Medical; Visit Provider Urology
DX: N31.9 Neuromuscular dysfunction of bladder, unspecified (principal)
CPT/HCPCS: 51705; 99213; G2211

== ENCOUNTER → 2025-02-04 09:50 | Outpatient (BNVA) | payer MEDICARE, SELFPAY | PROVIDERS: PCP Physician Assistant Medical; Visit Provider Urology | DX: N31.9 Neuromuscular dysfunction of bladder, unspecified (principal) | CPT/HCPCS: 51705; 99212 ==

== ENCOUNTER 2025-02-18 12:55 | Outpatient (AMB) | payer MEDICARE, SELFPAY ==
--- NOTE | 2025-02-18 13:08 | A.OFFVIS_ITS ---
Vital Signs 02/18/25 13:16 Height 5 ft 7 in Weight 199 lb BMI 31.2 BP 126/61 Blood Pressure Location Rt brachial Position Sitting Pulse 73 Intake Visit Reasons: RECTAL BLEED Intake Note: Patient referred by Dr. Cisneros (Uro) for rectal bleeding. Not sure when bleeding started. Patient c/o: sometimes notices blood after wiping. Normal to loose BM. Hx of anal condyloma excised on 01-07-2021. Colonoscopy w/ Dr. Gayle scheduled for 03-06-2025 Procurement Agent Required: No Accompanied by: daughter Anna Marie Allergies No Known Allergies Allergy (Verified 02/18/25 13:13) Medication List - Last Reconciled 02/18/25 by Guillermo Slaughter MD atorvastatin 20 mg PO DAILY digoxin 0.125 mg See Protocol PO DAILY 90 days donepezil 10 mg PO BEDTIME finasteride 5 mg PO DAILY 30 days lisinopril 40 mg PO DAILY metoprolol succinate ER 50 mg See Protocol PO DAILY 90 days rivaroxaban (Xarelto) 20 mg PO QPM tamsulosin 0.4 mg PO DAILY 90 days HPI HPI RECTAL BLEED: Details: 69-year-old male here because of what his daughter says is extensive perianal condyloma. He actually has seen me for this in the past and did not want anything done then. I was able to convince him at that time in 2021 least have a consultation with another specialist to see if there were any other options if he does not want any surgical intervention. According to the daughter, Angela, the patient has had declining cognitive functions in view of dementia the past few years so has not really been taking care of himself. He does complain of significant pain and tenderness in the anus He would notice small amounts of blood once in a while on wiping He does have a history of malignant rectal polyp and is supposed to have a follow up colonoscopy with Dr. Gayle at the end of this month. The patient has a suprapubic tube because of a neurogenic bladder. He also he is on anticoagulation for his atrial fibrillation. [facility] Medical History Urinary retention PAF (paroxysmal atrial fibrillation) Hx of flexible sigmoidoscopy Essential hypertension Perianal condylomata (~07/04/23) Rectal cancer Hypertension Increased BMI Elevated cholesterol Surgical History History of excision of lesion History of verrucae (wart) excision H/O colonoscopy Family History Father No problems noted. Mother No problems noted. Social History Household Members: Family Housing: Apartment Are you a primary nurse wound care to a significant other at home: No Do you presently have visiting nurse or other home services: No Alcohol intake: never Patient Tobacco Use Status: Former Tobacco user Tobacco use type: Cigarette Years Smoked: 25 +/- Second Hand Smoke Exposure: No Substance Use Type: Marijuana service: No Current occupational status: retired Review of Systems Const Denies chills and Denies fever(s) Card Denies chest pain, Denies dyspnea and Reports dyspnea on exertion Resp Denies cough, Denies dyspnea and Reports dyspnea on exertion GI Reports hematochezia and Denies change in bowel habits Denies hematuria and Denies difficulty urinating Musc Denies back pain and Denies limited range of motion Neuro Denies focal weakness, Reports memory loss and Denies convulsions Psych Denies depression, Reports memory loss and Denies mood swings Physical Exam Vital Signs: Last Vital Signs Pulse 73 02/18/25 13:16 BP 126/61 02/18/25 13:16 BMI result Body Mass Index 31.2 Const General: comfortable and no acute distress Orientation/consciousness: patient oriented x3 Neck Neck: Yes no lymphadenopathy Resp Auscultation: clear to auscultation bilaterally Cardio Rhythm: regular rhythm GI Other: Rectal exam shows diffuse, bulky perianal condylomatous lesions, circumferential up to about 7 cm from the anal verge, with some tenderness Palpation (GI): Soft to palpation, nontender and no guarding Neuro General: patient oriented x3 Assessment & Plan Assessment & Plan (1) Perianal condylomata: Onset Date: ~07/04/23 Comment: w/excision Code(s): A63.0 - Anogenital (venereal) warts Category: Medical Plan: He has bulky perianal condyloma. This has been recurrent. He had some of these excised in 2020. He initially had refused any further treatment. Now he seems to be more receptive to surgical intervention. I told him that this will need to be staged procedures as he has bulky condyloma. He will require multiple visits in the operating room to completely excise these lesions. I reviewed with him the technique of exam under anesthesia and excision of the condylomatous lesions. I explained the risks including but not limited to bleeding, infections, postop pain, as well as the benefits and alternatives. He has 2 hold his Xarelto for 2 days prior to this procedure He has given consent. His daughter Angela says that she will be there as she understands that the patient has significant cognitive deficits at this time because of his dementia. The daughter says that although she is the healthcare proxy, she the patient has not yet been deemed incompetent at this time. The patient is to undergo a colonoscopy in 2 weeks so we will schedule the procedure after that. Coding Level of Care Code Est Pt Level 3 (15908) Diagnoses Perianal condylomata A63.0
--- OUTSIDE RECORDS SUMMARY | 2025-02-18 13:13 | XMS_ITS | Patient Health Record ---
Author Organization [facility] Address [address] [place] [address] Care Team Providers Care Armature Winder Name Role Phone Phong Pollock Primary Care Provider Lewis gutierrezjudi Jason Gayle Sarah [phone] Allergies No Known Allergies Reason For Referral [...] Problem Screening for malignant neoplasm of colon (839323537) Encounter for screening for malignant neoplasm of colon (Z12.11) Active confirmed Problem Preprocedural examination (109074545683613) Preprocedural examination (Z01.818) Active confirmed Problem 946467701 Hx of adenomatou s colonic polyps (Z86.010) Active confirmed Problem History of malignant neoplasm of rectum (917359206) History of rectal cancer (Z85.048) Active confirmed Problem Malignant tumor of rectum (031712221) Rectal adenocarcinoma (C20) Active confirmed Problem Diverticulosis of colon (471628345) Diverticulosis of colon (K57.30) Active confirmed Problem 200600901 Rectal cancer (C20) Active confirmed Vital Signs Temperature 98.4 degrees Fahrenheit 11/19/2024 Blood pressure diastolic 01 mm Hg 11/19/2024 Height 67 in 11/19/2024 Blood pressure systolic 001 mm Hg 11/19/2024 Weight 210.6 lbs 11/19/2024 BMI 32.98 kg/m2 11/19/2024 Encounters Encounter Location Date Provider Diagnosis [facility] [address] [place] [phone] 11/19/2024 Jason Gayle Encounter for screen ing for malignant neoplasm of colon Z12.11 ; Rectal adenocarcinoma C20 ; Hx of adenomatous colonic polyps Z86.010 and History of rectal cancer Z85.048 [facility] [address] [place] [phone] 11/19/2024 Jason Gayle Assessments Encounter Date Diagnosis [...] Provider Name:Jason Gayle , 03/06/2025 08:30:00 AM, [address] [place] [address], [id number], Insurance Providers Payer Name Payer Address Payer Phone Subscriber Number Group Number Insured Name Patient Relationship to Insured Coverage Start Date Coverage End Date [facility] [address] [place], [place] [phone] [id number] ALEXSANDRA PINEDA Self - patient is the insured Medical (General) History Medical History History ICD Code Denies ID,DM,CVA,Lung disease,renal dise ase Hypertension Hyperlipidemia Neg. screening colonoscopy [place] [address] Mcpherson. Atrial flutter--sees Dr. Loyd 09/2020-Rectal cancer/malign ant rectal polyp--he underwent a screening colonoscopy with az in September 2020 with the finding of [...] Surgery Date(Month/Year) Perianal condyloma removed by Dr. Charlei capps in 2020 Perianal Condyloma removed--Dr. Juaquin Mcpherson 2002 and 2008
--- OUTSIDE RECORDS SUMMARY | 2025-02-18 13:13 | XMS_ITS ---
Author Organization [facility] Address [address] [place] [address] Care Team Providers Care Casting And Locker Room Servicer Name Role Phone Phong Pollock Primary Care Provider Lewis bartlett Jason Gayle Unavailable [phone] Allergies No Known Allergies REASON FOR VISIT Patient presents today for a colon screening Medications Medication SIG (Take, Route, Frequency, Duration) Notes Start Date End Date Status Tamsulosin HCl 0.4 MG TAKE ONE CAPSULE B Y MOUTH EVERY DAY Oral for 90 Days Active Donepezil HCl 5 MG TAKE 1 TABLET BY BUBAB TH ONCE A DAY AT BEDTIME. Oral [...] [facility] [address] [place] [address] 11/19/2024 Jason Gayle Encounter for screen ing [...] Provider Name:Jason Gayle , 03/06/2025 08:30:00 AM, [address] [place] [address] , [place], [place], [phone], Progress Notes * STACY IPNEDAOB:1955 ([age] yo M)Acc No.[id number]:11/19/2024 Progress Notes Patient:?ALEXSANDRA PINEDA Provider:?Jason Gayle MD :1955???Age:69 Y???Sex:Male William e:11/19/2024 Address:[address] [place] [address], [address], [facility] Pcp:Marixa Waslh Subjective: * Chief Complaints: * ???Patient presents [...] alcohol in the past year??No,?Points?0,?Interpretation?Negative.?Miscellaneous:?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 ???Nonsmoker; no alcohol. * [...] Procedure Codes:?3017F COLOR ECTAL CA SCREEN DOC [id number] TOBACCO NON-CPHDS9464 BP SCR NOT PRFRM REC REASON NOS [...] MD Date:? 025 Generated for Bentley chaudhry/Yodit/Jessa on:?02/18/2025 01:13 PM EDT History and Physical Notes * [...]
--- OUTSIDE RECORDS SUMMARY | 2025-02-18 13:14 | XMS_ITS ---
Author Organization [facility] Address [address] [place] [address] Care Team Providers Care Dynamometer Tester Name Role Phone Pohng Pollock Primary Care Provider Unava ilJason Zelaya [phone] REASON FOR VISIT Pt no showed Encounters Encounter Location Date Provider Diagnosis [facility] [address] [place] [address] 09/26/2023 Jason Gayle Plan Of Treatment Next Appt Details Provider Name:Jason Gayle , 03/06/2025 08:30:00 AM, [address] [place] [address] , [place], [place], [phone], Progress Notes * JHON PINEDAEDOB:1955 ([age] yo M)Acc No.[id number]:09/26/2023 Patient:?ALEXSANDRA PINEDA :1955???Age:68 Y???Sex:Male Address:[address] [place] [address], [address] , [place], [address] * true * Date:? Generated for Bentley chaudhry/Yodit/eTransmitting on:?02/18/2025 01:13 PM EDT
--- OUTSIDE RECORDS SUMMARY | 2025-02-18 13:14 | XMS_ITS ---
Author Organization [facility] Address [address] [place] [phone] Care Team Providers Care Shipping Lead Person Name Role Phone Phong Pollock Primary Care Provider Unava Jason Bowser [phone] Encounters Encounter Location Date Provider Diagnosis [facility] [address] [facility] [address] [place] [phone] 11/19/2024 Jason Gayle Plan Of Treatment Next Appt Details Provider Name:Jason Gayle , 03/06/2025 08:30:00 AM, [address] [place] [address] , [place], [place], [phone], Progress Notes * JHON PINEDASINGHOB:1955 ([age] yo M)Acc No.[id number]:11/19/2024 Patient:?ALEXSANDRA PINEDA :1955???Age:69 Y???Sex:Male Address:[address] [place] [address], [address], [place], [address] * true * Date:? Generated for Maykeli isidoro/Yodit/eTransmitting on:?02/18/2025 01:13 PM EDT
[2025-02-18 13:16] VITALS: BP 126/61; PULSE 73; BMI 31.2
== END 2025-02-18 13:28 | disposition home or self-care (01) ==
LOC: HO.HGS 12:56
PROVIDERS: PCP Physician Assistant Medical; Visit Provider Surgery
DX: A63.0 Anogenital (venereal) warts (principal)
CPT/HCPCS: 99213

== ENCOUNTER → 2025-02-18 12:55 | Outpatient (BNVA) | payer MEDICARE, SELFPAY | PROVIDERS: PCP Physician Assistant Medical; Visit Provider Surgery | DX: A63.0 Anogenital (venereal) warts (principal) | CPT/HCPCS: 99212 ==

== ENCOUNTER → 2025-03-05 13:50 | Outpatient (BNVA) | payer MEDICARE, SELFPAY | PROVIDERS: PCP Physician Assistant Medical; Visit Provider Urology | DX: N31.9 Neuromuscular dysfunction of bladder, unspecified (principal) | CPT/HCPCS: 51705 ==

== ENCOUNTER 2025-03-06 07:31 | Day surgery (SDC) | payer MEDICARE, SELFPAY ==
--- OUTSIDE RECORDS SUMMARY | 2025-01-12 13:33 | XMS_ITS | Patient Health Record ---
Author Organization [facility] Address [address] [place] [address] Care Team Providers Care Musical Instrument Maker Name Role Phone Phong Pollock Primary Care Provider Lewis gutierrezjudi Jason Gayle Sarah [phone] Allergies No Known Allergies Reason For Referral No Information Medications Medication SIG (Take, Route, Frequency, Duration) Notes Start Date End Date Status Metoprolol Succinate ER 25 MG TAKE ONE TABLET BY MOUTH EVERY DAY Oral for 90 Days Active Eliquis 5 MG TAKE ONE TABLET BY M OUTH TWICE A DAY Oral for 90 Days Active Lisinopril 40 MG TAKE ONE TABLET BY M OUTH EVERY DAY Oral for 90 Days Active Tamsulosin HCl 0.4 MG TAKE ONE CAPSULE B Y MOUTH EVERY DAY Oral for 90 Days Active Donepezil HCl 5 MG TAKE 1 TABLET BY BUBBA TH ONCE A DAY AT BEDTIME. Oral for 30 Days Active Digoxin 125 MCG TAKE ONE TABLET BY M OUTH EVERY DAY Oral for 90 Days Active Finasteride 5 MG TAKE ONE TABLET BY M OUTH EVERY DAY Oral for 90 Days Active Atorvastatin Calcium Active Immunizations Vaccine Route Administration Date Status Comme nts Influenza Unknown 07/21/2020 Administered Influenza Unknown 11/19/2024 Refused Social History Tobacco Use: Social History Observation Description Date Details (start date - stop date) Never Smoker NA - NA Tobacco Use/Smoking Question Answer Notes Patient is a nonsmoker Alcohol Screen Question Answer Notes Did you have a drink containing alcohol in the p ast year? No Points 0 Interpretation Negative Section Notes: Nonsmoker; no sig alcohol Nonsmoker; no sig alcohol Nonsmoker; no alcohol Problems Problem Type SNOMED Code ICD Code Onset Dates Problem Status W/U Status Risk Notes Problem Screening for malignant neoplasm of colon (152704285) Encounter for screening for malignant neoplasm of colon (Z12.11) Active confirmed Problem Preprocedural examination (512442633439698) Preprocedural examination (Z01.818) Active confirmed Problem 834500194 Hx of adenomatou s colonic polyps (Z86.010) Active confirmed Problem History of malignant neoplasm of rectum (823338472) History of rectal cancer (Z85.048) Active confirmed Problem Malignant tumor of rectum (662786764) Rectal adenocarcinoma (C20) Active confirmed Problem Diverticulosis of colon (593022835) Diverticulosis of colon (K57.30) Active confirmed Problem 993668920 Rectal cancer (C20) Active confirmed Vital Signs Temperature 98.4 degrees Fahrenheit 11/19/2024 Blood pressure diastolic 01 mm Hg 11/19/2024 Height 67 in 11/19/2024 Blood pressure systolic 001 mm Hg 11/19/2024 Weight 210.6 lbs 11/19/2024 BMI 32.98 kg/m2 11/19/2024 Encounters Encounter Location Date Provider Diagnosis [facility] [address] [place] [phone] 11/19/2024 Jason Gayle Encounter for screen ing for malignant neoplasm of colon Z12.11 ; Rectal adenocarcinoma C20 ; Hx of adenomatous colonic polyps Z86.010 and History of rectal cancer Z85.048 [facility] [address] [place] [phone] 11/19/2024 Jason Gayle Assessments Encounter Date Diagnosis (ICD Code) Assessment Notes Treatment Notes Treatment Clinical Notes Section Notes 11/19/2024 Encounter for screening for malignant neoplasm of colon (ICD-10 - Z12.11) Do not use the Eliquis for 2 days before the colonoscopy Overall, Alexsandra appears to be doing well from a GI standpoint and is not having any new or worrisome GI complaints. Given the previous history of rectal cancer and his last colonoscopy being in August of 2021, I did recommend a followup colonoscopy for further screening purposes. We did review the rationale for this in regard to colorectal cancer prevention and/or early detection. The procedure will be done with monitored anesthesia care. He was given the below instructions regarding adjustment of his medications for the procedure. Full consent was obtained from him and his daughter for this, including risks of bleeding and perforation. Alexsandra and his daughter were comfortable with this plan. Thank you again for allowing me to participate in Alexsandra's care. I shall continue to keep you advised of his progress. 11/19/2024 Rectal adenocarcinoma (ICD-10 - C20) Overall, Alexsandra appears to be doing well from a GI standpoint and is not having any new or worrisome GI complaints. Given the previous history of rectal cancer and his last colonoscopy being in August of 2021, I did recommend a followup colonoscopy for further screening purposes. We did review the rationale for this in regard to colorectal cancer prevention and/or early detection. The procedure will be done with monitored anesthesia care. He was given the below instructions regarding adjustment of his medications for the procedure. Full consent was obtained from him and his daughter for this, including risks of bleeding and perforation. Alexsandra and his daughter were comfortable with this plan. Thank you again for allowing me to participate in Alexsandra's care. I shall continue to keep you advised of his progress. 11/19/2024 Hx of adenomatous colonic polyps (ICD-10 - Z86.010) Overall, Alexsandra appears to be doing well from a GI standpoint and is not having any new or worrisome GI complaints. Given the previous history of rectal cancer and his last colonoscopy being in August of 2021, I did recommend a followup colonoscopy for further screening purposes. We did review the rationale for this in regard to colorectal cancer prevention and/or early detection. The procedure will be done with monitored anesthesia care. He was given the below instructions regarding adjustment of his medications for the procedure. Full consent was obtained from him and his daughter for this, including risks of bleeding and perforation. Alexsandra and his daughter were comfortable with this plan. Thank you again for allowing me to participate in Alexsandra's care. I shall continue to keep you advised of his progress. 11/19/2024 History of rectal cancer (ICD-10 - Z85.048) Overall, Alexsandra appears to be doing well from a GI standpoint and is not having any new or worrisome GI complaints. Given the previous history of rectal cancer and his last colonoscopy being in August of 2021, I did recommend a followup colonoscopy for further screening purposes. We did review the rationale for this in regard to colorectal cancer prevention and/or early detection. The procedure will be done with monitored anesthesia care. He was given the below instructions regarding adjustment of his medications for the procedure. Full consent was obtained from him and his daughter for this, including risks of bleeding and perforation. Alexsandra and his daughter were comfortable with this plan. Thank you again for allowing me to participate in Alexsandra's care. I shall continue to keep you advised of his progress. Plan Of Treatment Pending Test Test Name Order Date CHEM 7 PROFILE 09/26/2020 LIVER PROFILE 09/26/2020 CEA 09/26/2020 CBC w DIFF 09/26/2020 CT ABD & PELVIS WITH CONTRAST 09/26/2020 MRI PELVIS W&WO CONTRAST 09/26/2020 Future Test Test Name Order Date COLONOSCOPY 08/03/2020 COLONOSCOPY 07/13/2021 COLONOSCOPY 11/19/2024 Next Appt Details Provider Name:Jason Gayle , 03/06/2025 08:30:00 AM, [address] [place] [address], [id number], Insurance Providers Payer Name Payer Address Payer Phone Subscriber Number Group Number Insured Name Patient Relationship to Insured Coverage Start Date Coverage End Date [facility] [address] [place], [place] [phone] [id number] ALEXSANDRA PINEDA Self - patient is the insured Medical (General) History Medical History History ICD Code Denies CO,DM,CVA,Lung disease,renal dise ase Hypertension Hyperlipidemia Neg. screening colonoscopy [place] [address] Mcpherson. Atrial flutter--sees Dr. Loyd 09/2020-Rectal cancer/malign ant rectal polyp--he underwent a screening colonoscopy with ks in September 2020 with the finding of [...] be needed. 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 Bhakta Urinary retention requiring indwelling Dukes catheter as of the 11/2024 office visit--seeing Dr. Cisneros Negative followup screening colonoscopy in August of 2021 Surgical History Surgery Date(Month/Year) Perianal condyloma removed by Dr. Charlie capps in 2020 Perianal Condyloma removed--Dr. Juaquin Mcpherson 2002 and 2008
--- OUTSIDE RECORDS SUMMARY | 2025-01-12 13:33 | XMS_ITS ---
Author Organization [facility] Address [address] [place] [address] Care Team Providers Care Supervisor Steel Division Name Role Phone Phong Pollock Primary Care Provider Unava ilJason Zelaya [phone] REASON FOR VISIT Pt no showed Encounters Encounter Location Date Provider Diagnosis [facility] [address] [place] [address] 09/26/2023 Jason Gayle Plan Of Treatment Next Appt Details Provider Name:Jason Gayle , 03/06/2025 08:30:00 AM, [address] [place] [address] , [place], [place], [phone], Progress Notes * JHON PINEDAEDOB:1955 ([age] yo M)Acc No.[id number]:09/26/2023 Patient:?ALEXSANDRA PINEDA :1955???Age:68 Y???Sex:Male Address:[address] [place] [address], [address] , [place], [address] * true * Date:? Generated for Bentley chaudhry/Yodit/eTransmitting on:?01/12/2025 01:33 PM EDT
--- OUTSIDE RECORDS SUMMARY | 2025-01-12 13:33 | XMS_ITS ---
Author Organization [facility] Address [address] [place] [address] Care Team Providers Care Supervisor Shearing Name Role Phone Phong Pollock Primary Care Provider Lewis bartlett Jason Gayle Unavailable [phone] Allergies No Known Allergies REASON FOR VISIT Patient presents today for a colon screening Medications Medication SIG (Take, Route, Frequency, Duration) Notes Start Date End Date Status Tamsulosin HCl 0.4 MG TAKE ONE CAPSULE B Y MOUTH EVERY DAY Oral for 90 Days Active Donepezil HCl 5 MG TAKE 1 TABLET BY BUBBA TH ONCE A DAY AT BEDTIME. Oral for 30 Days Active Atorvastatin Calcium Active Metoprolol Succinate ER 25 MG TAKE ONE TABLET BY MOUTH EVERY DAY Oral for 90 Days Active Eliquis 5 MG TAKE ONE TABLET BY M OUTH TWICE A DAY Oral for 90 Days Active Lisinopril 40 MG TAKE ONE TABLET BY M OUTH EVERY DAY Oral for 90 Days Active Digoxin 125 MCG TAKE ONE TABLET BY M OUTH EVERY DAY Oral for 90 Days Active Finasteride 5 MG TAKE ONE TABLET BY M OUTH EVERY DAY Oral for 90 Days Active Immunizations Vaccine Route Administration Date Status Comme nts Influenza Unknown 11/19/2024 Refused Social History Tobacco Use: Social History Observation Description Date Details (start date - stop date) Never Smoker NA - NA Tobacco Use/Smoking Question Answer Notes Patient is a nonsmoker Alcohol Screen Question Answer Notes Did you have a drink containing alcohol in the p ast year? No Points 0 Interpretation Negative Section Notes: Nonsmoker; no alcohol Vital Signs Temperature 98.4 degrees Fahrenheit 11/19/19 25 Blood pressure systolic 001 mm Hg 11/19/19 25 Blood pressure diastolic 01 mm Hg 025 Height 67 in 11/19/2024 Weight 210.6 lbs 11/19/2024 BMI 32.98 kg/m2 11/19/2024 Encounters Encounter Location Date Provider Diagnosis [facility] [address] [place] [address] 11/19/2024 Jason Gayle Encounter for screen ing for malignant neoplasm of colon Z12.11 ; Rectal adenocarcinoma C20 ; Hx of adenomatous colonic polyps Z86.010 and History of rectal cancer Z85.048 Assessments Encounter Date Diagnosis (ICD Code) Assessment [...] advised of his progress. Plan Of Treatment Treatment Notes Assessment Notes Encounter for screening for malignant neoplasm of colon Do not use the Eliquis for 2 days before the colonoscopy Future Test Test Name Order Date COLONOSCOPY 11/19/2024 Next Appt Details Follow Up: prn, Reason: Provider Name:Jason Gayle , 03/06/2025 08:30:00 AM, [address] [place] [address] , [place], [place], [phone], Progress Notes * TSACY PINEDAOB:1955 ([age] yo M)Acc No.[id number]:11/19/2024 Progress Notes Patient:?ALEXSANDRA PINEDA Provider:?Jason Gayle MD :1955???Age:69 Y???Sex:Male William e:11/19/2024 Address:[address] [place] [address], [address], [facility] Pcp:Marixa Walsh Subjective: * Chief Complaints: * ???Patient presents today fo r a colon screening * HPI: ???incontinence:? I saw Alexsandra in consultation in the office today for followup of his rectal cancer and need for colorectal cancer screening. He was accompanied by his daughter, Anna Marie, who helped to provide some of the history. I last saw Alexsandra in August of 2021, at which time he underwent a followup screening colonoscopy in regard to the previous finding of a malignant rectal polyp in 2019. The 2020 colonoscopy did not reveal any sign of residual malignancy. A single small polyp was removed from the ascending colon. He had been advised to have a followup colonoscopy one or 2 years later but he did not keep the appointment due to some progressive memory issues. He apparently has been diagnosed with some Alzheimer's dementia although does remain functional and is still signing his own consents. He has been feeling well from a GI standpoint. He enjoys a good appetite and denies any significant heartburn or dysphagia. His bowel movements have been fairly regular and without any signs of bleeding. He denies abdominal pain, signs of jaundice, nor unintentional weight loss. He denies any known family history of colon cancer. He did see Dr. Cates this past September and she feels that his previous history of rectal cancer remains in clinical remission. Laboratories in September of 2024 revealed normal chemistries and renal function, a CEA level of less than 1.7, normal LFTs, and hemoglobin 12.1 with MCV of 90. He did have a CT scan of the abdomen and pelvis in July 2024 which revealed evidence of urinary retention but no evidence of any sign of metastatic disease or other significant abnormalities. * ROS:?General/Constitutional:?Change in appetite?denies.?Chills?denies.?Fatigue?denies.?Ophthalmologic:?Comments?all negative.?ENT:?Comments?all negative.?Respiratory:?hemoptysis?denies.?Cough?denies.?Cardiovascular:?Chest pain?denies.?Orthopnea?denies.?Gastrointestinal:?Comments?See HPI for details.?Genitourinary:?Patient complaining of?As of the November 2024 office visit he has urinary retentionand has an indwelling Dukes catheter in place.?Hematuria?denies.?Dysuria?denies.?Musculoskeletal:?Painful joints?denies.?Weakness?denies.?Skin:?Itching?denies.?Rash?denies.?Neurologic:?Headache?denies.?Seizures?denies.?Psychiatric:?Comments?all negative.? * Medical History:? * Surgical History:?Perianal C ondyloma removed--Dr. Reza and Dr. Mcpherson 2002 and 2008Perianal condyloma removed by Dr. Slaughter in 2020 * Hospitalization/Major Diagno stic Procedure:?No Hospitalization History. * Family History:?Father: narendra garcia?Mother: .? no known hx of colon cancer. No family history of liver cancer. 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 ???Nonsmoker; no alcohol. * Medications:?TakingAtorvasta tin Calcium Donepezil HCl 5 MG Tablet TAKE 1 TABLET BY MOUTH ONCE A DAY AT BEDTIME. Oral Tamsulosin HCl 0.4 MG Capsule TAKE ONE CAPSULE BY MOUTH EVERY DAY Oral Finasteride 5 MG Tablet TAKE ONE TABLET BY MOUTH EVERY DAY Oral Digoxin 125 MCG Tablet TAKE ONE TABLET BY MOUTH EVERY DAY Oral Eliquis 5 MG Tablet TAKE ONE TABLET BY MOUTH TWICE A DAY Oral Metoprolol Succinate ER 25 MG Tablet Extended Release 24 Hour TAKE ONE TABLET BY MOUTH EVERY DAY Oral Lisinopril 40 MG Tablet TAKE ONE TABLET BY MOUTH EVERY DAY Oral Taking Atorvastatin Calcium Taking Donepezil HCl 5 MG Tablet TAKE 1 TABLET BY MOUTH ONCE A DAY AT BEDTIME. Oral Taking Tamsulosin HCl 0.4 MG Capsule TAKE ONE CAPSULE BY MOUTH EVERY DAY Oral Taking Finasteride 5 MG Tablet TAKE ONE TABLET BY MOUTH EVERY DAY Oral Taking Digoxin 125 MCG Tablet TAKE ONE TABLET BY MOUTH EVERY DAY Oral Taking Eliquis 5 MG Tablet TAKE ONE TABLET BY MOUTH TWICE A DAY Oral Taking Metoprolol Succinate ER 25 MG Tablet Extended Release 24 Hour TAKE ONE TABLET BY MOUTH EVERY DAY Oral Taking Lisinopril 40 MG Tablet TAKE ONE TABLET BY MOUTH EVERY DAY Oral DiscontinuedWarfarin Sodium 5 MG Tablet 1 tablet Orally Once a day Quinapril HCl 40 MG Tablet 1 tablet Orally Discontinued Warfarin Sodium 5 MG Tablet 1 tablet Orally Once a day Discontinued Quinapril HCl 40 MG Tablet 1 tablet Orally * Allergies:?N.K.D.A.yes[Aller gies Verified] Objective: * Vitals:?Wt:210.6lbs, Ht: 67 in, BMI:32.98Index, BP:001/01mm Hg, Temp:98.4, Wt- k.53. * Examination: ???General Examination: ?GENERAL APPEARANCE:?pleasant, well nourished, well developed, in no acute distress.?EYES:?sclera non-icteric.?ORAL CAVITY:?mucosa moist.?NECK/THYROID:?no cervical lymphadenopathy, neck supple.?SKIN:?nonjaundiced, no spider angiomata.?HEART:?S1, S2 normal.?LUNGS:?clear to auscultation bilaterally.?ABDOMEN:?normal bowel sounds, no guarding or rigidity, no guarding or rigidity, no masses palpable, soft, nontender, nondistended.?EXTREMITIES:?no edema.?NEUROLOGIC:?alert and oriented.? Assessment: * Assessment: 1.?Rectal adenocarcinoma - C 20 (Primary)???2.?Encounter for screening for malignant neoplasm of colon - Z12.11???3.?Hx of adenomatous colonic polyps - Z86.010???4.?History of rectal cancer - Z85.048??? Overall, Alexsandra appears to be doing well [...] to keep you advised of his progress. Plan: * Treatment: 2.?Encounter for screening for malignant neoplasm of colon?Procedure: COLONOSCOPY (Ordered for 11/19/2024)* with MAC Notes: Do not use the Eliquis for 2 days before the colonoscopy??3.?Hx of adenomatous colonic polyps?Procedure: COLONOSCOPY (Ordered for 11/19/2024)* with MAC 4.?History of rectal cancer?Procedure: COLONOSCOPY (Ordered for 11/19/2024)* with MAC * Immunizations:? Influenza (Not administered - Refused: Patient decision) * Procedure Codes:?3017F COLOR ECTAL CA SCREEN DOC [id number] TOBACCO [id number] BP SCR NOT PRFRM REC REASON NOS * Preventive Medicine:? ??Counseling:?Care goal follow-up plan:?Above Normal BMI Follow-up?Exercise promotion: strength training,?BMI management provided?Yes.? ??Screenings:?Fall Risk Screening?Fall Risk Assessment:?No falls in the past year,?Screening:?No falls in the past year,?Assessment:?Not performed, no reason specified,?Plan of Care:?Not documented, no reason specified.? * Follow Up:?prn * * Sign off status: Completed true * Provider:?Jason Gayle MD Date:? 025 Generated for Bentley chaudhry/Yodit/Jessa on:?01/12/2025 01:33 PM EDT History and Physical Notes * HPI (History of Present Illness) Category Sub-Category Detail Notes Category Not es incontinence I saw Alexsandra in consultation in the office today for followup of his rectal cancer and need for colorectal cancer screening. He was accompanied by his daughter, Anna Marie, who helped to provide some of the history. I last saw Alexsandra in August of 2021, at which time he underwent a followup screening colonoscopy in regard to the previous finding of a malignant rectal polyp in 2019. The 2020 colonoscopy did not reveal any sign of residual malignancy. A single small polyp was removed from the ascending colon. He had been advised to have a followup colonoscopy one or 2 years later but he did not keep the appointment due to some progressive memory issues. He apparently has been diagnosed with some Alzheimer's dementia although does remain functional and is still signing his own consents. He has been feeling well from a GI standpoint. He enjoys a good appetite and denies any significant heartburn or dysphagia. His bowel movements have been fairly regular and without any signs of bleeding. He denies abdominal pain, signs of jaundice, nor unintentional weight loss. He denies any known family history of colon cancer. He did see Dr. Cates this past September and she feels that his previous history of rectal cancer remains in clinical remission. Laboratories in September of 2024 revealed normal chemistries and renal function, a CEA level of less than 1.7, normal LFTs, and hemoglobin 12.1 with MCV of 90. He did have a CT scan of the abdomen and pelvis in July 2024 which revealed evidence of urinary retention but no evidence of any sign of metastatic disease or other significant abnormalities. Examination Category Sub-Category Detail Notes Category Not es General Examination GENERAL APPEARANCE: pleasant , well nourished, well developed, in no acute distress HEAD: EYES: sclera non-icteric EARS: NOSE: THROAT: NECK/THYROID: no cervical lymphade nopathy, neck supple HEART: S1, S2 normal CHEST: LUNGS: clear to auscultatio n bilaterally ABDOMEN: normal bowel sounds, no guarding or rigidity, no guarding or rigidity, no masses palpable, soft, nontender, nondistended NEUROLOGIC: alert and oriented SKIN: nonjaundiced, no spi yamileth angiomata EXTREMITIES: no edema PERIPHERAL PULSES: BACK: BREASTS: MUSCULOSKELETAL: MALE GENITOURINARY: LYMPH NODES: RECTAL EXAM: FEMALE GENITOURINARY: ORAL CAVITY: mucosa moist
--- OUTSIDE RECORDS SUMMARY | 2025-01-12 13:34 | XMS_ITS ---
Author Organization [facility] Address [address] [place] [address] Care Team Providers Care Leather Repairer Name Role Phone Phong Pollock Primary Care Provider Unava Jason Bowser [phone] Encounters Encounter Location Date Provider Diagnosis [facility] [address] [facility] [address] [place] [address] 11/19/2024 Jason Gayle Plan Of Treatment Next Appt Details Provider Name:Jason Gayle , 03/06/2025 08:30:00 AM, [address] [place] [address] , [place], [place], [phone], Progress Notes * JHON PINEDASINGHOB:1955 (7 8 yo M)Acc No.[id number]:11/19/2024 Patient:?ALEXSANDRA PINEDA :1955???Age:69 Y???Sex:Male Address:[address] [place] [address], [address], [place], [address] * true * Date:? Generated for Maykeli isidoro/Yodit/eTransmitting on:?01/12/2025 01:33 PM EDT
[2025-03-04 14:22] VITALS: BMI 32.4
--- NOTE | 2025-03-05 13:00 | HO.ANESPROP2 ---
Documented by User: Shea De Leon NP 03/05/25 13:05 HPI - Anesthesia Eval Consult details Narrative: 69yo M for Colonoscopy s/p cysto stent 12/2024 with TIVA Follows [facility] Cardiology for PAF (eliquis). Optimized for procedure per 10/2024 office visit note and addendum [facility] Active Problems Active Problems: All Active Problems Hospital discharge follow-up (Acute) Preop cardiovascular exam (Acute) Paroxysmal atrial fibrillation (Acute) Hypotonic neurogenic bladder (Acute) Urinary retention (Acute) History of rectal cancer (Acute) Current use of anticoagulant therapy (Acute) Typical atrial flutter (Acute) Rectal cancer (Acute) Essential hypertension (Acute) Perianal condylomata (Acute ~07/04/23) Rectal cancer (Acute) Hypertension (Acute) Increased BMI (Acute) Past Medical History Medical History Early onset Alzheimer dementia Urinary retention PAF (paroxysmal atrial fibrillation) Hx of flexible sigmoidoscopy Essential hypertension Perianal condylomata (~07/04/23) Rectal cancer Hypertension Increased BMI Elevated cholesterol Family History Family History Father No problems noted. Mother No problems noted. Family history of problems with anesthesia: No Surgical History Surgical History History of excision of lesion History of verrucae (wart) excision H/O colonoscopy History of Problems with Anesthesia: No Social History Social History Household Members: Family Household Members Other:: son and daughter in law live upstairs Housing: Apartment Are you a primary child day care center worker to a significant other at home: No Do you presently have visiting nurse or other home services: No Alcohol intake: never Patient Tobacco Use Status: Former Tobacco user Tobacco use type: Cigarette Years Smoked: 25 +/- Second Hand Smoke Exposure: No Substance Use Type: Marijuana Substance Use Frequency: Daily Have you been hit, kicked, punched, or otherwise hurt by someone within the past year? If so, by whom?: No Are you DNR?: No Advance Directives: No Advance Directives Information Provided: Yes Poor oral hygiene: Yes service: No Current occupational status: retired Meds Allergies Allergy/AdvReac Type Severity Reaction Status Date / Time No Known Allergies Allergy Verified 02/18/25 13:13 Home Medications ?Medication ?Instructions ?Recorded ?Confirmed ?Last Taken ?Type atorvastatin 20 mg tablet 20 mg PO DAILY 09/15/24 03/04/25 01/05/25 History lisinopril 40 mg tablet 40 mg PO DAILY 09/15/24 03/04/25 Unknown History donepezil 10 mg tablet 10 mg PO BEDTIME 01/05/25 03/04/25 Unknown History apixaban 5 mg tablet (Eliquis) 5 mg PO BID 03/04/25 03/04/25 Unknown History metoprolol succinate 25 mg 25 mg PO DAILY 03/04/25 03/04/25 Unknown History tablet,extended release 24 hr Exam Height,Weight and Vital Signs: Height 5 ft 7 in Weight 93.894 kg Pertinent Lab Results Pertinent Lab Results: Laboratory Tests 09/15/24 15:41 WBC 9.4 Hgb 12.1 L Hct 35.8 L Plt Count 234 Sodium 140 Potassium 4.1 Chloride 104 Carbon Dioxide 27 BUN 10 Creatinine 1.01 Narrative Narrative: EKG 10/2024 Details: normal sinus rhythm, no acute ST or T-wave abnormalities, rate 70 Echocardiogram done at [facility] on 07/22/2024 shows EF 60-65%, no regional wall motion abnormalities, normal diastolic function, left atrium normal size no significant valve abnormalities, pulmonary artery systolic pressure upper normal 33 mmHg. Assessment and Plan Assessment Anesthesia Assessment: Chart Reviewed Final Anesthetic Review Family History of Problems with Anesthesia: No History of Problems with Anesthesia: No Documented by User: Halima Miller MD 03/06/25 08:12 [facility] Past Medical History Medical History Early onset Alzheimer dementia Urinary retention PAF (paroxysmal atrial fibrillation) Hx of flexible sigmoidoscopy Essential hypertension Perianal condylomata (~07/04/23) Rectal cancer Hypertension Increased BMI Elevated cholesterol Family History Family History Father No problems noted. Mother No problems noted. Surgical History Surgical History History of excision of lesion History of verrucae (wart) excision H/O colonoscopy Social History Social History Household Members: Family Household Members Other:: son and daughter in law live upstairs Housing: Apartment Are you a primary child day care center worker to a significant other at home: No Do you presently have visiting nurse or other home services: No Alcohol intake: never Patient Tobacco Use Status: Former Tobacco user Tobacco use type: Cigarette Years Smoked: 25 +/- Second Hand Smoke Exposure: No Substance Use Type: Marijuana Substance Use Frequency: Daily Have you been hit, kicked, punched, or otherwise hurt by someone within the past year? If so, by whom?: No Are you DNR?: No Advance Directives: No Advance Directives Information Provided: Yes Poor oral hygiene: Yes service: No Current occupational status: [employer] Allergies Allergy/AdvReac Type Severity Reaction Status Date / Time No Known Allergies Allergy Verified 02/18/25 13:13 Home Medications ?Medication ?Instructions ?Recorded ?Confirmed ?Last Taken ?Type atorvastatin 20 mg tablet 20 mg PO DAILY 09/15/24 03/04/25 01/05/25 History lisinopril 40 mg tablet 40 mg PO DAILY 09/15/24 03/04/25 Unknown History donepezil 10 mg tablet 10 mg PO BEDTIME 01/05/25 03/04/25 Unknown History apixaban 5 mg tablet (Eliquis) 5 mg PO BID 03/04/25 03/04/25 Unknown History metoprolol succinate 25 mg 25 mg PO DAILY 03/04/25 03/04/25 Unknown History tablet,extended release 24 hr Exam Airway Mallampati Class: II (edentulous on top, missing bottom front teeth, denies anything loose) TM Dist: >3cm Neck ROM: Full Heart: rrr Lungs: cta Assessment and Plan Assessment Anesthesia Assessment: Anesthesia Plan Discussed Final Anesthetic Review NPO: Yes ASA Class: III Final Preanesthetic Review: No Changes in Pt Med Stat, Meds/Allgs Chart Reviewed and Consent Obtained/Reviewed Patient Risk: Low Procedure Risk: Low Anesthetic Plan Anesthetic Plan: MAC: Disposition: Standard PACU
[2025-03-06] MEDS: Lactated Ringers 1,000 ML 100 ML IVCONT (07:52)
[2025-03-06 08:00] VITALS: BP 133/68; PULSE 86; RESP 18; TEMP 36.7; O2SAT 96
--- NOTE | 2025-03-06 08:34 | PC.NURSE ---
Dr. Gayle aware that daughter was with patient yesterday and followed all of the colonoscopy prep instructions and stated that he had many bowel movements. Patient has short term memory loss, and also did not check the toilet or tissue for coloring of liquid that he was excreting. Okay to proceed.
--- NOTE | 2025-03-06 09:26 | PM.OP ---
Brief Operative Note Date of Service: 03/06/25 Pre-op diagnosis: Hx of rectal cancer Post-op diagnosis: other (Diverticulosis, Condylomata) Procedure: Colonoscopy to the cecum and TI with biopsies Surgeon: Jason Gayle MD Anesthesia: MAC Was an Configuration Management Architect used for this Procedure?: No Estimated blood loss (mL): 2.0 Pathology: other (A. Rectal biopsies at site of previous rectal cancer) Condition: stable Disposition: PACU
[2025-03-06 09:27] VITALS: BP 95/52; PULSE 70; RESP 16; TEMP 36.1; O2SAT 96
[2025-03-06 09:40] VITALS: BP 114/66; PULSE 74; RESP 16; O2SAT 96
[2025-03-06 09:48] VITALS: BP 125/64; PULSE 70; RESP 16; TEMP 36.3; O2SAT 97
--- NOTE | 2025-03-06 10:53 | OP_ITS ---
DATE OF SERVICE: 03/06/2025 SURGEON: Jason Gayle MD INDICATIONS: The patient presents for followup of personal history of rectal cancer. Full consent obtained from him for this, including risks of bleeding and perforation. PREOPERATIVE DIAGNOSIS: POSTOPERATIVE DIAGNOSIS: PROCEDURE PERFORMED: Colonoscopy to the cecum and terminal ileum with biopsies. ESTIMATED BLOOD LOSS: COMPLICATIONS: ANESTHESIA: Medication used, monitored anesthesia care. ASSISTANTS: SPECIMENS: PREOPERATIVE DIAGNOSES: Personal history of rectal cancer, colorectal cancer screening. POSTOPERATIVE DIAGNOSES: Personal history of rectal cancer, colorectal cancer screening, diverticulosis, internal hemorrhoids, perirectal condylomata, scarring at previous site of rectal cancer. DESCRIPTION OF PROCEDURE: The patient was placed in left lateral decubitus position. The digital rectal exam revealed significant perianal disease with condylomatous type tissue and a lot of scarring. The [employer] video pediatric colonoscope was entered into the rectum advanced easily to the cecum. Once in the cecum, I did identify normal-appearing cecal pouch with appendiceal orifice, and normal-appearing ileocecal valve. The terminal ileum was cannulated and appeared normal. The scope was withdrawn back in the colon. The entire cecum and ileocecal valve appeared normal. The scope was slowly withdrawn assessing all mucosal surfaces carefully. Preparation was excellent. I did not visualize any sign of polyps, colitis, nor angiodysplasia. There was a mild amount of sigmoid diverticulosis. In the rectum, there were 2 previously placed submucosal ink markings. In between those were areas of some scarring consistent with his previous polypectomy. I did not visualize any definitive polyp tissue, but biopsies were obtained from the site of the scarring. The scope was retroflexed visualizing prominent hemorrhoidal tissue as well. The scope was straightened and withdrawn from the patient. He tolerated the procedure well and was returned to recovery area in stable condition. IMPRESSION: 1. Diverticulosis. 2. Residual scarring at site of previous rectal cancer, status post biopsy. 3. Internal hemorrhoids. 4. Condyloma. PLAN: The results of biopsy will be checked. I would recommend a repeat colonoscopy in 3 years for further screening. He was advised to resume his Xarelto tomorrow. He was also given instructions to follow up with Dr. Slaughter in regard to the history of the condyloma. This has all been discussed with his daughter. MD BETTY Agosto/FRANCISCO / [phone]
== END 2025-03-06 10:41 | disposition home or self-care (01) ==
PROVIDERS: PCP Physician Assistant Medical; Visit Provider Internal Medicine
PROC: 0DJD8ZZ Inspection of Lower Intestinal Tract, Via Natural or Artificial Opening Endoscopic (ICD-10-PCS; CPT 45378; principal; 2025-03-06 08:30)
DX: Z12.11 Encounter for screening for malignant neoplasm of colon (principal); Z85.048 Personal history of other malignant neoplasm of rectum, rectosigmoid junction, and anus; Z86.0101 Personal history of adenomatous and serrated colon polyps; K57.30 Diverticulosis of large intestine without perforation or abscess without bleeding; K64.8 Other hemorrhoids; A63.0 Anogenital (venereal) warts; G30.0 Alzheimer's disease with early onset; F02.80 Dementia in other diseases classified elsewhere, unspecified severity, without behavioral disturbance, psychotic disturbance, mood disturbance, and anxiety; I10 Essential (primary) hypertension; E78.5 Hyperlipidemia, unspecified; R33.9 Retention of urine, unspecified; I48.0 Paroxysmal atrial fibrillation; I48.92 Unspecified atrial flutter; Z79.01 Long term (current) use of anticoagulants; Z79.899 Other long term (current) drug therapy; Z98.890 Other specified postprocedural states
CPT/HCPCS: 45380; 88305; J2003; J2704; J3010

== ENCOUNTER → 2025-04-01 14:34 | Outpatient (REF) | payer MEDICARE, SELFPAY ==
--- NOTE | 2025-04-01 14:37 | HM_ITS ---
Conclusion: 1. Patient was monitored for total period of 3 days 2. Baseline was normal sinus rhythm with average heart of 58 beats per minute 3. Frequent sinus bradycardia noted with 65% of the time heart rate below 60 beats per minute 4. Frequent sinus pauses noted with longest pause of 2.8 seconds, most of the pauses during sleep hours 5. Rare PACs and PVCs noted 6. No patient reported events MTDD
--- OUTSIDE RECORDS SUMMARY | 2025-04-01 17:27 | XMS_ITS | Patient Health Record ---
Author Organization [facility] Address [address] [place] [address] Care Team Providers Care Senior Teller Name Role Phone Phong Pollock Primary Care Provider Lewis bartlett Jason Gayle Sarah [phone] Allergies No Known Allergies Results Component Value Reference Range Notes Pathology (Not yet reviewed by provider) Interpretation: Performing Lab:[facility], [address] [place] [phone] Notes/Report: Reason For Referral No Information Medications Medication [...] Problem Screening for malignant neoplasm of colon (050935161) Encounter for screening for malignant neoplasm of colon (Z12.11) Active confirmed Problem Preprocedural examination (263446171591575) Preprocedural examination (Z01.818) Active confirmed Problem 078218119 Hx of adenomatou s colonic polyps (Z86.010) Active confirmed Problem History of malignant neoplasm of rectum (921355555) History of rectal cancer (Z85.048) Active confirmed Problem Malignant tumor of rectum (756939967) Rectal adenocarcinoma (C20) Active confirmed Problem Diverticulosis of colon (997797856) Diverticulosis of colon (K57.30) Active confirmed Problem 379173701 Rectal cancer (C20) Active confirmed Vital Signs Temperature 98.4 degrees Fahrenheit 11/19/2024 Blood pressure diastolic 01 mm Hg 11/19/2024 Height 67 in 11/19/2024 Blood pressure systolic 001 mm Hg 11/19/2024 Weight 210.6 lbs 11/19/2024 BMI 32.98 kg/m2 11/19/2024 Encounters Encounter Location Date Provider Diagnosis [facility] [place] [address] [place] [phone] 03/06/2025 Jason Gayle Colon cancer screeni ng Z12.11 ; History of rectal cancer Z85.048 ; Diverticulosis of large intestine without perforation or abscess without bleeding K57.30 and Anogenital (venereal) warts A63.0 [facility] [address] [place] [phone] 11/19/2024 Jason Gayle Encounter for screen ing for malignant neoplasm of colon Z12.11 ; Rectal adenocarcinoma C20 ; Hx of adenomatous colonic polyps Z86.010 and History of rectal cancer Z85.048 [facility] [address] [place] [phone] 11/19/2024 Jason Gayle Assessments Encounter Date Diagnosis (ICD Code) Assessment Notes Treatment Notes Treatment Clinical Notes Section Notes 03/06/2025 Colon cancer screening (ICD-10 - Z12.11) 03/06/2025 History of rectal cancer (ICD-10 - Z85.048) 11/19/2024 Encounter for screening for malignant neoplasm [...] to keep you advised of his progress. 03/06/2025 Diverticulosis of large intestine without perforation or abscess without bleeding (ICD-10 - K57.30) 11/19/2024 Hx of adenomatous colonic polyps (ICD-10 [...] to keep you advised of his progress. 03/06/2025 Anogenital (venereal) warts (ICD-10 - A63.0) 11/19/2024 History of rectal cancer (ICD-10 - [...] CONTRAST 09/26/2020 MRI PELVIS W&WO CONTRAST 09/26/2020 Pathology 03/06/2025 Future Test Test Name Order Date COLONOSCOPY 08/03/2020 COLONOSCOPY 07/13/2021 COLONOSCOPY 11/19/2024 Insurance Providers Payer Name Payer Address Payer Phone Subscriber Number Group Number Insured Name Patient Relationship to Insured Coverage Start Date Coverage End Date [facility] [address] [place], [place] [id number] ALEXSANDRA PINEDA Self - patient is the insured Medical (General) History Medical History History ICD Code Denies [place],DM,CVA,Lung disease,renal dise ase Hypertension Hyperlipidemia Neg. screening colon[place] [address] Mcpherson. Atrial flutter--sees Dr. Loyd 09/2020-Rectal cancer/malign ant rectal polyp--he underwent a screening colonoscopy with wa in September 2020 with the finding of [...]
== END ==
LOC: HO.CARD 14:34
PROVIDERS: PCP Physician Assistant Medical; Visit Provider Nurse Practitioner Family
DX: I48.0 Paroxysmal atrial fibrillation (principal)
CPT/HCPCS: 93242

== ENCOUNTER → 2025-04-01 14:37 | Outpatient (BNV) | payer MEDICARE, SELFPAY | PROVIDERS: PCP Physician Assistant Medical; Visit Provider Internal Medicine Cardiovascular Disease | DX: I49.1 Atrial premature depolarization (principal); I49.3 Ventricular premature depolarization | CPT/HCPCS: 93244 ==

== ENCOUNTER → 2025-04-06 14:47 | Outpatient (BNVA) | payer MEDICARE, SELFPAY | PROVIDERS: PCP Physician Assistant Medical; Visit Provider Urology | DX: N31.9 Neuromuscular dysfunction of bladder, unspecified (principal); R33.9 Retention of urine, unspecified | CPT/HCPCS: 51705 ==

== ENCOUNTER 2025-04-24 13:39 | Outpatient (AMB) | payer MEDICARE, SELFPAY ==
[2025-04-24 13:41] VITALS: BP 114/62; PULSE 70; BMI 30.8
--- NOTE | 2025-04-24 13:41 | MHC.OFFVIS ---
Vital Signs 04/24/25 13:41 Height 5 ft 7 in Weight 196 lb 10.437 oz BMI 30.8 BP 114/62 Blood Pressure Location Lt brachial Position Sitting Pulse 70 Pulse Source Pulse Oximeter Intake Visit Reasons: 6m follow up Cabinet Installer Required: No Floriculture Professor: Floriculture Professor Present Allergies No Known Allergies Allergy (Verified 04/24/25 13:44) Medication List - Last Reconciled 04/24/25 by Holli Mckenzie, HUMBERTO-C atorvastatin 20 mg PO DAILY digoxin 0.125 mg See Protocol PO DAILY 90 days donepezil 10 mg PO BEDTIME finasteride 5 mg PO DAILY 30 days lisinopril 40 mg PO DAILY metoprolol succinate ER 25 mg PO DAILY rivaroxaban (Xarelto) 20 mg PO QPM tamsulosin 0.4 mg PO DAILY 90 days HPI HPI 6m follow up: Details: Naresh is a 69-year-old male with past medical history of hypertension, paroxysmal a flutter/fibrillation who presents for follow-up. Today he reports he has been feeling well since his hospital discharge. He did have a suprapubic catheter placed in December with Dr. Cisneros. He has not had any recent cardiac concerns. He denies any heart palpitations, lightheadedness, presyncope, syncope, falls. No chest discomfort at rest or with activity. No shortness of breath, PND, orthopnea or edema. His daughter states he is forgetful and if he did have symptoms he may not remember them. No bleeding issues reported. Takes meds as directed with family support. [facility] Medical History Early onset Alzheimer dementia Urinary retention PAF (paroxysmal atrial fibrillation) Hx of flexible sigmoidoscopy Essential hypertension Perianal condylomata (~07/04/23) Rectal cancer Hypertension Increased BMI Elevated cholesterol Surgical History History of excision of lesion History of verrucae (wart) excision H/O colonoscopy Family History Father No problems noted. Mother No problems noted. Social History Household Members: Family Household Members Other:: son and daughter in law live upstairs Housing: Apartment Are you a primary healthcare prof to a significant other at home: No Do you presently have visiting nurse or other home services: No Alcohol intake: never Patient Tobacco Use Status: Former Tobacco user Tobacco use type: Cigarette Years Smoked: 25 +/- Second Hand Smoke Exposure: No Substance Use Type: Marijuana service: No Current occupational status: retired Review of Systems Const All systems reviewed & are unremarkable except as noted in HPI and below ENT Denies dizziness Card Denies chest pain, Denies chest pain at rest, Denies chest pain with activity, Denies rapid heart rate, Denies pedal edema, Denies edema, Denies leg edema, Denies lightheadedness, Denies palpitations, Denies dyspnea, Denies dyspnea on exertion and Denies orthopnea Resp Denies cough, Denies dyspnea and Denies dyspnea on exertion GI Denies hematochezia and Denies change in stool character Musc Denies abnormal gait, Denies limited range of motion, Denies muscle cramps, Denies muscle weakness, Denies numbness, Denies radiating pain into limb, Denies stiffness and Denies tingling Neuro Denies abnormal gait, Denies dizziness, Denies numbness and Denies tingling Endo Denies palpitations Physical Exam Vital Signs: Last Vital Signs Pulse 70 04/24/25 13:41 BP 114/62 04/24/25 13:41 BMI result Body Mass Index 30.8 Const General: cooperative, healthy appearing, comfortable and no acute distress Orientation/consciousness: patient oriented x3 Neck Neck: Yes normal visual inspection Resp Effort & Inspection: normal respiratory effort Auscultation: clear to auscultation bilaterally, no rales, no rhonchi and no wheezes Cardio Rate: regular rate Rhythm: regular rhythm Heart sounds: S1 normal heart sound present, S2 normal heart sound present, no gallops, no murmurs and no rubs Neuro General: patient oriented x3 Extrem General: Yes normal to inspection and No no pedal edema Psych Appearance: grossly normal Mental Status: mental status grossly normal Speech and movement: Normal speech and movement present Assessment & Plan Assessment & Plan (1) Paroxysmal atrial fibrillation: Code(s): I48.0 - Paroxysmal atrial fibrillation Category: Medical Plan: History of paroxysmal atrial flutter/fibrillation. He had been treated with rhythm control control and anticoagulation. Last EKG 10/31/2024 shows sinus rhythm, rate 70. Holter monitor done 04/01/2025 for 3 days shows sinus rhythm with average heart rate 58, 65% of time less than 60, frequent pauses, longest 2.8 seconds. He is currently on digoxin and metoprolol. Will have him stop digoxin. He is on Xarelto for anticoagulation. No bleeding issues reported. Cardiology follow-up 6 months, sooner if needed. (2) Essential hypertension: Code(s): I10 - Essential (primary) hypertension Category: Medical Plan: Blood pressure goal less than 130/80. Well controlled at this time. Labs 09/15/2024 shows potassium 4.1, creatinine 1.01. Continue metoprolol and lisinopril. 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 Labs 09/15/2024 shows hematocrit 35.8 Plan Time spent on chart review, documentation, interview and assessment Coding Level of Care Code Est Pt Level 4 (63563) Complex EM visit Add On G2211 Diagnoses Paroxysmal atrial fibrillation I48.0 Essential hypertension I10 Current use of anticoagulant therapy Z79.01 Time Spent (min) 32
--- OUTSIDE RECORDS SUMMARY | 2025-04-24 13:42 | XMS_ITS | Clinical Summary ---
Author Organization [facility] Address [address] [place] [phone] Phone Care Team Providers Care Therapeutic Assistant Name Role Phone Celestino Joshi MD Primary Care Provider Immunizations Immunization Administration Dates Next Due COVID-19 (Pre-07/30) Pfizer Vaccine, mRNA, PF 10/06/2021,10/19/2020,09/24/2020 Influenza Quadrivalent Preservative Free IM 06/10 Social History Tobacco Use Types Packs/Day Years Used Date Smoking Tobacco: Never Assessed Education Answer Date Recorded Are you interested in more education? Not on jose e 02/04/2023 Are you concerned about learning? Not on file 02/04/2023 No 02/04/2023 No 02/04/2023 Digital Access Answer Date Recorded No 03/04/2023 No 03/04/2023 No 03/04/2023 Reliable internet access at home? Not on file 03/04/2023 Device with a working camera? Not on file Sex and Gender Information Value Date Recorded Sex Assigned at Not on file Legal Sex Male 5:10 PM EST Gender Identity Not on file Sexual Orientation Not on file Plan of Treatment Health Maintenance Due Date Last Done Comments Adult Td,Tdap Booster 1956 LIPID PANEL 1956 DEPRESSION SCREENING 1968 SMOKING Hx and SMOKELESS TOBACCO SCREENING 1969 HEPATITIS C SCREENING 1974 COLOGUARD 2001 COLONOSCOPY 2001 COLORECTAL CANCER SCREENING 2001 FIT TEST 2001 FOBT 2001 SIGMOIDOSCOPY 2001 VIRTUAL COLONOSCOPY 2001 ZOSTER VACCINES (1 of 2) 2006 PNEUMOCOCCAL VACCINES (50+ years) (2 of 2 - PCV) 04/07/2020 04/07/2019 COVID-19 VACCINE (5 - 2023- season) 2024 10/06/2021, 04/25/2021, 10/19/2020, Additional history exists RSV VACCINE (1 - 1-dose 75+ series) 2031 HEPATITIS A VACCINES Aged Out No long er eligible based on patient's age to complete this topic HIB VACCINES Aged Out No longer eligi ble based on patient's age to complete this topic MENINGOCOCCAL VACCINES (ACWY) Aged Out No longer eligible based on patient's age to complete this topic MENINGOCOCCAL VACCINES (B) Aged Out N o longer eligible based on patient's age to complete this topic Medical Devices Not on file Insurance [facility] [place] [id number] [facility] [employer] [facility] [employer] [facility] [employer] [facility] [employer] FAMILY [facility] [employer] EMPLOYEES FAMILY EMPLOYEES FAMILY [facility] [employer] FAMILY Care Teams Therapeutic Assistant Relationship Specialty Start Date End Date Celestino Joshi MD [address] [place] [address] [place] [address] PCP - General Internal Medicine 07/29/20 Additional Source Comments The information contained in this document represents components of the legal health record. It is not the complete legal health record.[facility]
--- OUTSIDE RECORDS SUMMARY | 2025-04-24 13:42 | XMS_ITS | Patient Health Record ---
Author Organization [facility] Address [address] [place] [address] Care Team Providers Care Career Coordinator Name Role Phone Phong Pollock Primary Care Provider Lewis bartlett Jason Gayle Sarah [phone] Allergies No Known Allergies Results Component Value Reference Range Notes Pathology (Not yet reviewed by provider) Interpretation: Performing Lab:[facility], [address] [place] [phone] Notes/Report: Reason For Referral No Information Medications [...] Problem Screening for malignant neoplasm of colon (215530735) Encounter for screening for malignant neoplasm of colon (Z12.11) Active confirmed Problem Preprocedural examination (552709591008150) Preprocedural examination (Z01.818) Active confirmed Problem 830765204 Hx of adenomatou s colonic polyps (Z86.010) Active confirmed Problem History of malignant neoplasm of rectum (703440308) History of rectal cancer (Z85.048) Active confirmed Problem Malignant tumor of rectum (917511367) Rectal adenocarcinoma (C20) Active confirmed Problem Diverticulosis of colon (159109048) Diverticulosis of colon (K57.30) Active confirmed Problem 300302807 Rectal cancer (C20) Active confirmed Vital Signs Temperature 98.4 degrees Fahrenheit 11/19/2024 Blood pressure diastolic 01 mm Hg 11/19/2024 Height 67 in 11/19/2024 Blood pressure systolic 001 mm Hg 11/19/2024 Weight 210.6 lbs 11/19/2024 BMI 32.98 kg/m2 11/19/2024 Encounters Encounter Location Date Provider Diagnosis [facility] [place] [address] [place] [phone] 03/06/2025 Jason Gayle Colon cancer screeni ng Z12.11 ; History of rectal cancer Z85.048 ; Diverticulosis of large intestine without perforation or abscess without bleeding K57.30 and Anogenital (venereal) warts A63.[address] [facility] [address] [place] [phone] 11/19/2024 Jason Gayle Encounter for screen ing for malignant neoplasm of colon Z12.11 ; Rectal adenocarcinoma C20 ; Hx of adenomatous colonic polyps Z86.010 and History of rectal cancer Z85.[address] [facility] [address] [place] [phone] 11/19/2024 Jason Gayle Assessments Encounter Date Diagnosis [...] Insured Coverage Start Date Coverage End Date [facility] [address] [place], [place] [id number] ALEXSANDRA PINEDA Self - patient is the insured Medical (General) History Medical History History ICD Code Denies [place],DM,CVA,Lung disease,renal dise ase Hypertension Hyperlipidemia Neg. screening colon[place] [address] Mcpherson. Atrial flutter--sees Dr. Loyd 09/2020-Rectal cancer/malign ant rectal polyp--he underwent a screening colonoscopy with co in September 2020 with the finding of [...]
== END 2025-04-24 14:18 | disposition home or self-care (01) ==
LOC: HO.HCS 13:39
PROVIDERS: PCP Physician Assistant Medical; Visit Provider Nurse Practitioner Family
DX: I48.0 Paroxysmal atrial fibrillation (principal); I10 Essential (primary) hypertension; Z79.01 Long term (current) use of anticoagulants
CPT/HCPCS: 99214; G2211

== ENCOUNTER → 2025-04-24 13:39 | Outpatient (BNVA) | payer MEDICARE, SELFPAY | PROVIDERS: PCP Physician Assistant Medical; Visit Provider Nurse Practitioner Family | DX: I10 Essential (primary) hypertension (principal); I48.0 Paroxysmal atrial fibrillation; Z79.01 Long term (current) use of anticoagulants | CPT/HCPCS: 99212 ==

== ENCOUNTER → 2025-05-08 08:40 | Outpatient (BNVA) | payer MEDICARE, SELFPAY | PROVIDERS: PCP Physician Assistant Medical; Visit Provider Urology | DX: Z46.6 Encounter for fitting and adjustment of urinary device (principal); N31.9 Neuromuscular dysfunction of bladder, unspecified; R33.9 Retention of urine, unspecified | CPT/HCPCS: 51705 ==

== ENCOUNTER → 2025-06-05 14:48 | Outpatient (BNVA) | payer MEDICARE, SELFPAY | PROVIDERS: PCP Physician Assistant Medical; Visit Provider Urology | DX: Z46.6 Encounter for fitting and adjustment of urinary device (principal); N31.9 Neuromuscular dysfunction of bladder, unspecified; R33.9 Retention of urine, unspecified | CPT/HCPCS: 51705 ==

== ENCOUNTER → 2025-06-29 11:31 | Outpatient (BNVA) | payer MEDICARE, SELFPAY | PROVIDERS: PCP Physician Assistant Medical; Visit Provider Urology | DX: Z46.6 Encounter for fitting and adjustment of urinary device (principal); R33.9 Retention of urine, unspecified; N31.9 Neuromuscular dysfunction of bladder, unspecified | CPT/HCPCS: 51705 ==

== ENCOUNTER → 2025-07-27 08:30 | Outpatient (BNVA) | payer MEDICARE, SELFPAY | PROVIDERS: PCP Physician Assistant Medical; Visit Provider Urology | DX: Z46.6 Encounter for fitting and adjustment of urinary device (principal); R33.9 Retention of urine, unspecified; N31.9 Neuromuscular dysfunction of bladder, unspecified | CPT/HCPCS: 51705 ==

== ENCOUNTER 2025-08-14 15:03 | Outpatient (AMB) | payer MEDICARE, SELFPAY ==
--- NOTE | 2025-08-14 15:25 | MHC.OFFVIS ---
Intake Visit Reasons: 6M follow up Intake Note: Patient is Present for Follow Up Urology Medication: Finasteride, Tamsulosin Antibiotic Allergies: None Blood Thinners: Xarelto Allergies No Known Allergies Allergy (Verified 04/24/25 13:44) HPI Comments Details: Naresh is a pleasant male. He is seen for the following urologic conditions - urinary retention - neurogenic bladder Six-month follow-up Continues with suprapubic tube Changed monthly May stop finasteride and tamsulosin Neurogenic bladder Seen in hospital with 2 L bladder attention Creatinine up to 25 CT scan showed enlarged prostate SPT 12/30 PFS Medical History Early onset Alzheimer dementia Urinary retention PAF (paroxysmal atrial fibrillation) Hx of flexible sigmoidoscopy Essential hypertension Perianal condylomata (~07/04/23) Rectal cancer Hypertension Increased BMI Elevated cholesterol Surgical History History of excision of lesion History of verrucae (wart) excision H/O colonoscopy Family History Father No problems noted. Mother No problems noted. Social History Household Members: Family Household Members Other:: son and daughter in law live upstairs Housing: Apartment Are you a primary nonfarm animal caretaker to a significant other at home: No Do you presently have visiting nurse or other home services: No Alcohol intake: never Patient Tobacco Use Status: Former Tobacco user Tobacco use type: Cigarette Years Smoked: 25 +/- Second Hand Smoke Exposure: No Substance Use Type: Marijuana service: No Current occupational status: retired Assessment & Plan Assessment & Plan (1) Hypotonic neurogenic bladder: Code(s): N31.9 - Neuromuscular dysfunction of bladder, unspecified Category: Medical (2) Urinary retention: Code(s): R33.9 - Retention of urine, unspecified Category: Medical Plan Six-month follow-up Patient Instructions: This note is constructed using voice recognition software. While every effort has been made to ensure accuracy otr tanker truck driver errors may have been included. Imaging studies, laboratory and physical exam results were discussed and reviewed in detail. No major barriers to patient understanding were identified. An opportunity to ask questions regarding the treatment plan was provided. All questions were answered. The patient expressed understanding and agreement with the above treatment plan. The patient is aware they should contact our office by phone for worsening of their current condition or the appearance of new urologic symptoms. Compliance is encouraged with any medications and followup testing that is ordered. It is a privilege to participate in the urologic care of your patient. If you have any questions or concerns regarding treatment for the above conditions, or other urologic issues, please do not hesitate to contact me. The office telephone contact is [phone]. Sincerely, Dr Aaron Cisneros MD, [facility] - Urology Compassionate Specialist Care for the Genitourinary System Coding Level of Care Code Est Pt Level 3 (44703) Complex EM visit Add On G2211 Diagnoses Hypotonic neurogenic bladder N31.9 Urinary retention R33.9
--- OUTSIDE RECORDS SUMMARY | 2025-08-14 16:19 | XMS_ITS | Clinical Summary ---
Author Organization [facility] Address [address] [place] [phone] Phone Care Team Providers Care Bank Reconciliator Name Role Phone Celestino Joshi MD Primary [...] (2 of 2 - PCV) 04/07/2020 04/07/2019 INFLUENZA VACCINE (#1) 2025 , 07/22/2019, 07/22/2018, Additional history exists COVID-19 VACCINE ( season) 2025 10/06/2021, 04/25/2021, 10/19/2020, Additional history exists RSV [...] topic Medical Devices Not on file Insurance [facility] [place] [id number] [facility] [employer] [address] [place] [address] EMPLOYEES FAMILY [facility] [employer] [facility] [employer] [place] [address] [address] [place] [address] EMPLOYEES FAMILY [facility] [employer] FAMILY [address] [place] [address] [facility] [employer] FAMILY Care Teams Bank Reconciliator Relationship Specialty Start Date End Date Celestino Joshi MD [address] [place] [address] [place] [address] [place] [address] PCP - General Internal Medicine 07/29/20 Additional Source Comments The information contained in this document represents components of the legal health record. It is not the complete legal health record.[facility]
== END 2025-08-14 16:13 | disposition home or self-care (01) ==
LOC: HO.HUSH 15:04
PROVIDERS: PCP Physician Assistant Medical; Visit Provider Urology
DX: N31.9 Neuromuscular dysfunction of bladder, unspecified (principal); R33.9 Retention of urine, unspecified
CPT/HCPCS: 99213; G2211

== ENCOUNTER → 2025-08-14 15:03 | Outpatient (BNVA) | payer MEDICARE, SELFPAY | PROVIDERS: PCP Physician Assistant Medical; Visit Provider Urology | DX: N31.9 Neuromuscular dysfunction of bladder, unspecified (principal); R33.9 Retention of urine, unspecified | CPT/HCPCS: 99212 ==

== ENCOUNTER → 2025-08-24 08:33 | Outpatient (BNVA) | payer MEDICARE, SELFPAY | PROVIDERS: PCP Physician Assistant Medical; Visit Provider Urology | DX: Z46.6 Encounter for fitting and adjustment of urinary device (principal); N31.9 Neuromuscular dysfunction of bladder, unspecified; R33.9 Retention of urine, unspecified; Z93.50 Unspecified cystostomy status | CPT/HCPCS: 51705 ==

== ENCOUNTER → 2025-09-21 14:59 | Outpatient (BNVA) | payer MEDICARE, SELFPAY | PROVIDERS: PCP Physician Assistant Medical; Visit Provider Urology | DX: N31.9 Neuromuscular dysfunction of bladder, unspecified (principal) | CPT/HCPCS: 51705 ==